=== PATIENT | female | born 1945 | race Caucasian/White ===

== ENCOUNTER 2016-11-11 10:37 | Inpatient (IN) ==
--- NOTE | 2016-11-11 11:10 | Emergency Department Note ---
Disposition Clinical Impression: Elevated troponin UTI (urinary tract infection) Qualifiers: Urinary tract infection type: site unspecified Hematuria presence: without hematuria Qualified Code(s): N39.0 - Urinary tract infection, site not specified Acute on chronic renal failure Qualifiers: Acute renal failure type: unspecified Chronic kidney disease stage: unspecified stage Qualified Code(s): N17.9 - Acute kidney failure, unspecified; N18.9 - Chronic kidney disease, unspecified Disposition: Admitted As Inpatient Condition: Fair Referrals: NONE,PCP [Primary Care Provider] - Forms: Work/School Release, ED Satisfaction Letter Time of Disposition: 13:34 Altered Mental Status HPI - General Chief Complaint: ED Altered Mental Status Stated Complaint: AMS, Missed dialysis, ELENI, Black stools Time Seen by Provider: 11/11/16 10:43 Source: EMS Limitations: altered mental status Nursing Notes Reviewed: Yes Vital Signs Reviewed: Yes - History of Present Illness HPI Narrative: 71 year old female with altered mental status presents via EMS. EMS states that she has missed her dialysis on Thursday and has been decompensating since then and is having incresed abdominal pain and states that there is pain with uriation. She is otherwise altered, can answer yes or no questions and it rolled to her right side. She is a poor historian and cannot offer any other information. She states her nephrolgoist is Dr. Loaiza and that she still does make urine. - Related Data Home Medications Medication Instructions Recorded Confirmed Gabapentin [Neurontin] 300 mg PO BID 11/17/14 11/11/16 Insulin ASPART [NovoLOG] 10 unit SQ TID MDD per sliding 11/17/14 11/11/16 scale Insulin DETEMIR [Levemir] 30 unit SQ BID 11/17/14 11/11/16 Loperamide HCl [Loperamide] 2 mg PO DAILY PRN 07/20/15 11/11/16 Ergocalciferol (VITAMIN D2) 50,000 unit PO MO 11/28/15 11/11/16 [Vitamin D2 (50,000 UNIT)] Paroxetine [Paxil] 20 mg PO DAILY 02/12/16 11/11/16 Clopidogrel [Plavix] 75 mg PO DAILY 04/03/16 11/11/16 Levothyroxine [Synthroid] 175 mcg PO 0630 04/03/16 11/11/16 Lisinopril [Zestril] 20 mg PO DAILY 04/03/16 11/11/16 HYDROcodone/Acet 7.5/325 mg [[place] 1 tab PO Q6H PRN 07/14/16 11/11/16 7.5-325 mg] Calcitriol [Rocaltrol] 0.25 mcg PO MOWEFR 11/11/16 11/11/16 Iron Polysaccharide Complex [Pro 180 mg PO DAILY 11/11/16 11/11/16 Fe] Allergies Allergy/AdvReac Type Severity Reaction Status Date / Time Wruvonu-Xmj-Lct Reductase Allergy See Verified 07/14/16 13:48 Inhibitor Comments [Statins] Sulfa (Sulfonamide Allergy swelling Verified 07/14/16 11:56 Antibiotics) Constitutional: Reports: weakness. Denies: fever, chills, weight change Eyes: Denies: eye pain, eye discharge, vision change ENT ED: Denies: ear pain, throat pain, dental pain, hearing loss, epistaxis, congestion, dysphagia Cardiovascular: Denies: chest pain, palpitations, dyspnea on exertion, edema, syncope Respiratory: Denies: cough, dyspnea, wheezes, hemoptysis, stridor Gastrointestinal: Denies: abdominal pain, vomiting, diarrhea, constipation, hematemesis, melena, hematochezia Genitourinary: Reports: dysuria. Denies: frequency, hematuria, discharge Musculoskeletal: Denies: back pain, neck pain, arthralgia, myalgia Integumentary: Denies: rash, abrasion, lesions Neurological: Denies: headache, weakness, numbness, paresthesias, confusion, abnormal gait, vertigo Psychiatric: Denies: anxiety, depression, suicidal thoughts, homicidal thoughts , auditory hallucinations, visual hallucinations Endocrine: Denies: fatigue Hematological/Lymphatic: Denies: easy bleeding, easy bruising Allergic/Immunologic: Denies: facial swelling, urticaria Past Medical History - Past Medical History Medical history: Reports: atrial fibrillation, CHF, COPD, diabetes, GERD, hyperlipidemia, hypertension, kidney stones, renal disease, thyroid disease, syncope Surgical history: Reports: appendectomy, carotid endarterectomy, cholecystectomy , hysterectomy, knee replacement, ALEC/BSO, other Psychiatric history: Reports: depression - Social History Smoking Status: Unknown if ever smoked Smokeless Tobacco Status: No Alcohol use: Reports: none Drug use: Reports: none Physical Exam foul/urine smell - General Limitations: altered mental status General appearance: alert - Head Head exam: atraumatic, normocephalic, normal inspection - Eye Eye exam: Present: normal appearance, PERRL, EOMI - Expanded Eye Exam Pupils: Left: reactive - ENT ENT exam: normal exam, normal oropharynx, mucous membranes moist - Expanded ENT Exam External ear exam: Present: normal external inspection Mouth exam: Present: normal external inspection Teeth exam: Present: normal inspection Throat exam: Present: normal inspection - Neck Neck exam: Present: normal inspection, full ROM, trachea midline - Chest Chest inspection: Present: normal inspection, symmetric chest wall rise - Respiratory Respiratory exam: Present: normal lung sounds bilaterally - Cardiovascular Cardiovascular exam: Present: regular rate, normal rhythm, normal heart sounds - Abdominal Exam Abdominal exam: Present: soft, tenderness, normal bowel sounds. Absent: Non- Tender, distention, guarding, rebound, rigidity, Hernadez's sign, Rovsing's sign, tenderness at McBurney's Point Abdominal tenderness: Present: diffuse, mild - Extremities Exam Extremities exam: Present: normal inspection, full ROM. Absent: tenderness, pedal edema - Expanded Upper Extremity Exam Shoulder exam: Present: normal inspection, full ROM Arm exam: Present: normal inspection, full ROM Elbow exam: Present: normal inspection, full ROM Forearm/Wrist exam: Present: normal inspection, full ROM Hand exam: Present: normal inspection, full ROM Vascular exam: Normal: capillary refill, radial pulse - Expanded Lower Extremity Exam Hip/Pelvis exam: Present: normal inspection, full ROM Upper leg exam: Present: normal inspection, full ROM Knee exam: Present: normal inspection, full ROM Lower leg exam: Present: normal inspection, full ROM Ankle exam: Present: normal inspection, full ROM Foot/toe exam: Present: normal inspection, full ROM Neurovascular/Tendon exam: Absent: motor deficit, sensory deficit, tendon deficit - Back Exam Back exam: Present: normal inspection, full ROM. Absent: tenderness - Neurological Exam Neurological exam: Present: alert - Expanded Neurological Exam Speech: Present: fluid speech Cranial nerves: EOM function (II, III, IV, ): Normal, facial palsy (VII): Normal, gag reflex (IX): Normal, tongue deviation (XII): Normal Motor strength - LUE: 4/5 Motor strength - RUE: 4/5 Motor strength - LLE: 4/5 Motor strength - RLE: 4/5 Coma Scale Eye Opening: Spontaneous Coma Scale Motor Response: Obeys Commands Coma Scale Verbal Response: Confused Coma Scale Total: 14 - Psychiatric Psychiatric exam: Present: normal affect, normal mood - Skin Skin exam: Present: warm, dry, intact, normal color Course Course Narrative: we will do altered mental status workup and likelyl admit to medicine, she will need dialysis. - Consultations Consultation #1: discussed case Dr. Oconnor and he has accepted saige ot his resident service. Lianetnet and family are agreeable with plan. Time: 12:55 Vital Signs Temperature 99 F 11/11/16 10:39 Pulse Rate 74 11/11/16 10:39 Respiratory Rate 20 11/11/16 10:39 Blood Pressure 108/51 11/11/16 10:39 O2 Sat by Pulse Oximetry 97 11/11/16 10:39 Temperature 99.6 F 11/11/16 13:27 Pulse Rate 81 11/11/16 13:27 Respiratory Rate 18 11/11/16 13:27 Blood Pressure 132/43 11/11/16 13:27 O2 Sat by Pulse Oximetry 99 11/11/16 13:27 Oxygen Delivery Oxygen Delivery Nasal Cannula Altered Mental Status - Medical Records Medical records reviewed: Yes I reviewed the patient's medical records. - Lab Data Lab results reviewed: Yes I reviewed the patient's lab results. Result diagrams: 11/11/16 11:04 11/11/16 11:00 Lab Results 11/11/16 11/11/16 11/11/16 Range/Units 11:00 11:00 11:00 WBC (4.3-11.1) K/mcL RBC (3.82-4.97) M/mcL Hgb (11.5-15.4) g/dL Hct (35.3-44.9) % MCV (83.0-100.0) fL MCH (28.0-33.3) pg MCHC (31.6-35.5) g/dL RDW (11.5-14.5) % Plt Count (140-400) K/mcL MPV (9.4-12.4) fL Seg Neutrophils % % Band Neutrophils % (0-4) % Lymphocytes % % Monocytes % % Basophils % % Neutrophils # (1.6-8.9) K/mcL Lymphocytes # (0.6-4.6) K/mcL Monocytes # (0.0-1.3) K/mcL Basophils # (0.0-0.2) K/mcL Platelet Estimate (Normal) PT 12.9 H (9.4-12.1) Seconds INR 1.2 APTT 30.8 (26.0-36.0) Seconds Sodium 140 (136-145) mEq/L Potassium 4.5 (3.5-4.5) mEq/L Chloride 111 H (98-109) mEq/L Carbon Dioxide 15 L (19-29) mEq/L BUN 100 H (7-20) mg/dL Creatinine 7.69 H (0.57-1.11) mg/dL Est GFR ( Amer) 6 L (> 60) Est GFR (Non-Af Amer) 5 L (> 60) BUN/Creatinine Ratio 13 (6-26) Glucose 92 (70-99) mg/dL Calculated Osmolality 321 H (280-300) Lactic Acid 0.8 (0.5-2.2) mmol/L Calcium 8.5 L (8.6-10.8) mg/dL Total Bilirubin 0.7 (0.2-1.2) mg/dL Direct Bilirubin 0.3 (0.0-0.5) mg/dL Indirect Bilirubin 0.4 (0.0-1.2) mg/dL AST 14 (5-34) Units/L ALT < 6 (0-55) Units/L Alkaline Phosphatase 84 (38-126) Units/L Ammonia (18-72) mcmol/L Troponin I (0-0.03) ng/mL Serum Total Protein 6.1 (6.0-8.3) g/dL Albumin 2.3 L (3.5-5.0) g/dL Globulin 3.8 H (2.4-3.5) g/dL Albumin/Globulin Ratio 0.6 L (1.1-2.2) Ur Specimen Adequacy Urine Color (Yellow) Urine Clarity (Clear) Urine pH (5.0-8.0) pH Units Ur Specific [place] (1.010-1.025) Urine Protein (Neg-Trace) mg/dL Urine Glucose (UA) (Normal) mg/dL Urine Ketones (Negative) mg/dL Urine Blood (Negative) Urine Nitrite (Negative) Urine Bilirubin (Negative) Urine Urobilinogen (Normal) mg/dL Ur Leukocyte Esterase (Negative) Ur Culture Indicated? (NO) Urine Opiates Screen (Wlikch=678) ng/mL Ur Barbiturates Screen (Tyjaqh=384) ng/mL Ur Phencyclidine Scrn (Cutoff=25) ng/mL Ur Amphetamines Screen (Qqwmkf=7665) ng/mL U Benzodiazepines Scrn (Vtbknu=333) ng/mL Urine Cocaine Screen (Cutoff= 300) ng/mL U Marijuana (THC) Screen (Cutoff = 50) ng/mL Ethyl Alcohol < 10 (0-10) mg/dL Blood Type Antibody Screen Crossmatch 11/11/16 11/11/16 11/11/16 Range/Units 11:00 11:00 11:00 WBC (4.3-11.1) K/mcL RBC (3.82-4.97) M/mcL Hgb (11.5-15.4) g/dL Hct (35.3-44.9) % MCV (83.0-100.0) fL MCH (28.0-33.3) pg MCHC (31.6-35.5) g/dL RDW (11.5-14.5) % Plt Count (140-400) K/mcL MPV (9.4-12.4) fL Seg Neutrophils % % Band Neutrophils % (0-4) % Lymphocytes % % Monocytes % % Basophils % % Neutrophils # (1.6-8.9) K/mcL Lymphocytes # (0.6-4.6) K/mcL Monocytes # (0.0-1.3) K/mcL Basophils # (0.0-0.2) K/mcL Platelet Estimate (Normal) PT (9.4-12.1) Seconds INR APTT (26.0-36.0) Seconds Sodium (136-145) mEq/L Potassium (3.5-4.5) mEq/L Chloride (98-109) mEq/L Carbon Dioxide (19-29) mEq/L BUN (7-20) mg/dL Creatinine (0.57-1.11) mg/dL Est GFR ( Amer) (> 60) Est GFR (Non-Af Amer) (> 60) BUN/Creatinine Ratio (6-26) Glucose (70-99) mg/dL Calculated Osmolality (280-300) Lactic Acid (0.5-2.2) mmol/L Calcium (8.6-10.8) mg/dL Total Bilirubin (0.2-1.2) mg/dL Direct Bilirubin (0.0-0.5) mg/dL Indirect Bilirubin (0.0-1.2) mg/dL AST (5-34) Units/L ALT (0-55) Units/L Alkaline Phosphatase (38-126) Units/L Ammonia 16 L (18-72) mcmol/L Troponin I 0.70 H* (0-0.03) ng/mL Serum Total Protein (6.0-8.3) g/dL Albumin (3.5-5.0) g/dL Globulin (2.4-3.5) g/dL Albumin/Globulin Ratio (1.1-2.2) Ur Specimen Adequacy Urine Color (Yellow) Urine Clarity (Clear) Urine pH (5.0-8.0) pH Units Ur Specific [place] (1.010-1.025) Urine Protein (Neg-Trace) mg/dL Urine Glucose (UA) (Normal) mg/dL Urine Ketones (Negative) mg/dL Urine Blood (Negative) Urine Nitrite (Negative) Urine Bilirubin (Negative) Urine Urobilinogen (Normal) mg/dL Ur Leukocyte Esterase (Negative) Ur Culture Indicated? (NO) Urine Opiates Screen (Luveyk=684) ng/mL Ur Barbiturates Screen (Dzrjtn=673) ng/mL Ur Phencyclidine Scrn (Cutoff=25) ng/mL Ur Amphetamines Screen (Blspbf=0608) ng/mL U Benzodiazepines Scrn (Xavlaw=583) ng/mL Urine Cocaine Screen (Cutoff= 300) ng/mL U Marijuana (THC) Screen (Cutoff = 50) ng/mL Ethyl Alcohol (0-10) mg/dL Blood Type A POSITIVE Antibody Screen NEGATIVE Crossmatch See Detail 11/11/16 11/11/16 11/11/16 Range/Units 11:04 11:31 11:31 WBC 9.7 (4.3-11.1) K/mcL RBC 2.25 L (3.82-4.97) M/mcL Hgb 7.1 L (11.5-15.4) g/dL Hct 22.3 L (35.3-44.9) % MCV 99.1 (83.0-100.0) fL MCH 31.6 (28.0-33.3) pg MCHC 31.8 (31.6-35.5) g/dL RDW 14.2 (11.5-14.5) % Plt Count 105 L (140-400) K/mcL MPV 11.0 (9.4-12.4) fL Seg Neutrophils % 84.0 % Band Neutrophils % 4.0 (0-4) % Lymphocytes % 4.0 % Monocytes % 6.0 % Basophils % 2.0 % Neutrophils # 8.5 (1.6-8.9) K/mcL Lymphocytes # 0.4 L (0.6-4.6) K/mcL Monocytes # 0.6 (0.0-1.3) K/mcL Basophils # 0.2 (0.0-0.2) K/mcL Platelet Estimate Slight Decrease L (Normal) PT (9.4-12.1) Seconds INR APTT (26.0-36.0) Seconds Sodium (136-145) mEq/L Potassium (3.5-4.5) mEq/L Chloride (98-109) mEq/L Carbon Dioxide (19-29) mEq/L BUN (7-20) mg/dL Creatinine (0.57-1.11) mg/dL Est GFR ( Amer) (> 60) Est GFR (Non-Af Amer) (> 60) BUN/Creatinine Ratio (6-26) Glucose (70-99) mg/dL Calculated Osmolality (280-300) Lactic Acid (0.5-2.2) mmol/L Calcium (8.6-10.8) mg/dL Total Bilirubin (0.2-1.2) mg/dL Direct Bilirubin (0.0-0.5) mg/dL Indirect Bilirubin (0.0-1.2) mg/dL AST (5-34) Units/L ALT (0-55) Units/L Alkaline Phosphatase (38-126) Units/L Ammonia (18-72) mcmol/L Troponin I (0-0.03) ng/mL Serum Total Protein (6.0-8.3) g/dL Albumin (3.5-5.0) g/dL Globulin (2.4-3.5) g/dL Albumin/Globulin Ratio (1.1-2.2) Ur Specimen Adequacy Urine Color Red A (Yellow) Urine Clarity Cloudy A (Clear) Urine pH 5.5 (5.0-8.0) pH Units Ur Specific [place] 1.019 (1.010-1.025) Urine Protein >=300 H (Neg-Trace) mg/dL Urine Glucose (UA) 250 H (Normal) mg/dL Urine Ketones Trace H (Negative) mg/dL Urine Blood Large H (Negative) Urine Nitrite Positive A (Negative) Urine Bilirubin Moderate H (Negative) Urine Urobilinogen Normal (Normal) mg/dL Ur Leukocyte Esterase Large H (Negative) Ur Culture Indicated? YES A (NO) Urine Opiates Screen Negative (Uewtge=840) ng/mL Ur Barbiturates Screen Negative (Fueahy=980) ng/mL Ur Phencyclidine Scrn Negative (Cutoff=25) ng/mL Ur Amphetamines Screen Negative (Sayuih=6204) ng/mL U Benzodiazepines Scrn Negative (Tbokcq=076) ng/mL Urine Cocaine Screen Negative (Cutoff= 300) ng/mL U Marijuana (THC) Screen Negative (Cutoff = 50) ng/mL Ethyl Alcohol (0-10) mg/dL Blood Type Antibody Screen Crossmatch - Radiology Data Radiology results reviewed: Yes I reviewed the patient's radiology results. - EKG Data EKG attestation: Yes I reviewed and interpreted this EKG. EKG results narrative: NSR with occassional PVCs with a rate of 76. NO STEMI. nonspecitive ST-T wav abonorliaties. no change from 09/16/16. 1057 TPA Checklist - LKW: 3-4.5 hrs Add. Warnings/Precautions Patient/family understanding: The patient/family members have been counseled and understood the risk, benefit , and alternatives of treatment. Critical Care Time Critical Care Time: Yes Total Critical Care Time: 32 Attestation: The high probability of a clinically significant, sudden or life threatening deterioration of the renal, cardiopulmonary system(s) required my full and direct attention, intervention and personal management. The aggregate critical care time was [32] minutes. This time is in addition to time spent performing reported procedures but includes the following: [x] Data Review and interpretation [x] Patient assessment and monitoring of vital signs [x] Documentation [x] Medication orders and management
[2016-11-11 11:15] LABS: Hematocrit 22.3 % (35.3-44.9); Mean Corpuscular HGB Conc 31.8 g/dL (31.6-35.5); Mean Corpuscular Hemoglobin 31.6 pg (28.0-33.3); Mean Corpuscular Volume 99.1 fL (83.0-100.0); Platelet Count 105 K/mcL (140-400); Red Blood Count 2.25 M/mcL (3.82-4.97); Red Cell Distribution Width 14.2 % (11.5-14.5)
[2016-11-11 11:18] LABS: Hemoglobin 7.1 g/dL (11.5-15.4)
[2016-11-11 11:20] LABS: INR 1.2; Prothrombin Time 12.9 Seconds (9.4-12.1)
[2016-11-11 11:22] LABS: Activated Partial Thrombo Time 30.8 Seconds (26.0-36.0)
[2016-11-11 11:32] LABS: Albumin 2.3 g/dL (3.5-5.0); Albumin/Globulin Ratio 0.6 (1.1-2.2); Alkaline Phosphatase 84 Units/L (38-126); Aspartate Amino Transferase 14 Units/L (5-34); BUN/Creatinine Ratio 13 (6-26); Bilirubin,Direct 0.3 mg/dL (0.0-0.5); Bilirubin,Indirect 0.4 mg/dL (0.0-1.2); Bilirubin,Total 0.7 mg/dL (0.2-1.2); Blood Urea Nitrogen 100 mg/dL (7-20); Calcium 8.5 mg/dL (8.6-10.8); Carbon Dioxide 15 mEq/L (19-29); Chloride 111 mEq/L (98-109); Globulin 3.8 g/dL (2.4-3.5); Glucose 92 mg/dL (70-99); Osmolality,Calculated 321 (280-300); Potassium 4.5 mEq/L (3.5-4.5); Sodium 140 mEq/L (136-145); Total Protein 6.1 g/dL (6.0-8.3); eGFR For African Americans 6 (> 60); eGFR For Non-African Americans 5 (> 60)
[2016-11-11 11:34] LABS: Alanine Aminotransferase < 6 Units/L (0-55); Ethanol < 10 mg/dL (0-10)
[2016-11-11 11:44] LABS: Basophils # 0.2 K/mcL (0.0-0.2); Lymphocytes # 0.4 K/mcL (0.6-4.6); Monocytes # 0.6 K/mcL (0.0-1.3); Neutrophils # 8.5 K/mcL (1.6-8.9); Platelet Estimate Slight Decrease (Normal)
[2016-11-11 11:59] LABS: Bilirubin,Urine Moderate (Negative); Blood,Urine Large (Negative); Clarity,Urine Cloudy (Clear); Color,Urine Red (Yellow); Glucose,Urine (UA) 250 mg/dL (Normal); Ketones,Urine Trace mg/dL (Negative); Leukocyte Esterase,Urine Large (Negative); Nitrite,Urine Positive (Negative); PH,Urine 5.5 pH Units (5.0-8.0); Protein,Urine >=300 mg/dL (Neg-Trace); Specific Gravity,Urine 1.019 (1.010-1.025); Urobilinogen,Urine Normal (Normal)
[2016-11-11] MEDS ORDERED: 0.9 % Sodium Chloride 250 ML ONE ×2 (12:34→17:13)
[2016-11-11 12:38] LABS: Amphetamine Screen,Urine Negative ng/mL (Cutoff=1000); Barbiturate Screen,Urine Negative ng/mL (Cutoff=200); Benzodiazepines Screen,Urine Negative ng/mL (Cutoff=200); Cannabinoid Screen,Urine Negative ng/mL (Cutoff = 50); Cocaine Screen,Urine Negative ng/mL (Cutoff= 300); Opiate Screen,Urine Negative ng/mL (Cutoff=300); Phencyclidine Screen,Urine Negative ng/mL (Cutoff=25)
--- NOTE | 2016-11-11 14:00 | Nephrology Consult Note ---
Date of Encounter: 11/11/16 Time of Encounter: 13:57 Assessment and Plan (1) ESRD on hemodialysis Current Visit: No Status: Acute Urgent dialysis today If unable to use access will need a temp line placed Plan for HD again tomorrow Renal diet Strict I/Os Avoid nephrotoxins if possible (2) Altered mental status Current Visit: Yes Status: Acute see above Hopefully mental state with improve with dialysis Qualifiers: Altered mental status type: somnolence Qualified Code(s): R40.0 - Somnolence (3) Diarrhea Current Visit: Yes Status: Acute per primary team Consider GI consult Qualifiers: Diarrhea type: unspecified type Qualified Code(s): R19.7 - Diarrhea, unspecified History of Present Illness - Reason for Consult Consult date: 11/11/16 - Chief Complaint AMS, ESRD on dialysis - History of Present Illness Dai Bernal is a 71 year old female well known to our practice with a PMH of depression, atrial fibrillation, CHF, COPD, diabetes, GERD, hyperlipidemia, hypertension, kidney stones, renal disease, thyroid disease, and syncope. Patient often misses dialysis treatments and her last HD tx was on 11/03/16. Patient will not answer questions or open her eyes. Family states she has had freq black watery diarrhea but does not believe she has seen a GI doctor for this. Also some question re: whether or not her access is working. Nephrology has been consulted to manage her HD. Past Med Surg Social Fam HX - Past Medical History Medical history: atrial fibrillation, CHF, COPD, diabetes, GERD, hyperlipidemia , hypertension, kidney stones, renal disease, thyroid disease, syncope Psychiatric history: depression - Past Surgical History Surgical History: appendectomy, carotid endarterectomy, cholecystectomy, hysterectomy, knee replacement, ALEC/BSO, other - Social History Smoking Status: Unknown if ever smoked Smokeless Tobacco Status: No Alcohol use: none Drug use: none - Family History Father Family Member Ethnicity: Non- Living Status: Hx Family Cardiac Disorders: Yes Hx Family Respiratory Disorders: No Hx Family Cancer: No Hx Family GI Disorders: No Hx Family Endocrine Disorder: No Hx Family Neuromuscular Disorders: No Hx Family Neurologic Disorders: No Hx Family HEENT Disorders: No Hx Family Autoimmune Disorders: No Medications and Allergies Gabapentin [Neurontin] 300 mg PO BID 11/17/14 [History] Insulin ASPART [NovoLOG] 10 unit SQ TID MDD per sliding scale 11/17/14 [History] Insulin DETEMIR [Levemir] 30 unit SQ BID 11/17/14 [History] Loperamide HCl [Loperamide] 2 mg PO DAILY PRN 07/20/15 [History] Ergocalciferol (VITAMIN D2) [Vitamin D2 (50,000 UNIT)] 50,000 unit PO MO [History] Paroxetine [Paxil] 20 mg PO DAILY 02/12/16 [History] Clopidogrel [Plavix] 75 mg PO DAILY 04/03/16 [History] Levothyroxine [Synthroid] 175 mcg PO 0630 04/03/16 [History] Lisinopril [Zestril] 20 mg PO DAILY 04/03/16 [History] HYDROcodone/Acet 7.5/325 mg [[place] 7.5-325 mg] 1 tab PO Q6H PRN 07/14/16 [ History] Calcitriol [Rocaltrol] 0.25 mcg PO MOWEFR 11/11/16 [History] Iron Polysaccharide Complex [Pro Fe] 180 mg PO DAILY 11/11/16 [History] 3 Allergy/AdvReac Type Severity Reaction Status Date / Time Myzentp-Vtn-Jci Reductase Allergy See Verified 07/14/16 13:48 Inhibitor Comments [Statins] Sulfa (Sulfonamide Allergy swelling Verified 07/14/16 11:56 Antibiotics) Review of Systems All Systems: reviewed and no additional remarkable complaints except as stated Constitutional: lethargy, malaise, no fever(s) Cardiovascular: leg edema, no chest pain Gastrointestinal: change in bowel habits, change in stool character, diarrhea Neurological: behavioral changes, confusion Exam - Vital Signs Vital signs: Initial Vital Signs Temp Pulse Resp BP Pulse Ox 99 F 74 20 108/51 97 11/11/16 10:39 11/11/16 10:39 11/11/16 10:39 11/11/16 10:39 11/11/16 10:39 Vital Signs - Last 8 Hours Temp Pulse Resp BP Pulse Ox 11/11/16 13:27 99.6 F 81 18 132/43 99 11/11/16 13:12 97.7 F 77 16 155/55 99 11/11/16 12:09 83 16 151/60 99 11/11/16 10:39 99 F 74 20 108/51 97 Intake and Output 11/10/16 11/11/16 11/11/16 23:59 07:59 15:59 Intake Total 350 / 350 Balance 350 / 350 Intake: Blood Product 350 / 350 Rbcs Leuko Poor As-1 350 / 350 Unit [id number] Other: Weight 79.379 kg Blood Glucose* 100 Patient Weight 11/11/16 23:59 Weight 79.379 kg - General Appearance General appearance: obese, chronically ill EENT: ATNC Neck: supple Respiratory: clear (decreased throughout) Cardiology: edema, normal S1, normal S2 - Dialysis Access Dialysis Vascular Access: Arteriovenous Fistula Gastrointestinal: no tenderness, no guarding Integumentary: warm and dry Neurologic: obtunded Results - Lab Results 11/11/16 11:04 11/11/16 11:00 Most recent lab results Calcium 8.5 mg/dL (8.6-10.8) L 11/11/16 11:00 Consult Discharge Plan - Plan Referrals: NONE,PCP [Primary Care Provider] -
[2016-11-11] MEDS ORDERED: Naloxone 0.4 MG/ML INJ IVP PRN (14:08)
--- NOTE | 2016-11-11 14:08 | Internal Med History&Physical ---
Date of Encounter: 11/11/16 Time of Encounter: 14:07 Assessment and Plan (1) Altered mental status Current visit: Yes Status: Acute Altered mental status: Patient had altered mental status likely secondary to metabolic encephalopathy. Metabolic encephalopathy is likely secondary to noncompliance with the hemodialysis/possible GI bleed/infective etiology cannot be ruled out. Plan: -Admitted as an inpatient: Metabolic encephalopathy/GI bleed/ -Spoke to nephrology: Possible hemodialysis today/tomorrow. - Nephrology input appreciated. -As per nephrology, there is a possibility of a infective component along with the metabolic and neuropathy. -Patient has a fistula on the right arm. -IV fluids/dialysis management as per nephrology. -She will be going for a fistulogram tomorrow as scheduled. -Gastroenterology contacted. -Patient has a stool occult blood positive. -We will start IV PPI drip continuous, 8 mg per hour. -Nothing by mouth from now and patient will go for EGD tomorrow morning. -The reason for nothing by mouth is altered mental status and prevent aspiration. -Neurology was contacted. -Case discussed at length and related to concerns of nephrology in terms of infective component for altered mental status. -Neurology recommended MRI brain/EEG. -Neurology will review case tomorrow. Qualifiers: Altered mental status type: somnolence Qualified Code(s): R40.0 - Somnolence (2) Hypertension Current visit: No Status: Chronic Patient's blood pressure is within acceptable range and we will continue to monitor very closely. Qualifiers: Hypertension type: essential hypertension Qualified Code(s): I10 - Essential (primary) hypertension (3) Hypothyroidism Current visit: No Status: Chronic On replacement medication. Qualifiers: Hypothyroidism type: unspecified Qualified Code(s): E03.9 - Hypothyroidism , unspecified (4) Diarrhea Current visit: Yes Status: Acute Stool occult blood positive please see above Qualifiers: Diarrhea type: unspecified type Qualified Code(s): R19.7 - Diarrhea, unspecified (5) Insulin dependent diabetes mellitus Current visit: No Status: Chronic In view of altered mental status, we will hold insulin, we will check CBG every 6 hours. In this case hypoglycemia is a concern and permissive hyperglycemia is accepted. We will hold insulin at this point (6) DVT prophylaxis Current visit: No Status: Acute In view of GI bleed there will not be any pharmacological DVT prophylaxis. SCD provided. Medical decision making: Patient has moderate to severe risk of worsening in spite of being treated with appropriate medication due to the severe underlying noncompliance with the dialysis. Internal Medicine - H&P: HPI Chief complaint: Altered mental status Admitted From: Emergency Dept Plans for Post Hospital Care: Home History of present illness: PCP: Juany Nephrology: Dr. Metzger Brief past medical history:atrial fibrillation, CHF, COPD, diabetes, GERD, hyperlipidemia, hypertension, kidney stones, renal disease, thyroid disease, syncope in the past, End-stage renal disease on her dialysis via fistula in the right arm. History of present illness: Patient is known to have a end-stage renal disease and she is on her dialysis on a Thursday. Patient did not go for dialysis for past 2 weeks. Patient was progressively lethargic and was disoriented for last 4-5 days. In last 48 hours patient was gradually worsening in terms of her mentation. And last well hours patient had a profuse diarrhea and change in her mental status. Patient was brought to the emergency department by patient's sister. Patient is alert and oriented 2 and is not a good historian. The history was gathered from the patient's sister who was at bedside. Workup in the emergency room: Patient was evaluated in the emergency room. CT scan of the head was done which was negative for any acute intracranial event. CT scan of the abdomen was done which was suggestive of emphysematous cystitis. Hospitalist was called for possible inpatient admission. Noted that patient has a drop in the hemoglobin. She was getting blood transfusion in the emergency room. Reason for hospitalization: Altered mental status likely secondary to noncompliance with the hemodialysis, metabolic enthesopathy, possible GI bleed. Family history: Noncontributory Past Med Surg Social Fam HX - Past Medical History Medical history: atrial fibrillation, CHF, COPD, diabetes, GERD, hyperlipidemia , hypertension, kidney stones, renal disease, thyroid disease, syncope Psychiatric history: depression - Past Surgical History Surgical History: appendectomy, carotid endarterectomy, cholecystectomy, hysterectomy, knee replacement, ALEC/BSO, other - Social History Smoking Status: Unknown if ever smoked Smokeless Tobacco Status: No Alcohol use: none Drug use: none - Family History Father Family Member Ethnicity: Non- Living Status: Hx Family Cardiac Disorders: Yes Hx Family Respiratory Disorders: No Hx Family Cancer: No Hx Family GI Disorders: No Hx Family Endocrine Disorder: No Hx Family Neuromuscular Disorders: No Hx Family Neurologic Disorders: No Hx Family HEENT Disorders: No Hx Family Autoimmune Disorders: No Internal Medicine - H&P: Meds Gabapentin [Neurontin] 300 mg PO BID 11/17/14 [History] Insulin ASPART [NovoLOG] 10 unit SQ TID MDD per sliding scale 11/17/14 [History] Insulin DETEMIR [Levemir] 30 unit SQ BID 11/17/14 [History] Loperamide HCl [Loperamide] 2 mg PO DAILY PRN 07/20/15 [History] Ergocalciferol (VITAMIN D2) [Vitamin D2 (50,000 UNIT)] 50,000 unit PO MO [History] Paroxetine [Paxil] 20 mg PO DAILY 02/12/16 [History] Clopidogrel [Plavix] 75 mg PO DAILY 04/03/16 [History] Levothyroxine [Synthroid] 175 mcg PO 0630 04/03/16 [History] Lisinopril [Zestril] 20 mg PO DAILY 04/03/16 [History] HYDROcodone/Acet 7.5/325 mg [[place] 7.5-325 mg] 1 tab PO Q6H PRN 07/14/16 [ History] Calcitriol [Rocaltrol] 0.25 mcg PO MOWEFR 11/11/16 [History] Iron Polysaccharide Complex [Pro Fe] 180 mg PO DAILY 11/11/16 [History] 3 Allergy/AdvReac Type Severity Reaction Status Date / Time Acekjfv-Isv-Hdh Reductase Allergy See Verified 07/14/16 13:48 Inhibitor Comments [Statins] Sulfa (Sulfonamide Allergy swelling Verified 07/14/16 11:56 Antibiotics) ROS unobtainable: due to mental status All Systems PM: A 10-system review of systems was performed and is negative for pertinent findings except as documented above in the HPI. - Constitutional Vitals: Temp Pulse Resp BP Pulse Ox 99.6 F 81 18 132/43 99 11/11/16 13:27 11/11/16 13:27 11/11/16 13:27 11/11/16 13:27 11/11/16 13:27 General appearance: Present: A&O X 1, A&O X 2 - Head Head exam: Present: atraumatic, normocephalic - Eye Eye exam: Present: PERRL, conjuntiva pink, sclera anicteric Pupils: Present: PERRL - Neck Neck exam general surgery: Present: supple, trachea midline. Absent: lymphadenopathy - Respiratory Respiratory exam: Present: CTAB. Absent: accessory muscle use, rales, rhonchi, wheezes - Cardiovascular Cardiovascular exam: Present: RRR, +S1, +S2. Absent: diastolic murmur, gallop, rubs, systolic murmur - GI/Abdominal GI/Abdominal exam: Present: normal bowel sounds, soft, no peritoneal signs. Absent: distended, tenderness - Extremities Exam Extremities exam: Present: warm, radial pulses palpable and symmetrical. Absent : calf tenderness, cyanotic, pedal edema - Neurological Exam Neurological exam: Present: CN II-XII intact, oriented X3, no focal deficits. Absent: pronater drift, facial droop, speech deficit - Skin Skin exam: Present: dry, intact Internal Med - H&P Results - Labs CBC & Chem 7: 11/11/16 11:04 11/11/16 11:00 Labs: Short CBC 11/11/16 Range/Units 11:04 WBC 9.7 (4.3-11.1) K/mcL Hgb 7.1 L (11.5-15.4) g/dL Hct 22.3 L (35.3-44.9) % Plt Count 105 L (140-400) K/mcL Neutrophils # 8.5 (1.6-8.9) K/mcL BMP 11/11/16 11:00 Sodium 140 Potassium 4.5 Chloride 111 H Carbon Dioxide 15 L BUN 100 H Creatinine 7.69 H Glucose 92 Calcium 8.5 L Cardiac Enzymes 11/11/16 Range/Units 11:00 Troponin I 0.70 H* (0-0.03) ng/mL Liver Function 11/11/16 Range/Units 11:00 Total Bilirubin 0.7 (0.2-1.2) mg/dL Direct Bilirubin 0.3 (0.0-0.5) mg/dL AST 14 (5-34) Units/L ALT < 6 (0-55) Units/L Alkaline Phosphatase 84 (38-126) Units/L Albumin 2.3 L (3.5-5.0) g/dL Urine 11/11/16 Range/Units 11:31 Urine Color Red A (Yellow) Urine Clarity Cloudy A (Clear) Urine pH 5.5 (5.0-8.0) pH Units Ur Specific [place] 1.019 (1.010-1.025) Urine Protein >=300 H (Neg-Trace) mg/dL Urine Glucose (UA) 250 H (Normal) mg/dL - Impressions ITS Impressions Chest X-Ray 11/11/16 10:43 IMPRESSION: Mild cardiomegaly without failure. No acute cardiopulmonary abnormality. D/ / Vivek Schaffer MD / Vivek Schaffer MD Interpreting Provider: Vivek Schaffer MD Head CT 11/11/16 10:44 IMPRESSION: No acute intracranial abnormality. Diffuse atrophic changes with findings suggesting chronic microvascular ischemia D/ / Abbe Carnes MD / Abbe Carnes MD Interpreting Provider: Abbe Carnes MD Abdomen/Pelvis CT 11/11/16 11:24 IMPRESSION: 1. 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 Large amount of gas within the bladder lumen. Resultant bilateral hydronephrosis. 2. Nonobstructive bilateral nephrolithiasis. 3. Small quantity of perihepatic ascites. Small pericardial effusion. Small partially loculated right pleural effusion. 4. Moderate aortoiliac plaque disease without aneurysm. D/ / 11/11/2016 13:25:49 Antelmo Garner MD / tl Interpreting Provider: Antelmo Garner MD
[2016-11-11] MEDS ORDERED: Insulin LISPRO 300 UNITS/3 ML VIAL SQ SCH (16:30)
[2016-11-11] MEDS ORDERED: 0.9 % Sodium Chloride 1,000 ML PRIME SCH (17:30)
[2016-11-11] MEDS ORDERED: 0.9 % Sodium Chloride 250 ML IVC PRN (17:30)
[2016-11-11 18:55] LABS: Hepatitis B Surface Antigen Nonreactive (Nonreactive)
[2016-11-11] MEDS ORDERED: *HR* Dextrose 50 % in Water (Syg) 50 ML SYRINGE IVP PRN (19:24)
[2016-11-11] MEDS ORDERED: D5% in Water 1,000 ML IVC PRN (19:24)
[2016-11-11] MEDS ORDERED: Dextrose Gel 15 GM PO PRN ×2 (19:24)
[2016-11-11] MEDS ORDERED: Levofloxacin 500 MG/100 ML 500 MG/100 ML BAG IVPB SCH (20:00)
[2016-11-11] MEDS ORDERED: Vancomycin 1,250 MG in D5% in Water 250 ML IVPB SCH (20:00)
[2016-11-11] MEDS ORDERED: Vancomycin 1,250 MG in D5% in Water 250 ML IVPB ONE (21:00)
[2016-11-11] MEDS ORDERED: Insulin DETEMIR 100 UNIT/ML X5UNITS SQ SCH (21:00)
[2016-11-12] MEDS ORDERED: Piperacillin/Tazobactam 3.375 GM in D5% in Water (Mini-Bag+) 100 ML IVPB SCH
[2016-11-12] MEDS: MetroNIDAZOLE 500 MG/100 ML 500 MG/100 ML BAG IVPB SCH ×3 (00:02→15:19)
[2016-11-12] MEDS ORDERED: *HR* Morphine 2 MG/ML SYRINGE IVP ONE ×2 (00:35→20:31)
[2016-11-12 01:40] LABS: Albumin/Globulin Ratio 0.6 (1.1-2.2); Bilirubin,Total 0.9 mg/dL (0.2-1.2); Calcium 8.3 mg/dL (8.6-10.8); Chol/HDL Ratio 5.2 (0-4.9); Globulin 3.5 g/dL (2.4-3.5); Magnesium 1.7 mg/dL (1.6-2.6); Phosphorous 5.3 mg/dL (2.3-4.7); Potassium 4.9 mEq/L (3.5-4.5); Total Protein 5.5 g/dL (6.0-8.3)
[2016-11-12] MEDS: Pantoprazole 40 MG in 0.9 % Sodium Chloride Mini Bag 100 ML IVC SCH ×3 (02:53→15:33)
[2016-11-12 04:03] LABS: Basophils % 0.4 %; Eosinophils % 0.2 %; Hematocrit 28.8 % (35.3-44.9); Hemoglobin 9.5 g/dL (11.5-15.4); Immature Granulocytes % 0.3 % (0-4); Immature Platelets 2.7 % (1.1-6.1); Lymphocytes # 0.6 K/mcL (0.6-4.6); Lymphocytes % 5.2 %; Mean Corpuscular Hemoglobin 31.1 pg (28.0-33.3); Mean Corpuscular Volume 94.4 fL (83.0-100.0); Monocytes # 0.5 K/mcL (0.0-1.3); Neutrophils # 10.2 K/mcL (1.6-8.9); Platelet Count 103 K/mcL (140-400); Red Blood Count 3.05 M/mcL (3.82-4.97); Red Cell Distribution Width 15.7 % (11.5-14.5); Segmented Neutrophils % 89.9 %
[2016-11-12] MEDS: Insulin LISPRO 300 UNITS/3 ML VIAL SQ SCH ×4 (05:58→18:08)
[2016-11-12] MEDS ORDERED: 0.9 % Sodium Chloride 250 ML IVC PRN (08:04)
[2016-11-12] MEDS ORDERED: 0.9 % Sodium Chloride 1,000 ML PRIME SCH (08:15)
[2016-11-12] MEDS ORDERED: 0.9 % Sodium Chloride 2,000 ML ONE (08:54)
--- NOTE | 2016-11-12 10:07 | Neurology - Consult Note ---
Date of Encounter: 11/12/16 Time of Encounter: 08:05 Assessment and Plan (1) Encephalopathy due to metabolic factor or toxin Current Visit: Yes Status: Acute This patient's symptoms seems to be related to metabolic toxic encephalopathy she did have chronic renal failure is not able to get dialysis for a few days and at the same time she also has profuse diarrhea and not able to eat or drink much. At the moment she seems to be oriented and following commands but other times she was noted to be having fluctuating mental status which is likely related to hypoperfusion. No focal deficit noted on neurological examination to be suggestive of acute stroke she already had a CT scan of the head that was reported as negative. At the same time no evidence of any VISITOR SERVICES ASSISTANT infection on her current neurological examination or the labs. EEG has been ordered to rule out any interictal abnormalities particularly about his fluctuating confusion which I suspect again is likely related to her overall metabolic condition. She is scheduled for dialysis today as she was not able to do it last night due to low blood pressure which is again main contributing factor to her mental status changes. At this time I would suggest that we should treat the underlying causes of her mental status that will improve her mentation as it seems to be a precipitating factor (2) End stage chronic kidney disease Current Visit: No Status: Acute (3) Renal failure treated with peritoneal dialysis Current Visit: No Status: Acute (4) Diarrhea Current Visit: Yes Status: Acute Qualifiers: Diarrhea type: unspecified type Qualified Code(s): R19.7 - Diarrhea, unspecified History of Present Illness HPI: Ms. Bernal is a 71 year old female with end-stage renal disease and she is on her dialysis on a Thursday. Patient did not go for dialysis for past 2 weeks. Patient was progressively lethargic and was disoriented for last 4-5 days. In last 48 hours patient was gradually worsening in terms of her mentation. And last well hours patient had a profuse diarrhea and not able to eat or drink much, Patient was brought to the emergency department by patient's sister. The history was obtained from her daughter, who is at bedside. Past Med Surg Social Fam HX - Past Medical History Medical history: atrial fibrillation, CHF, COPD, diabetes, GERD, hyperlipidemia , hypertension, kidney stones, renal disease, thyroid disease, syncope Psychiatric history: depression - Past Surgical History Surgical History: appendectomy, carotid endarterectomy, cholecystectomy, hysterectomy, knee replacement, ALEC/BSO, other - Social History Smoking Status: Unknown if ever smoked Smokeless Tobacco Status: No Alcohol use: none Drug use: none - Family History Father History Unknown: Yes Family Member Ethnicity: Non- Living Status: Hx Family Cardiac Disorders: Yes Hx Family Respiratory Disorders: No Hx Family Cancer: No Hx Family GI Disorders: No Hx Family Endocrine Disorder: No Hx Family Neuromuscular Disorders: No Hx Family Neurologic Disorders: No Hx Family HEENT Disorders: No Hx Family Autoimmune Disorders: No Medications and Allergies Gabapentin [Neurontin] 300 mg PO BID 11/17/14 [History] Insulin ASPART [NovoLOG] 10 unit SQ TID MDD per sliding scale 11/17/14 [History] Insulin DETEMIR [Levemir] 30 unit SQ BID 11/17/14 [History] Loperamide HCl [Loperamide] 2 mg PO DAILY PRN 07/20/15 [History] Ergocalciferol (VITAMIN D2) [Vitamin D2 (50,000 UNIT)] 50,000 unit PO MO [History] Paroxetine [Paxil] 20 mg PO DAILY 02/12/16 [History] Clopidogrel [Plavix] 75 mg PO DAILY 04/03/16 [History] Levothyroxine [Synthroid] 175 mcg PO 0630 04/03/16 [History] Lisinopril [Zestril] 20 mg PO DAILY 04/03/16 [History] HYDROcodone/Acet 7.5/325 mg [[place] 7.5-325 mg] 1 tab PO Q6H PRN 07/14/16 [ History] Calcitriol [Rocaltrol] 0.25 mcg PO MOWEFR 11/11/16 [History] Iron Polysaccharide Complex [Pro Fe] 180 mg PO DAILY 11/11/16 [History] 3 Allergy/AdvReac Type Severity Reaction Status Date / Time Ygqchgy-[id number]-Vtt Reductase Allergy See Verified 07/14/16 13:48 Inhibitor Comments [Statins] Sulfa (Sulfonamide Allergy swelling Verified 07/14/16 11:56 Antibiotics) All Systems: A 10-system review of systems was performed and is negative for pertinent findings except as documented above in the HPI. 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 flexors, tibialis Anterior, quadriceps, toe extension (EHL), plantarflexion Motor examination - left side: 3: deltoids, biceps, triceps, wrist flexion, wrist extension, 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 flexors, 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, quadriceps, tibialis Anterior, toe extension (EHL), plantarflexion Detailed sensory examination: intact Reflexes: Biceps: 1+, Triceps: 1+, Brachioradialis: 1+, Patella: 1+, Achilles: 1 + Mental Status Examination: awake, oriented to person, answers questions appropriately, follows simple commands, localizes noxious stimulation Cranial nerve examination: PERRL, EOMI, visual orellana intact, sensory to face intact, no facial asymmetry is present, no dysarthria ([pt is very weak all over though no focal motor weakness noted, she has generalised weakness) Results - Laboratory Findings CBC and BMP: 11/12/16 02:08 11/12/16 01:13 Abnormal lab findings: Abnormal lab results WBC 11.4 K/mcL (4.3-11.1) H 11/12/16 02:08 RBC 3.05 M/mcL (3.82-4.97) L 11/12/16 02:08 Hgb 9.5 g/dL (11.5-15.4) L D 11/12/16 02:08 Hct 28.8 % (35.3-44.9) L 11/12/16 02:08 RDW 15.7 % (11.5-14.5) H 11/12/16 02:08 Plt Count 103 K/mcL (140-400) L 11/12/16 02:08 Neutrophils # 10.2 K/mcL (1.6-8.9) H 11/12/16 02:08 Platelet Estimate Slight Decrease (Normal) L 11/11/16 11:04 PT 12.9 Seconds (9.4-12.1) H 11/11/16 11:00 Potassium 4.9 mEq/L (3.5-4.5) H 11/12/16 01:13 Carbon Dioxide 15 mEq/L (19-29) L 11/12/16 01:13 BUN 74 mg/dL (7-20) H D 11/12/16 01:13 Creatinine 5.82 mg/dL (0.57-1.11) H 11/12/16 01:13 Est GFR ( Amer) 9 (> 60) L 11/12/16 01:13 Est GFR (Non-Af Amer) 7 (> 60) L 11/12/16 01:13 Glucose 188 mg/dL (70-99) H 11/12/16 01:13 POC Glucose 120 (58-89) H 11/11/16 16:15 Calculated Osmolality 309 (280-300) H 11/12/16 01:13 Calcium 8.3 mg/dL (8.6-10.8) L 11/12/16 01:13 Phosphorus 5.3 mg/dL (2.3-4.7) H 11/12/16 01:13 Ammonia 16 mcmol/L (18-72) L 11/11/16 11:00 Troponin I 0.51 ng/mL (0-0.03) H* 11/12/16 01:13 Serum Total Protein 5.5 g/dL (6.0-8.3) L 11/12/16 01:13 Albumin 2.0 g/dL (3.5-5.0) L 11/12/16 01:13 Albumin/Globulin Ratio 0.6 (1.1-2.2) L 11/12/16 01:13 HDL Cholesterol 19 mg/dL (40-59) L 11/12/16 01:13 Cholesterol/HDL Ratio 5.2 (0-4.9) H 11/12/16 01:13 Urine Color Red (Yellow) A 11/11/16 11:31 Urine Clarity Cloudy (Clear) A 11/11/16 11:31 Urine Protein >=300 mg/dL (Neg-Trace) H 11/11/16 11:31 Urine Glucose (UA) 250 mg/dL (Normal) H 11/11/16 11:31 Urine Ketones Trace mg/dL (Negative) H 11/11/16 11:31 Urine Blood Large (Negative) H 11/11/16 11:31 Urine Nitrite Positive (Negative) A 11/11/16 11:31 Urine Bilirubin Moderate (Negative) H 11/11/16 11:31 Ur Leukocyte Esterase Large (Negative) H 11/11/16 11:31 Ur Culture Indicated? YES (NO) A 11/11/16 11:31 Stool Occult Blood Positive (Negative) A 11/11/16 16:24 - Diagnostic Findings Additional findings: CT head is negative Consult Discharge Plan - Plan Referrals: Moncho Arambula [Other] (This is his new location in with [facility] across from [facility] [place]
--- NOTE | 2016-11-12 10:37 | Internal Med Progress Note ---
Date of Encounter: 11/12/16 Time of Encounter: 10:34 - Assessment and plan (1) Metabolic encephalopathy Current Visit: Yes Status: Acute Assessment and plan: Likely secondary to infection in combination of uremia. We will continue broad-spectrum IV antibiotics. Check stool GI panel. Follow- up with nephrology regarding hemodialysis today. (2) DM2 (diabetes mellitus, type 2) Current Visit: No Status: Acute Assessment and plan: Insulin sliding scale and blood glucose fingerstick every 6 hours. Qualifiers: Diabetes mellitus complication status: without complication Diabetes mellitus skilled nursing insulin use: with skilled nursing use Qualified Code(s): E11.9 - Type 2 diabetes mellitus without complications; Z79.4 - jail (current) use of insulin (3) ESRD on hemodialysis Current Visit: No Status: Acute Assessment and plan: Hemodialysis scheduled for today through a right upper extremity AV fistula. Appreciate nephrology recommendations. (4) UTI (urinary tract infection) Current Visit: Yes Status: Acute Assessment and plan: Continue with broad-spectrum IV antibiotics. Follow-up urine culture and sensitivity. Qualifiers: Urinary tract infection type: acute cystitis Hematuria presence: with hematuria Qualified Code(s): N30.01 - Acute cystitis with hematuria (5) Diarrhea Current Visit: Yes Status: Acute Assessment and plan: I am concerned of infectious diarrhea. We will obtain a stool GI infection panel. Qualifiers: Diarrhea type: unspecified type Qualified Code(s): R19.7 - Diarrhea, unspecified (6) Anemia in chronic renal disease Current Visit: Yes Status: Acute Assessment and plan: Status post transfusion with appropriate response. Continue to monitor. Follow -up with GI. Qualifiers: Chronic kidney disease stage: on chronic dialysis Qualified Code(s): N18.6 - End stage renal disease; D63.1 - Anemia in chronic kidney disease; Z99.2 - Dependence on renal dialysis (7) Elevated troponin Current Visit: Yes Status: Acute Assessment and plan: Flat and adynamic profile, likely related to end-stage renal disease. - Subjective Interval history: Patient cannot provide history due to altered mental status. History is obtained from the patient's daughter at the bedside. The patient has been more confused, generally weak and has had large amounts and multiple episodes of diarrhea over the last 1 week to 10 days which is described as liquid, dark, foul-smelling. - Constitutional Vitals: Temp Pulse Resp BP Pulse Ox 100.6 F H 79 18 131/54 95 11/12/16 07:12 11/12/16 07:12 11/12/16 07:12 11/12/16 07:12 11/12/16 07:12 General appearance: Present: A&O X 1 (Obtunded) - Eye Eye exam: Present: PERRL, conjuntiva pink, sclera anicteric Pupils: Present: PERRL - Respiratory Respiratory exam: Present: decreased breath sounds. Absent: accessory muscle use, rales, rhonchi, wheezes - Cardiovascular Cardiovascular exam: Present: RRR, +S1, +S2. Absent: diastolic murmur, gallop, rubs, systolic murmur - GI/Abdominal GI/Abdominal exam: Present: normal bowel sounds, soft, tenderness (Distended and tender to palpation), no peritoneal signs. Absent: distended - Extremities Exam Extremities exam: Present: pedal edema, warm, radial pulses palpable and symmetrical. Absent: calf tenderness, cyanotic - Skin Skin exam: Present: dry, intact Internal Medicine: Result - Labs CBC & Chem 7: 11/12/16 02:08 11/12/16 01:13 Labs: Short CBC 11/12/16 Range/Units 02:08 WBC 11.4 H (4.3-11.1) K/mcL Hgb 9.5 L D (11.5-15.4) g/dL Hct 28.8 L (35.3-44.9) % Plt Count 103 L (140-400) K/mcL Neutrophils # 10.2 H (1.6-8.9) K/mcL BMP 11/12/16 01:13 Sodium 136 Potassium 4.9 H Chloride 106 Carbon Dioxide 15 L BUN 74 H D Creatinine 5.82 H Glucose 188 H Calcium 8.3 L Cardiac Enzymes 11/12/16 Range/Units 01:13 Troponin I 0.51 H* (0-0.03) ng/mL Liver Function 11/12/16 Range/Units 01:13 Total Bilirubin 0.9 (0.2-1.2) mg/dL AST 34 (5-34) Units/L ALT 9 (0-55) Units/L Alkaline Phosphatase 98 (38-126) Units/L Albumin 2.0 L (3.5-5.0) g/dL - ABG Interpretation ABG results: PT/INR, D-dimer PT 12.9 Seconds (9.4-12.1) H 11/11/16 11:00 Consult Discharge Plan - Plan Referrals: Moncho Arambula [Other] (This is his new location in with [facility] across from [facility].)
--- NOTE | 2016-11-12 11:46 | Gastroenterology Consult Note ---
<Abbe Woodard - Last Filed: 11/12/16 11:43> Date of Encounter: 11/12/16 Time of Encounter: 10:35 - Assessment and plan (1) Anemia Current Visit: No Status: Acute Assessment and plan: On admission Hgb 7.1, and she has received 2 units PRBC. This morning Hgb 9.5. Continue to monitor CBC and transfuse PRBC as needed. Plan for EGD today to r/o esophagitis, gastritis, duodenitis, PUD, MW tear, or AVM. Can have clear liquid diet until lunch and then NPO until EGD this afternoon/evening. Qualifiers: Anemia type: unspecified type Qualified Code(s): D64.9 - Anemia, unspecified (2) Fecal occult blood test positive Current Visit: Yes Status: Acute Assessment and plan: Plan for EGD today. (3) Diarrhea Current Visit: Yes Status: Acute Assessment and plan: GI panel ordered. Recommend daily fiber supplement. Qualifiers: Diarrhea type: unspecified type Qualified Code(s): R19.7 - Diarrhea, unspecified (4) End stage chronic kidney disease Current Visit: No Status: Acute (5) Altered mental status Current Visit: Yes Status: Acute Qualifiers: Altered mental status type: somnolence Qualified Code(s): R40.0 - Somnolence - Time Spent With Patient Total time spent is greater than 50% in coordination of care (as documented) at patient's floor/unit and/or counseling patient: GI History of Present Illness - Data of Consult Patient: known to practice within the last 3 years Consult date: 11/12/16 Requesting Physician: Juventino Wallis MD - Consult Narrative Reason for consult: GI bleed History of present illness: Ms. Bernal is a 71 year old female with PMHx of A. fib, CHF, COPD, diabetes, GERD, hyperlipidemia, HTN, end-stage renal disease on dialysis who presented to the hospital with altered mental status. She is on a Thursday schedule for dialysis but has not completed dialysis for the past 2 weeks. She has been progressively lethargic and disoriented for the past 4-5 days in the last 48 hours her mental status has been worsening. Family states she has had frequent black watery diarrhea. Daughter at bedside states black stools occurring for the past "few months". CT scan of the abdomen was done which was suggestive of emphysematous cystitis. On admission Hgb 7.1, and she has received 2 units PRBC. This morning Hgb 9.5. Procedures: EGD 07/14/2016 Dr. Chun: Nonbleeding gastric ulcers, multiple nonbleeding duodenal ulcers. NSAIDs: None Anticoagulation: Plavix Past Med Surg Social Fam HX - Past Medical History Medical history: atrial fibrillation, CHF, COPD, diabetes, GERD, hyperlipidemia , hypertension, kidney stones, renal disease, thyroid disease, syncope Psychiatric history: depression - Past Surgical History Surgical History: appendectomy, carotid endarterectomy, cholecystectomy, hysterectomy, knee replacement, ALEC/BSO, other - Social History Smoking Status: Unknown if ever smoked Smokeless Tobacco Status: No Alcohol use: none Drug use: none - Family History Father History Unknown: Yes Family Member Ethnicity: Non- Living Status: Hx Family Cardiac Disorders: Yes Hx Family Respiratory Disorders: No Hx Family Cancer: No Hx Family GI Disorders: No Hx Family Endocrine Disorder: No Hx Family Neuromuscular Disorders: No Hx Family Neurologic Disorders: No Hx Family HEENT Disorders: No Hx Family Autoimmune Disorders: No - Gastrointestinal Gastrointestinal: Present: as per HPI - Constitutional Constitutional: as per HPI - EENT Eyes: as per HPI Ears: Present: as per HPI Nose, mouth and throat: Present: as per HPI - Cardiovascular Cardiovascular ROS: Present: as per HPI - Respiratory Respiratory IM: Present: as per HPI - Genitourinary Genitourinary: Absent: change in color, Urinary frequency - Neurological ROS Neurological GI: Present: as per HPI - Hematologic/Lymphatic Hematologic/Lymphatic pediatric: Present: as per HPI - Musculoskeletal Musculoskeletal ROS GI: Present: as per HPI - Integumentary Integumentary GI: Present: as per HPI - Psychiatric ROS Psychiatric GI: Present: as per HPI - Endocrine Endocrine IM: Present: as per HPI - Constitutional Vitals: Temp Pulse Resp BP Pulse Ox 100.6 F H 79 18 131/54 95 11/12/16 07:12 11/12/16 07:12 11/12/16 07:12 11/12/16 07:12 11/12/16 07:12 General appearance: Present: cooperative, A&O X 1 (person), no acute distress. Absent: answers questions appropriately - Head Head exam: Present: atraumatic, normocephalic - Eye Eye exam: Present: normal appearance, sclera anicteric - ENT ENT exam: Present: mucous membranes dry - Neck Neck exam general surgery: Present: normal inspection, trachea midline - Respiratory Respiratory exam: Present: decreased breath sounds, CTAB - Cardiovascular Cardiovascular exam: Present: RRR, +S1, +S2 - GI/Abdominal GI/Abdominal exam: Present: soft, tenderness (generalized), no peritoneal signs. Absent: distended, firm, guarding - Rectal Rectal exam: Present: deferred - Extremities Exam Extremities exam: Present: warm - Neurological Exam Neurological exam: Present: altered. Absent: no focal deficits - Psychiatric Psychiatric exam: Present: normal affect, normal mood - Skin Skin exam: Present: dry, intact, normal color, warm Results - Labs CBC & Chem 7: 11/12/16 02:08 11/12/16 01:13 Labs: Last Result Calcium 8.3 mg/dL (8.6-10.8) L 11/12/16 01:13 Troponin I 0.51 ng/mL (0-0.03) H* 11/12/16 01:13 Triglycerides 139 mg/dL (< 150) 11/12/16 01:13 Stool Occult Blood Positive (Negative) A 11/11/16 16:24 Urine Opiates Screen Negative ng/mL (Cevlml=575) 11/11/16 11:31 Entire Visit Hgb 9.5 g/dL (11.5-15.4) L D 11/12/16 02:08 Hct 28.8 % (35.3-44.9) L 11/12/16 02:08 PT 12.9 Seconds (9.4-12.1) H 11/11/16 11:00 Total Bilirubin 0.9 mg/dL (0.2-1.2) 11/12/16 01:13 AST 34 Units/L (5-34) 11/12/16 01:13 ALT 9 Units/L (0-55) 11/12/16 01:13 Ammonia 16 mcmol/L (18-72) L 11/11/16 11:00 - ABG ABG results: PT/INR, D-dimer PT 12.9 Seconds (9.4-12.1) H 11/11/16 11:00 Consult Discharge Plan - Plan Referrals: Moncho Arambula [Other] (This is his new location in with [facility] across from [facility] Abbe Woodard, WARP HAND [Advanced Practice Nurse] - (SENT WEB REQUEST ON 11-12-16 @ [phone]) <Vinicio Seymour - Last Filed: 11/12/16 19:17> Date of Encounter: 11/12/16 Time of Encounter: 18:00 - Time Spent With Patient Total time spent is greater than 50% in coordination of care (as documented) at patient's floor/unit and/or counseling patient: GI History of Present Illness - Data of Consult Requesting Physician: Juventino Wallis MD - Consult Narrative History of present illness: Ms. Bernal is a 71 year old female - Constitutional Vitals: Temp Pulse Resp BP Pulse Ox 99.5 F 75 17 94/34 98 11/12/16 15:45 11/12/16 18:50 11/12/16 18:50 11/12/16 18:50 11/12/16 18:50 Results - Labs CBC & Chem 7: 11/12/16 02:08 11/12/16 01:13 Labs: Last Result Calcium 8.3 mg/dL (8.6-10.8) L 11/12/16 01:13 Troponin I 0.51 ng/mL (0-0.03) H* 11/12/16 01:13 Triglycerides 139 mg/dL (< 150) 11/12/16 01:13 Stool Occult Blood Positive (Negative) A 11/11/16 16:24 Urine Opiates Screen Negative ng/mL (Jypcun=239) 11/11/16 11:31 Entire Visit Hgb 9.5 g/dL (11.5-15.4) L D 11/12/16 02:08 Hct 28.8 % (35.3-44.9) L 11/12/16 02:08 PT 12.9 Seconds (9.4-12.1) H 11/11/16 11:00 Total Bilirubin 0.9 mg/dL (0.2-1.2) 11/12/16 01:13 AST 34 Units/L (5-34) 11/12/16 01:13 ALT 9 Units/L (0-55) 11/12/16 01:13 Ammonia 16 mcmol/L (18-72) L 11/11/16 11:00 - ABG ABG results: PT/INR, D-dimer PT 12.9 Seconds (9.4-12.1) H 11/11/16 11:00 - Impressions Impressions Brain MRI 11/12/16 19:00 IMPRESSION: Motion degraded study. No acute intracranial abnormality, within the limitations of motion degradation. D/ / 11/12/2016 17:00:54 Cortney Blair MD / Elaine Joyce Interpreting Provider: Cortney Blair MD - Attending Attestation I examined this patient and my medical decision-making was reviewed with the Resident Physician. I agree with the documented findings, disposition and treatment plan as described except to the extent set forth below. Patient with the anemia. Does has UTI with the gram-negative marissa on culture and has pinkish color to her urine. Rectal examination is negative for melena or blood. Recommendation: EGD today. No acute indication for colonoscopy
--- NOTE | 2016-11-12 14:37 | Electrocardiograph Report ---
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
[2016-11-12] MEDS ORDERED: Vancomycin 500 MG in D5% in Water (Mini-Bag+) 100 ML IVPB ONE (18:00)
--- NOTE | 2016-11-12 18:29 | Anesthesia Evaluation PreOp ---
Date of Encounter: 11/12/16 Time of Encounter: 18:27 - Past History Planned Operation: EGD Cardiac History: CHF, HTN, Arrhythmia (AFib) Pulmonary History: Smoker, COPD ANIMAL CARE ASSISTANT History: Other (Altered mental status re: metabolic encephalopathy) Other Medical History: Hepatic, Renal (ESRD with hemodialysis earlier today), Diabetes Type II (IDDM maintained on Levemir, Novolog), Thyroid (Hypothyroidism maintained on Syntrhoid), GERD, Other (Peripheral Neuropathy maintained on Gabapentin. Anxiety/Depression maintained on Paxil) Anesthesia History: No Prior Anesthetic Complications, Past Anesthesia (Appy, CEAm Leilani, Hyster, TKR, ALEC/BSO) Alcohol Use: none Drug use: none Medications and Allergies Gabapentin [Neurontin] 300 mg PO BID 11/17/14 [History] Insulin ASPART [NovoLOG] 10 unit SQ TID MDD per sliding scale 11/17/14 [History] Insulin DETEMIR [Levemir] 30 unit SQ BID 11/17/14 [History] Loperamide HCl [Loperamide] 2 mg PO DAILY PRN 07/20/15 [History] Ergocalciferol (VITAMIN D2) [Vitamin D2 (50,000 UNIT)] 50,000 unit PO MO [History] Paroxetine [Paxil] 20 mg PO DAILY 02/12/16 [History] Clopidogrel [Plavix] 75 mg PO DAILY 04/03/16 [History] Levothyroxine [Synthroid] 175 mcg PO 0630 04/03/16 [History] Lisinopril [Zestril] 20 mg PO DAILY 04/03/16 [History] HYDROcodone/Acet 7.5/325 mg [[place] 7.5-325 mg] 1 tab PO Q6H PRN 07/14/16 [ History] Calcitriol [Rocaltrol] 0.25 mcg PO MOWEFR 11/11/16 [History] Iron Polysaccharide Complex [Pro Fe] 180 mg PO DAILY 11/11/16 [History] 3 Allergy/AdvReac Type Severity Reaction Status Date / Time Vgcwxks-[id number]-Hqm Reductase Allergy See Verified 07/14/16 13:48 Inhibitor Comments [Statins] Sulfa (Sulfonamide Allergy swelling Verified 07/14/16 11:56 Antibiotics) - Meds/Allergy Pre-op Review Medications Reviewed: Yes Allergies Reviewed: Yes Beta Blockers on Current Med List: No Anesthesia Results - Labs 11/12/16 02:08 11/12/16 01:13 Laboratory Results Impressions Chest X-Ray 11/11/16 10:43 IMPRESSION: Mild cardiomegaly without failure. No acute cardiopulmonary abnormality. D/ / Vivek Schaffer MD / Vivek Schaffer MD Interpreting Provider: Vivek Schaffer MD Head CT 11/11/16 10:44 IMPRESSION: No acute intracranial abnormality. Diffuse atrophic changes with findings suggesting chronic microvascular ischemia D/ / Abbe Carnes MD / Abbe Carnes MD Interpreting Provider: Abbe Carnes MD Abdomen/Pelvis CT 11/11/16 11:24 IMPRESSION: 1. 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 Large amount of gas within the bladder lumen. Resultant bilateral hydronephrosis. 2. Nonobstructive bilateral nephrolithiasis. 3. Small quantity of perihepatic ascites. Small pericardial effusion. Small partially loculated right pleural effusion. 4. Moderate aortoiliac plaque disease without aneurysm. D/ / 11/11/2016 13:25:49 Antelmo Garner MD / tl Interpreting Provider: Antelmo Garner MD Brain MRI 11/12/16 19:00 IMPRESSION: Motion degraded study. No acute intracranial abnormality, within the limitations of motion degradation. D/ / 11/12/2016 17:00:54 Cortney Blair MD / Elaine Joyce Interpreting Provider: Cortney Blair MD Anesthesia Exam Vital Signs Temp Pulse Resp BP Pulse Ox 11/12/16 15:45 99.5 F 77 17 128/59 11/12/16 15:00 98.6 F 18 102/48 11/12/16 14:15 106/50 11/12/16 14:00 101/49 11/12/16 13:45 102/45 11/12/16 13:30 99/31 11/12/16 13:15 110/39 11/12/16 13:00 101/51 11/12/16 12:45 112/48 11/12/16 12:30 106/57 11/12/16 12:15 110/49 11/12/16 12:00 116/47 11/12/16 11:45 98.9 F 18 126/56 11/12/16 07:12 100.6 F H 79 18 131/54 95 11/12/16 00:26 98.2 F 71 19 124/55 96 11/11/16 20:53 100.4 F H 73 19 137/67 99 11/11/16 20:11 99.1 F 20 131/49 11/11/16 20:00 134/53 11/11/16 19:45 123/49 11/11/16 19:38 99 F 75 20 123/49 11/11/16 19:30 139/58 11/11/16 19:15 136/61 11/11/16 19:00 101/53 11/11/16 18:45 91/44 Intake and Output 11/12/16 11/12/16 11/12/16 07:59 15:59 23:59 Intake Total 200 / 200 723 / 723 Output Total 1349 / 1349 Balance 200 / 200 -626 / -626 Intake: IV Fluids 200 / 200 123 / 123 Protonix 40 MG In 0.9 % Sodium 100 / 100 100 / 100 Chloride (Mini-Bag +) 100 ML @ 20 mls/hr IVC .Q5H DEMAR Rx#: [id number] Flagyl Premix 500 MG/100 ML 500 0 / 0 23 / 23 mg In 100 ml @ 100 mls/hr IVPB Q8HR DEMAR Rx#:[id number] Zosyn 3.375 GM In Dextrose 5% ( 100 / 100 Minibag+) 100 ML 100 ML @ 25 mls/hr IVPB Q8H DEMAR Rx#: [id number] Oral 0 / 0 Intake, Rinseback and Flushes 600 / 600 Output: Urine 0 / 0 Total Dialysis (HD) Output 1349 / 1349 Other: Weight 73.7 kg Blood Glucose* 199 193 Hemodialysis Net Fluid Removed 749 (mL) Patient Weight 11/12/16 23:59 Weight 73.7 kg Height: 5'4" Weight: 162# BMI = 28 NPO (# of Hours): MNOc - HEENT Pupil (Motor): Pupils equal, EOMI Mallampati: III Teeth: Edentulous Oral Opening: Greater than 3 - ANIMAL CARE ASSISTANT LOC: Oriented (oriented to being at [facility] and that Linda is current president. Thinks the current month is December. Does not know what year it is.), Confused (consent via NOK/daughter 'Lobo Hernandez') ANIMAL CARE ASSISTANT Motor: Normal RUE, Normal LUE, Normal RLE, Normal LLE, Normal Face ANIMAL CARE ASSISTANT Sensory: Normal: RUE, LUE, RLE, LLE, Face - Cardiac Rhythm: Regular Murmur: None - Pulmonary Breath Sounds: bilateral Clear Anesthesia Assess/Plan ASA Score: 4 (ESRD, AFib, HTN, COPD, Smoker,) Anesthetic Plan: General Monitoring Plan: Standard Monitors Recovery Plan: PACU Anes Supervising Prov Stmt: Pt seen/evaluated, R&B Discussed, questions answered and consent obtained from NOK daughter "Brianna Hernandez"
[2016-11-12] MEDS ORDERED: *HR* Propofol 200 MG/20 ML VIAL IVP ONE (18:42)
[2016-11-12] MEDS: Piperacillin/Tazobactam 3.375 GM in D5% in Water (Mini-Bag+) 100 ML IVPB SCH (19:53)
--- NOTE | 2016-11-12 22:01 | Nephrology Progress Note ---
Date of Encounter: 11/12/16 Time of Encounter: 21:58 - Assessment and Plan (1) Altered mental status Current Visit: Yes Status: Acute Etiology not completely clear, but is better today. Unlikely to be uremia, but could be metabolic, drug related or infectious. Will defer to primary team. HD to rule out uremia. Qualifiers: Altered mental status type: somnolence Qualified Code(s): R40.0 - Somnolence (2) Anemia in chronic renal disease Current Visit: Yes Status: Acute Monitor hemoglobin. GI following. Transfuse as needed. Qualifiers: Chronic kidney disease stage: on chronic dialysis Qualified Code(s): N18.6 - End stage renal disease; D63.1 - Anemia in chronic kidney disease; Z99.2 - Dependence on renal dialysis (3) DM2 (diabetes mellitus, type 2) Current Visit: No Status: Acute Per primary team. Qualifiers: Diabetes mellitus complication status: without complication Diabetes mellitus superintendent marine oil terminal insulin use: with alf use Qualified Code(s): E11.9 - Type 2 diabetes mellitus without complications; Z79.4 - director long term care (current) use of insulin (4) ESRD on hemodialysis Current Visit: No Status: Acute HD MWF and as needed. Follow labs. Renal dose medications. Renal diet. Subjective Principal diagnosis: ESRD Interval history: Patient seen while on dialysis. She is more alert when compared to yesterday. She has no new complaint. Objective - Vital Signs Vital signs: Vital Signs Temp Pulse Resp BP Pulse Ox 11/12/16 20:07 98.3 F 72 16 134/66 99 11/12/16 19:30 70 16 125/52 97 11/12/16 18:50 75 17 94/34 98 11/12/16 15:45 99.5 F 77 17 128/59 11/12/16 15:00 98.6 F 18 102/48 11/12/16 14:15 106/50 11/12/16 14:00 101/49 11/12/16 13:45 102/45 11/12/16 13:30 99/31 11/12/16 13:15 110/39 11/12/16 13:00 101/51 11/12/16 12:45 112/48 11/12/16 12:30 106/57 11/12/16 12:15 110/49 11/12/16 12:00 116/47 11/12/16 11:45 98.9 F 18 126/56 11/12/16 07:12 100.6 F H 79 18 131/54 95 11/12/16 00:26 98.2 F 71 19 124/55 96 Intake and Output 11/12/16 11/12/16 11/12/16 07:59 15:59 23:59 Intake Total 200 / 200 723 / 723 Output Total 1349 / 1349 Balance 200 / 200 -626 / -626 Intake: IV Fluids 200 / 200 123 / 123 Protonix 40 MG In 0.9 % Sodium 100 / 100 100 / 100 Chloride (Mini-Bag +) 100 ML @ 20 mls/hr IVC .Q5H DEMAR Rx#: [id number] Flagyl Premix 500 MG/100 ML 500 0 / 0 23 / 23 mg In 100 ml @ 100 mls/hr IVPB Q8HR DEMAR Rx#:[id number] Zosyn 3.375 GM In Dextrose 5% ( 100 / 100 Minibag+) 100 ML 100 ML @ 25 mls/hr IVPB Q8H DEMAR Rx#: [id number] Oral 0 / 0 Intake, Rinseback and Flushes 600 / 600 Output: Urine 0 / 0 Total Dialysis (HD) Output 1349 / 1349 Other: Weight 73.7 kg Blood Glucose* 199 193 231 Hemodialysis Net Fluid Removed 749 (mL) Patient Weight 11/12/16 23:59 Weight 73.7 kg - General Appearance General appearance: Present: well-developed, well-nourished EENT: Present: ATNC Neck: Present: supple Additional Comments: Respirations are unlabored. Cardiology: Present: edema, regular rate Musculoskeletal: Present: no cyanosis - Lab 11/12/16 02:08 11/12/16 01:13 Most recent lab results Calcium 8.3 mg/dL (8.6-10.8) L 11/12/16 01:13 Phosphorus 5.3 mg/dL (2.3-4.7) H 11/12/16 01:13 Magnesium 1.7 mg/dL (1.6-2.6) 11/12/16 01:13 - VTE Documentation of Mechanical Device: Graduated compression elastic hosiery Consult Discharge Plan - Plan Referrals: Moncho Arambula [Other] (This is his new location in with [facility] across from [facility].) Abbe Woodard, IT INSTRUCTOR [Advanced Practice Nurse] - (SENT WEB REQUEST ON 11-12-16 @ 0354)
[2016-11-13] MEDS: Pantoprazole 40 MG in 0.9 % Sodium Chloride Mini Bag 100 ML IVC SCH ×8 (01:11→22:58)
[2016-11-13] MEDS: Insulin LISPRO 300 UNITS/3 ML VIAL SQ SCH ×5 (01:11→23:53)
[2016-11-13] MEDS: MetroNIDAZOLE 500 MG/100 ML 500 MG/100 ML BAG IVPB SCH ×4 (01:13→23:53)
[2016-11-13 05:01] LABS: Basophils % 0.3 %; Eosinophils # 0.1 K/mcL (0.0-0.6); Eosinophils % 0.8 %; Hematocrit 25.7 % (35.3-44.9); Hemoglobin 8.4 g/dL (11.5-15.4); Immature Granulocytes % 4.2 % (0-4); Lymphocytes # 0.7 K/mcL (0.6-4.6); Lymphocytes % 7.8 %; Mean Corpuscular HGB Conc 32.7 g/dL (31.6-35.5); Mean Corpuscular Hemoglobin 30.5 pg (28.0-33.3); Mean Corpuscular Volume 93.5 fL (83.0-100.0); Mean Platelet Volume 11.1 fL (9.4-12.4); Monocytes # 0.5 K/mcL (0.0-1.3); Monocytes % 5.6 %; Neutrophils # 7.2 K/mcL (1.6-8.9); Platelet Count 104 K/mcL (140-400); Red Blood Count 2.75 M/mcL (3.82-4.97); Red Cell Distribution Width 15.8 % (11.5-14.5); Segmented Neutrophils % 81.3 %
[2016-11-13 05:15] LABS: Albumin/Globulin Ratio 0.5 (1.1-2.2); Bilirubin,Total 0.8 mg/dL (0.2-1.2); Calcium 8.4 mg/dL (8.6-10.8); Globulin 3.4 g/dL (2.4-3.5); Potassium 4.5 mEq/L (3.5-4.5); Total Protein 5.1 g/dL (6.0-8.3)
[2016-11-13 05:27] LABS: Albumin 1.7 g/dL (3.5-5.0)
[2016-11-13 05:29] LABS: Anisocytosis 1+ (Not Present); Microcytosis Present (Not Present); Platelet Estimate Decreased (Normal)
--- NOTE | 2016-11-13 08:09 | Electrocardiograph Report ---
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
--- NOTE | 2016-11-13 08:09 | Electrocardiograph Report ---
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
--- NOTE | 2016-11-13 08:21 | Internal Med Progress Note ---
<Ivan Castorena - Last Filed: 11/13/16 16:50> Date of Encounter: 11/13/16 Time of Encounter: 08:21 - Time Spent With Patient Metabolic encephalopathy: - Patient has been seen by neurology and in conjunction with laboratory results and missed dialysis is likely secondary to uremia and infection. Plan to continue with broad-spectrum antibiotics, stool GI panel. Type 2 diabetes: - Glucose was the low 100s, well controlled on current coverage. - Continue before meals and at bedtime glucose checks - Continue low-dose sliding scale regimen. - Diabetic diet Hypothyroidism: - Stable, continue levothyroxine 175 MCG. End-stage renal disease on hemodialysis: - Continue hemodialysis with temporary dialysis port in right groin. - 80 fistula is not usable and will need new AV fistula in left upper extremity. Urine tract infection: -Escherichia coli sensitive to ceftriaxone Anemia of chronic disease secondary to end-stage renal disease: - Stable. - Subjective Interval history: Ms. Bernal 71-year-old female's been seen at patient bedside after dialysis. She is alert awake interactive and with family at bedside. She denies any discomfort but said that dialysis was tolerable. After further discussion she does wish to go forth with dialysis in the future and is open to having a surgery for fistula repair/translocated to her opposite arm. She has any discomfort or problems at this time. - Constitutional Vitals: Temp Pulse Resp BP Pulse Ox 97.9 F 62 16 139/60 92 11/13/16 03:18 11/13/16 07:00 11/13/16 07:00 11/13/16 07:00 11/13/16 07:00 General appearance: Present: A&O X 1 (Obtunded) Exam: General: Patient alert, awake, oriented 3, interactive, in no acute distress HEENT: Normocephalic, atraumatic, pupils equal reactive to light, nasal cavity patent and open septum median position, oral mucosa moist, uvula midline, neck supple trachea midline no palpable lymphadenopathy, no thyromegaly. Chest: Symmetric bilateral correlating with respiratory effort, effort nonlabored. Cardiac: Regular rate and rhythm, grade 2/6 systolic ejection murmur no bruits appreciated bilateral carotids, Radial pulses 2+ bilateral, posterior tibial and dorsal pedal pulses 2+ bilateral. Respiratory: Clear to auscultation all lung orellana Abdomen: Soft, nontender, positive bowel sounds, no palpable masses appreciated on examination Extremities: Symmetric bilateral, temporary dialysis port in right femoral region, soft no signs of concerning ecchymosis, erythema or edema. Neurologic: No focal deficits appreciated on examination. Face symmetric, muscle strength symmetric bilateral upper and lower extremities. Internal Medicine: Result - Labs CBC & Chem 7: 11/13/16 04:52 11/13/16 04:52 Labs: Short CBC 11/13/16 Range/Units 04:52 WBC 8.9 (4.3-11.1) K/mcL Hgb 8.4 L (11.5-15.4) g/dL Hct 25.7 L (35.3-44.9) % Plt Count 104 L (140-400) K/mcL Neutrophils # 7.2 (1.6-8.9) K/mcL BMP 11/13/16 04:52 Sodium 138 Potassium 4.5 Chloride 106 Carbon Dioxide 19 BUN 79 H Creatinine 5.89 H Glucose 134 H Calcium 8.4 L Liver Function 11/13/16 Range/Units 04:52 Total Bilirubin 0.8 (0.2-1.2) mg/dL AST 18 (5-34) Units/L ALT 6 (0-55) Units/L Alkaline Phosphatase 95 (38-126) Units/L Albumin 1.7 L (3.5-5.0) g/dL - ABG Interpretation ABG results: PT/INR, D-dimer PT 12.9 Seconds (9.4-12.1) H 11/11/16 11:00 - Impressions Impressions Brain MRI 11/12/16 19:00 IMPRESSION: Motion degraded study. No acute intracranial abnormality, within the limitations of motion degradation. D/ / 11/12/2016 17:00:54 Cortney Blair MD / Elaine Joyce Interpreting Provider: Cortney Blair MD - VTE Documentation of Mechanical Device: Graduated compression elastic hosiery Consult Discharge Plan - Plan Referrals: Moncho Arambula [Other] - 11/20/16 3:00 pm (This is his new location in with [facility] across from [facility].) Abbe Woodard, STORE SALES LEADER [Advanced Practice Nurse] - (SENT WEB REQUEST ON 11-12-16 @ 1292) <Juventino Wallis - Last Filed: 11/13/16 17:43> Date of Encounter: 11/13/16 - Assessment and plan (1) Metabolic encephalopathy Current Visit: Yes Status: Acute (2) DM2 (diabetes mellitus, type 2) Current Visit: No Status: Acute Qualifiers: Diabetes mellitus complication status: without complication Diabetes mellitus mcfp insulin use: with mcfp use Qualified Code(s): E11.9 - Type 2 diabetes mellitus without complications; Z79.4 - snf (current) use of insulin (3) ESRD on hemodialysis Current Visit: No Status: Acute (4) UTI (urinary tract infection) Current Visit: Yes Status: Acute Qualifiers: Urinary tract infection type: acute cystitis Hematuria presence: with hematuria Qualified Code(s): N30.01 - Acute cystitis with hematuria (5) Diarrhea Current Visit: Yes Status: Acute Qualifiers: Diarrhea type: unspecified type Qualified Code(s): R19.7 - Diarrhea, unspecified (6) Anemia in chronic renal disease Current Visit: Yes Status: Acute Qualifiers: Chronic kidney disease stage: on chronic dialysis Qualified Code(s): N18.6 - End stage renal disease; D63.1 - Anemia in chronic kidney disease; Z99.2 - Dependence on renal dialysis (7) Elevated troponin Current Visit: Yes Status: Acute - Constitutional Vitals: Temp Pulse Resp BP Pulse Ox 98.3 F 68 16 139/60 93 11/13/16 17:16 11/13/16 17:16 11/13/16 17:16 11/13/16 17:16 11/13/16 17:16 Internal Medicine: Result - Labs CBC & Chem 7: 11/13/16 04:52 11/13/16 04:52 Labs: Short CBC 11/13/16 Range/Units 04:52 WBC 8.9 (4.3-11.1) K/mcL Hgb 8.4 L (11.5-15.4) g/dL Hct 25.7 L (35.3-44.9) % Plt Count 104 L (140-400) K/mcL Neutrophils # 7.2 (1.6-8.9) K/mcL BMP 11/13/16 04:52 Sodium 138 Potassium 4.5 Chloride 106 Carbon Dioxide 19 BUN 79 H Creatinine 5.89 H Glucose 134 H Calcium 8.4 L Liver Function 09/21/17 Range/Units 04:52 Total Bilirubin 0.8 (0.2-1.2) mg/dL AST 18 (5-34) Units/L ALT 6 (0-55) Units/L Alkaline Phosphatase 95 (38-126) Units/L Albumin 1.7 L (3.5-5.0) g/dL - ABG Interpretation ABG results: PT/INR, D-dimer PT 12.9 Seconds (9.4-12.1) H 11/11/16 11:00 - Impressions Impressions AV Shunt Angiogram 11/13/16 00:00 IMPRESSION: Thrombosed right upper arm fistula. 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 Venous anastomotic tight stenosis. Successful angioplasty is 7 mm with good angiographic result D/ / Adair Staples MD / Adair Staples MD Interpreting Provider: Adair Staples MD Guidance Needle Placement Ultrasound 11/13/16 00:00 IMPRESSION: Successful ultrasound and fluoroscopy guided non-tunneled hemodialysis catheter placement. D/ / Adair Staples MD / Adair Staples MD Interpreting Provider: Adair Staples MD Guidance Needle Placement Ultrasound 11/13/16 00:00 IMPRESSION: Thrombosed right upper arm fistula. 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 Venous anastomotic tight stenosis. Successful angioplasty is 7 mm with good angiographic result D/ / Adair Staples MD / Adair Staples MD Interpreting Provider: Adair Staples MD Insertion Non-Tunneled Catheter 11/13/16 00:00 IMPRESSION: Successful ultrasound and fluoroscopy guided non-tunneled hemodialysis catheter placement. D/ / Adair Staples MD / Adair Staples MD Interpreting Provider: Adair Staples MD OL BUSINESS ADMINISTRATOR, Venous 11/13/16 00:00 IMPRESSION: Thrombosed right upper arm fistula. 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 Venous anastomotic tight stenosis. Successful angioplasty is 7 mm with good angiographic result D/ / Adair Staples MD / Adair Staples MD Interpreting Provider: Adair Staples MD - Attending Attestation I examined this patient and my medical decision-making was reviewed with the Resident Physician. I agree with the documented findings, disposition and treatment plan as described except to the extent set forth below. Patient's mental status has improved. She is being evaluated after she has had hemodialysis. She is distress. Heart regular with normal S1 and S2. Lungs are clear. Abdomen is obese, soft, nontender.
[2016-11-13] MEDS: Piperacillin/Tazobactam 3.375 GM in D5% in Water (Mini-Bag+) 100 ML IVPB SCH (08:22)
[2016-11-13] MEDS ORDERED: 0.9 % Sodium Chloride 250 ML IVC PRN (08:52)
[2016-11-13] MEDS ORDERED: Heparin 1,000 UNITS/500 mL NS 500 ML ONE (09:19)
[2016-11-13] MEDS ORDERED: *HR* Alteplase (Cathflo) 2 MG VIAL IVP ONE (09:55)
[2016-11-13] MEDS ORDERED: *HR* Heparin 5,000 UNIT/ML VIAL ONE (09:56)
[2016-11-13] MEDS ORDERED: *HR* Midazolam HCl 2 MG/2 ML VIAL ONE (10:19)
[2016-11-13] MEDS ORDERED: *HR* Midazolam HCl 2 MG/2 ML VIAL IVP PRN (10:19)
[2016-11-13] MEDS ORDERED: *HR* FentaNYL (PF) 100 MCG/2 ML VIAL IVP PRN (10:19)
[2016-11-13] MEDS ORDERED: *HR* FentaNYL (PF) 100 MCG/2 ML VIAL ONE (10:20)
[2016-11-13] MEDS ORDERED: 0.9 % Sodium Chloride 500 ML ONE (10:20)
[2016-11-13] MEDS ORDERED: *HR* HYDROmorphone (PF) 1 MG/ML SYRINGE IVP ONE (12:07)
--- NOTE | 2016-11-13 12:16 | Nephrology Progress Note ---
Date of Encounter: 11/13/16 Time of Encounter: 12:14 - Assessment and Plan (1) ESRD on hemodialysis Current Visit: No Status: Acute HD today Plan for HD tomorrow Went for fistulogram-unable to repair; waiting on report Temp right femoral line in place Renal diet Avoid nephrotoxins (2) Altered mental status Current Visit: Yes Status: Acute Improving per primary team Qualifiers: Altered mental status type: somnolence Qualified Code(s): R40.0 - Somnolence (3) Diarrhea Current Visit: Yes Status: Acute per GI team Qualifiers: Diarrhea type: unspecified type Qualified Code(s): R19.7 - Diarrhea, unspecified Subjective Principal diagnosis: ESRD Interval history: Patient seen and examined in dialysis. Objective - Vital Signs Vital signs: Vital Signs Temp Pulse Resp BP Pulse Ox 11/13/16 10:13 64 16 138/80 95 11/13/16 10:01 64 16 142/71 96 11/13/16 09:47 70 16 141/65 94 11/13/16 09:40 71 16 132/58 95 11/13/16 09:37 84 16 134/57 94 11/13/16 08:47 66 16 11/13/16 07:17 66 16 94 11/13/16 07:00 62 16 139/60 92 11/13/16 03:18 97.9 F 62 16 121/66 97 11/13/16 00:20 98.1 F 65 16 142/66 98 11/12/16 20:07 98.3 F 72 16 134/66 99 11/12/16 19:30 70 16 125/52 97 11/12/16 18:50 75 17 94/34 98 11/12/16 15:45 99.5 F 77 17 128/59 11/12/16 15:00 98.6 F 18 102/48 11/12/16 14:15 106/50 11/12/16 14:00 101/49 11/12/16 13:45 102/45 11/12/16 13:30 99/31 11/12/16 13:15 110/39 11/12/16 13:00 101/51 11/12/16 12:45 112/48 11/12/16 12:30 106/57 11/12/16 12:15 110/49 Intake and Output 11/12/16 11/13/16 11/13/16 23:59 07:59 15:59 Intake Total 200 / 200 300 / 300 200 / 200 Output Total 50 / 50 0 / 0 Balance 200 / 200 250 / 250 200 / 200 Intake: IV Fluids 200 / 200 300 / 300 200 / 200 Protonix 40 MG In 0.9 % Sodium 100 / 100 100 / 100 100 / 100 Chloride (Mini-Bag +) 100 ML @ 20 mls/hr IVC .Q5H DEMAR Rx#: [id number] Flagyl Premix 500 MG/100 ML 500 100 / 100 100 / 100 100 / 100 mg In 100 ml @ 100 mls/hr IVPB Q8HR DEMAR Rx#:[id number] Zosyn 3.375 GM In Dextrose 5% ( 100 / 100 Minibag+) 100 ML 100 ML @ 25 mls/hr IVPB Q12H DEMAR Rx#: [id number] Oral 0 / 0 Output: Urine 50 / 50 0 / 0 Other: Meal Breakfast Percent of Meal Consumed 0% Weight 75.6 kg Blood Glucose* 231 116 Patient Weight 11/13/16 23:59 Weight 75.6 kg - General Appearance General appearance: Present: obese, chronically ill EENT: Present: ATNC, mucous membranes moist, hearing intact, vision intact Neck: Present: supple Respiratory: Present: clear Cardiology: Present: edema, normal S1, normal S2 Dialysis Vascular Access: Venous Catheter Gastrointestinal: Present: no tenderness, no guarding Integumentary: Present: warm and dry Neurologic: Present: alert and oriented x3 Psychiatric: Present: cooperative - Lab 11/13/16 04:52 11/13/16 04:52 Most recent lab results Calcium 8.4 mg/dL (8.6-10.8) L 11/13/16 04:52 Phosphorus 5.3 mg/dL (2.3-4.7) H 11/12/16 01:13 Magnesium 1.7 mg/dL (1.6-2.6) 11/12/16 01:13 - VTE Documentation of Mechanical Device: Graduated compression elastic hosiery Consult Discharge Plan - Plan Referrals: Moncho Arambula [Other] (This is his new location in with [facility] across from [facility].) Abbe Woodard, WEB CONSULTANT [Advanced Practice Nurse] - (SENT WEB REQUEST ON 11-12-16 @ [id number])
--- NOTE | 2016-11-13 12:41 | Neurology Progress Note ---
Date of Encounter: 11/13/16 Time of Encounter: 07:15 Assessment and Plan (1) Encephalopathy due to metabolic factor or toxin Current Visit: Yes Status: Acute No evidence of any stroke on examination at the same time no evidence of any CUSTOMS AND IMMIGRATION OFFICER infection she seems to be gradually coming back to baseline. I suspect it was likely related to severe and hypovolemia and chronic renal failure playing a role in it. She seemed to be doing better at this time I would not recommend any further imaging studies can check for other metabolic abnormalities that may be contributing to her symptoms particularly vitamin B12 folate and TSH as these abnormalities can affect mental status (2) End stage chronic kidney disease Current Visit: No Status: Acute (3) Renal failure treated with peritoneal dialysis Current Visit: No Status: Acute (4) Diarrhea Current Visit: Yes Status: Acute Qualifiers: Diarrhea type: unspecified type Qualified Code(s): R19.7 - Diarrhea, unspecified Subjective Principal diagnosis: ESRD Interval history: pt is stable improving per daughter she is comimg back to her self, no new weakness Objective - Constitutional Vitals: Temp Pulse Resp BP Pulse Ox 97.9 F 64 16 138/80 95 11/13/16 03:18 11/13/16 10:13 11/13/16 10:13 11/13/16 10:13 11/13/16 10:13 General appearance: Present: cooperative, A&O X 1 (person), no acute distress. Absent: answers questions appropriately - Neurological Exam Sensorimotor examination: Present: intact Motor Examination: Present: grossly full strength in all extremities Motor examination - left side: 3/5: deltoids, biceps, triceps, wrist flexion, wrist extension, hip flexors, gas appliance installer, quadriceps, tibialis Anterior, toe extension (EHL), plantarflexion Sensation intact: Present: intact Mental Status Examination: Present: awake, oriented to person, answers questions appropriately, follows simple commands, localizes noxious stimulation Cranial nerve examination: Present: PERRL, EOMI, visual orellana intact, sensory to face intact, no facial asymmetry is present, no dysarthria ([pt is very weak all over though no focal motor weakness noted, she has generalised weakness) - VTE Documentation of Mechanical Device: Graduated compression elastic hosiery Results - Laboratory Findings CBC and BMP: 11/13/16 04:52 11/13/16 04:52 Abnormal lab findings: Abnormal lab results RBC 2.75 M/mcL (3.82-4.97) L 11/13/16 04:52 Hgb 8.4 g/dL (11.5-15.4) L 11/13/16 04:52 Hct 25.7 % (35.3-44.9) L 11/13/16 04:52 RDW 15.8 % (11.5-14.5) H 11/13/16 04:52 Plt Count 104 K/mcL (140-400) L 11/13/16 04:52 Immature Gran % 4.2 % (0-4) H 11/13/16 04:52 Platelet Estimate Decreased (Normal) L 11/13/16 04:52 Anisocytosis 1+ (Not Present) A 11/13/16 04:52 Microcytosis Present (Not Present) A 11/13/16 04:52 PT 12.9 Seconds (9.4-12.1) H 11/11/16 11:00 BUN 79 mg/dL (7-20) H 11/13/16 04:52 Creatinine 5.89 mg/dL (0.57-1.11) H 11/13/16 04:52 Est GFR ( Amer) 9 (> 60) L 11/13/16 04:52 Est GFR (Non-Af Amer) 7 (> 60) L 11/13/16 04:52 Glucose 134 mg/dL (70-99) H 11/13/16 04:52 POC Glucose 116 (58-89) H 11/13/16 05:21 Calculated Osmolality 312 (280-300) H 11/13/16 04:52 Calcium 8.4 mg/dL (8.6-10.8) L 11/13/16 04:52 Phosphorus 5.3 mg/dL (2.3-4.7) H 11/12/16 01:13 Ammonia 16 mcmol/L (18-72) L 11/11/16 11:00 Troponin I 0.51 ng/mL (0-0.03) H* 11/12/16 01:13 Serum Total Protein 5.1 g/dL (6.0-8.3) L 11/13/16 04:52 Albumin 1.7 g/dL (3.5-5.0) L 11/13/16 04:52 Albumin/Globulin Ratio 0.5 (1.1-2.2) L 11/13/16 04:52 HDL Cholesterol 19 mg/dL (40-59) L 11/12/16 01:13 Cholesterol/HDL Ratio 5.2 (0-4.9) H 11/12/16 01:13 Urine Color Red (Yellow) A 11/11/16 11:31 Urine Clarity Cloudy (Clear) A 11/11/16 11:31 Urine Protein >=300 mg/dL (Neg-Trace) H 11/11/16 11:31 Urine Glucose (UA) 250 mg/dL (Normal) H 11/11/16 11:31 Urine Ketones Trace mg/dL (Negative) H 11/11/16 11:31 Urine Blood Large (Negative) H 11/11/16 11:31 Urine Nitrite Positive (Negative) A 11/11/16 11:31 Urine Bilirubin Moderate (Negative) H 11/11/16 11:31 Ur Leukocyte Esterase Large (Negative) H 11/11/16 11:31 Ur Culture Indicated? YES (NO) A 11/11/16 11:31 Stool Occult Blood Positive (Negative) A 11/11/16 16:24 Consult Discharge Plan - Plan Referrals: Moncho Arambula [Other] - 11/20/16 3:00 pm (This is his new location in with [facility] across from [facility].) Abbe Woodard, DIAMOND DIE POLISHER [Advanced Practice Nurse] - (SENT WEB REQUEST ON 11-12-16 @ 0142)
[2016-11-13] MEDS ORDERED: Aminoglycoside Consult 1 EACH MC ONE (12:59)
[2016-11-13] MEDS ORDERED: *HR* Heparin 10,000 UNIT/10 ML VIAL IV PRN (14:45)
[2016-11-13] MEDS: *HR* HYDROmorphone (PF) 1 MG/ML SYRINGE IVP PRN ×2 (15:36→21:39)
[2016-11-13 16:10] LABS: Folate 7.7 ng/mL (7.0-31.4)
[2016-11-13] MEDS ORDERED: 0.9 % Sodium Chloride 2,000 ML ONE (16:34)
--- NOTE | 2016-11-13 16:49 | Palliative - Consult Note ---
Date of Encounter: 11/13/16 Time of Encounter: 16:00 - Assessment and Plan (1) ESRD on hemodialysis Current Visit: No Status: Acute (2) Counseling regarding advanced care planning and goals of care Current Visit: Yes Status: Acute Assessment and plan: Long discussion with pt and daughter re: goals of care. Patient has made comments regarding not wanting to continue dialysis. Daughter at bedside agrees taht she will support pt whatever she decides, but strongly enforced to pt that if she wants to continue dialysis, she cannot refuse to go r/t how she feels or diarrhea. Patient stated that she "doesn't know" what she wants at this time, but has other family members coming in this evening and desires to discuss. They are aware that access was unable to be used, and has temporary line in groin. Also, discussed code status and she again wants to discuss with family. Discussed that if she declines further dialysis, I would recommend transitioning to hospice at home for support and symptom management. I did ensure pt/daughter knew that withdrawing dialysis would mean that pt would most likely not live long, possibly only a few weeks. They both verbalized understanding. I will follow up in am, once pt/daughter has time to d/w other family member. (3) Generalized pain Current Visit: Yes Status: Acute Assessment and plan: She had Hydromorphone recently ordered by hospitalist. Has received x1. Monitor Palliative-CN HPI - Data of Consult Consult date: 11/13/16 Requesting Physician: Juventino Wallis MD Primary Care Provider: Moncho Arambula MD - Consult Narrative History of present illness: Ms. Bernal is a 71 year old female with end stage renal disease who transitioned from peritoneal dialysis to hemodialysis about a yr ago. She presented with altered mental status, which has now improved since admission. Neuro consult was obtained initially. She has multiple medical comorbid conditions with afib, CHF, CPD, CM, CERD, HTN in addition to renal disease. Upon my arrival, she is just returning from dialysis. Daughter is at bedside, and expressed that she is frustrated with her mother's quality of life. States that her mother does not want to go to dialysis if she doesn't feel well, or if she is having diarrhea. She is very emotional with conversation stating her mother refuses to get out of bed or do anything for herself. States she has went downhill over the last 3 years after the loss of a son, has been treated extensively for depression, but has "just lost desire to live". Upon my visit, pt returning from dialysis. She is yelling out for daughter. She is alert and oriented and can answer most questions appropriately. C/o pain bilateral legs and in her stomach. Describes as "sharp", but cannot provide other information r/t pain. C/o diarrhea as well, and currently being cleaned up by nursing staff. CC: Juventino Wallis MD Past Med Surg Social Fam HX - Past Medical History Medical history: atrial fibrillation, CHF, COPD, diabetes, GERD, hyperlipidemia , hypertension, kidney stones, renal disease, thyroid disease, syncope Psychiatric history: depression - Past Surgical History Surgical History: appendectomy, carotid endarterectomy, cholecystectomy, hysterectomy, knee replacement, ALEC/BSO, other - Social History Smoking Status: Unknown if ever smoked Smokeless Tobacco Status: No Alcohol use: none Drug use: none - Family History Father History Unknown: Yes Family Member Ethnicity: Non- Living Status: Hx Family Cardiac Disorders: Yes Hx Family Respiratory Disorders: No Hx Family Cancer: No Hx Family GI Disorders: No Hx Family Endocrine Disorder: No Hx Family Neuromuscular Disorders: No Hx Family Neurologic Disorders: No Hx Family HEENT Disorders: No Hx Family Autoimmune Disorders: No Medications and Allergies Gabapentin [Neurontin] 300 mg PO BID 11/17/14 [History] Insulin ASPART [NovoLOG] 10 unit SQ TID MDD per sliding scale 11/17/14 [History] Insulin DETEMIR [Levemir] 30 unit SQ BID 11/17/14 [History] Loperamide HCl [Loperamide] 2 mg PO DAILY PRN 07/20/15 [History] Ergocalciferol (VITAMIN D2) [Vitamin D2 (50,000 UNIT)] 50,000 unit PO MO [History] Paroxetine [Paxil] 20 mg PO DAILY 02/12/16 [History] Clopidogrel [Plavix] 75 mg PO DAILY 04/03/16 [History] Levothyroxine [Synthroid] 175 mcg PO 0630 04/03/16 [History] Lisinopril [Zestril] 20 mg PO DAILY 04/03/16 [History] HYDROcodone/Acet 7.5/325 mg [Crescent 7.5-325 mg] 1 tab PO Q6H PRN 07/14/16 [ History] Calcitriol [Rocaltrol] 0.25 mcg PO MOWEFR 11/11/16 [History] Iron Polysaccharide Complex [Pro Fe] 180 mg PO DAILY 11/11/16 [History] 3 Allergy/AdvReac Type Severity Reaction Status Date / Time Amphlnq-Iib-Lke Reductase Allergy See Verified 07/14/16 13:48 Inhibitor Comments [Statins] Sulfa (Sulfonamide Allergy swelling Verified 07/14/16 11:56 Antibiotics) All systems: reviewed and no additional remarkable complaints except as stated ( Bilateral leg pain, weakness, diarrhea,) Palliative Care-Exam - Constitutional Vitals: Temp Pulse Resp BP Pulse Ox 97.6 F 79 17 104/53 95 11/13/16 14:40 11/13/16 12:27 11/13/16 14:40 11/13/16 14:40 11/13/16 10:13 General appearance: Present: no acute distress - Head Head Exam: Present: normal inspection, normocephalic - Eye Eye exam: Present: normal appearance, PERRL - ENT ENT exam: Present: mucous membranes dry - Respiratory Respiratory exam: Present: decreased breath sounds, CTAB - Cardiovascular Cardiovascular exam: Present: +S1, +S2 - GI/Abdominal Exam GI/Abdominal exam: Present: normal bowel sounds, soft - Additional comments: Inc small amount foul smelling urine - Extremities Exam Additional comments: Dressing to nonfunctioning graft . Dressing to rt femoral dialysis line - Neurological Exam Neurological exam: Present: alert, oriented X3, strengths equal and symetr throughout - Psychiatric Psychiatric exam: Present: flat affect - Skin Skin exam: Present: dry, pallor, warm Internal Medicine - CN: Reslt - Labs CBC & Chem 7: 11/13/16 04:52 11/13/16 04:52 Labs: Short CBC 11/13/16 Range/Units 04:52 WBC 8.9 (4.3-11.1) K/mcL Hgb 8.4 L (11.5-15.4) g/dL Hct 25.7 L (35.3-44.9) % Plt Count 104 L (140-400) K/mcL Neutrophils # 7.2 (1.6-8.9) K/mcL BMP 11/13/16 04:52 Sodium 138 Potassium 4.5 Chloride 106 Carbon Dioxide 19 BUN 79 H Creatinine 5.89 H Glucose 134 H Calcium 8.4 L Liver Function 11/13/16 Range/Units 04:52 Total Bilirubin 0.8 (0.2-1.2) mg/dL AST 18 (5-34) Units/L ALT 6 (0-55) Units/L Alkaline Phosphatase 95 (38-126) Units/L Albumin 1.7 L (3.5-5.0) g/dL - ABG Interpretation ABG results: PT/INR, D-dimer PT 12.9 Seconds (9.4-12.1) H 11/11/16 11:00 - Impressions Impressions Brain MRI 11/12/16 19:00 IMPRESSION: Motion degraded study. No acute intracranial abnormality, within the limitations of motion degradation. D/ / 11/12/2016 17:00:54 Cortney Blair MD / Elaine Joyce Interpreting Provider: Cortney Blair MD AV Shunt Angiogram 11/13/16 00:00 IMPRESSION: Thrombosed right upper arm fistula. 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 Venous anastomotic tight stenosis. Successful angioplasty is 7 mm with good angiographic result D/ / Adair Staples MD / Adair Staples MD Interpreting Provider: Adair Staples MD Guidance Needle Placement Ultrasound 11/13/16 00:00 IMPRESSION: Successful ultrasound and fluoroscopy guided non-tunneled hemodialysis catheter placement. D/ / Adair Staples MD / Adair Staples MD Interpreting Provider: Adair Staples MD Guidance Needle Placement Ultrasound 11/13/16 00:00 IMPRESSION: Thrombosed right upper arm fistula. 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 Venous anastomotic tight stenosis. Successful angioplasty is 7 mm with good angiographic result D/ / Adair Staples MD / Adair Staples MD Interpreting Provider: Adair Staples MD Insertion Non-Tunneled Catheter 11/13/16 00:00 IMPRESSION: Successful ultrasound and fluoroscopy guided non-tunneled hemodialysis catheter placement. D/ / Adair Staples MD / Adair Staples MD Interpreting Provider: Adair Staples MD BLE OPERATOR, Venous 11/13/16 00:00 IMPRESSION: Thrombosed right upper arm fistula. 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 Venous anastomotic tight stenosis. Successful angioplasty is 7 mm with good angiographic result D/ / Adair Staples MD / Adair Staples MD Interpreting Provider: Adair Staples MD Consult Discharge Plan - Plan Referrals: Moncho Arambula [Other] - 11/20/16 3:00 pm (This is his new location in with [facility] across from [facility] Abbe Woodard, AIRLINE STEWARDESS [Advanced Practice Nurse] - (SENT WEB REQUEST ON 11-12-16 @ 1144) Palliative Quality Palliative Quality: Screen for Code Status: Yes, Screen for Goals of Care: Yes, Screen for Pain: Yes, If Pain Regimen Started, Initiate Bowel Regimen: NA, Screen for Nausea/Vomitting: Yes
[2016-11-14] MEDS: Pantoprazole 40 MG in 0.9 % Sodium Chloride Mini Bag 100 ML IVC SCH ×3 (03:04→14:18)
[2016-11-14 04:56] LABS: Basophils % 0.4 %; Eosinophils # 0.1 K/mcL (0.0-0.6); Eosinophils % 1.5 %; Hematocrit 25.1 % (35.3-44.9); Immature Granulocytes % 0.9 % (0-4); Lymphocytes # 0.8 K/mcL (0.6-4.6); Lymphocytes % 10.4 %; Mean Corpuscular HGB Conc 31.9 g/dL (31.6-35.5); Mean Corpuscular Hemoglobin 29.7 pg (28.0-33.3); Mean Corpuscular Volume 93.3 fL (83.0-100.0); Mean Platelet Volume 10.9 fL (9.4-12.4); Monocytes # 0.5 K/mcL (0.0-1.3); Monocytes % 6.1 %; Neutrophils # 6.5 K/mcL (1.6-8.9); Platelet Count 113 K/mcL (140-400); Red Blood Count 2.69 M/mcL (3.82-4.97); Red Cell Distribution Width 15.6 % (11.5-14.5); Segmented Neutrophils % 80.7 %
[2016-11-14 05:25] LABS: Albumin/Globulin Ratio 0.5 (1.1-2.2); Alkaline Phosphatase 106 Units/L (38-126); Aspartate Amino Transferase 10 Units/L (5-34); BUN/Creatinine Ratio 12 (6-26); Bilirubin,Total 0.6 mg/dL (0.2-1.2); Calcium 7.9 mg/dL (8.6-10.8); Carbon Dioxide 23 mEq/L (19-29); Chloride 105 mEq/L (98-109); Globulin 3.2 g/dL (2.4-3.5); Glucose 144 mg/dL (70-99); Osmolality,Calculated 305 (280-300); Potassium 4.2 mEq/L (3.5-4.5); Sodium 139 mEq/L (136-145); Total Protein 4.9 g/dL (6.0-8.3); eGFR For African Americans 12 (> 60); eGFR For Non-African Americans 10 (> 60)
[2016-11-14] MEDS: Insulin LISPRO 300 UNITS/3 ML VIAL SQ SCH ×3 (05:45→18:06)
[2016-11-14 06:00] LABS: Platelet Estimate Decreased (Normal)
[2016-11-14 06:03] LABS: Alanine Aminotransferase < 6 Units/L (0-55); Albumin 1.7 g/dL (3.5-5.0); Blood Urea Nitrogen 54 mg/dL (7-20)
[2016-11-14] MEDS ORDERED: 0.9 % Sodium Chloride 250 ML IVC PRN (06:53)
[2016-11-14] MEDS ORDERED: 0.9 % Sodium Chloride 1,000 ML PRIME SCH (07:00)
[2016-11-14] MEDS: MetroNIDAZOLE 500 MG/100 ML 500 MG/100 ML BAG IVPB SCH ×2 (08:58→17:26)
--- NOTE | 2016-11-14 09:23 | Neurology Progress Note ---
Date of Encounter: 11/14/16 Time of Encounter: 08:15 Assessment and Plan (1) Encephalopathy due to metabolic factor or toxin Current Visit: Yes Status: Acute Patient encephalopathy seems to be improving no evidence of any stroke or any LABORATORY TESTER meningitis She did have him elevated TSH perhaps may need to be treated , will defer the rx to the primary care team, From neurology standpoint patient is a stable suggest to continue to treat the underlying etiologies please call if needed, will sign off, thank you. (2) End stage chronic kidney disease Current Visit: No Status: Acute (3) Renal failure treated with peritoneal dialysis Current Visit: No Status: Acute (4) Diarrhea Current Visit: Yes Status: Acute Qualifiers: Diarrhea type: unspecified type Qualified Code(s): R19.7 - Diarrhea, unspecified Subjective Principal diagnosis: ESRD Interval history: pt is stable improving per daughter she is comimg back to her self, no new weakness, B12 foalte is normal TSH is elevated, thinking to stop dialysis , palliative on board Objective - Constitutional Vitals: Temp Pulse Resp BP Pulse Ox 98.7 F 63 18 136/57 97 11/14/16 06:43 11/14/16 06:43 11/14/16 06:43 11/14/16 06:43 11/14/16 06:43 General appearance: Present: cooperative, A&O X 1 (person), no acute distress. Absent: answers questions appropriately - Neurological Exam Sensorimotor examination: Present: intact Motor Examination: Present: grossly full strength in all extremities Motor examination - left side: 3/5: deltoids, biceps, triceps, wrist flexion, wrist extension, hip flexors, job service consultant, quadriceps, tibialis Anterior, toe extension (EHL), plantarflexion Sensation intact: Present: intact Mental Status Examination: Present: awake, oriented to person, answers questions appropriately, follows simple commands, localizes noxious stimulation Cranial nerve examination: Present: PERRL, EOMI, visual orellana intact, sensory to face intact, no facial asymmetry is present, no dysarthria ([pt is very weak all over though no focal motor weakness noted, she has generalised weakness) - VTE Documentation of Mechanical Device: Graduated compression elastic hosiery Results - Laboratory Findings CBC and BMP: 11/14/16 04:46 11/14/16 04:46 Abnormal lab findings: Abnormal lab results RBC 2.69 M/mcL (3.82-4.97) L 11/14/16 04:46 Hgb 8.0 g/dL (11.5-15.4) L 11/14/16 04:46 Hct 25.1 % (35.3-44.9) L 11/14/16 04:46 RDW 15.6 % (11.5-14.5) H 11/14/16 04:46 Plt Count 113 K/mcL (140-400) L 11/14/16 04:46 Platelet Estimate Decreased (Normal) L 11/14/16 04:46 Anisocytosis 1+ (Not Present) A 11/13/16 04:52 Microcytosis Present (Not Present) A 11/13/16 04:52 PT 12.9 Seconds (9.4-12.1) H 11/11/16 11:00 BUN 54 mg/dL (7-20) H D 11/14/16 04:46 Creatinine 4.48 mg/dL (0.57-1.11) H 11/14/16 04:46 Est GFR ( Amer) 12 (> 60) L 11/14/16 04:46 Est GFR (Non-Af Amer) 10 (> 60) L 11/14/16 04:46 Glucose 144 mg/dL (70-99) H 11/14/16 04:46 POC Glucose 135 (58-89) H 11/14/16 05:45 Calculated Osmolality 305 (280-300) H 11/14/16 04:46 Calcium 7.9 mg/dL (8.6-10.8) L 11/14/16 04:46 Phosphorus 5.3 mg/dL (2.3-4.7) H 11/12/16 01:13 Ammonia 16 mcmol/L (18-72) L 11/11/16 11:00 Troponin I 0.51 ng/mL (0-0.03) H* 11/12/16 01:13 Serum Total Protein 4.9 g/dL (6.0-8.3) L 11/14/16 04:46 Albumin 1.7 g/dL (3.5-5.0) L 11/14/16 04:46 Albumin/Globulin Ratio 0.5 (1.1-2.2) L 11/14/16 04:46 HDL Cholesterol 19 mg/dL (40-59) L 11/12/16 01:13 Cholesterol/HDL Ratio 5.2 (0-4.9) H 11/12/16 01:13 TSH 10.746 mcIU/mL (0.350-4.840) H 11/13/16 13:05 Urine Color Red (Yellow) A 11/11/16 11:31 Urine Clarity Cloudy (Clear) A 11/11/16 11:31 Urine Protein >=300 mg/dL (Neg-Trace) H 11/11/16 11:31 Urine Glucose (UA) 250 mg/dL (Normal) H 11/11/16 11:31 Urine Ketones Trace mg/dL (Negative) H 11/11/16 11:31 Urine Blood Large (Negative) H 11/11/16 11:31 Urine Nitrite Positive (Negative) A 11/11/16 11:31 Urine Bilirubin Moderate (Negative) H 11/11/16 11:31 Ur Leukocyte Esterase Large (Negative) H 11/11/16 11:31 Ur Culture Indicated? YES (NO) A 11/11/16 11:31 Stool Occult Blood Positive (Negative) A 11/11/16 16:24 Consult Discharge Plan - Plan Referrals: Moncho Arambula [Other] - 11/20/16 3:00 pm (This is his new location in with [facility] across from [facility].) Abbe Woodard, ROLLWAY WORKER [Advanced Practice Nurse] - (SENT WEB REQUEST ON 11-12-16 @ [phone])
--- NOTE | 2016-11-14 11:50 | EEG/EMG/Oth Biometrics Report ---
EEG Procedure Report Date of procedure: 11/12/16 EEG Procedure: Routine EEG Procedure Note: This is a 21 channel digital EEG performed utilizing 10/20 electrode placement system the patient was been having intermittent confusion. Patient has a predominant waking background frequency at this poorly organized, low voltage delta activity in the anterior regions. No esyns-yyl-beux discharges or any lateralizing abnormalities are seen. Almost constant EMG artifacts and tremor artifacts are noted making the study suboptimal. Photic stimulation did not produce any abnormalities. Stage II sleep was not observed. IMPRESSION: Suboptimal study, no clear paroxysmal activities or epileptiform discharges were seen. Intermittent slowing noted which is due to generalized cerebral dysfunction commonly seen in patients with metabolic toxic encephalopathy. Clinical correlation is suggested .
--- NOTE | 2016-11-14 13:25 | Palliative Progress Note ---
Date of Encounter: 11/14/16 Time of Encounter: 11:00 - Assessment and plan (1) ESRD on hemodialysis Current Visit: No Status: Acute (2) Counseling regarding advanced care planning and goals of care Current Visit: Yes Status: Acute Assessment and plan: Attempted goals of care discussion with patient. Daughter at bedside and states , "mom can't decide if she wants to continue dialysis". Attempted to discuss with patient, but she seems to have difficulty understanding, and gets agitated and angry when I repeat information. She either refuses or cannot recall information when I ask her to repeat. Becomes angry with further questioning, and demanding to go home today. Daughter at bedside states, that patient constantly changes her mind regarding care. She refused dialysis today, after she told daughter that she wanted to continue it. Daughter, Brianna, upset and tearful stating that she cannot care for patient any longer at home. She is crying stating that her dad will not understand and will blame her. Brianna states that patient "gave up 3 years ago" when her son passed. States she was treated for depression, but medications did not seem helpful. Brianna states patient can be verbally abusive at home, and she "cannot take caring for her anymore". S/W [place] Dsouza present as well. Provided emotional support. There is no power of insurance attorney in place. D/W Dr. Wallis, patient may lack capacity to make medical decisions for herself. (3) Generalized pain Current Visit: Yes Status: Acute Assessment and plan: Hydromorphone has been utilized x2 last 24 hours for pain. Since mental status improved and ok with nephrology, would recommend restarting back on home dose of Gabapentin and [place] and D/C IV Hydromorphone - Time Spent With Patient Total time spent is greater than 50% in coordination of care (as documented) at patient's floor/unit and/or counseling patient: 25 - 35 minutes - Subjective Interval history: Patient awake and alert. Angry and desiring therapy there to get her in chair. Daughter Brianna and son at bedside. Patient refused dialysis this am. When asked why stated "don't know". Daughter is distraught that pt has been demanding to go home, and states she is unable to take care of her. Patient refusing to answer some questions and asking me to leave her alone. States "I'm tired of people lecturing me." Incontinent in bed, and originally refused to be changed, however, did let us change bed. Incontinent of blood tinged urine. - Constitutional Vitals: Abnormal lab results RBC 2.69 M/mcL (3.82-4.97) L 11/14/16 04:46 Hgb 8.0 g/dL (11.5-15.4) L 11/14/16 04:46 Hct 25.1 % (35.3-44.9) L 11/14/16 04:46 RDW 15.6 % (11.5-14.5) H 11/14/16 04:46 Plt Count 113 K/mcL (140-400) L 11/14/16 04:46 Platelet Estimate Decreased (Normal) L 11/14/16 04:46 Anisocytosis 1+ (Not Present) A 11/13/16 04:52 Microcytosis Present (Not Present) A 11/13/16 04:52 PT 12.9 Seconds (9.4-12.1) H 11/11/16 11:00 BUN 54 mg/dL (7-20) H D 11/14/16 04:46 Creatinine 4.48 mg/dL (0.57-1.11) H 11/14/16 04:46 Est GFR ( Amer) 12 (> 60) L 11/14/16 04:46 Est GFR (Non-Af Amer) 10 (> 60) L 11/14/16 04:46 Glucose 144 mg/dL (70-99) H 11/14/16 04:46 POC Glucose 135 (58-89) H 11/14/16 05:45 Calculated Osmolality 305 (280-300) H 11/14/16 04:46 Calcium 7.9 mg/dL (8.6-10.8) L 11/14/16 04:46 Phosphorus 5.3 mg/dL (2.3-4.7) H 11/12/16 01:13 Ammonia 16 mcmol/L (18-72) L 11/11/16 11:00 Troponin I 0.51 ng/mL (0-0.03) H* 11/12/16 01:13 Serum Total Protein 4.9 g/dL (6.0-8.3) L 11/14/16 04:46 Albumin 1.7 g/dL (3.5-5.0) L 11/14/16 04:46 Albumin/Globulin Ratio 0.5 (1.1-2.2) L 11/14/16 04:46 HDL Cholesterol 19 mg/dL (40-59) L 11/12/16 01:13 Cholesterol/HDL Ratio 5.2 (0-4.9) H 11/12/16 01:13 TSH 10.746 mcIU/mL (0.350-4.840) H 11/13/16 13:05 Urine Color Red (Yellow) A 11/11/16 11:31 Urine Clarity Cloudy (Clear) A 11/11/16 11:31 Urine Protein >=300 mg/dL (Neg-Trace) H 11/11/16 11:31 Urine Glucose (UA) 250 mg/dL (Normal) H 11/11/16 11:31 Urine Ketones Trace mg/dL (Negative) H 11/11/16 11:31 Urine Blood Large (Negative) H 11/11/16 11:31 Urine Nitrite Positive (Negative) A 11/11/16 11:31 Urine Bilirubin Moderate (Negative) H 11/11/16 11:31 Ur Leukocyte Esterase Large (Negative) H 11/11/16 11:31 Ur Culture Indicated? YES (NO) A 11/11/16 11:31 Stool Occult Blood Positive (Negative) A 11/11/16 16:24 General appearance: Present: no acute distress - Respiratory Respiratory exam: Present: decreased breath sounds, CTAB - Cardiovascular Cardiovascular exam: Present: +S1, +S2 - GI/Abdominal GI/Abdominal exam: Present: distended, soft - Additional comments: Incontinent of blood tinged urine - Extremities Exam Additional comments: Temp dialysis line to right groin - Neurological Exam Neurological exam: Present: alert Additional comments: Oriented to name and place. Reoriented to time and situation. - Skin Skin exam: Present: dry, pallor, warm Palliative Quality Palliative Quality: Screen for Code Status: Yes, Screen for Goals of Care: Yes, Screen for Pain: Yes, If Pain Regimen Started, Initiate Bowel Regimen: NA, Screen for Nausea/Vomitting: Yes - Labs CBC & Chem 7: 11/14/16 04:46 11/14/16 04:46 Labs: Laboratory Results - last 24 hr 11/13/16 11/13/16 11/13/16 13:05 13:05 15:24 WBC RBC Hgb Hct MCV MCH MCHC RDW Plt Count MPV Immature Gran % Seg Neutrophils % Lymphocytes % Monocytes % Eosinophils % Basophils % Neutrophils # Lymphocytes # Monocytes # Eosinophils # Basophils # Platelet Estimate Sodium Potassium Chloride Carbon Dioxide BUN Creatinine Est GFR ( Amer) Est GFR (Non-Af Amer) BUN/Creatinine Ratio Glucose POC Glucose 146 H Calculated Osmolality Calcium Total Bilirubin AST ALT Alkaline Phosphatase Serum Total Protein Albumin Globulin Albumin/Globulin Ratio Vitamin B12 734 Folate 7.7 TSH 10.746 H 11/13/16 11/14/16 11/14/16 23:52 04:46 04:46 WBC 8.1 RBC 2.69 L Hgb 8.0 L Hct 25.1 L MCV 93.3 MCH 29.7 MCHC 31.9 RDW 15.6 H Plt Count 113 L MPV 10.9 Immature Gran % 0.9 Seg Neutrophils % 80.7 Lymphocytes % 10.4 Monocytes % 6.1 Eosinophils % 1.5 Basophils % 0.4 Neutrophils # 6.5 Lymphocytes # 0.8 Monocytes # 0.5 Eosinophils # 0.1 Basophils # 0.0 Platelet Estimate Decreased L Sodium 139 Potassium 4.2 Chloride 105 Carbon Dioxide 23 BUN 54 H D Creatinine 4.48 H Est GFR ( Amer) 12 L Est GFR (Non-Af Amer) 10 L BUN/Creatinine Ratio 12 Glucose 144 H POC Glucose 231 H Calculated Osmolality 305 H Calcium 7.9 L Total Bilirubin 0.6 AST 10 ALT < 6 Alkaline Phosphatase 106 Serum Total Protein 4.9 L Albumin 1.7 L Globulin 3.2 Albumin/Globulin Ratio 0.5 L Vitamin B12 Folate [facility] 11/14/16 05:45 WBC RBC Hgb Hct MCV MCH MCHC RDW Plt Count MPV Immature Gran % Seg Neutrophils % Lymphocytes % Monocytes % Eosinophils % Basophils % Neutrophils # Lymphocytes # Monocytes # Eosinophils # Basophils # Platelet Estimate Sodium Potassium Chloride Carbon Dioxide BUN Creatinine Est GFR ( Amer) Est GFR (Non-Af Amer) BUN/Creatinine Ratio Glucose POC Glucose 135 H Calculated Osmolality Calcium Total Bilirubin AST ALT Alkaline Phosphatase Serum Total Protein Albumin Globulin Albumin/Globulin Ratio Vitamin B12 Folate TSH - Impressions Impressions Guidance Needle Placement Ultrasound 11/13/16 00:00 IMPRESSION: Successful ultrasound and fluoroscopy guided non-tunneled hemodialysis catheter placement. D/ / Adair Staples MD / Adair Staples MD Interpreting Provider: Adair Staples MD Insertion Non-Tunneled Catheter 11/13/16 00:00 IMPRESSION: Successful ultrasound and fluoroscopy guided non-tunneled hemodialysis catheter placement. D/ / Adair Staples MD / Adair Staples MD Interpreting Provider: Adair Staples MD - ABG Interpretation ABG results: PT/INR, D-dimer PT 12.9 Seconds (9.4-12.1) H 11/11/16 11:00 Consult Discharge Plan - Plan Referrals: Moncho Arambula [Other] - 11/20/16 3:00 pm (This is his new location in with [facility] across from [facility].) Abbe Woodard, COILER [Advanced Practice Nurse] - (SENT WEB REQUEST ON 11-12-16 @ [phone])
--- NOTE | 2016-11-14 13:58 | Nephrology Progress Note ---
Date of Encounter: 11/14/16 Time of Encounter: 11:10 - Assessment and Plan (1) End stage chronic kidney disease Current Visit: No Status: Acute Continue HD with UF as planned today since pt agreeable Lytes stable and WNL (2) Anemia in chronic renal disease Current Visit: Yes Status: Acute Hgb low but fairly stable around 8 Will dose with aranesp today Qualifiers: Chronic kidney disease stage: on chronic dialysis Qualified Code(s): N18.6 - End stage renal disease; D63.1 - Anemia in chronic kidney disease; Z99.2 - Dependence on renal dialysis (3) Encephalopathy due to metabolic factor or toxin Current Visit: Yes Status: Acute Appreciate neurology's input Pt not uremic at present (4) UTI (urinary tract infection) Current Visit: Yes Status: Acute Continue abx per primary team, currently on ceftraixone for Ecoli Qualifiers: Urinary tract infection type: acute cystitis Hematuria presence: with hematuria Qualified Code(s): N30.01 - Acute cystitis with hematuria Subjective Principal diagnosis: ESRD Interval history: Interim reviwed and noted. Pt seen and examined apparently irate and refusing HD this am. Family present at bedside. Pt now agreeable for HD today after several minutes of discussions but wants to go home today. Objective - Vital Signs Vital signs: Vital Signs Temp Pulse Resp BP Pulse Ox 11/14/16 11:00 72 16 96 11/14/16 08:00 68 16 11/14/16 07:00 70 16 96 11/14/16 06:43 98.7 F 63 18 136/57 97 11/14/16 03:15 99.6 F 62 18 115/46 95 11/14/16 00:13 98.3 F 63 16 128/60 96 11/13/16 21:19 68 11/13/16 19:00 99.1 F 72 16 114/45 94 11/13/16 17:16 98.3 F 68 16 139/60 93 11/13/16 16:58 98.4 F 128 18 89/58 92 11/13/16 14:40 97.6 F 17 104/53 11/13/16 14:30 95/38 11/13/16 14:15 109/42 11/13/16 14:00 99/41 Intake and Output 11/13/16 11/14/16 11/14/16 23:59 07:59 15:59 Intake Total 400 / 400 300 / 300 0 / 0 Balance 400 / 400 300 / 300 0 / 0 Intake: IV Fluids 400 / 400 300 / 300 Protonix 40 MG In 0.9 % Sodium 200 / 200 200 / 200 Chloride (Mini-Bag +) 100 ML @ 20 mls/hr IVC .Q5H [facility] Rx#: [id number] Flagyl Premix 500 MG/100 ML 500 100 / 100 100 / 100 mg In 100 ml @ 100 mls/hr IVPB Q8HR [facility] Rx#:[id number] Rocephin 1,000 MG In Dextrose 5 100 / 100 % (Minibag+) 100 ML 100 ML @ 200 mls/hr IVPB Q24H [facility] Rx#: [id number] Oral 0 / 0 Other: Meal Dinner Breakfast Percent of Meal Consumed 10% 25% # Voids 1 Weight 73.3 kg Blood Glucose* 65 151 Patient Weight 11/14/16 23:59 Weight 73.3 kg - General Appearance General appearance: Present: chronically ill (NAD) EENT: Present: ATNC, mucous membranes moist Neck: Present: no JVD, supple Respiratory: Present: clear (ant bilat) Cardiology: Present: no edema, normal S1, normal S2 Dialysis Vascular Access: Venous Catheter Gastrointestinal: Present: no tenderness, no guarding Integumentary: Present: warm and dry Neurologic: Present: no focal deficit Musculoskeletal: Present: no deformities Psychiatric: Present: mood/affect appropriate, cooperative - Lab 11/14/16 04:46 11/14/16 04:46 Most recent lab results Calcium 7.9 mg/dL (8.6-10.8) L 11/14/16 04:46 Phosphorus 5.3 mg/dL (2.3-4.7) H 11/12/16 01:13 Magnesium 1.7 mg/dL (1.6-2.6) 11/12/16 01:13 - VTE Documentation of Mechanical Device: Graduated compression elastic hosiery Consult Discharge Plan - Plan Referrals: Moncho Arambula [Other] - 11/20/16 3:00 pm (This is his new location in with [facility] across from [facility].) Abbe Woodard, TURNING SANDER TENDER [Advanced Practice Nurse] - (SENT WEB REQUEST ON 11-12-16 @ [phone])
--- NOTE | 2016-11-14 14:09 | Consult Note ---
Date of Encounter: 11/14/16 Time of Encounter: 13:55 History of Present Illness Requesting Physician: Juventino Wallis MD Reason for consult: depression , self destructive behaviour,decision making capacity. History of present illness: Ms. Bernal is a 71 year old female admitted with altered Mental Status presented via EMS. she had missed her dialysis and decompensated. when i went see the patient she was not in room and was gone for dialysis. Her daughter Brianna was in room and gave me collateral states my mother has been going down since my brothers 3 yrs aago , she was then given Paxil and is still on it, she has kind of given up . 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 at present unable to get info from patient , will follow up CC: Juventino Wallis MD Past Med Surg Social Fam HX - Past Medical History Medical history: atrial fibrillation, CHF, COPD, diabetes, GERD, hyperlipidemia , hypertension, kidney stones, renal disease, thyroid disease, syncope - Past Psychiatric History Psychiatric history: Reports: depression Family psychiatric history: Unknown Family History of Suicide: Unknown - Past Surgical History Surgical History: appendectomy, carotid endarterectomy, cholecystectomy, hysterectomy, knee replacement, ALEC/BSO, other - Social History Smoking Status: Unknown if ever smoked Smokeless Tobacco Status: No Alcohol use: none Drug use: none - Family History Father History Unknown: Yes Family Member Ethnicity: Non- Living Status: Hx Family Cardiac Disorders: Yes Hx Family Respiratory Disorders: No Hx Family Cancer: No Hx Family GI Disorders: No Hx Family Endocrine Disorder: No Hx Family Neuromuscular Disorders: No Hx Family Neurologic Disorders: No Hx Family HEENT Disorders: No Hx Family Autoimmune Disorders: No Medications & Allergies Gabapentin [Neurontin] 300 mg PO BID 11/17/14 [History] Insulin ASPART [NovoLOG] 10 unit SQ TID MDD per sliding scale 11/17/14 [History] Insulin DETEMIR [Levemir] 30 unit SQ BID 11/17/14 [History] Loperamide HCl [Loperamide] 2 mg PO DAILY PRN 07/20/15 [History] Ergocalciferol (VITAMIN D2) [Vitamin D2 (50,000 UNIT)] 50,000 unit PO MO [History] Paroxetine [Paxil] 20 mg PO DAILY 02/12/16 [History] Clopidogrel [Plavix] 75 mg PO DAILY 04/03/16 [History] Levothyroxine [Synthroid] 175 mcg PO 0630 04/03/16 [History] Lisinopril [Zestril] 20 mg PO DAILY 04/03/16 [History] HYDROcodone/Acet 7.5/325 mg [Warren 7.5-325 mg] 1 tab PO Q6H PRN 07/14/16 [ History] Calcitriol [Rocaltrol] 0.25 mcg PO MOWEFR 11/11/16 [History] Iron Polysaccharide Complex [Pro Fe] 180 mg PO DAILY 11/11/16 [History] 3 Allergy/AdvReac Type Severity Reaction Status Date / Time Appdsji-Qgq-Cwv Reductase Allergy See Verified 07/14/16 13:48 Inhibitor Comments [Statins] Sulfa (Sulfonamide Allergy swelling Verified 07/14/16 11:56 Antibiotics) Results - Vital Signs Vital signs: Temp Pulse Resp BP Pulse Ox 98.7 F 72 16 136/57 96 11/14/16 06:43 11/14/16 11:00 11/14/16 11:00 11/14/16 06:43 11/14/16 11:00 - Labs Labs: Laboratory Last Values WBC 8.1 K/mcL (4.3-11.1) 11/14/16 04:46 RBC 2.69 M/mcL (3.82-4.97) L 11/14/16 04:46 Hgb 8.0 g/dL (11.5-15.4) L 11/14/16 04:46 Hct 25.1 % (35.3-44.9) L 11/14/16 04:46 MCV 93.3 fL (83.0-100.0) 11/14/16 04:46 MCH 29.7 pg (28.0-33.3) 11/14/16 04:46 MCHC 31.9 g/dL (31.6-35.5) 11/14/16 04:46 RDW 15.6 % (11.5-14.5) H 11/14/16 04:46 Plt Count 113 K/mcL (140-400) L 11/14/16 04:46 MPV 10.9 fL (9.4-12.4) 11/14/16 04:46 Immature Gran % 0.9 % (0-4) 11/14/16 04:46 Seg Neutrophils % 80.7 % 11/14/16 04:46 Band Neutrophils % 4.0 % (0-4) 11/11/16 11:04 Lymphocytes % 10.4 % 11/14/16 04:46 Monocytes % 6.1 % 11/14/16 04:46 Eosinophils % 1.5 % 11/14/16 04:46 Basophils % 0.4 % 11/14/16 04:46 Neutrophils # 6.5 K/mcL (1.6-8.9) 11/14/16 04:46 Lymphocytes # 0.8 K/mcL (0.6-4.6) 11/14/16 04:46 Monocytes # 0.5 K/mcL (0.0-1.3) 11/14/16 04:46 Eosinophils # 0.1 K/mcL (0.0-0.6) 11/14/16 04:46 Basophils # 0.0 K/mcL (0.0-0.2) 11/14/16 04:46 Platelet Estimate Decreased (Normal) L 11/14/16 04:46 Immature Plt Fraction 2.7 % (1.1-6.1) 11/12/16 02:08 Anisocytosis 1+ (Not Present) A 11/13/16 04:52 Microcytosis Present (Not Present) A 11/13/16 04:52 PT 12.9 Seconds (9.4-12.1) H 11/11/16 11:00 INR 1.2 11/11/16 11:00 APTT 30.8 Seconds (26.0-36.0) 11/11/16 11:00 Sodium 139 mEq/L (136-145) 11/14/16 04:46 Potassium 4.2 mEq/L (3.5-4.5) 11/14/16 04:46 Chloride 105 mEq/L (98-109) 11/14/16 04:46 Carbon Dioxide 23 mEq/L (19-29) 11/14/16 04:46 BUN 54 mg/dL (7-20) H D 11/14/16 04:46 Creatinine 4.48 mg/dL (0.57-1.11) H 11/14/16 04:46 Est GFR ( Amer) 12 (> 60) L 11/14/16 04:46 Est GFR (Non-Af Amer) 10 (> 60) L 11/14/16 04:46 BUN/Creatinine Ratio 12 (6-26) 11/14/16 04:46 Glucose 144 mg/dL (70-99) H 11/14/16 04:46 POC Glucose 135 (58-89) H 11/14/16 05:45 Calculated Osmolality 305 (280-300) H 11/14/16 04:46 Lactic Acid 0.8 mmol/L (0.5-2.2) 11/11/16 11:00 Calcium 7.9 mg/dL (8.6-10.8) L 11/14/16 04:46 Phosphorus 5.3 mg/dL (2.3-4.7) H 11/12/16 01:13 Magnesium 1.7 mg/dL (1.6-2.6) 11/12/16 01:13 Total Bilirubin 0.6 mg/dL (0.2-1.2) 11/14/16 04:46 Direct Bilirubin 0.3 mg/dL (0.0-0.5) 11/11/16 11:00 Indirect Bilirubin 0.4 mg/dL (0.0-1.2) 11/11/16 11:00 AST 10 Units/L (5-34) 11/14/16 04:46 ALT < 6 Units/L (0-55) 11/14/16 04:46 Alkaline Phosphatase 106 Units/L (38-126) 11/14/16 04:46 Ammonia 16 mcmol/L (18-72) L 11/11/16 11:00 Troponin I 0.51 ng/mL (0-0.03) H* 11/12/16 01:13 Serum Total Protein 4.9 g/dL (6.0-8.3) L 11/14/16 04:46 Albumin 1.7 g/dL (3.5-5.0) L 11/14/16 04:46 Globulin 3.2 g/dL (2.4-3.5) 11/14/16 04:46 Albumin/Globulin Ratio 0.5 (1.1-2.2) L 11/14/16 04:46 Triglycerides 139 mg/dL (< 150) 11/12/16 01:13 Cholesterol 98 mg/dL (< 200) 11/12/16 01:13 LDL Cholesterol, Calc 51 mg/dL (0-99) 11/12/16 01:13 VLDL Cholesterol, Calc 28 mg/dL (< 31) 11/12/16 01:13 HDL Cholesterol 19 mg/dL (40-59) L 11/12/16 01:13 Cholesterol/HDL Ratio 5.2 (0-4.9) H 11/12/16 01:13 Vitamin B12 734 pg/mL (213-816) 11/13/16 13:05 Folate 7.7 ng/mL (7.0-31.4) 11/13/16 13:05 TSH 10.746 mcIU/mL (0.350-4.840) H 11/13/16 13:05 Ur Specimen Adequacy 11/11/16 11:31 Urine Color Red (Yellow) A 11/11/16 11:31 Urine Clarity Cloudy (Clear) A 11/11/16 11:31 Urine pH 5.5 pH Units (5.0-8.0) 11/11/16 11:31 Ur Specific [place] 1.019 (1.010-1.025) 11/11/16 11:31 Urine Protein >=300 mg/dL (Neg-Trace) H 11/11/16 11:31 Urine Glucose (UA) 250 mg/dL (Normal) H 11/11/16 11:31 Urine Ketones Trace mg/dL (Negative) H 11/11/16 11:31 Urine Blood Large (Negative) H 11/11/16 11:31 Urine Nitrite Positive (Negative) A 11/11/16 11:31 Urine Bilirubin Moderate (Negative) H 11/11/16 11:31 Urine Urobilinogen Normal mg/dL (Normal) 11/11/16 11:31 Ur Leukocyte Esterase Large (Negative) H 11/11/16 11:31 Ur Culture Indicated? YES (NO) A 11/11/16 11:31 Stool Occult Blood Positive (Negative) A 11/11/16 16:24 Urine Opiates Screen Negative ng/mL (Ctdfow=716) 11/11/16 11:31 Ur Barbiturates Screen Negative ng/mL (Fgvpqz=414) 11/11/16 11:31 Ur Phencyclidine Scrn Negative ng/mL (Cutoff=25) 11/11/16 11:31 Ur Amphetamines Screen Negative ng/mL (Kleesy=5268) 11/11/16 11:31 U Benzodiazepines Scrn Negative ng/mL (Efukvn=774) 11/11/16 11:31 Urine Cocaine Screen Negative ng/mL (Cutoff= 300) 11/11/16 11:31 U Marijuana (THC) Screen Negative ng/mL (Cutoff = 50) 11/11/16 11:31 Ethyl Alcohol < 10 mg/dL (0-10) 11/11/16 11:00 Hep Bs Antigen Nonreactive (Nonreactive) 11/11/16 11:00 Hep Bs Antibody 0.00 mIU/mL 11/11/16 11:00 Specimen Rejected Clotted 11/12/16 01:39 Blood Type A POSITIVE 11/11/16 11:00 Antibody Screen NEGATIVE 11/11/16 11:00 Crossmatch See Detail 11/11/16 11:00 Consult Discharge Plan - Plan Referrals: Moncho Arambula [Other] - 11/20/16 3:00 pm (This is his new location in with [facility] across from [facility].) Abbe Woodard, COFFEE SUPERVISOR [Advanced Practice Nurse] - (SENT WEB REQUEST ON 11-12-16 @ [phone])
[2016-11-14] MEDS: *HR* HYDROmorphone (PF) 1 MG/ML SYRINGE IVP PRN ×2 (14:17→21:13)
[2016-11-14] MEDS: Acetaminophen 325 MG TABLET PO PRN (18:40)
--- NOTE | 2016-11-14 18:51 | Internal Med Progress Note ---
Date of Encounter: 11/14/16 Time of Encounter: 16:00 - Assessment and plan (1) Metabolic encephalopathy Current Visit: Yes Status: Acute Assessment and plan: Continue with hemodialysis. Continue treating infection. Mental status improving. Avoid sedatives. (2) DM2 (diabetes mellitus, type 2) Current Visit: No Status: Acute Assessment and plan: Insulin sliding scale and blood glucose fingerstick every 6 hours. Qualifiers: Diabetes mellitus complication status: without complication Diabetes mellitus fpc insulin use: with bed bug exterminator use Qualified Code(s): E11.9 - Type 2 diabetes mellitus without complications; Z79.4 - [facility] (current) use of insulin (3) ESRD on hemodialysis Current Visit: No Status: Acute Assessment and plan: Hemodialysis scheduled for today through a right upper extremity AV fistula. Appreciate nephrology recommendations. (4) UTI (urinary tract infection) Current Visit: Yes Status: Acute Assessment and plan: Urine culture grew Escherichia coli. Continue with ceftriaxone. Qualifiers: Urinary tract infection type: acute cystitis Hematuria presence: with hematuria Qualified Code(s): N30.01 - Acute cystitis with hematuria (5) Diarrhea Current Visit: Yes Status: Acute Assessment and plan: I am concerned of infectious diarrhea. We will obtain a stool GI infection panel. Qualifiers: Diarrhea type: unspecified type Qualified Code(s): R19.7 - Diarrhea, unspecified (6) Anemia in chronic renal disease Current Visit: Yes Status: Acute Assessment and plan: Status post transfusion with appropriate response. Continue to monitor. Follow -up with GI. Qualifiers: Chronic kidney disease stage: on chronic dialysis Qualified Code(s): N18.6 - End stage renal disease; D63.1 - Anemia in chronic kidney disease; Z99.2 - Dependence on renal dialysis (7) Elevated troponin Current Visit: Yes Status: Acute Assessment and plan: Flat and adynamic profile, likely related to end-stage renal disease. - Subjective Interval history: Patient's mental status has improved over the last 2 days with resuming hemodialysis. She denies headache, chest pain, cough and shortness of breath. - Constitutional Vitals: Temp Pulse Resp BP Pulse Ox 98.5 F 72 14 140/70 96 11/14/16 17:02 11/14/16 17:02 11/14/16 17:02 11/14/16 17:24 11/14/16 17:02 General appearance: Present: A&O X 1 (Obtunded) - Respiratory Respiratory exam: Present: CTAB. Absent: accessory muscle use, rales, rhonchi, wheezes - Cardiovascular Cardiovascular exam: Present: RRR, +S1, +S2. Absent: diastolic murmur, gallop, rubs, systolic murmur - Extremities Exam Extremities exam: Present: warm, radial pulses palpable and symmetrical. Absent : calf tenderness, cyanotic, pedal edema - Neurological Exam Neurological exam: Present: CN II-XII intact, oriented X3, no focal deficits. Absent: pronater drift, facial droop, speech deficit Internal Medicine: Result - Labs CBC & Chem 7: 11/14/16 04:46 11/14/16 04:46 Labs: Short CBC 11/14/16 Range/Units 04:46 WBC 8.1 (4.3-11.1) K/mcL Hgb 8.0 L (11.5-15.4) g/dL Hct 25.1 L (35.3-44.9) % Plt Count 113 L (140-400) K/mcL Neutrophils # 6.5 (1.6-8.9) K/mcL BMP 11/14/16 04:46 Sodium 139 Potassium 4.2 Chloride 105 Carbon Dioxide 23 BUN 54 H D Creatinine 4.48 H Glucose 144 H Calcium 7.9 L Liver Function 11/14/16 Range/Units 04:46 Total Bilirubin 0.6 (0.2-1.2) mg/dL AST 10 (5-34) Units/L ALT < 6 (0-55) Units/L Alkaline Phosphatase 106 (38-126) Units/L Albumin 1.7 L (3.5-5.0) g/dL - ABG Interpretation ABG results: PT/INR, D-dimer PT 12.9 Seconds (9.4-12.1) H 11/11/16 11:00 - VTE Documentation of Mechanical Device: Intermittent pneumatic compression device Consult Discharge Plan - Plan Referrals: Moncho Arambula [Other] - 11/20/16 3:00 pm (This is his new location in with [facility] across from [facility].) Abbe Woodard, ELECTRICAL TEST ENGINEER [Advanced Practice Nurse] - (SENT WEB REQUEST ON 11-12-16 @ [phone])
[2016-11-15] MEDS: MetroNIDAZOLE 500 MG/100 ML 500 MG/100 ML BAG IVPB SCH ×3 (02:35→15:44)
[2016-11-15] MEDS: *HR* HYDROmorphone (PF) 1 MG/ML SYRINGE IVP PRN ×3 (04:30→22:28)
[2016-11-15] MEDS: Insulin LISPRO 300 UNITS/3 ML VIAL SQ SCH ×4 (04:37→16:46)
[2016-11-15 07:40] LABS: Hematocrit 25.5 % (35.3-44.9); Hemoglobin 8.1 g/dL (11.5-15.4); Mean Corpuscular HGB Conc 31.8 g/dL (31.6-35.5); Mean Corpuscular Hemoglobin 29.7 pg (28.0-33.3); Mean Corpuscular Volume 93.4 fL (83.0-100.0); Mean Platelet Volume 10.9 fL (9.4-12.4); Platelet Count 119 K/mcL (140-400); Red Blood Count 2.73 M/mcL (3.82-4.97); Red Cell Distribution Width 15.6 % (11.5-14.5)
[2016-11-15 08:08] LABS: Eosinophils # 0.3 K/mcL (0.0-0.6); Lymphocytes # 0.9 K/mcL (0.6-4.6); Monocytes # 0.1 K/mcL (0.0-1.3); Neutrophils # 9.7 K/mcL (1.6-8.9); Toxic Granulation Present (Not Present)
[2016-11-15 08:09] LABS: Platelet Estimate Normal (Normal)
[2016-11-15] MEDS: *HR* OxyCODONE/APAP 5/325 TABLET PO PRN (12:18)
--- NOTE | 2016-11-15 13:58 | Nephrology Progress Note ---
Date of Encounter: 11/15/16 Time of Encounter: 12:45 - Assessment and Plan (1) End stage chronic kidney disease Current Visit: No Status: Acute s/p HD yesterday, next planned for thursday if still hospitalized Last lytes stable and WNL. no new labs today (2) Anemia in chronic renal disease Current Visit: Yes Status: Acute Hgb low but fairly stable around 8.1 as of yesterday, will monitor s/p aranesp yesterday Qualifiers: Chronic kidney disease stage: on chronic dialysis Qualified Code(s): N18.6 - End stage renal disease; D63.1 - Anemia in chronic kidney disease; Z99.2 - Dependence on renal dialysis (3) Encephalopathy due to metabolic factor or toxin Current Visit: Yes Status: Acute Appreciate neurology's input Pt not uremic at present (4) UTI (urinary tract infection) Current Visit: Yes Status: Acute Continue abx per primary team, currently on ceftraixone for Ecoli Qualifiers: Urinary tract infection type: acute cystitis Hematuria presence: with hematuria Qualified Code(s): N30.01 - Acute cystitis with hematuria Subjective Principal diagnosis: ESRD Interval history: Pt seen and examined. Does not feel good today. s/p successful HD yesterday with no issues Objective - Vital Signs Vital signs: Vital Signs Temp Pulse Resp BP Pulse Ox 11/15/16 11:46 68 11/15/16 11:27 98.8 F 68 16 155/56 95 11/15/16 08:17 63 11/15/16 07:32 98.5 F 67 14 154/73 96 11/15/16 03:52 98.9 F 73 18 167/61 98 11/14/16 23:30 76 11/14/16 23:16 98.4 F 68 18 121/47 97 11/14/16 20:00 69 11/14/16 19:50 99.3 F 70 16 156/76 96 11/14/16 17:24 140/70 11/14/16 17:02 98.5 F 72 14 141/72 96 11/14/16 16:10 97.6 F 18 132/51 11/14/16 15:55 128/47 11/14/16 15:40 129/56 11/14/16 15:32 80 11/14/16 15:25 113/57 11/14/16 15:10 128/53 11/14/16 14:55 123/53 11/14/16 14:40 119/46 11/14/16 14:25 112/43 11/14/16 14:10 121/55 Intake and Output 11/14/16 11/15/16 11/15/16 23:59 07:59 15:59 Intake Total 320 / 320 100 / 100 580 / 580 Output Total 600 / 600 50 / 50 Balance -280 / -280 50 / 50 580 / 580 Intake: IV Fluids 200 / 200 100 / 100 100 / 100 Flagyl Premix 500 MG/100 ML 500 100 / 100 100 / 100 100 / 100 mg In 100 ml @ 100 mls/hr IVPB Q8HR [facility] Rx#:[id number] Rocephin 1,000 MG In Dextrose 5 100 / 100 % (Minibag+) 100 ML 100 ML @ 200 mls/hr IVPB Q24H [facility] Rx#: [id number] Oral 120 / 120 480 / 480 Output: Urine 0 / 0 50 / 50 Total Dialysis (HD) Output 600 / 600 Other: Meal Dinner Lunch Percent of Meal Consumed 100% 10% Stool Size Small Stool Consistency liquid Stool Color Brown # Voids 1 Blood Glucose* 157 136 223 Hemodialysis Net Fluid Removed 0 (mL) - General Appearance General appearance: Present: chronically ill (NAD) EENT: Present: ATNC, mucous membranes moist Neck: Present: no JVD, supple Respiratory: Present: clear (ant bilat) Cardiology: Present: no edema, normal S1, normal S2 Dialysis Vascular Access: Venous Catheter Gastrointestinal: Present: no tenderness, no guarding Integumentary: Present: warm and dry Neurologic: Present: no focal deficit Musculoskeletal: Present: no deformities Psychiatric: Present: mood/affect appropriate - Lab 11/16/16 07:08 11/14/16 04:46 Most recent lab results Calcium 7.9 mg/dL (8.6-10.8) L 11/14/16 04:46 Phosphorus 5.3 mg/dL (2.3-4.7) H 11/12/16 01:13 Magnesium 1.7 mg/dL (1.6-2.6) 11/12/16 01:13 - VTE Documentation of Mechanical Device: Graduated compression elastic hosiery Consult Discharge Plan - Plan Referrals: Moncho Arambula [Other] - 09/28/17 3:00 pm (This is his new location in with [facility] across from [facility].) Abbe Woodard, HAIR DRESSER [Advanced Practice Nurse] - (SENT WEB REQUEST ON 11-12-16 @ [phone])
--- NOTE | 2016-11-15 15:35 | Internal Med Progress Note ---
Date of Encounter: 11/15/16 Time of Encounter: 10:33 - Assessment and plan (1) Metabolic encephalopathy Current Visit: Yes Status: Acute Assessment and plan: Continue with hemodialysis. Continue treating infection. Mental status improving. Avoid sedatives. (2) DM2 (diabetes mellitus, type 2) Current Visit: No Status: Acute Assessment and plan: Insulin sliding scale and blood glucose fingerstick every 6 hours. Qualifiers: Diabetes mellitus complication status: without complication Diabetes mellitus snf insulin use: with terminal block assembler use Qualified Code(s): E11.9 - Type 2 diabetes mellitus without complications; Z79.4 - [facility] (current) use of insulin (3) ESRD on hemodialysis Current Visit: No Status: Acute Assessment and plan: Continue with hemodialysis Thursday. Her right upper extremity AV fistula has failed and is no longer usable for hemodialysis. She has a temporary right femoral dialysis catheter. She will need a tunneled catheter placement on Thursday prior to discharge. Appreciate nephrology recommendations. (4) UTI (urinary tract infection) Current Visit: Yes Status: Acute Assessment and plan: Urine culture grew Escherichia coli. Continue with ceftriaxone. Qualifiers: Urinary tract infection type: acute cystitis Hematuria presence: with hematuria Qualified Code(s): N30.01 - Acute cystitis with hematuria (5) Diarrhea Current Visit: Yes Status: Acute Assessment and plan: I am concerned of infectious diarrhea. We will obtain a stool GI infection panel. Qualifiers: Diarrhea type: unspecified type Qualified Code(s): R19.7 - Diarrhea, unspecified (6) Anemia in chronic renal disease Current Visit: Yes Status: Acute Assessment and plan: Status post transfusion with appropriate response. Continue to monitor. Follow -up with GI. Qualifiers: Chronic kidney disease stage: on chronic dialysis Qualified Code(s): N18.6 - End stage renal disease; D63.1 - Anemia in chronic kidney disease; Z99.2 - Dependence on renal dialysis (7) Elevated troponin Current Visit: Yes Status: Acute Assessment and plan: Flat and adynamic profile, likely related to end-stage renal disease. (8) Altered mental status Current Visit: Yes Status: Acute Qualifiers: Altered mental status type: somnolence Qualified Code(s): R40.0 - Somnolence (9) Counseling regarding advanced care planning and goals of care Current Visit: Yes Status: Acute Assessment and plan: Appreciate palliative care recommendations. We will continue to have family meetings and discussions regarding goals of care. There appears to be some caregiver fatigue and some disagreement between family members. Due to poor baseline mental status psychiatry was consulted to assess for decision-making capacity. - Subjective Interval history: Patient's mental status has improved over the last 3 days with resuming hemodialysis. She reports moderate right upper quadrant abdominal pain which today is worse than yesterday, now associated with nausea, no vomiting, no diarrhea. Pain improves with oral pain medication. - Constitutional Vitals: Temp Pulse Resp BP Pulse Ox 98.8 F 68 16 155/56 95 11/15/16 11:27 11/15/16 11:46 11/15/16 11:27 11/15/16 11:27 11/15/16 11:27 General appearance: Present: A&O X 1 (Obtunded) - Respiratory Respiratory exam: Present: CTAB. Absent: accessory muscle use, rales, rhonchi, wheezes - Cardiovascular Cardiovascular exam: Present: RRR, +S1, +S2. Absent: diastolic murmur, gallop, rubs, systolic murmur - GI/Abdominal GI/Abdominal exam: Present: normal bowel sounds, soft, no peritoneal signs. Absent: distended, tenderness - Extremities Exam Extremities exam: Present: warm, radial pulses palpable and symmetrical. Absent : calf tenderness, cyanotic, pedal edema - Skin Skin exam: Present: dry, intact Internal Medicine: Result - Labs CBC & Chem 7: 11/15/16 07:02 11/14/16 04:46 Labs: Short CBC 11/15/16 Range/Units 07:02 WBC 11.0 (4.3-11.1) K/mcL Hgb 8.1 L (11.5-15.4) g/dL Hct 25.5 L (35.3-44.9) % Plt Count 119 L (140-400) K/mcL Neutrophils # 9.7 H (1.6-8.9) K/mcL - ABG Interpretation ABG results: PT/INR, D-dimer PT 12.9 Seconds (9.4-12.1) H 11/11/16 11:00 - VTE Documentation of Mechanical Device: Graduated compression elastic hosiery Consult Discharge Plan - Plan Referrals: Moncho Arambula [Other] - 11/20/16 3:00 pm (This is his new location in with [facility] across from [facility].) Abbe Woodard, STREET ENGINEER [Advanced Practice Nurse] - (SENT WEB REQUEST ON 11-12-16 @ [phone])
--- NOTE | 2016-11-15 15:44 | Consult Note ---
Date of Encounter: 11/15/16 Time of Encounter: 12:30 Assessment & Recommendation (1) Depressive disorder, not elsewhere classified Current visit: Yes Status: Chronic Assessment & Recommendation: decrease and dc paxil and taper up lexapro History of Present Illness Requesting Physician: Juventino Wallis MD Reason for consult: decision making capacity , depression , self destructive behaviour. History of present illness: Ms. Bernal is a 71 year old female consulted fro depression , decision making capacity and self destructive behaviour. Patient was seen today , she was in bed , pleasant , cooperative and able to provide the history. As per her she stated she has not been able to walk and has not in couple of months secondary to her neuropathic pain , states she has been depressed and lack of motivation , increase tiredness and denies any suicidal thoughts or any self harm, states would never do that. 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 she states she does not do this to or hurt herself , she does it because of too much pain , she has been depressed since she lost her 40 yr old son to cancer. ptient states i am tired and sleepy all day , not that i do not want to be up but i cannot . A/P depressive disorder Nos plan patient was alert , oriented, no confusion noted , able to give history and is able to make decision regarding her health. needs some family counselling. she is on paxil , which is not benefitting her and may be cause besides her medical illness of tiredness and fatigue. rec to decrease Paxil and slowly taper up lexapro from 5 mg for 5 days then 10 mg and paxil from 20 mg to 10 mg for 5 days then dc thank you for consult. CC: Juventino Wallis MD Past Med Surg Social Fam HX - Past Medical History Medical history: atrial fibrillation, CHF, COPD, diabetes, GERD, hyperlipidemia , hypertension, kidney stones, renal disease, thyroid disease, syncope - Past Psychiatric History Psychiatric history: Reports: depression - Past Surgical History Surgical History: appendectomy, carotid endarterectomy, cholecystectomy, hysterectomy, knee replacement, ALEC/BSO, other - Social History Smoking Status: Unknown if ever smoked Smokeless Tobacco Status: No Alcohol use: none Drug use: none - Family History Father History Unknown: Yes Family Member Ethnicity: Non- Living Status: Hx Family Cardiac Disorders: Yes Hx Family Respiratory Disorders: No Hx Family Cancer: No Hx Family GI Disorders: No Hx Family Endocrine Disorder: No Hx Family Neuromuscular Disorders: No Hx Family Neurologic Disorders: No Hx Family HEENT Disorders: No Hx Family Autoimmune Disorders: No Medications & Allergies Gabapentin [Neurontin] 300 mg PO BID 11/17/14 [History] Insulin ASPART [NovoLOG] 10 unit SQ TID MDD per sliding scale 11/17/14 [History] Insulin DETEMIR [Levemir] 30 unit SQ BID 11/17/14 [History] Loperamide HCl [Loperamide] 2 mg PO DAILY PRN 07/20/15 [History] Ergocalciferol (VITAMIN D2) [Vitamin D2 (50,000 UNIT)] 50,000 unit PO MO [History] Paroxetine [Paxil] 20 mg PO DAILY 02/12/16 [History] Clopidogrel [Plavix] 75 mg PO DAILY 04/03/16 [History] Levothyroxine [Synthroid] 175 mcg PO 0630 04/03/16 [History] Lisinopril [Zestril] 20 mg PO DAILY 04/03/16 [History] HYDROcodone/Acet 7.5/325 mg [[place] 7.5-325 mg] 1 tab PO Q6H PRN 07/14/16 [ History] Calcitriol [Rocaltrol] 0.25 mcg PO MOWEFR 11/11/16 [History] Iron Polysaccharide Complex [Pro Fe] 180 mg PO DAILY 11/11/16 [History] 3 Allergy/AdvReac Type Severity Reaction Status Date / Time Reurqts-Hgk-Jmg Reductase Allergy See Verified 07/14/16 13:48 Inhibitor Comments [Statins] Sulfa (Sulfonamide Allergy swelling Verified 07/14/16 11:56 Antibiotics) Review of Systems Psychiatric: Reports: depression Mental Status Exam Patient orientation: Yes Person, Yes Time, Yes Place Level of alertness: Alert Patient appearance: Appropriate Behavior: cooperative Psychomotor activity: Slowed Eye contact: Maintains Eye Contact Mood description: Depressed Affect description: congruent with mood Speech pattern: Coherent Speech volume: Normal Thought process: Intact Thought content: Yes Intact Attention span: Capable of Sustained Attention Patient reliability: Reliable Historian Intelligence estimate: Average Judgment: Fair Insight: Full Results - Vital Signs Vital signs: Temp Pulse Resp BP Pulse Ox 98.8 F 68 16 155/56 95 11/15/16 11:27 11/15/16 11:46 11/15/16 11:27 11/15/16 11:27 11/15/16 11:27 - Labs Labs: Laboratory Last Values WBC 11.0 K/mcL (4.3-11.1) 11/15/16 07:02 RBC 2.73 M/mcL (3.82-4.97) L 11/15/16 07:02 Hgb 8.1 g/dL (11.5-15.4) L 11/15/16 07:02 Hct 25.5 % (35.3-44.9) L 11/15/16 07:02 MCV 93.4 fL (83.0-100.0) 11/15/16 07:02 MCH 29.7 pg (28.0-33.3) 11/15/16 07:02 MCHC 31.8 g/dL (31.6-35.5) 11/15/16 07:02 RDW 15.6 % (11.5-14.5) H 11/15/16 07:02 Plt Count 119 K/mcL (140-400) L 11/15/16 07:02 MPV 10.9 fL (9.4-12.4) 11/15/16 07:02 Immature Gran % 0.9 % (0-4) 11/14/16 04:46 Seg Neutrophils % 85.0 % 11/15/16 07:02 Band Neutrophils % 3.0 % (0-4) 11/15/16 07:02 Lymphocytes % 8.0 % 11/15/16 07:02 Monocytes % 1.0 % 11/15/16 07:02 Eosinophils % 3.0 % 11/15/16 07:02 Basophils % 0.4 % 11/14/16 04:46 Neutrophils # 9.7 K/mcL (1.6-8.9) H 11/15/16 07:02 Lymphocytes # 0.9 K/mcL (0.6-4.6) 11/15/16 07:02 Monocytes # 0.1 K/mcL (0.0-1.3) 11/15/16 07:02 Eosinophils # 0.3 K/mcL (0.0-0.6) 11/15/16 07:02 Basophils # 0.0 K/mcL (0.0-0.2) 11/14/16 04:46 Toxic Granulation Present (Not Present) A 11/15/16 07:02 Platelet Estimate Normal (Normal) 11/15/16 07:02 Immature Plt Fraction 2.7 % (1.1-6.1) 11/12/16 02:08 Anisocytosis 1+ (Not Present) A 11/13/16 04:52 Microcytosis Present (Not Present) A 11/13/16 04:52 PT 12.9 Seconds (9.4-12.1) H 11/11/16 11:00 INR 1.2 11/11/16 11:00 APTT 30.8 Seconds (26.0-36.0) 11/11/16 11:00 Sodium 139 mEq/L (136-145) 11/14/16 04:46 Potassium 4.2 mEq/L (3.5-4.5) 11/14/16 04:46 Chloride 105 mEq/L (98-109) 11/14/16 04:46 Carbon Dioxide 23 mEq/L (19-29) 11/14/16 04:46 BUN 54 mg/dL (7-20) H D 11/14/16 04:46 Creatinine 4.48 mg/dL (0.57-1.11) H 11/14/16 04:46 Est GFR ( Amer) 12 (> 60) L 11/14/16 04:46 Est GFR (Non-Af Amer) 10 (> 60) L 11/14/16 04:46 BUN/Creatinine Ratio 12 (6-26) 11/14/16 04:46 Glucose 144 mg/dL (70-99) H 11/14/16 04:46 POC Glucose 240 (58-89) H 11/15/16 03:58 Calculated Osmolality 305 (280-300) H 11/14/16 04:46 Lactic Acid 0.8 mmol/L (0.5-2.2) 11/11/16 11:00 Calcium 7.9 mg/dL (8.6-10.8) L 11/14/16 04:46 Phosphorus 5.3 mg/dL (2.3-4.7) H 11/12/16 01:13 Magnesium 1.7 mg/dL (1.6-2.6) 11/12/16 01:13 Total Bilirubin 0.6 mg/dL (0.2-1.2) 11/14/16 04:46 Direct Bilirubin 0.3 mg/dL (0.0-0.5) 11/11/16 11:00 Indirect Bilirubin 0.4 mg/dL (0.0-1.2) 11/11/16 11:00 AST 10 Units/L (5-34) 11/14/16 04:46 ALT < 6 Units/L (0-55) 11/14/16 04:46 Alkaline Phosphatase 106 Units/L (38-126) 11/14/16 04:46 Ammonia 16 mcmol/L (18-72) L 11/11/16 11:00 Troponin I 0.51 ng/mL (0-0.03) H* 11/12/16 01:13 Serum Total Protein 4.9 g/dL (6.0-8.3) L 11/14/16 04:46 Albumin 1.7 g/dL (3.5-5.0) L 11/14/16 04:46 Globulin 3.2 g/dL (2.4-3.5) 11/14/16 04:46 Albumin/Globulin Ratio 0.5 (1.1-2.2) L 11/14/16 04:46 Triglycerides 139 mg/dL (< 150) 11/12/16 01:13 Cholesterol 98 mg/dL (< 200) 11/12/16 01:13 LDL Cholesterol, Calc 51 mg/dL (0-99) 11/12/16 01:13 VLDL Cholesterol, Calc 28 mg/dL (< 31) 11/12/16 01:13 HDL Cholesterol 19 mg/dL (40-59) L 11/12/16 01:13 Cholesterol/HDL Ratio 5.2 (0-4.9) H 11/12/16 01:13 Vitamin B12 734 pg/mL (213-816) 11/13/16 13:05 Folate 7.7 ng/mL (7.0-31.4) 11/13/16 13:05 TSH 10.746 mcIU/mL (0.350-4.840) H 11/13/16 13:05 Ur Specimen Adequacy 11/11/16 11:31 Urine Color Red (Yellow) A 11/11/16 11:31 Urine Clarity Cloudy (Clear) A 11/11/16 11:31 Urine pH 5.5 pH Units (5.0-8.0) 11/11/16 11:31 Ur Specific [place] 1.019 (1.010-1.025) 11/11/16 11:31 Urine Protein >=300 mg/dL (Neg-Trace) H 11/11/16 11:31 Urine Glucose (UA) 250 mg/dL (Normal) H 11/11/16 11:31 Urine Ketones Trace mg/dL (Negative) H 11/11/16 11:31 Urine Blood Large (Negative) H 11/11/16 11:31 Urine Nitrite Positive (Negative) A 11/11/16 11:31 Urine Bilirubin Moderate (Negative) H 11/11/16 11:31 Urine Urobilinogen Normal mg/dL (Normal) 11/11/16 11:31 Ur Leukocyte Esterase Large (Negative) H 11/11/16 11:31 Ur Culture Indicated? YES (NO) A 11/11/16 11:31 Stool Occult Blood Positive (Negative) A 11/11/16 16:24 Urine Opiates Screen Negative ng/mL (Cbzgir=985) 11/11/16 11:31 Ur Barbiturates Screen Negative ng/mL (Onmdkx=979) 11/11/16 11:31 Ur Phencyclidine Scrn Negative ng/mL (Cutoff=25) 11/11/16 11:31 Ur Amphetamines Screen Negative ng/mL (Hegris=4027) 11/11/16 11:31 U Benzodiazepines Scrn Negative ng/mL (Ybliwv=348) 11/11/16 11:31 Urine Cocaine Screen Negative ng/mL (Cutoff= 300) 11/11/16 11:31 U Marijuana (THC) Screen Negative ng/mL (Cutoff = 50) 11/11/16 11:31 Ethyl Alcohol < 10 mg/dL (0-10) 11/11/16 11:00 Hep Bs Antigen Nonreactive (Nonreactive) 11/11/16 11:00 Hep Bs Antibody 0.00 mIU/mL 11/11/16 11:00 Specimen Rejected Clotted 11/12/16 01:39 Blood Type A POSITIVE 11/11/16 11:00 Antibody Screen NEGATIVE 11/11/16 11:00 Crossmatch See Detail 11/11/16 11:00 Consult Discharge Plan - Plan Referrals: Moncho Arambula [Other] - 11/20/16 3:00 pm (This is his new location in with [facility] across from [facility].) Abbe Woodard, SUPPORT SERVICE TECH [Advanced Practice Nurse] - (SENT WEB REQUEST ON 11-12-16 @ 2005)
[2016-11-16] MEDS: Insulin LISPRO 300 UNITS/3 ML VIAL SQ SCH ×5 (00:08→21:52)
[2016-11-16] MEDS: MetroNIDAZOLE 500 MG/100 ML 500 MG/100 ML BAG IVPB SCH ×4 (00:09→23:09)
[2016-11-16 07:44] LABS: Basophils % 0.3 %; Eosinophils # 0.2 K/mcL (0.0-0.6); Eosinophils % 1.3 %; Hematocrit 27.5 % (35.3-44.9); Hemoglobin 8.6 g/dL (11.5-15.4); Immature Granulocytes % 1.4 % (0-4); Lymphocytes # 1.5 K/mcL (0.6-4.6); Lymphocytes % 12.9 %; Mean Corpuscular HGB Conc 31.3 g/dL (31.6-35.5); Mean Corpuscular Hemoglobin 29.8 pg (28.0-33.3); Mean Corpuscular Volume 95.2 fL (83.0-100.0); Mean Platelet Volume 10.9 fL (9.4-12.4); Monocytes # 0.6 K/mcL (0.0-1.3); Neutrophils # 9.2 K/mcL (1.6-8.9); Platelet Count 127 K/mcL (140-400); Red Blood Count 2.89 M/mcL (3.82-4.97); Red Cell Distribution Width 15.5 % (11.5-14.5); Segmented Neutrophils % 79.1 %
[2016-11-16] MEDS: *HR* OxyCODONE/APAP 5/325 TABLET PO PRN ×2 (10:06→21:52)
--- NOTE | 2016-11-16 12:51 | Nephrology Progress Note ---
Date of Encounter: 11/16/16 Time of Encounter: 12:55 - Assessment and Plan (1) End stage chronic kidney disease Current Visit: No Status: Acute s/p HD thursday, next planned for thursday if still hospitalized. Pt aware of the plan Last lytes stable and WNL. no new labs today (2) Anemia in chronic renal disease Current Visit: Yes Status: Acute Hgb low but improving at 8.6, will monitor s/p aranesp on thursday Qualifiers: Chronic kidney disease stage: on chronic dialysis Qualified Code(s): N18.6 - End stage renal disease; D63.1 - Anemia in chronic kidney disease; Z99.2 - Dependence on renal dialysis (3) Encephalopathy due to metabolic factor or toxin Current Visit: Yes Status: Acute Appreciate neurology's input Pt not uremic at present (4) UTI (urinary tract infection) Current Visit: Yes Status: Acute Continue abx per primary team, currently on ceftraixone for Ecoli Qualifiers: Urinary tract infection type: acute cystitis Hematuria presence: with hematuria Qualified Code(s): N30.01 - Acute cystitis with hematuria Subjective Principal diagnosis: ESRD Interval history: Pt seen and examined. Interim noted Objective - Vital Signs Vital signs: Vital Signs Temp Pulse Resp BP Pulse Ox 11/16/16 11:57 63 11/16/16 11:32 98.3 F 63 16 127/60 94 11/16/16 07:45 98.3 F 67 16 148/57 96 11/16/16 03:48 63 11/16/16 03:24 97.6 F 68 16 115/46 96 11/16/16 00:01 97.8 F 68 16 132/47 96 11/15/16 23:45 70 11/15/16 21:16 98.2 F 70 16 147/60 94 11/15/16 19:49 70 11/15/16 16:15 97.1 F L 66 16 141/69 97 11/15/16 15:36 66 Intake and Output 11/15/16 11/16/16 11/16/16 23:59 07:59 15:59 Intake Total 315 / 315 100 / 100 340 / 340 Balance 315 / 315 100 / 100 340 / 340 Intake: IV Fluids 195 / 195 100 / 100 100 / 100 Flagyl Premix 500 MG/100 ML 500 95 / 95 100 / 100 100 / 100 mg In 100 ml @ 100 mls/hr IVPB Q8HR DEMAR Rx#:[id number] Rocephin 1,000 MG In Dextrose 5 100 / 100 % (Minibag+) 100 ML 100 ML @ 200 mls/hr IVPB Q24H DEMAR Rx#: [id number] Oral 120 / 120 240 / 240 Other: Meal Dinner Breakfast Percent of Meal Consumed 15% 100% # Voids 1 1 Weight 76.3 kg Blood Glucose* 225 202 284 Patient Weight 11/16/16 23:59 Weight 76.3 kg - Lab 11/16/16 07:08 11/14/16 04:46 Most recent lab results Calcium 7.9 mg/dL (8.6-10.8) L 11/14/16 04:46 Phosphorus 5.3 mg/dL (2.3-4.7) H 11/12/16 01:13 Magnesium 1.7 mg/dL (1.6-2.6) 11/12/16 01:13 - VTE Documentation of Mechanical Device: Graduated compression elastic hosiery Consult Discharge Plan - Plan Referrals: Moncho Arambula [Other] - 11/20/16 3:00 pm (This is his new location in with [facility] across from [facility].) Abbe Woodard, MANAGER HEAVY DUTY [Advanced Practice Nurse] - (SENT WEB REQUEST ON 11-12-16 @ 6056)
--- NOTE | 2016-11-16 13:43 | Consult Note ---
Date of Encounter: 11/16/16 Time of Encounter: 11:15 Assessment & Recommendation (1) Depressive disorder, not elsewhere classified Current visit: Yes Status: Chronic History of Present Illness Requesting Physician: Juventino Wallis MD Reason for consult: follow up History of present illness: Ms. Bernal is a 71 year old female seen today , sleeping , as per nurse is compliant and just got medicine. recommendation same change paxil to lexapro with slow taper down. thank you for consult, will sign off. CC: Juventino Wallis MD Past Med Surg Social Fam HX - Past Medical History Medical history: atrial fibrillation, CHF, COPD, diabetes, GERD, hyperlipidemia , hypertension, kidney stones, renal disease, thyroid disease, syncope - Past Surgical History Surgical History: appendectomy, carotid endarterectomy, cholecystectomy, hysterectomy, knee replacement, ALEC/BSO, other - Social History Smoking Status: Unknown if ever smoked Smokeless Tobacco Status: No Alcohol use: none Drug use: none - Family History Father History Unknown: Yes Family Member Ethnicity: Non- Living Status: Hx Family Cardiac Disorders: Yes Hx Family Respiratory Disorders: No Hx Family Cancer: No Hx Family GI Disorders: No Hx Family Endocrine Disorder: No Hx Family Neuromuscular Disorders: No Hx Family Neurologic Disorders: No Hx Family HEENT Disorders: No Hx Family Autoimmune Disorders: No Medications & Allergies Gabapentin [Neurontin] 300 mg PO BID 11/17/14 [History] Insulin ASPART [NovoLOG] 10 unit SQ TID MDD per sliding scale 11/17/14 [History] Insulin DETEMIR [Levemir] 30 unit SQ BID 11/17/14 [History] Loperamide HCl [Loperamide] 2 mg PO DAILY PRN 07/20/15 [History] Ergocalciferol (VITAMIN D2) [Vitamin D2 (50,000 UNIT)] 50,000 unit PO MO [History] Paroxetine [Paxil] 20 mg PO DAILY 02/12/16 [History] Clopidogrel [Plavix] 75 mg PO DAILY 04/03/16 [History] Levothyroxine [Synthroid] 175 mcg PO 0630 04/03/16 [History] Lisinopril [Zestril] 20 mg PO DAILY 04/03/16 [History] HYDROcodone/Acet 7.5/325 mg [He[place] 7.5-325 mg] 1 tab PO Q6H PRN 05/22/17 [ History] Calcitriol [Rocaltrol] 0.25 mcg PO MOWEFR 11/11/16 [History] Iron Polysaccharide Complex [Pro Fe] 180 mg PO DAILY 11/11/16 [History] 3 Allergy/AdvReac Type Severity Reaction Status Date / Time Druzhra-Ajd-Qvo Reductase Allergy See Verified 07/14/16 13:48 Inhibitor Comments [Statins] Sulfa (Sulfonamide Allergy swelling Verified 07/14/16 11:56 Antibiotics) Review of Systems Psychiatric: Reports: depression Mental Status Exam Patient orientation: Yes Person, Yes Time Level of alertness: Sedated Patient appearance: Appropriate Behavior: cooperative Results - Vital Signs Vital signs: Temp Pulse Resp BP Pulse Ox 98.3 F 63 16 127/60 94 11/16/16 11:32 11/16/16 11:57 11/16/16 11:32 11/16/16 11:32 11/16/16 11:32 - Labs Labs: Laboratory Last Values WBC 11.6 K/mcL (4.3-11.1) H 11/16/16 07:08 RBC 2.89 M/mcL (3.82-4.97) L 11/16/16 07:08 Hgb 8.6 g/dL (11.5-15.4) L 11/16/16 07:08 Hct 27.5 % (35.3-44.9) L 11/16/16 07:08 MCV 95.2 fL (83.0-100.0) 11/16/16 07:08 MCH 29.8 pg (28.0-33.3) 11/16/16 07:08 MCHC 31.3 g/dL (31.6-35.5) L 11/16/16 07:08 RDW 15.5 % (11.5-14.5) H 11/16/16 07:08 Plt Count 127 K/mcL (140-400) L 11/16/16 07:08 MPV 10.9 fL (9.4-12.4) 11/16/16 07:08 Immature Gran % 1.4 % (0-4) 11/16/16 07:08 Seg Neutrophils % 79.1 % 11/16/16 07:08 Band Neutrophils % 3.0 % (0-4) 11/15/16 07:02 Lymphocytes % 12.9 % 11/16/16 07:08 Monocytes % 5.0 % 11/16/16 07:08 Eosinophils % 1.3 % 11/16/16 07:08 Basophils % 0.3 % 11/16/16 07:08 Neutrophils # 9.2 K/mcL (1.6-8.9) H 11/16/16 07:08 Lymphocytes # 1.5 K/mcL (0.6-4.6) 11/16/16 07:08 Monocytes # 0.6 K/mcL (0.0-1.3) 11/16/16 07:08 Eosinophils # 0.2 K/mcL (0.0-0.6) 11/16/16 07:08 Basophils # 0.0 K/mcL (0.0-0.2) 11/16/16 07:08 Toxic Granulation Present (Not Present) A 11/15/16 07:02 Platelet Estimate Normal (Normal) 11/15/16 07:02 Immature Plt Fraction 2.7 % (1.1-6.1) 11/12/16 02:08 Anisocytosis 1+ (Not Present) A 11/13/16 04:52 Microcytosis Present (Not Present) A 11/13/16 04:52 PT 12.9 Seconds (9.4-12.1) H 11/11/16 11:00 INR 1.2 11/11/16 11:00 APTT 30.8 Seconds (26.0-36.0) 11/11/16 11:00 Sodium 139 mEq/L (136-145) 11/14/16 04:46 Potassium 4.2 mEq/L (3.5-4.5) 11/14/16 04:46 Chloride 105 mEq/L (98-109) 11/14/16 04:46 Carbon Dioxide 23 mEq/L (19-29) 11/14/16 04:46 BUN 54 mg/dL (7-20) H D 11/14/16 04:46 Creatinine 4.48 mg/dL (0.57-1.11) H 11/14/16 04:46 Est GFR ( Amer) 12 (> 60) L 11/14/16 04:46 Est GFR (Non-Af Amer) 10 (> 60) L 11/14/16 04:46 BUN/Creatinine Ratio 12 (6-26) 11/14/16 04:46 Glucose 144 mg/dL (70-99) H 11/14/16 04:46 POC Glucose 225 (58-89) H 11/15/16 16:21 Calculated Osmolality 305 (280-300) H 11/14/16 04:46 Lactic Acid 0.8 mmol/L (0.5-2.2) 11/11/16 11:00 Calcium 7.9 mg/dL (8.6-10.8) L 11/14/16 04:46 Phosphorus 5.3 mg/dL (2.3-4.7) H 11/12/16 01:13 Magnesium 1.7 mg/dL (1.6-2.6) 11/12/16 01:13 Total Bilirubin 0.6 mg/dL (0.2-1.2) 11/14/16 04:46 Direct Bilirubin 0.3 mg/dL (0.0-0.5) 11/11/16 11:00 Indirect Bilirubin 0.4 mg/dL (0.0-1.2) 11/11/16 11:00 AST 10 Units/L (5-34) 11/14/16 04:46 ALT < 6 Units/L (0-55) 11/14/16 04:46 Alkaline Phosphatase 106 Units/L (38-126) 11/14/16 04:46 Ammonia 16 mcmol/L (18-72) L 11/11/16 11:00 Troponin I 0.51 ng/mL (0-0.03) H* 11/12/16 01:13 Serum Total Protein 4.9 g/dL (6.0-8.3) L 11/14/16 04:46 Albumin 1.7 g/dL (3.5-5.0) L 11/14/16 04:46 Globulin 3.2 g/dL (2.4-3.5) 11/14/16 04:46 Albumin/Globulin Ratio 0.5 (1.1-2.2) L 11/14/16 04:46 Triglycerides 139 mg/dL (< 150) 11/12/16 01:13 Cholesterol 98 mg/dL (< 200) 11/12/16 01:13 LDL Cholesterol, Calc 51 mg/dL (0-99) 11/12/16 01:13 VLDL Cholesterol, Calc 28 mg/dL (< 31) 11/12/16 01:13 HDL Cholesterol 19 mg/dL (40-59) L 11/12/16 01:13 Cholesterol/HDL Ratio 5.2 (0-4.9) H 11/12/16 01:13 Vitamin B12 734 pg/mL (213-816) 11/13/16 13:05 Folate 7.7 ng/mL (7.0-31.4) 11/13/16 13:05 TSH 10.746 mcIU/mL (0.350-4.840) H 11/13/16 13:05 Ur Specimen Adequacy 11/11/16 11:31 Urine Color Red (Yellow) A 11/11/16 11:31 Urine Clarity Cloudy (Clear) A 11/11/16 11:31 Urine pH 5.5 pH Units (5.0-8.0) 11/11/16 11:31 Ur Specific [place] 1.019 (1.010-1.025) 11/11/16 11:31 Urine Protein >=300 mg/dL (Neg-Trace) H 11/11/16 11:31 Urine Glucose (UA) 250 mg/dL (Normal) H 11/11/16 11:31 Urine Ketones Trace mg/dL (Negative) H 11/11/16 11:31 Urine Blood Large (Negative) H 11/11/16 11:31 Urine Nitrite Positive (Negative) A 11/11/16 11:31 Urine Bilirubin Moderate (Negative) H 11/11/16 11:31 Urine Urobilinogen Normal mg/dL (Normal) 11/11/16 11:31 Ur Leukocyte Esterase Large (Negative) H 11/11/16 11:31 Ur Culture Indicated? YES (NO) A 11/11/16 11:31 Stool Occult Blood Positive (Negative) A 11/11/16 16:24 Urine Opiates Screen Negative ng/mL (Qxnwsa=312) 11/11/16 11:31 Ur Barbiturates Screen Negative ng/mL (Kshidy=943) 11/11/16 11:31 Ur Phencyclidine Scrn Negative ng/mL (Cutoff=25) 11/11/16 11:31 Ur Amphetamines Screen Negative ng/mL (Qmobwx=5372) 11/11/16 11:31 U Benzodiazepines Scrn Negative ng/mL (Xkqbnv=589) 11/11/16 11:31 Urine Cocaine Screen Negative ng/mL (Cutoff= 300) 11/11/16 11:31 U Marijuana (THC) Screen Negative ng/mL (Cutoff = 50) 11/11/16 11:31 Ethyl Alcohol < 10 mg/dL (0-10) 11/11/16 11:00 Hep Bs Antigen Nonreactive (Nonreactive) 11/11/16 11:00 Hep Bs Antibody 0.00 mIU/mL 11/11/16 11:00 Specimen Rejected Clotted 11/12/16 01:39 Blood Type A POSITIVE 11/11/16 11:00 Antibody Screen NEGATIVE 11/11/16 11:00 Crossmatch See Detail 11/11/16 11:00 - Impressions Impressions Brain MRI 11/12/16 19:00 IMPRESSION: Motion degraded study. No acute intracranial abnormality, within the limitations of motion degradation. D/ / 11/12/2016 17:00:54 Cortney Blair MD / Elaine Joyce Interpreting Provider: Cortney Blair MD Consult Discharge Plan - Plan Referrals: Moncho Arambula [Other] - 11/20/16 3:00 pm (This is his new location in with [facility] across from [facility].) Abbe Woodard, EMERGENCY VETERINARY TECHNICIAN [Advanced Practice Nurse] - (SENT WEB REQUEST ON 11-12-16 @ 4500)
[2016-11-16] MEDS ORDERED: Sennosides/Docusate Sodium TABLET PO SCH (15:30)
--- NOTE | 2016-11-16 15:36 | Internal Med Progress Note ---
Date of Encounter: 11/16/16 Time of Encounter: 13:00 - Assessment and plan (1) Metabolic encephalopathy Current Visit: Yes Status: Acute Assessment and plan: Continue with hemodialysis. Continue treating infection. Mental status improving. Avoid sedatives. (2) DM2 (diabetes mellitus, type 2) Current Visit: No Status: Acute Assessment and plan: Insulin sliding scale and blood glucose fingerstick every 6 hours. Qualifiers: Diabetes mellitus complication status: without complication Diabetes mellitus jail insulin use: with terminal carman use Qualified Code(s): E11.9 - Type 2 diabetes mellitus without complications; Z79.4 - prison (current) use of insulin (3) ESRD on hemodialysis Current Visit: No Status: Acute Assessment and plan: Continue with hemodialysis Thursday. Her right upper extremity AV fistula has failed and is no longer usable for hemodialysis. She has a temporary right femoral dialysis catheter. She will need a tunneled catheter placement on Thursday prior to discharge. Appreciate nephrology recommendations. (4) UTI (urinary tract infection) Current Visit: Yes Status: Acute Assessment and plan: Urine culture grew Escherichia coli. Continue with ceftriaxone. 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 If abdominal pain persists with antibiotic treatment will recheck a CT abdomen and pelvis tomorrow. Check bladder residuals. She may benefit from having a Bennett catheter. Qualifiers: Urinary tract infection type: acute cystitis Hematuria presence: with hematuria Qualified Code(s): N30.01 - Acute cystitis with hematuria (5) Diarrhea Current Visit: Yes Status: Acute Assessment and plan: Diarrhea has resolved since admission. No stool testing provided. We will monitor clinically. Qualifiers: Diarrhea type: unspecified type Qualified Code(s): R19.7 - Diarrhea, unspecified (6) Anemia in chronic renal disease Current Visit: Yes Status: Acute Assessment and plan: Status post transfusion with appropriate response. Continue to monitor. Follow -up with GI. Qualifiers: Chronic kidney disease stage: on chronic dialysis Qualified Code(s): N18.6 - End stage renal disease; D63.1 - Anemia in chronic kidney disease; Z99.2 - Dependence on renal dialysis (7) Elevated troponin Current Visit: Yes Status: Acute Assessment and plan: Flat and adynamic profile, likely related to end-stage renal disease. (8) Altered mental status Current Visit: Yes Status: Acute Qualifiers: Altered mental status type: somnolence Qualified Code(s): R40.0 - Somnolence (9) Counseling regarding advanced care planning and goals of care Current Visit: Yes Status: Acute Assessment and plan: Appreciate palliative care recommendations. We will continue to have family meetings and discussions regarding goals of care. I appreciate psychiatry recommendations. The patient clearly has mental capacity for decision making. She wishes to be full code. (10) Depressive disorder, not elsewhere classified Current Visit: Yes Status: Chronic Assessment and plan: I appreciate psychiatry recommendations. We will taper off Paxil and start Lexapro. - Subjective Interval history: Patient's mental status after resuming hemodialysis, continues to be appropriate today. She reports moderate right upper quadrant abdominal pain, mild or absent at rest, worse with movement, denies nausea, no vomiting, no diarrhea. She has had a bowel movement yesterday. Denies constipation. - Constitutional Vitals: Temp Pulse Resp BP Pulse Ox 98.3 F 63 16 127/60 94 11/16/16 11:32 11/16/16 11:57 11/16/16 11:32 11/16/16 11:32 11/16/16 11:32 General appearance: Present: A&O X 1 (Obtunded) - Respiratory Respiratory exam: Present: CTAB. Absent: accessory muscle use, rales, rhonchi, wheezes - Cardiovascular Cardiovascular exam: Present: RRR, +S1, +S2. Absent: diastolic murmur, gallop, rubs, systolic murmur - GI/Abdominal GI/Abdominal exam: Present: normal bowel sounds, soft, no peritoneal signs. Absent: distended, tenderness - Extremities Exam Extremities exam: Present: warm, radial pulses palpable and symmetrical. Absent : calf tenderness, cyanotic, pedal edema - Skin Skin exam: Present: dry, intact Internal Medicine: Result - Labs CBC & Chem 7: 11/16/16 07:08 11/14/16 04:46 Labs: Short CBC 11/16/16 Range/Units 07:08 WBC 11.6 H (4.3-11.1) K/mcL Hgb 8.6 L (11.5-15.4) g/dL Hct 27.5 L (35.3-44.9) % Plt Count 127 L (140-400) K/mcL Neutrophils # 9.2 H (1.6-8.9) K/mcL - ABG Interpretation ABG results: PT/INR, D-dimer PT 12.9 Seconds (9.4-12.1) H 11/11/16 11:00 - Impressions Impressions Brain MRI 11/12/16 19:00 IMPRESSION: Motion degraded study. No acute intracranial abnormality, within the limitations of motion degradation. D/ / 11/12/2016 17:00:54 Cortney Blair MD / Elaine Joyce Interpreting Provider: Cortney Blair MD - VTE Documentation of Mechanical Device: Graduated compression elastic hosiery Consult Discharge Plan - Plan Referrals: Moncho Arambula [Other] - 11/20/16 3:00 pm (This is his new location in with [facility] across from [facility].) Abbe Woodard, SIZE WORKER [Advanced Practice Nurse] - (SENT WEB REQUEST ON 11-12-16 @ [phone])
[2016-11-16] MEDS: *HR* HYDROmorphone (PF) 1 MG/ML SYRINGE IVP PRN (23:09)
[2016-11-17 04:09] LABS: Basophils # 0.1 K/mcL (0.0-0.2); Basophils % 0.4 %; Eosinophils # 0.2 K/mcL (0.0-0.6); Eosinophils % 1.6 %; Hematocrit 25.6 % (35.3-44.9); Immature Granulocytes % 1.9 % (0-4); Lymphocytes # 2.3 K/mcL (0.6-4.6); Lymphocytes % 18.2 %; Mean Corpuscular HGB Conc 31.3 g/dL (31.6-35.5); Mean Corpuscular Hemoglobin 29.9 pg (28.0-33.3); Mean Corpuscular Volume 95.5 fL (83.0-100.0); Monocytes % 5.2 %; Platelet Count 131 K/mcL (140-400); Red Blood Count 2.68 M/mcL (3.82-4.97); Red Cell Distribution Width 15.4 % (11.5-14.5); Segmented Neutrophils % 72.7 %
[2016-11-17 04:12] LABS: Monocytes # 0.6 K/mcL (0.0-1.3)
[2016-11-17 04:19] LABS: Potassium 3.9 mEq/L (3.5-4.5)
[2016-11-17] MEDS: *HR* HYDROmorphone (PF) 1 MG/ML SYRINGE IVP PRN (04:30)
[2016-11-17 04:44] LABS: Hypochromasia Present (Not Present); Platelet Estimate Slight Decrease (Normal); Reactive Lymphocytes Present (Not Present)
[2016-11-17] MEDS: Insulin LISPRO 300 UNITS/3 ML VIAL SQ SCH ×4 (08:46→20:47)
[2016-11-17] MEDS ORDERED: *HR* Heparin 10,000 UNIT/10 ML VIAL IV PRN (08:47)
[2016-11-17] MEDS ORDERED: 0.9 % Sodium Chloride 250 ML IVC PRN (08:47)
[2016-11-17] MEDS: MetroNIDAZOLE 500 MG/100 ML 500 MG/100 ML BAG IVPB SCH ×2 (08:49→15:54)
[2016-11-17] MEDS: *HR* OxyCODONE/APAP 5/325 TABLET PO PRN ×3 (08:57→22:52)
--- NOTE | 2016-11-17 12:06 | Event Note ---
Date of Encounter: 11/17/16 Time of Encounter: 12:00 Weekend event reviewed and psych recommendations appreciated. D/W Dr. Ryder. Patient continues to desire dialysis. Antidepressant medication has been changed by psychiatry, hopefully this will improve her mood and emotional state. Will remain here at present for dialysis access. Palliative will sign off. Please call if needed.
--- NOTE | 2016-11-17 12:50 | Nephrology Progress Note ---
Date of Encounter: 11/17/16 Time of Encounter: 10:45 - Assessment and Plan (1) End stage chronic kidney disease Current Visit: No Status: Acute s/p HD thursday, next planned for thursday if still hospitalized. Pt aware of the plan Last lytes stable and WNL. no new labs today (2) Anemia in chronic renal disease Current Visit: Yes Status: Acute Hgb low but improving at 8.6, will monitor s/p aranesp on thursday Qualifiers: Chronic kidney disease stage: on chronic dialysis Qualified Code(s): N18.6 - End stage renal disease; D63.1 - Anemia in chronic kidney disease; Z99.2 - Dependence on renal dialysis (3) Encephalopathy due to metabolic factor or toxin Current Visit: Yes Status: Acute Appreciate neurology's input Pt not uremic at present (4) UTI (urinary tract infection) Current Visit: Yes Status: Acute Continue abx per primary team, currently on ceftraixone for Ecoli Qualifiers: Urinary tract infection type: acute cystitis Hematuria presence: with hematuria Qualified Code(s): N30.01 - Acute cystitis with hematuria Subjective Principal diagnosis: ESRD Interval history: Pt seen and examined. Interim noted Objective - Vital Signs Vital signs: Vital Signs Temp Pulse Resp BP Pulse Ox 11/17/16 12:02 98.0 F 62 16 116/56 96 11/17/16 11:56 63 11/17/16 09:45 138/62 11/17/16 09:30 97.6 F 15 128/71 11/17/16 09:00 66 11/17/16 07:38 99.0 F 64 14 162/72 96 11/17/16 03:42 98.4 F 63 16 165/75 97 11/16/16 20:17 98.2 F 66 16 123/66 97 11/16/16 16:12 98.5 F 65 16 135/79 97 11/16/16 15:55 70 Intake and Output 11/16/16 11/17/16 11/17/16 23:59 07:59 15:59 Intake Total 260 / 260 300 / 300 700 / 700 Output Total 0 / 0 Balance 260 / 260 300 / 300 700 / 700 Intake: IV Fluids 200 / 200 100 / 100 100 / 100 Flagyl Premix 500 MG/100 ML 500 100 / 100 100 / 100 100 / 100 mg In 100 ml @ 100 mls/hr IVPB Q8HR DEMAR Rx#:[id number] Rocephin 1,000 MG In Dextrose 5 100 / 100 % (Minibag+) 100 ML 100 ML @ 200 mls/hr IVPB Q24H DEMAR Rx#: [id number] Oral 60 / 60 200 / 200 0 / 0 Intake, Rinseback and Flushes 600 / 600 Output: Urine 0 / 0 Other: Meal Breakfast Percent of Meal Consumed 5% # Voids 0 # Bowel Movements 0 Weight 77.8 kg Blood Glucose* 209 230 208 Hemodialysis Net Fluid Removed 221 (mL) Patient Weight 11/17/16 23:59 Weight 77.8 kg - Lab 11/17/16 03:30 11/17/16 03:30 Most recent lab results Calcium 8.0 mg/dL (8.6-10.8) L 11/17/16 03:30 Phosphorus 5.3 mg/dL (2.3-4.7) H 11/12/16 01:13 Magnesium 1.7 mg/dL (1.6-2.6) 11/12/16 01:13 - VTE Documentation of Mechanical Device: Graduated compression elastic hosiery Consult Discharge Plan - Plan Referrals: Moncho Arambula [Other] - 11/20/16 3:00 pm (This is his new location in with [facility] across from [facility].) Abbe Woodard, MEDICAL OBSERVER [Advanced Practice Nurse] - (SENT WEB REQUEST ON 11-12-16 @ [phone])
--- NOTE | 2016-11-17 13:38 | Internal Med Progress Note ---
<Cecelia Brunson - Last Filed: 11/17/16 15:14> Date of Encounter: 11/17/16 Time of Encounter: 08:30 - Assessment and plan (1) UTI (urinary tract infection) Current Visit: Yes Status: Acute Assessment and plan: Urine culture grew Escherichia coli. Continue with ceftriaxone. CT repeated this AM. 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 Possible abscess forming on bladder. Bladder distended. Consulted urology. Spoke with Dr. Herron who recommended catheterization and to hold plavix for possible IR procedure. We discontinued plavix and ordered a george catheter. We will follow their recommendations. As patient is hemodynamically stable, we will see how she does with catheter, if this helps with the resolution of urinary infection. Qualifiers: Urinary tract infection type: acute cystitis Hematuria presence: with hematuria Qualified Code(s): N30.01 - Acute cystitis with hematuria (2) Metabolic encephalopathy Current Visit: Yes Status: Acute Assessment and plan: Continue with hemodialysis. Continue treating infection. Mental status improving. Avoid sedatives. (3) ESRD on hemodialysis Current Visit: No Status: Acute Assessment and plan: Patients RUE AV fistula has failed and no longer viable. Patient had a temporary right femoral dialysis catheter which was not working this morning when patient went for dialysis. An IJ dialysis catheter was placed today for temporary access for dialysis today. We will follow nephrology recommendations including placement of a tunneled catheter prior to discharge. Spoke with nephrology who has recommended discontinuation of plavix as patient needs this prior to getting permanent access for dialysis. They are pushing for angioplasty of patient's RUE AV fistula. If not, they recommend for IR to place a permanent tunnelled catheter prior to dischage. We will hold plavix until patient receives permanent access for dialysis. (4) DM2 (diabetes mellitus, type 2) Current Visit: No Status: Acute Assessment and plan: Insulin sliding scale and blood glucose fingerstick every 6 hours. Qualifiers: Diabetes mellitus complication status: without complication Diabetes mellitus usp insulin use: with termite control technician use Qualified Code(s): E11.9 - Type 2 diabetes mellitus without complications; Z79.4 - retirement (current) use of insulin (5) Diarrhea Current Visit: Yes Status: Acute Assessment and plan: Diarrhea has resolved since admission. No stool testing provided. We will monitor clinically. Qualifiers: Diarrhea type: unspecified type Qualified Code(s): R19.7 - Diarrhea, unspecified (6) Anemia in chronic renal disease Current Visit: Yes Status: Acute Assessment and plan: Status post transfusion with appropriate response. Continue to monitor. Follow -up with GI. Qualifiers: Chronic kidney disease stage: on chronic dialysis Qualified Code(s): N18.6 - End stage renal disease; D63.1 - Anemia in chronic kidney disease; Z99.2 - Dependence on renal dialysis (7) Elevated troponin Current Visit: Yes Status: Acute Assessment and plan: Flat and adynamic profile, likely related to end-stage renal disease. (8) Altered mental status Current Visit: Yes Status: Acute Assessment and plan: Patience initial AMS likely secondary to metabolic encephalopathy and urinary tract infection. Patient is now alert, although she is distressed secondary to urinary retention and emphysematous cystitis. Qualifiers: Altered mental status type: somnolence Qualified Code(s): R40.0 - Somnolence (9) Counseling regarding advanced care planning and goals of care Current Visit: Yes Status: Acute Assessment and plan: Appreciate palliative care recommendations. We will continue to have family meetings and discussions regarding goals of care. I appreciate psychiatry recommendations. The patient clearly has mental capacity for decision making. She wishes to be full code. (10) Depressive disorder, not elsewhere classified Current Visit: Yes Status: Chronic Assessment and plan: Patient is currently being titrated off of paxil. She received her first dose of Lexapro this AM. We will continue to monitor for side effects and therapeutic benefit. - Subjective Interval history: Patient is resting in significant abdominal pain. She states she feels like she has to void badly. Per nurse, she is taking her pain medication, and last dose was at 430am. She denies any nausea, vomitting, diarrhea, constipation, chest pain or shortness of air. - Constitutional Vitals: Temp Pulse Resp BP Pulse Ox 98.0 F 62 16 116/56 96 11/17/16 12:11/17/16 12:02 11/17/16 12:02 11/17/16 12:11/17/16 12:02 General appearance: Present: cooperative, mild distress, answers questions appropriately - Head Head exam: Present: atraumatic, normal inspection, normocephalic - Respiratory Respiratory exam: Present: CTAB. Absent: rales, rhonchi, wheezes - Cardiovascular Cardiovascular exam: Present: RRR. Absent: diastolic murmur, systolic murmur Additional comments: No pedal edema or calf tenderness. - GI/Abdominal GI/Abdominal exam: Present: firm (epigastric and suprapubic regions.), guarding , tenderness (epigastric and suprapubic region). Absent: pulsatile mass, rebound, rigid - Neurological Exam Neurological exam: Present: alert Internal Medicine: Result - Labs CBC & Chem 7: 11/17/16 03:30 11/17/16 03:30 Labs: Short CBC 11/17/16 Range/Units 03:30 WBC 12.4 H (4.3-11.1) K/mcL Hgb 8.0 L (11.5-15.4) g/dL Hct 25.6 L (35.3-44.9) % Plt Count 131 L (140-400) K/mcL Neutrophils # 9.0 H (1.6-8.9) K/mcL BMP 11/17/16 03:30 Sodium 137 Potassium 3.9 Chloride 103 Carbon Dioxide 21 BUN 50 H Creatinine 5.30 H Glucose 182 H Calcium 8.0 L - ABG Interpretation ABG results: PT/INR, D-dimer PT 12.9 Seconds (9.4-12.1) H 11/11/16 11:00 - Impressions Impressions Abdomen/Pelvis CT 11/17/16 08:45 IMPRESSION: 1. Emphysematous cystitis once again identified with a large amount of air within bladder mucosa and in the bladder lumen. 2. Dissection of air from bladder mucosa into the left pelvic sidewall and into the left retroperitoneum along the psoas muscle. No full thickness bladder perforation. 3. Focal fluid collection above the dome of the bladder separate from the lumen, increased in size and likely a developing abscess. 4. Resolution of hydronephrosis. No air observed within the collecting systems bilaterally. 5. Bilateral nonobstructing nephrolithiasis. There also multiple cysts that have been characterized by a prior contrast exam. 6. Improved aeration in the visualized lung bases. Resolution of ascites. D/ / Kehinde Ragland MD / Kehinde Ragland MD Interpreting Provider: Kehinde Ragland MD Chest X-Ray 11/11/16 10:43 IMPRESSION: Mild cardiomegaly without failure. No acute cardiopulmonary abnormality. D/ / Vivek Schaffer MD / Vivek Schaffer MD Interpreting Provider: Vivek Schaffer MD Head CT 11/11/16 10:44 IMPRESSION: No acute intracranial abnormality. Diffuse atrophic changes with findings suggesting chronic microvascular ischemia D/ / Abbe Carnes MD / Abbe Carnes MD Interpreting Provider: Abbe Carnes MD Brain MRI 11/12/16 19:00 IMPRESSION: Motion degraded study. No acute intracranial abnormality, within the limitations of motion degradation. D/ / 11/12/2016 17:00:54 Cortney Blair MD / Elaine Joyce Interpreting Provider: Cortney Blair MD Shunt Angiogram 11/13/16 00:00 IMPRESSION: Thrombosed right upper arm fistula. 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 Venous anastomotic tight stenosis. Successful angioplasty is 7 mm with good angiographic result D/ / Adair Staples MD / Adair Staples MD Interpreting Provider: Adair Staples MD Guidance Needle Placement Ultrasound 11/13/16 00:00 IMPRESSION: Successful ultrasound and fluoroscopy guided non-tunneled hemodialysis catheter placement. D/ / Adair Staples MD / Adair Staples MD Interpreting Provider: Adair Staples MD Insertion Non-Tunneled Catheter 11/13/16 00:00 IMPRESSION: Successful ultrasound and fluoroscopy guided non-tunneled hemodialysis catheter placement. D/ / Adair Staples MD / Adair Staples MD Interpreting Provider: Adair Staples MD T FINISHER, Venous 11/13/16 00:00 IMPRESSION: Thrombosed right upper arm fistula. 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 Venous anastomotic tight stenosis. Successful angioplasty is 7 mm with good angiographic result D/ / Adair Staples MD / Adair Staples MD Interpreting Provider: Adair Staples MD Abdomen/Pelvis CT 11/17/16 08:45 IMPRESSION: 1. Emphysematous cystitis once again identified with a large amount of air within bladder mucosa and in the bladder lumen. 2. Dissection of air from bladder mucosa into the left pelvic sidewall and into the left retroperitoneum along the psoas muscle. No full thickness bladder perforation. 3. Focal fluid collection above the dome of the bladder separate from the lumen, increased in size and likely a developing abscess. 4. Resolution of hydronephrosis. No air observed within the collecting systems bilaterally. 5. Bilateral nonobstructing nephrolithiasis. There also multiple cysts that have been characterized by a prior contrast exam. 6. Improved aeration in the visualized lung bases. Resolution of ascites. D/ / Kehinde Ragland MD / Kehinde Ragland MD Interpreting Provider: Kehinde Ragland MD - VTE Documentation of Mechanical Device: Graduated compression elastic hosiery Consult Discharge Plan - Plan Referrals: Mnocho Arambula [Other] - 11/20/16 3:00 pm (This is his new location in with [facility] across from [facility].) Abbe Woodard, MUTUEL MACHINE OPERATOR [Advanced Practice Nurse] - (SENT WEB REQUEST ON 11-12-16 @ [phone]) <Juventino Wallis - Last Filed: 11/17/16 19:26> Date of Encounter: 11/17/16 - Assessment and plan (1) Metabolic encephalopathy Current Visit: Yes Status: Acute (2) DM2 (diabetes mellitus, type 2) Current Visit: No Status: Acute Qualifiers: Diabetes mellitus complication status: without complication Diabetes mellitus termite control technician insulin use: with termite control technician use Qualified Code(s): E11.9 - Type 2 diabetes mellitus without complications; Z79.4 - retirement (current) use of insulin (3) ESRD on hemodialysis Current Visit: No Status: Acute (4) UTI (urinary tract infection) Current Visit: Yes Status: Acute Qualifiers: Urinary tract infection type: acute cystitis Hematuria presence: with hematuria Qualified Code(s): N30.01 - Acute cystitis with hematuria (5) Diarrhea Current Visit: Yes Status: Acute Qualifiers: Diarrhea type: unspecified type Qualified Code(s): R19.7 - Diarrhea, unspecified (6) Anemia in chronic renal disease Current Visit: Yes Status: Acute Qualifiers: Chronic kidney disease stage: on chronic dialysis Qualified Code(s): N18.6 - End stage renal disease; D63.1 - Anemia in chronic kidney disease; Z99.2 - Dependence on renal dialysis (7) Elevated troponin Current Visit: Yes Status: Acute (8) Altered mental status Current Visit: Yes Status: Acute Qualifiers: Altered mental status type: somnolence Qualified Code(s): R40.0 - Somnolence (9) Counseling regarding advanced care planning and goals of care Current Visit: Yes Status: Acute (10) Depressive disorder, not elsewhere classified Current Visit: Yes Status: Chronic - Constitutional Vitals: Temp Pulse Resp BP Pulse Ox 98.3 F 65 16 144/67 96 11/17/16 15:51 11/17/16 16:10 11/17/16 15:51 11/17/16 15:51 11/17/16 15:51 Internal Medicine: Result - Labs CBC & Chem 7: 11/17/16 03:30 11/17/16 03:30 Labs: Short CBC 11/17/16 Range/Units 03:30 WBC 12.4 H (4.3-11.1) K/mcL Hgb 8.0 L (11.5-15.4) g/dL Hct 25.6 L (35.3-44.9) % Plt Count 131 L (140-400) K/mcL Neutrophils # 9.0 H (1.6-8.9) K/mcL BMP 11/17/16 03:30 Sodium 137 Potassium 3.9 Chloride 103 Carbon Dioxide 21 BUN 50 H Creatinine 5.30 H Glucose 182 H Calcium 8.0 L - ABG Interpretation ABG results: PT/INR, D-dimer PT 12.9 Seconds (9.4-12.1) H 11/11/16 11:00 - Impressions Impressions Guidance Needle Placement Ultrasound 11/17/16 00:00 IMPRESSION: Successful ultrasound and fluoroscopy guided non-tunneled temporary dialysis dual-lumen catheter placement. This may be used immediately. D/ / Antelmo Bekcford MD / Antelmo Beckford MD Interpreting Provider: Antelmo Beckford MD Insertion Non-Tunneled Catheter 11/17/16 00:00 IMPRESSION: Successful ultrasound and fluoroscopy guided non-tunneled temporary dialysis dual-lumen catheter placement. This may be used immediately. D/ / Antelmo Beckford MD / Antelmo Beckford MD Interpreting Provider: Antelmo Beckford MD Abdomen/Pelvis CT 11/17/16 08:45 IMPRESSION: 1. Emphysematous cystitis once again identified with a large amount of air within bladder mucosa and in the bladder lumen. 2. Dissection of air from bladder mucosa into the left pelvic sidewall and into the left retroperitoneum along the psoas muscle. No full thickness bladder perforation. 3. Focal fluid collection above the dome of the bladder separate from the lumen, increased in size and likely a developing abscess. 4. Resolution of hydronephrosis. No air observed within the collecting systems bilaterally. 5. Bilateral nonobstructing nephrolithiasis. There also multiple cysts that have been characterized by a prior contrast exam. 6. Improved aeration in the visualized lung bases. Resolution of ascites. D/ / Kehinde Ragland MD / Kehinde Ragland MD Interpreting Provider: Kehinde Ragland MD Chest X-Ray 11/17/16 15:03 IMPRESSION: Right IJ central venous catheter terminates in the SVC. No pneumothorax. D/ / Wei Reece / Wei Reece Interpreting Provider: Wei Reece - Attending Attestation I examined this patient and my medical decision-making was reviewed with the Resident Physician, Dr. Brunson. I agree with the documented findings, disposition and treatment plan as described except to the extent set forth below. My findings are summarized below: Patient reports abdominal pain. She has tenderness to palpation. She is more awake today compared to yesterday. CT of the abdomen and pelvis revealed distended urinary bladder. We placed a George catheter and had more 600 mL return. We will continue with IV ceftriaxone. Continue hemodialysis. Continue with George catheter due to urinary retention.
[2016-11-17] MEDS ORDERED: *HR* Heparin 5,000 UNIT/ML VIAL ONE (14:30)
--- NOTE | 2016-11-17 15:06 | IR Procedure Note ---
Date of procedure: 11/17/16 Consent Obtained: Written consent Timeout: Correct patient and procedure verified, Correct site verified, Time out performed, Skin prep completed Local anesthetic: Lidocaine 1% Indications: Renal insufficiency Procedure Performed: Temp HD catheter placement, removal. D/w Dr. Vivas with Nephrology Site/Technique: RIJV temp placement, removal of right fem vein access Results/Findings: Temp HD placement, 20cm cath used, triple lumen Estimated blood loss (cc): 2 Complications: None; Tolerated procedure well Post Procedure Treatment Plan: Monitoring in room. Fistula/possible tunneled once Plavix off long enough.
--- NOTE | 2016-11-17 17:32 | Urology - Consult Note ---
Date of Encounter: 11/17/16 Time of Encounter: 17:29 - Assessment and Plan (1) Emphysematous cystitis Current Visit: Yes Status: Acute Assessment and plan: I personally reviewed the CT scan. I agree the patient has severe emphysematous cystitis. possible early abscess at the dome but not large. It would be difficult to percutaneously drain. The bladder was quite full and I requested a catheter placement which the 2N nurses report returned a large volume of abnormal dark urine. Hopefully the catheter drainage and ABX alone will resolve the issue. Rocephin should be appropriate ABX but consider adding renal dose of Zosyn. I recommend repeat CT scan in 48 hours to evaluate if the potential abscess has enlarged and requires intervention. I will complete consult note and exam tomorrow when patient is available. With other comorbidities and the severity of her emphysematous cystitis, this patient may have a poor prognosis. I see palliative care is involved. Urology CN:HPI Consult date: 11/17/16 History of present illness: pt was in HD and not available for for exam and history at time of this note. Pt with multiple medical issues - ESRD, altered mental status. CT scan with severe emphysematous cystitis with possible abscess at dome. Past Med Surg Social Fam HX - Past Medical History Medical history: atrial fibrillation, CHF, COPD, diabetes, GERD, hyperlipidemia , hypertension, kidney stones, renal disease, thyroid disease, syncope Psychiatric history: depression - Past Surgical History Surgical History: appendectomy, carotid endarterectomy, cholecystectomy, hysterectomy, knee replacement, ALEC/BSO, other - Social History Smoking Status: Unknown if ever smoked Smokeless Tobacco Status: No Alcohol use: none Drug use: none - Family History Father History Unknown: Yes Family Member Ethnicity: Non- Living Status: Hx Family Cardiac Disorders: Yes Hx Family Respiratory Disorders: No Hx Family Cancer: No Hx Family GI Disorders: No Hx Family Endocrine Disorder: No Hx Family Neuromuscular Disorders: No Hx Family Neurologic Disorders: No Hx Family HEENT Disorders: No Hx Family Autoimmune Disorders: No Medications and Allergies Gabapentin [Neurontin] 300 mg PO BID 11/17/14 [History] Insulin ASPART [NovoLOG] 10 unit SQ TID MDD per sliding scale 11/17/14 [History] Insulin DETEMIR [Levemir] 30 unit SQ BID 11/17/14 [History] Loperamide HCl [Loperamide] 2 mg PO DAILY PRN 07/20/15 [History] Ergocalciferol (VITAMIN D2) [Vitamin D2 (50,000 UNIT)] 50,000 unit PO MO [History] Paroxetine [Paxil] 20 mg PO DAILY 02/12/16 [History] Clopidogrel [Plavix] 75 mg PO DAILY 04/03/16 [History] Levothyroxine [Synthroid] 175 mcg PO 0630 04/03/16 [History] Lisinopril [Zestril] 20 mg PO DAILY 04/03/16 [History] HYDROcodone/Acet 7.5/325 mg [Cavalier 7.5-325 mg] 1 tab PO Q6H PRN 07/14/16 [ History] Calcitriol [Rocaltrol] 0.25 mcg PO MOWEFR 11/11/16 [History] Iron Polysaccharide Complex [Pro Fe] 180 mg PO DAILY 11/11/16 [History] 3 Allergy/AdvReac Type Severity Reaction Status Date / Time Hamgmyt-Lve-Mmd Reductase Allergy See Verified 07/14/16 13:48 Inhibitor Comments [Statins] Sulfa (Sulfonamide Allergy swelling Verified 07/14/16 11:56 Antibiotics) Review of Systems ROS unobtainable: other Exam Initial Vital Signs Temp Pulse Resp BP Pulse Ox 99 F 74 20 108/51 97 11/11/16 10:39 11/11/16 10:39 11/11/16 10:39 11/11/16 10:39 11/11/16 10:39 - Additional Findings pt not seen bc at HD Urology Results - Labs 11/17/16 03:30 11/17/16 03:30 Abnormal lab results WBC 12.4 K/mcL (4.3-11.1) H 11/17/16 03:30 RBC 2.68 M/mcL (3.82-4.97) L 11/17/16 03:30 Hgb 8.0 g/dL (11.5-15.4) L 11/17/16 03:30 Hct 25.6 % (35.3-44.9) L 11/17/16 03:30 MCHC 31.3 g/dL (31.6-35.5) L 11/17/16 03:30 RDW 15.4 % (11.5-14.5) H 11/17/16 03:30 Plt Count 131 K/mcL (140-400) L 11/17/16 03:30 Neutrophils # 9.0 K/mcL (1.6-8.9) H 11/17/16 03:30 Reactive Lymphocytes Present (Not Present) A 11/17/16 03:30 Toxic Granulation Present (Not Present) A 11/15/16 07:02 Platelet Estimate Slight Decrease (Normal) L 11/17/16 03:30 Hypochromasia Present (Not Present) A 11/17/16 03:30 Anisocytosis 1+ (Not Present) A 11/13/16 04:52 Microcytosis Present (Not Present) A 11/13/16 04:52 PT 12.9 Seconds (9.4-12.1) H 11/11/16 11:00 BUN 50 mg/dL (7-20) H 11/17/16 03:30 Creatinine 5.30 mg/dL (0.57-1.11) H 11/17/16 03:30 Est GFR ( Amer) 10 (> 60) L 11/17/16 03:30 Est GFR (Non-Af Amer) 8 (> 60) L 11/17/16 03:30 Glucose 182 mg/dL (70-99) H 11/17/16 03:30 POC Glucose 209 (58-89) H 11/16/16 20:17 Calculated Osmolality 302 (280-300) H 11/17/16 03:30 Calcium 8.0 mg/dL (8.6-10.8) L 11/17/16 03:30 Phosphorus 5.3 mg/dL (2.3-4.7) H 11/12/16 01:13 Ammonia 16 mcmol/L (18-72) L 11/11/16 11:00 Troponin I 0.51 ng/mL (0-0.03) H* 11/12/16 01:13 Serum Total Protein 4.9 g/dL (6.0-8.3) L 11/14/16 04:46 Albumin 1.7 g/dL (3.5-5.0) L 11/14/16 04:46 Albumin/Globulin Ratio 0.5 (1.1-2.2) L 11/14/16 04:46 HDL Cholesterol 19 mg/dL (40-59) L 11/12/16 01:13 Cholesterol/HDL Ratio 5.2 (0-4.9) H 11/12/16 01:13 TSH 10.746 mcIU/mL (0.350-4.840) H 11/13/16 13:05 Urine Color Red (Yellow) A 11/11/16 11:31 Urine Clarity Cloudy (Clear) A 11/11/16 11:31 Urine Protein >=300 mg/dL (Neg-Trace) H 11/11/16 11:31 Urine Glucose (UA) 250 mg/dL (Normal) H 11/11/16 11:31 Urine Ketones Trace mg/dL (Negative) H 11/11/16 11:31 Urine Blood Large (Negative) H 11/11/16 11:31 Urine Nitrite Positive (Negative) A 11/11/16 11:31 Urine Bilirubin Moderate (Negative) H 11/11/16 11:31 Ur Leukocyte Esterase Large (Negative) H 11/11/16 11:31 Ur Culture Indicated? YES (NO) A 11/11/16 11:31 Stool Occult Blood Positive (Negative) A 11/11/16 16:24 Diabetes panel 11/17/16 Range/Units 03:30 Sodium 137 (136-145) mEq/L Potassium 3.9 (3.5-4.5) mEq/L Chloride 103 (98-109) mEq/L Carbon Dioxide 21 (19-29) mEq/L BUN 50 H (7-20) mg/dL Creatinine 5.30 H (0.57-1.11) mg/dL Glucose 182 H (70-99) mg/dL Calcium 8.0 L (8.6-10.8) mg/dL Calcium panel 11/17/16 Range/Units 03:30 Calcium 8.0 L (8.6-10.8) mg/dL Pituitary panel 11/17/16 Range/Units 03:30 Sodium 137 (136-145) mEq/L Potassium 3.9 (3.5-4.5) mEq/L Chloride 103 (98-109) mEq/L Carbon Dioxide 21 (19-29) mEq/L BUN 50 H (7-20) mg/dL Creatinine 5.30 H (0.57-1.11) mg/dL Glucose 182 H (70-99) mg/dL Calcium 8.0 L (8.6-10.8) mg/dL Adrenal panel 11/17/16 Range/Units 03:30 Sodium 137 (136-145) mEq/L Potassium 3.9 (3.5-4.5) mEq/L Chloride 103 (98-109) mEq/L Carbon Dioxide 21 (19-29) mEq/L BUN 50 H (7-20) mg/dL Creatinine 5.30 H (0.57-1.11) mg/dL Glucose 182 H (70-99) mg/dL Calcium 8.0 L (8.6-10.8) mg/dL All other labs normal. Consult Discharge Plan - Plan Referrals: Moncho Arambula [Other] - 11/20/16 3:00 pm (This is his new location in with [facility] across from [facility].) Abbe Woodard, SUPERINTENDENT TRANSPORTATION [Advanced Practice Nurse] - (SENT WEB REQUEST ON 11-12-16 @ [phone])
[2016-11-18] MEDS: MetroNIDAZOLE 500 MG/100 ML 500 MG/100 ML BAG IVPB SCH ×2 (00:24→08:31)
[2016-11-18] MEDS: *HR* OxyCODONE/APAP 5/325 TABLET PO PRN ×3 (04:54→21:57)
--- NOTE | 2016-11-18 07:29 | Urology Progress Note ---
Date of Encounter: 11/18/16 Time of Encounter: 07:26 - Assessment and Plan (1) Emphysematous cystitis Current Visit: Yes Status: Acute Assessment and plan: nurses report decreased pain med requirements in last 12 hours since cath placed. vitals stable. hematuria present but no clots. labs pending this AM. hopefully WBC has decreased. plan on repeat CT scan tomorrow to evalate if abscess progression. see consult note for full details. Progress Note Subjective: still having pain (pt reports pain decreased since cath placed. ) Objective Initial Vital Signs Temp Pulse Resp BP Pulse Ox 99 F 74 20 108/51 97 11/11/16 10:39 11/11/16 10:39 11/11/16 10:39 11/11/16 10:39 11/11/16 10:39 - General physical appearance Present: no pain, chronically ill - Respiratory Present: normal respiratory effort - Abdomen Present: soft, tender (suprapubic. no crepitus) - Genitourinary Urine Appearance: Present: Hematuria - Integumentary Present: no rash - Psychiatric Present: speech is normal - Labs 11/17/16 03:30 11/17/16 03:30 - VTE Documentation of Mechanical Device: Graduated compression elastic hosiery Consult Discharge Plan - Plan Referrals: Moncho Arambula [Other] - 11/20/16 3:00 pm (This is his new location in with [facility] across from [facility].) Abbe Woodard, CUSTOMER SERVICE REPRESENTATIVE TELLER [Advanced Practice Nurse] - (SENT WEB REQUEST ON 11-12-16 @ [phone])
[2016-11-18 08:25] LABS: Hematocrit 25.4 % (35.3-44.9); Hemoglobin 8.1 g/dL (11.5-15.4); Mean Corpuscular HGB Conc 31.9 g/dL (31.6-35.5); Mean Corpuscular Volume 97.3 fL (83.0-100.0); Mean Platelet Volume 10.6 fL (9.4-12.4); Platelet Count 143 K/mcL (140-400); Red Blood Count 2.61 M/mcL (3.82-4.97); Red Cell Distribution Width 15.2 % (11.5-14.5)
[2016-11-18] MEDS: Insulin LISPRO 300 UNITS/3 ML VIAL SQ SCH ×4 (08:30→21:57)
[2016-11-18 08:43] LABS: Albumin/Globulin Ratio 0.5 (1.1-2.2); Alkaline Phosphatase 91 Units/L (38-126); Aspartate Amino Transferase 6 Units/L (5-34); BUN/Creatinine Ratio 9 (6-26); Bilirubin,Total 0.3 mg/dL (0.2-1.2); Calcium 7.8 mg/dL (8.6-10.8); Carbon Dioxide 22 mEq/L (19-29); Chloride 99 mEq/L (98-109); Globulin 3.4 g/dL (2.4-3.5); Glucose 232 mg/dL (70-99); Osmolality,Calculated 297 (280-300); Potassium 3.9 mEq/L (3.5-4.5); Sodium 135 mEq/L (136-145); Total Protein 5.2 g/dL (6.0-8.3); eGFR For African Americans 12 (> 60); eGFR For Non-African Americans 10 (> 60)
[2016-11-18 08:44] LABS: Alanine Aminotransferase < 6 Units/L (0-55); Albumin 1.8 g/dL (3.5-5.0); Blood Urea Nitrogen 39 mg/dL (7-20)
--- NOTE | 2016-11-18 08:45 | Internal Med Progress Note ---
<Cecelia Brunson - Last Filed: 11/18/16 10:39> Date of Encounter: 11/18/16 Time of Encounter: 08:44 - Assessment and plan (1) UTI (urinary tract infection) Current Visit: Yes Status: Acute Assessment and plan: Urine culture grew Escherichia coli. CT yesterday showed progression of emphysematous cystitis with air dissection into retroperitoneum. Possible abscess forming on bladder. Urology saw the patient this morning and has recommended repeat imaging and possible addition of Zosyn if patients WBC trended up overnight. Patient's WBC has trended up, so we will order CT scan of bladder for tomorrow AM with addition of Zosyn of today. We DC'd ceftriaxone. Patient's george catheter producing darkly reddened urine. Patient is hemodynamically stable. We are holding plavix for possible IR draining of potentially developing abscess on dome of bladder. Qualifiers: Urinary tract infection type: acute cystitis Hematuria presence: with hematuria Qualified Code(s): N30.01 - Acute cystitis with hematuria (2) Metabolic encephalopathy Current Visit: Yes Status: Acute Assessment and plan: Continue with hemodialysis. Continue treating infection. Mental status improving. Avoid sedatives. (3) ESRD on hemodialysis Current Visit: No Status: Acute Assessment and plan: Patient had a temporary access IJ catheter placed yesterday by IR. Per nephrology, patient needs permanent access before discharge. They are recommending angioplasty of patients right sided fistula over perm cath cannulation. Plavix is held for decision. Patient receiving hemodialysis and being followed by nephrology. (4) DM2 (diabetes mellitus, type 2) Current Visit: No Status: Acute Assessment and plan: Insulin sliding scale and blood glucose fingerstick every 6 hours. Qualifiers: Diabetes mellitus complication status: without complication Diabetes mellitus fpc insulin use: with ferry terminal supervisor use Qualified Code(s): E11.9 - Type 2 diabetes mellitus without complications; Z79.4 - truck terminal manager (current) use of insulin (5) Diarrhea Current Visit: Yes Status: Acute Assessment and plan: Patient with diarrhea this morning. She states this has been present prior to admission. She is being treated with metronidazole to cover for infectious diarrhea. We will order a GI stool panel to further evaluate. A GI panel was ordered several days ago which due to lack of sample. We will re-order. Qualifiers: Diarrhea type: unspecified type Qualified Code(s): R19.7 - Diarrhea, unspecified (6) Anemia in chronic renal disease Current Visit: Yes Status: Acute Assessment and plan: Status post transfusion with appropriate response. Hemoglobin stable around 8. Will monitor closely. Qualifiers: Chronic kidney disease stage: on chronic dialysis Qualified Code(s): N18.6 - End stage renal disease; D63.1 - Anemia in chronic kidney disease; Z99.2 - Dependence on renal dialysis (7) Elevated troponin Current Visit: Yes Status: Acute Assessment and plan: Flat and adynamic profile, likely related to end-stage renal disease. (8) Altered mental status Current Visit: Yes Status: Acute Assessment and plan: Patience initial AMS likely secondary to metabolic encephalopathy and urinary tract infection. Patient is now alert, although she is distressed secondary to abdominal pain and emphysematous cystitis. Qualifiers: Altered mental status type: somnolence Qualified Code(s): R40.0 - Somnolence (9) Counseling regarding advanced care planning and goals of care Current Visit: Yes Status: Acute Assessment and plan: Appreciate palliative care recommendations. We will continue to have family meetings and discussions regarding goals of care. I appreciate psychiatry recommendations. The patient clearly has mental capacity for decision making. She wishes to be full code. (10) Depressive disorder, not elsewhere classified Current Visit: Yes Status: Chronic Assessment and plan: Patient is currently being titrated off of paxil. She received her first dose of Lexapro this AM. We will continue to monitor for side effects and therapeutic benefit. - Subjective Interval history: Patient is resting in significant abdominal pain. She feels about the same as yesterday which is poorly. She complains of diffuse abdominal pain. There is a george catheter in place which reveals darkly reddened colored urine. She denies any nausea, vomitting, constipation, chest pain or shortness of air. She did have diarrhea this morning which she has been having since admission. - Constitutional Vitals: Temp Pulse Resp BP Pulse Ox 97.3 F L 68 18 159/67 99 11/18/16 07:40 11/18/16 07:40 11/18/16 07:40 11/18/16 07:40 11/18/16 07:40 General appearance: Present: cooperative, mild distress, A&O X 3, answers questions appropriately - Head Head exam: Present: atraumatic, normal inspection, normocephalic - Respiratory Respiratory exam: Present: CTAB. Absent: rales, rhonchi, wheezes - Cardiovascular Cardiovascular exam: Present: RRR. Absent: diastolic murmur, systolic murmur - GI/Abdominal GI/Abdominal exam: Present: firm, guarding (LLQ), hyperactive bowel sounds, tenderness (Moderate to severe in epigastric and LLQ regions). Absent: pulsatile mass, rebound, rigid - Extremities Exam Extremities exam: Present: normal capillary refill, warm, radial pulses palpable and symmetrical. 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 - Skin Skin exam: Present: dry, intact, warm Internal Medicine: Result - Labs CBC & Chem 7: 11/18/16 08:13 11/18/16 08:13 Labs: Short CBC 11/18/16 Range/Units 08:13 WBC 13.3 H (4.3-11.1) K/mcL Hgb 8.1 L (11.5-15.4) g/dL Hct 25.4 L (35.3-44.9) % Plt Count 143 (140-400) K/mcL - ABG Interpretation ABG results: PT/INR, D-dimer PT 12.9 Seconds (9.4-12.1) H 11/11/16 11:00 - Impressions Impressions Guidance Needle Placement Ultrasound 11/17/16 00:00 IMPRESSION: Successful ultrasound and fluoroscopy guided non-tunneled temporary dialysis dual-lumen catheter placement. This may be used immediately. D/ / Antelmo Beckford MD / Antelmo Beckford MD Interpreting Provider: Antelmo Beckford MD Insertion Non-Tunneled Catheter 11/17/16 00:00 IMPRESSION: Successful ultrasound and fluoroscopy guided non-tunneled temporary dialysis dual-lumen catheter placement. This may be used immediately. D/ / Antelmo Beckford MD / Antelmo Beckford MD Interpreting Provider: Antelmo Beckford MD Abdomen/Pelvis CT 11/17/16 08:45 IMPRESSION: 1. Emphysematous cystitis once again identified with a large amount of air within bladder mucosa and in the bladder lumen. 2. Dissection of air from bladder mucosa into the left pelvic sidewall and into the left retroperitoneum along the psoas muscle. No full thickness bladder perforation. 3. Focal fluid collection above the dome of the bladder separate from the lumen, increased in size and likely a developing abscess. 4. Resolution of hydronephrosis. No air observed within the collecting systems bilaterally. 5. Bilateral nonobstructing nephrolithiasis. There also multiple cysts that have been characterized by a prior contrast exam. 6. Improved aeration in the visualized lung bases. Resolution of ascites. D/ / Kehinde Ragland MD / Kehinde Ragland MD Interpreting Provider: Kehinde Ragland MD Chest X-Ray 11/17/16 15:03 IMPRESSION: Right IJ central venous catheter terminates in the SVC. No pneumothorax. D/ / Wei Reece / Wei Reece Interpreting Provider: Wei Reece - VTE Documentation of Mechanical Device: Graduated compression elastic hosiery Consult Discharge Plan - Plan Referrals: Moncho Arambula [Other] - 11/24/16 10:30 am (This is his new location in with [facility] across from [facility].) Abbe Woodard, PIPELINE EXECUTIVE [Advanced Practice Nurse] - 12/09/16 4:05 pm () <Juventino Wallis - Last Filed: 11/19/16 07:32> Date of Encounter: 11/18/16 - Assessment and plan (1) Metabolic encephalopathy Current Visit: Yes Status: Acute (2) DM2 (diabetes mellitus, type 2) Current Visit: No Status: Acute Qualifiers: Diabetes mellitus complication status: without complication Diabetes mellitus ferry terminal supervisor insulin use: with ferry terminal supervisor use Qualified Code(s): E11.9 - Type 2 diabetes mellitus without complications; Z79.4 - truck terminal manager (current) use of insulin (3) ESRD on hemodialysis Current Visit: No Status: Acute (4) UTI (urinary tract infection) Current Visit: Yes Status: Acute Qualifiers: Urinary tract infection type: acute cystitis Hematuria presence: with hematuria Qualified Code(s): N30.01 - Acute cystitis with hematuria (5) Diarrhea Current Visit: Yes Status: Acute Qualifiers: Diarrhea type: unspecified type Qualified Code(s): R19.7 - Diarrhea, unspecified (6) Anemia in chronic renal disease Current Visit: Yes Status: Acute Qualifiers: Chronic kidney disease stage: on chronic dialysis Qualified Code(s): N18.6 - End stage renal disease; D63.1 - Anemia in chronic kidney disease; Z99.2 - Dependence on renal dialysis (7) Elevated troponin Current Visit: Yes Status: Acute (8) Altered mental status Current Visit: Yes Status: Acute Qualifiers: Altered mental status type: somnolence Qualified Code(s): R40.0 - Somnolence (9) Counseling regarding advanced care planning and goals of care Current Visit: Yes Status: Acute (10) Depressive disorder, not elsewhere classified Current Visit: Yes Status: Chronic - Constitutional Vitals: Temp Pulse Resp BP Pulse Ox 98.9 F 56 14 150/66 94 11/19/16 07:09 11/19/16 07:09 11/19/16 07:09 11/19/16 07:09 11/19/16 07:09 Internal Medicine: Result - Labs CBC & Chem 7: 11/19/16 04:00 11/19/16 04:00 Labs: Short CBC 11/18/16 11/19/16 Range/Units 08:13 04:00 WBC 13.3 H 10.2 (4.3-11.1) K/mcL Hgb 8.1 L 7.0 L (11.5-15.4) g/dL Hct 25.4 L 22.7 L (35.3-44.9) % Plt Count 143 127 L (140-400) K/mcL Neutrophils # 10.9 H 6.9 (1.6-8.9) K/mcL BMP 11/18/16 11/19/16 08:13 04:00 Sodium 135 L 138 Potassium 3.9 3.5 Chloride 99 102 Carbon Dioxide 22 25 BUN 39 H D 43 H Creatinine 4.42 H 4.99 H Glucose 232 H 163 H Calcium 7.8 L 7.5 L Liver Function 11/18/16 11/19/16 Range/Units 08:13 04:00 Total Bilirubin 0.3 0.3 (0.2-1.2) mg/dL AST 6 7 (5-34) Units/L ALT < 6 < 6 (0-55) Units/L Alkaline Phosphatase 91 82 (38-126) Units/L Albumin 1.8 L 1.7 L (3.5-5.0) g/dL - ABG Interpretation ABG results: PT/INR, D-dimer PT 12.9 Seconds (9.4-12.1) H 11/11/16 11:00 - Attending Attestation I examined this patient and my medical decision-making was reviewed with the Resident Physician, Dr. Brunson. I agree with the documented findings, disposition and treatment plan as described except to the extent set forth below. I have independently obtained history and examined the patient and my findings are summarized below: Patient reports slight improvement in her abdominal pain. Heart exam reveals regular S1-S2. Abdomen is soft, nontender, nondistended. Plan: I discussed the plan with the head batcher. She will need tunneled dialysis catheter placement. Plavix was stopped yesterday. Per IR she will need 5 days off the Plavix prior to placement of her hemodialysis catheter.
--- NOTE | 2016-11-18 11:20 | Nephrology Progress Note ---
Date of Encounter: 11/18/16 Time of Encounter: 11:10 - Assessment and Plan (1) ESRD on hemodialysis Current Visit: No Status: Acute Plan for HD tomorrow Temp line in place Plavix being held x 5 days for permacath placement Awaiting repeat fistulagram to see if access can be salvaged Renal diet Avoid nephrotoxins (2) Anemia in chronic renal disease Current Visit: Yes Status: Acute Hgb 8.1 Goal 10-11 Transfuse per parameters per primary team Qualifiers: Chronic kidney disease stage: on chronic dialysis Qualified Code(s): N18.6 - End stage renal disease; D63.1 - Anemia in chronic kidney disease; Z99.2 - Dependence on renal dialysis (3) UTI (urinary tract infection) Current Visit: Yes Status: Acute Continue antibiotics per primary team Qualifiers: Urinary tract infection type: acute cystitis Hematuria presence: with hematuria Qualified Code(s): N30.01 - Acute cystitis with hematuria Subjective Principal diagnosis: ESRD Interval history: Patient seen and examined. States she doesn't feel well. Objective - Vital Signs Vital signs: Vital Signs Temp Pulse Resp BP Pulse Ox 11/18/16 08:43 66 11/18/16 07:40 97.3 F L 68 18 159/67 99 11/18/16 04:25 98.4 F 66 18 160/68 99 11/17/16 23:04 97.4 F L 67 18 150/64 99 11/17/16 19:49 97.3 F L 65 18 150/70 98 11/17/16 19:30 97.9 F 18 119/71 11/17/16 19:15 112/64 11/17/16 19:00 110/53 11/17/16 18:45 110/58 11/17/16 18:30 112/63 11/17/16 18:15 113/60 11/17/16 18:00 114/61 11/17/16 17:45 103/57 11/17/16 17:30 105/57 11/17/16 17:15 94/52 11/17/16 17:00 95/53 11/17/16 16:45 119/59 11/17/16 16:30 97.6 F 18 149/59 11/17/16 16:10 65 11/17/16 15:51 98.3 F 66 16 144/67 96 11/17/16 12:02 98.0 F 62 16 116/56 96 11/17/16 11:56 63 Intake and Output 11/17/16 11/18/16 11/18/16 23:59 07:59 15:59 Intake Total 700 / 700 100 / 100 200 / 200 Output Total 2175 / 2175 50 / 50 Balance -1475 / -1475 50 / 50 200 / 200 Intake: IV Fluids 100 / 100 100 / 100 200 / 200 Flagyl Premix 500 MG/100 ML 500 100 / 100 100 / 100 100 / 100 mg In 100 ml @ 100 mls/hr IVPB Q8HR [facility] Rx#:[id number] Rocephin 1,000 MG In Dextrose 5 100 / 100 % (Minibag+) 100 ML 100 ML @ 200 mls/hr IVPB Q24H [facility] Rx#: [id number] Oral 0 / 0 Intake, Rinseback and Flushes 600 / 600 Output: Urine 950 / 950 Urethral (Bennett) 850 / 850 Total Dialysis (HD) Output 1100 / 1100 Catheter 125 / 125 50 / 50 Other: Stool Size Moderate Stool Consistency liquid soft Stool Characteristics Binger Stool Color [place] Weight 75.7 kg Blood Glucose* 147 237 Hemodialysis Net Fluid Removed 500 (mL) Patient Weight 11/18/16 23:59 Weight 75.7 kg - General Appearance General appearance: Present: obese, chronically ill, frail EENT: Present: ATNC, mucous membranes moist, hearing intact, vision intact Neck: Present: supple Respiratory: Present: clear Cardiology: Present: edema, normal S1, normal S2 Gastrointestinal: Present: no tenderness, no guarding, obese Integumentary: Present: warm and dry Neurologic: Present: alert and oriented x3 Psychiatric: Present: mood/affect appropriate, cooperative - Lab 11/18/16 08:13 11/18/16 08:13 Most recent lab results Calcium 7.8 mg/dL (8.6-10.8) L 11/18/16 08:13 Phosphorus 5.3 mg/dL (2.3-4.7) H 11/12/16 01:13 Magnesium 1.7 mg/dL (1.6-2.6) 11/12/16 01:13 - VTE Documentation of Mechanical Device: Graduated compression elastic hosiery Consult Discharge Plan - Plan Referrals: Moncho Arambula [Other] - 10/02/17 10:30 am (This is his new location in with [facility] across from [facility].) Abbe Woodard, BRUSH HOLDER ASSEMBLER [Advanced Practice Nurse] - 12/09/16 4:05 pm ()
[2016-11-18 12:10] LABS: Basophils # 0.3 K/mcL (0.0-0.2); Lymphocytes # 1.9 K/mcL (0.6-4.6); Monocytes # 0.3 K/mcL (0.0-1.3); Neutrophils # 10.9 K/mcL (1.6-8.9)
[2016-11-18 12:11] LABS: Platelet Estimate Normal (Normal); Toxic Granulation Present (Not Present)
[2016-11-18] MEDS: Piperacillin/Tazobactam 3.375 GM in D5% in Water (Mini-Bag+) 100 ML IVPB SCH ×2 (12:28→23:55)
[2016-11-18 13:46] LABS: Adenovirus F 40/41 PCR Not detected (Not detect); Astrovirus PCR Not detected (Not detect); C.difficile Toxin A/B by PCR Not detected (Not detect); Campylobacter by PCR Not detected (Not detect); Cryptosporidium by PCR Not detected (Not detect); Cyclospora cayetanensis PCR Not detected (Not detect); E. coli O157 by PCR Not detected (Not detect); Entamoeba histolytica PCR Not detected (Not detect); Enteroaggregative E.coli(EAEC) Not detected (Not detect); Enteropathogenic E.coli(EPEC) Not detected (Not detect); Enterotoxigenic E.coli (ETEC) Not detected (Not detect); Giardia lamblia PCR Not detected (Not detect); Norovirus GI/GII PCR Not detected (Not detect); Plesiomonas shigelloides PCR Not detected (Not detect); Rotavirus A PCR Not detected (Not detect); Salmonella PCR Not detected (Not detect); Sapovirus PCR Not detected (Not detect); Shig/EnteroinvasiveE coli EIEC Not detected (Not detect); Shigalike tox-prod E coli STEC Not detected (Not detect); Vibrio PCR Not detected (Not detect); Vibrio cholerae PCR Not detected (Not detect); Yersinia enterocolitica PCR Not detected (Not detect)
[2016-11-18] MEDS: Insulin DETEMIR 100 UNIT/ML X5UNITS SQ SCH (21:57)
[2016-11-19 05:04] LABS: Basophils % 0.3 %; Eosinophils # 0.3 K/mcL (0.0-0.6); Eosinophils % 2.6 %; Hematocrit 22.7 % (35.3-44.9); Immature Granulocytes % 2.8 % (0-4); Lymphocytes # 2.1 K/mcL (0.6-4.6); Lymphocytes % 20.1 %; Mean Corpuscular HGB Conc 30.8 g/dL (31.6-35.5); Mean Corpuscular Hemoglobin 29.5 pg (28.0-33.3); Mean Corpuscular Volume 95.8 fL (83.0-100.0); Mean Platelet Volume 10.7 fL (9.4-12.4); Monocytes # 0.7 K/mcL (0.0-1.3); Monocytes % 6.5 %; Neutrophils # 6.9 K/mcL (1.6-8.9); Platelet Count 127 K/mcL (140-400); Red Blood Count 2.37 M/mcL (3.82-4.97); Segmented Neutrophils % 67.7 %
[2016-11-19 05:21] LABS: Albumin/Globulin Ratio 0.5 (1.1-2.2); Alkaline Phosphatase 82 Units/L (38-126); Aspartate Amino Transferase 7 Units/L (5-34); BUN/Creatinine Ratio 9 (6-26); Bilirubin,Total 0.3 mg/dL (0.2-1.2); Blood Urea Nitrogen 43 mg/dL (7-20); Calcium 7.5 mg/dL (8.6-10.8); Carbon Dioxide 25 mEq/L (19-29); Chloride 102 mEq/L (98-109); Globulin 3.1 g/dL (2.4-3.5); Glucose 163 mg/dL (70-99); Osmolality,Calculated 300 (280-300); Potassium 3.5 mEq/L (3.5-4.5); Sodium 138 mEq/L (136-145); Total Protein 4.8 g/dL (6.0-8.3); eGFR For African Americans 10 (> 60); eGFR For Non-African Americans 9 (> 60)
[2016-11-19 05:25] LABS: Alanine Aminotransferase < 6 Units/L (0-55); Albumin 1.7 g/dL (3.5-5.0)
[2016-11-19 05:31] LABS: Platelet Estimate Normal (Normal); Reactive Lymphocytes Present (Not Present); Toxic Granulation Present (Not Present)
[2016-11-19] MEDS ORDERED: *HR* Heparin 10,000 UNIT/10 ML VIAL IV PRN (08:07)
[2016-11-19] MEDS ORDERED: 0.9 % Sodium Chloride 250 ML IVC PRN (08:07)
[2016-11-19] MEDS ORDERED: 0.9 % Sodium Chloride 1,000 ML PRIME SCH (08:15)
[2016-11-19] MEDS ORDERED: 0.9 % Sodium Chloride 1,000 ML ONE (08:30)
[2016-11-19] MEDS: Insulin LISPRO 300 UNITS/3 ML VIAL SQ SCH ×4 (08:39→21:09)
[2016-11-19] MEDS: Insulin DETEMIR 100 UNIT/ML X5UNITS SQ SCH ×2 (08:39→21:09)
[2016-11-19] MEDS: *HR* OxyCODONE/APAP 5/325 TABLET PO PRN ×3 (08:40→23:53)
[2016-11-19] MEDS ORDERED: Ondansetron 4 MG/2 ML VIAL IVP PRN (08:49)
--- NOTE | 2016-11-19 10:57 | Internal Med Progress Note ---
<Cecelia Brunson - Last Filed: 11/19/16 17:05> Date of Encounter: 11/19/16 Time of Encounter: 08:00 - Assessment and plan (1) UTI (urinary tract infection) Current Visit: Yes Status: Acute Assessment and plan: Urine culture grew Escherichia coli. CT of pelvis this morning shows persistent air in lumen of bladder.however, the CT scan does show a decreased volume of the abscess found on the dome of the bladder. They suspect that the abscess involves the bladder mucosa rather than being separate from the bladder. There is decreased free air in the left pelvis and retroperitoneum. Patient's white blood cell count trending down to 10.2. Patient appears to be responding well to Zosyn antibiotic. -Per urology, no intervention at this time. They recommend levaquin for 30 days if ok with urology. Also, continuation of george catheter. Qualifiers: Urinary tract infection type: acute cystitis Hematuria presence: with hematuria Qualified Code(s): N30.01 - Acute cystitis with hematuria (2) Metabolic encephalopathy Current Visit: Yes Status: Acute Assessment and plan: Continue with hemodialysis. Continue treating infection. Mental status improving. Avoid sedatives. (3) ESRD on hemodialysis Current Visit: No Status: Acute Assessment and plan: Patient had a temporary access IJ catheter placed 2 days ago by IR. Per nephrology, patient needs permanent access before discharge. They are recommending angioplasty of patients right sided fistula over perm cath cannulation. Plavix is held for decision. Patient receiving hemodialysis and being followed by nephrology. (4) DM2 (diabetes mellitus, type 2) Current Visit: No Status: Acute Assessment and plan: Insulin sliding scale and blood glucose fingerstick every 6 hours. Qualifiers: Diabetes mellitus complication status: without complication Diabetes mellitus adjunct faculty for medical terminology insulin use: with adjunct faculty for medical terminology use Qualified Code(s): E11.9 - Type 2 diabetes mellitus without complications; Z79.4 - buttermilk 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 insulin (5) Diarrhea Current Visit: Yes Status: Acute Assessment and plan: Patient with diarrhea this morning. She states this has been present prior to admission. She is being treated with metronidazole to cover for infectious diarrhea. GI stool panel is negative. We will continue coverage with metronidazole. Qualifiers: Diarrhea type: unspecified type Qualified Code(s): R19.7 - Diarrhea, unspecified (6) Anemia in chronic renal disease Current Visit: Yes Status: Acute Assessment and plan: Patient's hemoglobin dropped to 7 overnight. Patient was transfused with a unit of red blood cells. This was her second transfusion during this hospital course. We will continue to monitor her hemoglobin closely. Qualifiers: Chronic kidney disease stage: on chronic dialysis Qualified Code(s): N18.6 - End stage renal disease; D63.1 - Anemia in chronic kidney disease; Z99.2 - Dependence on renal dialysis (7) Elevated troponin Current Visit: Yes Status: Acute Assessment and plan: Flat and adynamic profile, likely related to end-stage renal disease. (8) Altered mental status Current Visit: Yes Status: Acute Assessment and plan: Patience initial AMS likely secondary to metabolic encephalopathy and urinary tract infection. Patient is now alert, although she is distressed secondary to abdominal pain and emphysematous cystitis. Qualifiers: Altered mental status type: somnolence Qualified Code(s): R40.0 - Somnolence (9) Counseling regarding advanced care planning and goals of care Current Visit: Yes Status: Acute Assessment and plan: Appreciate palliative care recommendations. We will continue to have family meetings and discussions regarding goals of care. I appreciate psychiatry recommendations. The patient clearly has mental capacity for decision making. She wishes to be full code. (10) Depressive disorder, not elsewhere classified Current Visit: Yes Status: Chronic Assessment and plan: Patient is currently being titrated off of paxil. She was started on lexapro 2 days ago. We will continue to monitor for side effects and therapeutic benefit. - Subjective Interval history: Patient is a 71 yo female with PMHx of atrial fibrillation, congestive heart failure, COPD, diabetes, GERD, hyperlipidemia, hypertension, renal disease, direct disease, and end-stage renal disease on hemodialysis. She presented to the hospital with altered mental status after not receiving dialysis for 2 weeks. 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 Today, patient seems much more alert than yesterday. However, she says she does not feel better. She still complains of abdominal pain and nausea. She is still having episodes of diarrhea. She has a George catheter in place which is revealing dark and red urine. Per patient, she is not going to go to dialysis today as she wants to go home and see her . We explained that she has a unit of blood actively being transfused, and that it would not be in her best interest as she still has no permanent access for dialysis. She expressed understanding and stated she wanted to leave the hospital anyways. - Constitutional Vitals: Temp Pulse Resp BP Pulse Ox 98.9 F 56 14 150/66 94 11/19/16 07:09 11/19/16 07:09 11/19/16 07:09 11/19/16 07:09 11/19/16 07:09 General appearance: Present: cooperative, mild distress, A&O X 3, answers questions appropriately - Head Head exam: Present: atraumatic, normal inspection, normocephalic - Neck Additional comments: Patient with right sided IJ hemodialysis catheter in place. - Respiratory Respiratory exam: Present: CTAB. Absent: rales, respiratory distress, rhonchi, stridor, wheezes - Cardiovascular Cardiovascular exam: Absent: diastolic murmur, gallop, RRR, rubs, systolic murmur - GI/Abdominal GI/Abdominal exam: Present: rebound, soft, tenderness. Absent: distended, firm , guarding - Extremities Exam Extremities exam: Present: pedal edema (1+), radial pulses palpable and symmetrical. Absent: calf tenderness Internal Medicine: Result - Labs CBC & Chem 7: 11/19/16 04:00 11/19/16 04:00 Labs: Short CBC 11/18/16 11/19/16 Range/Units 08:13 04:00 WBC 10.2 (4.3-11.1) K/mcL Hgb 7.0 L (11.5-15.4) g/dL Hct 22.7 L (35.3-44.9) % Plt Count 127 L (140-400) K/mcL Neutrophils # 10.9 H 6.9 (1.6-8.9) K/mcL BMP 11/19/16 04:00 Sodium 138 Potassium 3.5 Chloride 102 Carbon Dioxide 25 BUN 43 H Creatinine 4.99 H Glucose 163 H Calcium 7.5 L Liver Function 11/19/16 Range/Units 04:00 Total Bilirubin 0.3 (0.2-1.2) mg/dL AST 7 (5-34) Units/L ALT < 6 (0-55) Units/L Alkaline Phosphatase 82 (38-126) Units/L Albumin 1.7 L (3.5-5.0) g/dL - ABG Interpretation ABG results: PT/INR, D-dimer PT 12.9 Seconds (9.4-12.1) H 11/11/16 11:00 - Impressions Impressions Pelvis CT 11/19/16 09:00 IMPRESSION: 1. Emphysematous cystitis status post George catheter placement. The bladder is decompressed with persistent air which is suspected to be mixed within the lumen and bladder mucosa. 2. Decreased volume of abscess, now suspected to involve bladder mucosa rather than be separate from the bladder itself. 3. Decreased free air in the left pelvis and retroperitoneum. D/ / Kehinde Ragland MD / Kehinde Ragland MD Interpreting Provider: Kehinde Ragland MD - VTE Documentation of Mechanical Device: Venous foot pump, device Consult Discharge Plan - Plan Referrals: Moncho Arambula [Other] - 11/24/16 10:30 am (This is his new location in with [facility] across from [facility] Abbe Woodard EMPLOYMENT OFFICER [Advanced Practice Nurse] - 12/09/16 4:05 pm () <Juventino Wallis - Last Filed: 11/19/16 18:17> Date of Encounter: 11/19/16 - Assessment and plan (1) Metabolic encephalopathy Current Visit: Yes Status: Acute (2) DM2 (diabetes mellitus, type 2) Current Visit: No Status: Acute Qualifiers: Diabetes mellitus complication status: without complication Diabetes mellitus senior living insulin use: with adjunct faculty for medical terminology use Qualified Code(s): E11.9 - Type 2 diabetes mellitus without complications; Z79.4 - 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 insulin (3) ESRD on hemodialysis Current Visit: No Status: Acute (4) UTI (urinary tract infection) Current Visit: Yes Status: Acute Qualifiers: Urinary tract infection type: acute cystitis Hematuria presence: with hematuria Qualified Code(s): N30.01 - Acute cystitis with hematuria (5) Diarrhea Current Visit: Yes Status: Acute Qualifiers: Diarrhea type: unspecified type Qualified Code(s): R19.7 - Diarrhea, unspecified (6) Anemia in chronic renal disease Current Visit: Yes Status: Acute Qualifiers: Chronic kidney disease stage: on chronic dialysis Qualified Code(s): N18.6 - End stage renal disease; D63.1 - Anemia in chronic kidney disease; Z99.2 - Dependence on renal dialysis (7) Elevated troponin Current Visit: Yes Status: Acute (8) Altered mental status Current Visit: Yes Status: Acute Qualifiers: Altered mental status type: somnolence Qualified Code(s): R40.0 - Somnolence (9) Counseling regarding advanced care planning and goals of care Current Visit: Yes Status: Acute (10) Depressive disorder, not elsewhere classified Current Visit: Yes Status: Chronic - Constitutional Vitals: Temp Pulse Resp BP Pulse Ox 98 F 61 18 147/52 99 11/19/16 18:05 11/19/16 11:20 11/19/16 18:05 11/19/16 18:05 11/19/16 11:20 Internal Medicine: Result - Labs CBC & Chem 7: 11/19/16 04:00 11/19/16 04:00 Labs: Short CBC 11/19/16 Range/Units 04:00 WBC 10.2 (4.3-11.1) K/mcL Hgb 7.0 L (11.5-15.4) g/dL Hct 22.7 L (35.3-44.9) % Plt Count 127 L (140-400) K/mcL Neutrophils # 6.9 (1.6-8.9) K/mcL BMP 11/19/16 04:00 Sodium 138 Potassium 3.5 Chloride 102 Carbon Dioxide 25 BUN 43 H Creatinine 4.99 H Glucose 163 H Calcium 7.5 L Liver Function 11/19/16 Range/Units 04:00 Total Bilirubin 0.3 (0.2-1.2) mg/dL AST 7 (5-34) Units/L ALT < 6 (0-55) Units/L Alkaline Phosphatase 82 (38-126) Units/L Albumin 1.7 L (3.5-5.0) g/dL - ABG Interpretation ABG results: PT/INR, D-dimer PT 12.9 Seconds (9.4-12.1) H 11/11/16 11:00 - Impressions Impressions Pelvis CT 11/19/16 09:00 IMPRESSION: 1. Emphysematous cystitis status post George catheter placement. The bladder is decompressed with persistent air which is suspected to be mixed within the lumen and bladder mucosa. 2. Decreased volume of abscess, now suspected to involve bladder mucosa rather than be separate from the bladder itself. 3. Decreased free air in the left pelvis and retroperitoneum. D/ / Kehinde Ragland MD / Kehinde Ragland MD Interpreting Provider: Kehinde Ragland MD - Attending Attestation I examined this patient and my medical decision-making was reviewed with the Resident Physician, Dr. Brunson. I agree with the documented findings, disposition and treatment plan as described except to the extent set forth below. I have independently obtained history and examined the patient and my findings are summarized below: Patient reports that her abdominal pain has improved over the last 24 hours. On exam she is in no acute distress abdomen is soft, nontender nondistended. Plan: Continue with hemodialysis. Hold Plavix. We will discuss permanent hemodialysis access with nephrology. Continue physical therapy. Social work for placement. We had a family meeting today whereby the patient agreed to go to to rehabilitation when she is medically stable for discharge.
[2016-11-19] MEDS: Piperacillin/Tazobactam 3.375 GM in D5% in Water (Mini-Bag+) 100 ML IVPB SCH ×2 (11:41→23:52)
--- NOTE | 2016-11-19 12:49 | Urology Progress Note ---
Date of Encounter: 11/19/16 Time of Encounter: 12:45 - Assessment and Plan (1) Emphysematous cystitis Current Visit: Yes Status: Acute Assessment and plan: I reviewed the most recent CT scan. I agree there is still a fluid collection in the bladder wall but overall cystitis and possible abscess has potentially improved. Her vitals are stable and she doesnt appear septic. OK with management without surgery or drainage. I recommend continuing cath drainage at ID. it will be removed as outpt in urology office if she improves. She needs at least 30 days of culture specific ABX. normally bactrim would be good choice but she is allergic to sulfa. If Ok with nephrology I recommend Levaquin 250 mg po daily for 30 days. followup with urology 3-4 weeks. Progress Note Subjective: feels better, still having pain, pain is less Narrative: pt reports less bladder pressure. Objective Initial Vital Signs Temp Pulse Resp BP Pulse Ox 99 F 74 20 108/51 97 11/11/16 10:39 11/11/16 10:39 11/11/16 10:39 11/11/16 10:39 11/11/16 10:39 - Additional Exam urine is now transparent hematuria. no clots. - Labs 11/19/16 04:00 11/19/16 04:00 Diabetes panel 11/19/16 Range/Units 04:00 Sodium 138 (136-145) mEq/L Potassium 3.5 (3.5-4.5) mEq/L Chloride 102 (98-109) mEq/L Carbon Dioxide 25 (19-29) mEq/L BUN 43 H (7-20) mg/dL Creatinine 4.99 H (0.57-1.11) mg/dL Glucose 163 H (70-99) mg/dL Calcium 7.5 L (8.6-10.8) mg/dL AST 7 (5-34) Units/L ALT < 6 (0-55) Units/L Alkaline Phosphatase 82 (38-126) Units/L Albumin 1.7 L (3.5-5.0) g/dL Calcium panel 11/19/16 Range/Units 04:00 Calcium 7.5 L (8.6-10.8) mg/dL Albumin 1.7 L (3.5-5.0) g/dL Pituitary panel 11/19/16 Range/Units 04:00 Sodium 138 (136-145) mEq/L Potassium 3.5 (3.5-4.5) mEq/L Chloride 102 (98-109) mEq/L Carbon Dioxide 25 (19-29) mEq/L BUN 43 H (7-20) mg/dL Creatinine 4.99 H (0.57-1.11) mg/dL Glucose 163 H (70-99) mg/dL Calcium 7.5 L (8.6-10.8) mg/dL Adrenal panel 11/19/16 Range/Units 04:00 Sodium 138 (136-145) mEq/L Potassium 3.5 (3.5-4.5) mEq/L Chloride 102 (98-109) mEq/L Carbon Dioxide 25 (19-29) mEq/L BUN 43 H (7-20) mg/dL Creatinine 4.99 H (0.57-1.11) mg/dL Glucose 163 H (70-99) mg/dL Calcium 7.5 L (8.6-10.8) mg/dL Total Bilirubin 0.3 (0.2-1.2) mg/dL AST 7 (5-34) Units/L ALT < 6 (0-55) Units/L Alkaline Phosphatase 82 (38-126) Units/L Albumin 1.7 L (3.5-5.0) g/dL - VTE Documentation of Mechanical Device: Venous foot pump, device Consult Discharge Plan - Plan Referrals: Moncho Arambula [Other] - 11/24/16 10:30 am (This is his new location in with [facility] across from [facility].) Abbe Woodard, SAFETY NET MAKER [Advanced Practice Nurse] - 12/09/16 4:05 pm ()
--- NOTE | 2016-11-19 17:52 | Nephrology Progress Note ---
Date of Encounter: 11/19/16 Time of Encounter: 12:15 - Assessment and Plan (1) End stage chronic kidney disease Current Visit: No Status: Acute Pt now agreeable for HD today after lenghty discussion with her. will dialyze via temp CLAUDY villasenor today Family meeting planned today Still hoping for a more permanent solution for her access issue during this hopsital stay (2) Anemia in chronic renal disease Current Visit: Yes Status: Acute Hgb low at 7.1 likely due to hematuria the last few days, urology following Will continue aranesp for now transfusion parameters per primary team Qualifiers: Chronic kidney disease stage: on chronic dialysis Qualified Code(s): N18.6 - End stage renal disease; D63.1 - Anemia in chronic kidney disease; Z99.2 - Dependence on renal dialysis (3) Encephalopathy due to metabolic factor or toxin Current Visit: Yes Status: Acute Appreciate neurology's input Pt not uremic at present (4) UTI (urinary tract infection) Current Visit: Yes Status: Acute Continue abx per primary team, currently on ceftraixone for Ecoli. urology following Qualifiers: Urinary tract infection type: acute cystitis Hematuria presence: with hematuria Qualified Code(s): N30.01 - Acute cystitis with hematuria Subjective Principal diagnosis: ESRD Interval history: Interim noted. Pt seen and examined initially refusing to go for HD again and demanding to go home to her . Family meeting planned today Objective - Vital Signs Vital signs: Vital Signs Temp Pulse Resp BP Pulse Ox 11/19/16 17:25 141/64 11/19/16 17:10 111/52 11/19/16 16:55 96/52 11/19/16 16:40 108/48 11/19/16 16:25 101/48 11/19/16 16:10 121/60 11/19/16 15:55 98.1 F 18 156/71 11/19/16 11:20 98.4 F 61 16 126/52 99 11/19/16 07:09 98.9 F 56 14 150/66 94 11/19/16 03:17 98.5 F 60 18 158/63 95 11/18/16 22:57 98.5 F 63 18 160/66 100 11/18/16 18:56 98.0 F 61 18 127/94 99 Intake and Output 09/11/19/16 11/19/16 07:59 15:59 23:59 Intake Total 100 / 100 960 / 960 Output Total 125 / 125 Balance -25 / -25 960 / 960 Intake: IV Fluids 100 / 100 Zosyn 3.375 GM In Dextrose 5% ( 100 / 100 Minibag+) 100 ML 100 ML @ 25 mls/hr IVPB Q12H [facility] Rx#: [id number] Oral 360 / 360 Intake, Rinseback and Flushes 600 / 600 Output: Urine 125 / 125 Urethral (Bennett) 125 / 125 Other: Meal Lunch Percent of Meal Consumed 15% Stool Size Large Stool Consistency loose Stool Color Brown # Bowel Movements 1 Blood Glucose* 153 123 Hemodialysis Net Fluid Removed 0 796 (mL) - Lab 11/19/16 04:00 11/19/16 04:00 Most recent lab results Calcium 7.5 mg/dL (8.6-10.8) L 11/19/16 04:00 Phosphorus 5.3 mg/dL (2.3-4.7) H 11/12/16 01:13 Magnesium 1.7 mg/dL (1.6-2.6) 11/12/16 01:13 - VTE Documentation of Mechanical Device: Venous foot pump, device Consult Discharge Plan - Plan Referrals: Moncho Arambula [Other] - 11/24/16 10:30 am (This is his new location in with [facility] across from [facility].) Abbe Woodard, NURSE EXAMINER [Advanced Practice Nurse] - 12/09/16 4:05 pm ()
[2016-11-19 21:25] LABS: Basophils # 0.1 K/mcL (0.0-0.2); Basophils % 0.4 %; Eosinophils # 0.3 K/mcL (0.0-0.6); Eosinophils % 2.1 %; Hematocrit 23.8 % (35.3-44.9); Hemoglobin 7.4 g/dL (11.5-15.4); Immature Granulocytes % 3.5 % (0-4); Mean Corpuscular HGB Conc 31.1 g/dL (31.6-35.5); Mean Corpuscular Volume 96.4 fL (83.0-100.0); Mean Platelet Volume 10.8 fL (9.4-12.4); Monocytes # 0.7 K/mcL (0.0-1.3); Monocytes % 5.5 %; Neutrophils # 8.9 K/mcL (1.6-8.9); Platelet Count 129 K/mcL (140-400); Red Blood Count 2.47 M/mcL (3.82-4.97); Red Cell Distribution Width 15.2 % (11.5-14.5); Segmented Neutrophils % 72.5 %
[2016-11-20 05:17] LABS: Basophils # 0.1 K/mcL (0.0-0.2); Basophils % 0.6 %; Eosinophils # 0.3 K/mcL (0.0-0.6); Eosinophils % 2.7 %; Hematocrit 23.3 % (35.3-44.9); Hemoglobin 7.5 g/dL (11.5-15.4); Immature Granulocytes % 3.2 % (0-4); Lymphocytes # 1.9 K/mcL (0.6-4.6); Lymphocytes % 16.1 %; Mean Corpuscular HGB Conc 32.2 g/dL (31.6-35.5); Mean Corpuscular Hemoglobin 31.1 pg (28.0-33.3); Mean Corpuscular Volume 96.7 fL (83.0-100.0); Mean Platelet Volume 10.7 fL (9.4-12.4); Monocytes # 0.7 K/mcL (0.0-1.3); Monocytes % 6.2 %; Neutrophils # 8.6 K/mcL (1.6-8.9); Platelet Count 134 K/mcL (140-400); Red Blood Count 2.41 M/mcL (3.82-4.97); Red Cell Distribution Width 15.1 % (11.5-14.5); Segmented Neutrophils % 71.2 %
[2016-11-20 05:32] LABS: Calcium 7.6 mg/dL (8.6-10.8); Potassium 3.4 mEq/L (3.5-4.5)
[2016-11-20] MEDS: Insulin LISPRO 300 UNITS/3 ML VIAL SQ SCH ×4 (08:26→21:28)
[2016-11-20] MEDS: Insulin DETEMIR 100 UNIT/ML X5UNITS SQ SCH ×2 (08:46→23:51)
[2016-11-20] MEDS: *HR* OxyCODONE/APAP 5/325 TABLET PO PRN ×2 (08:57→21:23)
--- NOTE | 2016-11-20 09:34 | Internal Med Progress Note ---
<Cecelia Brunson - Last Filed: 11/20/16 14:42> Date of Encounter: 11/20/16 Time of Encounter: 09:00 - Assessment and plan (1) UTI (urinary tract infection) Current Visit: Yes Status: Acute Assessment and plan: Urine culture grew Escherichia coli. CT of pelvis yesterday shows persistent air in lumen of bladder.however, the CT scan does show a decreased volume of the abscess found on the dome of the bladder. They suspect that the abscess involves the bladder mucosa rather than being separate from the bladder. There is decreased free air in the left pelvis and retroperitoneum. -Patient's white blood cell count trending down to 10.2. Patient appears to be responding well to Zosyn antibiotic. -Per urology, no intervention at this time. They recommend levaquin for 30 days if ok with urology. Also, continuation of george catheter. -Patient ready for discharge to transitional care. -Patient's Creatine Clearance is 16.99 so her renally dosed recommendation for Levquin is 250mg q48 hours. Nephrology agrees that levaquin is non-toxic to the kidneys. This will be her recommended discharge dosage. -Patient needs 3 more days of IV Zosyn after discharge to correction tomorrow if permanent access is established per IR. We will get a power wand line in place so this is possible from correction. After completion of IV zosyn, patient is find to transition to 30 days of above recommended dose of levaquin. Qualifiers: Urinary tract infection type: acute cystitis Hematuria presence: with hematuria Qualified Code(s): N30.01 - Acute cystitis with hematuria (2) ESRD on hemodialysis Current Visit: No Status: Acute Assessment and plan: Patient had a temporary access IJ catheter placed 4 days ago by IR. Per nephrology, patient needs permanent access before discharge. Patient can't go to correction with temporary access due to infection risk. -Will speak with IR in the morning to see if patient is sufficiently anti- coagulated on Plavix for perm cath placement. -If IR gets permanent access, we will discharge to correction. -social work is coordinating correction. (3) DM2 (diabetes mellitus, type 2) Current Visit: No Status: Acute Assessment and plan: Insulin sliding scale and blood glucose fingerstick every 6 hours. Qualifiers: Diabetes mellitus complication status: without complication Diabetes mellitus termite control representative insulin use: with termite control representative use Qualified Code(s): E11.9 - Type 2 diabetes mellitus without complications; Z79.4 - MCFP (current) use of insulin (4) Metabolic encephalopathy Current Visit: Yes Status: Acute Assessment and plan: Continue with hemodialysis. Continue treating infection. Mental status improved. Avoid sedatives. (5) Diarrhea Current Visit: Yes Status: Acute Assessment and plan: Patient with diarrhea. She states this has been present prior to admission. She is being treated with metronidazole to cover for infectious diarrhea. -GI stool panel is negative. -No clincial indications for further treatment with antibiotic. Qualifiers: Diarrhea type: unspecified type Qualified Code(s): R19.7 - Diarrhea, unspecified (6) Anemia in chronic renal disease Current Visit: Yes Status: Acute Assessment and plan: Patient's hemoglobin still at 7.5 -will transfuse RBC today. -continue to monitor hemoglobin closely. Qualifiers: Chronic kidney disease stage: on chronic dialysis Qualified Code(s): N18.6 - End stage renal disease; D63.1 - Anemia in chronic kidney disease; Z99.2 - Dependence on renal dialysis (7) Elevated troponin Current Visit: Yes Status: Acute Assessment and plan: Flat and adynamic profile, likely related to end-stage renal disease. (8) Altered mental status Current Visit: Yes Status: Acute Assessment and plan: Patience initial AMS likely secondary to metabolic encephalopathy and urinary tract infection. Patient is now alert and resting comfortably. Qualifiers: Altered mental status type: somnolence Qualified Code(s): R40.0 - Somnolence (9) Counseling regarding advanced care planning and goals of care Current Visit: Yes Status: Acute Assessment and plan: Appreciate palliative care recommendations. We will continue to have family meetings and discussions regarding goals of care. I appreciate psychiatry recommendations. The patient clearly has mental capacity for decision making. She wishes to be full code. (10) Depressive disorder, not elsewhere classified Current Visit: Yes Status: Chronic Assessment and plan: Patient is currently being titrated off of paxil. She was started on lexapro 3 days ago. We will continue to monitor for side effects and therapeutic benefit. -Patient's last dose of paxil is tomorrow. If discharged, she is ready for her lexapro to be increased from 5mg to 10mg, and discontinuation of paxil. - Subjective Interval history: Patient is a 71 yo female with PMHx of atrial fibrillation, congestive heart failure, COPD, diabetes, GERD, hyperlipidemia, hypertension, renal disease, direct disease, and end-stage renal disease on hemodialysis. She presented to the hospital with altered mental status after not receiving dialysis for 2 weeks. 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 This morning patient feels much better than yesterday. She is cooperative and amenable to being in the hospital. She says her abdominal pain has improved and her nausea is gone. She is still having diarrhea, but nothing worsening. She expressed understanding that she would be discharged once permanenent access was gained, and that she would be going to a transitional care environment. - Constitutional Vitals: Temp Pulse Resp BP Pulse Ox 99 F 60 16 153/57 100 11/20/16 07:57 11/20/16 07:57 11/20/16 07:57 11/20/16 07:57 11/20/16 07:57 General appearance: Present: cooperative, A&O X 3, answers questions appropriately - Respiratory Respiratory exam: Present: CTAB. Absent: respiratory distress, rhonchi, stridor , wheezes - Cardiovascular Cardiovascular exam: Present: RRR. Absent: diastolic murmur, gallop, rubs - GI/Abdominal GI/Abdominal exam: Present: soft, tenderness (mild LLQ tenderness). 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 Absent: pedal edema, tenderness - Psychiatric Psychiatric exam: Present: normal affect, normal mood Internal Medicine: Result - Labs CBC & Chem 7: 11/20/16 04:35 11/20/16 04:35 Labs: Short CBC 11/19/16 11/20/16 Range/Units 21:00 04:35 WBC 12.2 H 12.0 H (4.3-11.1) K/mcL Hgb 7.4 L 7.5 L (11.5-15.4) g/dL Hct 23.8 L 23.3 L (35.3-44.9) % Plt Count 129 L 134 L (140-400) K/mcL Neutrophils # 8.9 8.6 (1.6-8.9) K/mcL BMP 11/20/16 04:35 Sodium 138 Potassium 3.4 L Chloride 104 Carbon Dioxide 24 BUN 27 H D Creatinine 3.83 H Glucose 132 H Calcium 7.6 L - ABG Interpretation ABG results: PT/INR, D-dimer PT 12.9 Seconds (9.4-12.1) H 11/11/16 11:00 - VTE Documentation of Mechanical Device: Graduated compression elastic hosiery Consult Discharge Plan - Plan Referrals: Moncho Arambula [Other] - 11/24/16 10:30 am (This is his new location in with [facility] across from [facility].) Abbe Woodard CNP [Advanced Practice Nurse] - 12/09/16 4:05 pm () <Juventino Wallis - Last Filed: 11/20/16 14:57> Date of Encounter: 11/20/16 - Assessment and plan (1) Metabolic encephalopathy Current Visit: Yes Status: Acute (2) DM2 (diabetes mellitus, type 2) Current Visit: No Status: Acute Qualifiers: Diabetes mellitus complication status: without complication Diabetes mellitus prison insulin use: with termite control representative use Qualified Code(s): E11.9 - Type 2 diabetes mellitus without complications; Z79.4 - MCFP (current) use of insulin (3) ESRD on hemodialysis Current Visit: No Status: Acute (4) UTI (urinary tract infection) Current Visit: Yes Status: Acute Qualifiers: Urinary tract infection type: acute cystitis Hematuria presence: with hematuria Qualified Code(s): N30.01 - Acute cystitis with hematuria (5) Diarrhea Current Visit: Yes Status: Acute Qualifiers: Diarrhea type: unspecified type Qualified Code(s): R19.7 - Diarrhea, unspecified (6) Anemia in chronic renal disease Current Visit: Yes Status: Acute Qualifiers: Chronic kidney disease stage: on chronic dialysis Qualified Code(s): N18.6 - End stage renal disease; D63.1 - Anemia in chronic kidney disease; Z99.2 - Dependence on renal dialysis (7) Elevated troponin Current Visit: Yes Status: Acute (8) Altered mental status Current Visit: Yes Status: Acute Qualifiers: Altered mental status type: somnolence Qualified Code(s): R40.0 - Somnolence (9) Counseling regarding advanced care planning and goals of care Current Visit: Yes Status: Acute (10) Depressive disorder, not elsewhere classified Current Visit: Yes Status: Chronic - Constitutional Vitals: Temp Pulse Resp BP Pulse Ox 97.9 F 60 16 171/72 96 11/20/16 13:25 11/20/16 13:39 11/20/16 13:25 11/20/16 13:25 11/20/16 13:25 Internal Medicine: Result - Labs CBC & Chem 7: 11/20/16 04:35 11/20/16 04:35 Labs: Short CBC 11/19/16 11/20/16 Range/Units 21:00 04:35 WBC 12.2 H 12.0 H (4.3-11.1) K/mcL Hgb 7.4 L 7.5 L (11.5-15.4) g/dL Hct 23.8 L 23.3 L (35.3-44.9) % Plt Count 129 L 134 L (140-400) K/mcL Neutrophils # 8.9 8.6 (1.6-8.9) K/mcL BMP 11/20/16 04:35 Sodium 138 Potassium 3.4 L Chloride 104 Carbon Dioxide 24 BUN 27 H D Creatinine 3.83 H Glucose 132 H Calcium 7.6 L - ABG Interpretation ABG results: PT/INR, D-dimer PT 12.9 Seconds (9.4-12.1) H 11/11/16 11:00 - Attending Attestation I examined this patient and my medical decision-making was reviewed with the Resident Physician, Dr. John. I agree with the documented findings, disposition and treatment plan as described except to the extent set forth below. I have independently obtained history and examined the patient and my findings are summarized below: Patient reports improvement in abdominal pain today. Heart exam reveals regular S1-S2 no murmurs. Abdomen is soft nontender nondistended with normoactive bowel sounds. exam: Moderate suprapubic tenderness. A George catheter is present draining pink-colored urine Plan: Continue with Zosyn for a total of 7 days for complicated UTI and insulin as cystitis then transition to oral Levaquin. Plan for tunneled dialysis catheter placement tomorrow by IREthel
--- NOTE | 2016-11-20 09:49 | Nephrology Progress Note ---
Date of Encounter: 11/20/16 Time of Encounter: 09:47 - Assessment and Plan (1) ESRD on hemodialysis Current Visit: No Status: Acute Plan for HD tomorrow Temp line in place Plavix being held x 5 days for permacath placement Awaiting repeat fistulagram to see if access can be salvaged Renal diet Avoid nephrotoxins (2) Anemia in chronic renal disease Current Visit: Yes Status: Acute Hgb 7.5 Goal 10-11 Continue Aranesp Transfuse per parameters per primary team Qualifiers: Chronic kidney disease stage: on chronic dialysis Qualified Code(s): N18.6 - End stage renal disease; D63.1 - Anemia in chronic kidney disease; Z99.2 - Dependence on renal dialysis (3) UTI (urinary tract infection) Current Visit: Yes Status: Acute Continue antibiotics per primary team/urology team Qualifiers: Urinary tract infection type: acute cystitis Hematuria presence: with hematuria Qualified Code(s): N30.01 - Acute cystitis with hematuria Subjective Principal diagnosis: ESRD Interval history: Patient seen and examined. States she is feeling ok today Objective - Vital Signs Vital signs: Vital Signs Temp Pulse Resp BP Pulse Ox 11/20/16 07:57 99 F 60 16 153/57 100 11/20/16 04:24 98.2 F 65 16 149/68 100 11/19/16 23:53 98.2 F 67 18 169/61 97 11/19/16 20:04 99.1 F 67 16 117/65 99 11/19/16 18:05 98 F 18 147/52 11/19/16 17:50 142/59 11/19/16 17:40 130/70 11/19/16 17:25 141/64 11/19/16 17:10 111/52 11/19/16 16:55 96/52 11/19/16 16:40 108/48 11/19/16 16:25 101/48 11/19/16 16:10 121/60 11/19/16 15:55 98.1 F 18 156/71 11/19/16 11:20 98.4 F 61 16 126/52 99 Intake and Output 11/19/16 11/20/16 11/20/16 23:59 07:59 15:59 Intake Total 0 / 0 360 / 360 Output Total 1490 / 1490 200 / 200 Balance -1490 / -1490 -200 / -200 360 / 360 Intake: Oral 0 / 0 360 / 360 Output: Urine 125 / 125 200 / 200 Urethral (Bennett) 125 / 125 200 / 200 Total Dialysis (HD) Output 1065 / 1065 Catheter 300 / 300 Other: Meal Dinner Breakfast Percent of Meal Consumed 50% 75% Stool Size Moderate Copious Stool Consistency loose loose Stool Color Brown Brown # Bowel Movements 1 1 Weight 77.9 kg Blood Glucose* 160 103 Hemodialysis Net Fluid Removed 465 (mL) Patient Weight 11/20/16 23:59 Weight 77.9 kg - General Appearance General appearance: Present: obese, chronically ill, frail EENT: Present: ATNC, mucous membranes moist, hearing intact, vision intact Neck: Present: supple Respiratory: Present: rhonchi (occasional) Cardiology: Present: edema, normal S2 Gastrointestinal: Present: no tenderness, no guarding Integumentary: Present: warm and dry Neurologic: Present: alert and oriented x3 Psychiatric: Present: mood/affect appropriate, cooperative - Lab 11/20/16 04:35 11/20/16 04:35 Most recent lab results Calcium 7.6 mg/dL (8.6-10.8) L 11/20/16 04:35 Phosphorus 5.3 mg/dL (2.3-4.7) H 11/12/16 01:13 Magnesium 1.7 mg/dL (1.6-2.6) 11/12/16 01:13 - VTE Documentation of Mechanical Device: Graduated compression elastic hosiery Consult Discharge Plan - Plan Referrals: Moncho Arambula [Other] - 11/24/16 10:30 am (This is his new location in with [facility] across from [facility].) Abbe Woodard, DIRECTOR OF OPERATIONS [Advanced Practice Nurse] - 12/09/16 4:05 pm ()
[2016-11-20] MEDS ORDERED: 0.9 % Sodium Chloride 250 ML ONE (09:57)
[2016-11-20] MEDS: Lisinopril 20 MG TABLET PO SCH (11:23)
[2016-11-20] MEDS: Piperacillin/Tazobactam 3.375 GM in D5% in Water (Mini-Bag+) 100 ML IVPB SCH ×2 (11:23→23:50)
[2016-11-20 16:01] LABS: Hemoglobin 9.2 g/dL (11.5-15.4)
[2016-11-21 04:58] LABS: Basophils # 0.1 K/mcL (0.0-0.2); Basophils % 0.5 %; Eosinophils # 0.3 K/mcL (0.0-0.6); Eosinophils % 2.6 %; Hematocrit 27.9 % (35.3-44.9); Hemoglobin 8.9 g/dL (11.5-15.4); Immature Granulocytes % 3.5 % (0-4); Lymphocytes # 1.7 K/mcL (0.6-4.6); Lymphocytes % 15.1 %; Mean Corpuscular HGB Conc 31.9 g/dL (31.6-35.5); Mean Corpuscular Hemoglobin 29.8 pg (28.0-33.3); Mean Corpuscular Volume 93.3 fL (83.0-100.0); Mean Platelet Volume 10.1 fL (9.4-12.4); Monocytes # 0.7 K/mcL (0.0-1.3); Monocytes % 6.1 %; Neutrophils # 7.9 K/mcL (1.6-8.9); Platelet Count 132 K/mcL (140-400); Red Blood Count 2.99 M/mcL (3.82-4.97); Segmented Neutrophils % 72.2 %
[2016-11-21 05:12] LABS: Calcium 7.6 mg/dL (8.6-10.8); Potassium 3.6 mEq/L (3.5-4.5)
[2016-11-21] MEDS ORDERED: 0.9 % Sodium Chloride 250 ML IVC PRN (07:24)
[2016-11-21] MEDS ORDERED: *HR* Heparin 10,000 UNIT/10 ML VIAL IV PRN (07:24)
[2016-11-21] MEDS ORDERED: 0.9 % Sodium Chloride 1,000 ML PRIME SCH (07:30)
[2016-11-21] MEDS: Insulin LISPRO 300 UNITS/3 ML VIAL SQ SCH ×4 (07:40→21:56)
[2016-11-21] MEDS: Lisinopril 20 MG TABLET PO SCH (07:41)
[2016-11-21] MEDS: *HR* OxyCODONE/APAP 5/325 TABLET PO PRN ×2 (07:47→20:11)
[2016-11-21] MEDS ORDERED: 0.9 % Sodium Chloride 2,000 ML ONE (08:32)
[2016-11-21] MEDS: Acetaminophen 325 MG TABLET PO PRN (10:33)
--- NOTE | 2016-11-21 10:49 | Nephrology Progress Note ---
Date of Encounter: 11/21/16 Time of Encounter: 10:30 - Assessment and Plan (1) ESRD on hemodialysis Current Visit: No Status: Chronic Cont HD every M/W/F but she continues to demonstrate noncompliance and often demanding to stop HD early. I worked to help encourage her to continue HD for at least 2 hours. (2) Anemia in chronic renal disease Current Visit: Yes Status: Chronic Monitor for goal Hgb 10-11. Qualifiers: Chronic kidney disease stage: on chronic dialysis Qualified Code(s): N18.6 - End stage renal disease; D63.1 - Anemia in chronic kidney disease; Z99.2 - Dependence on renal dialysis (3) Emphysematous cystitis Current Visit: Yes Status: Acute As per primary and Urology. She still has a george catheter in place. (4) Hypertension Current Visit: No Status: Chronic Adequate today. Will monitor. Qualifiers: Hypertension type: essential hypertension Qualified Code(s): I10 - Essential (primary) hypertension Subjective Principal diagnosis: ESRD Interval history: Pt was s/e while on HD. She reported feeling tired and requested to come off HD early. She did not affirm CP, N/V but does have chronic back pain. She has a temporary HD catheter in the RIJ and pending placement of a TDC. Objective - Vital Signs Vital signs: Vital Signs Temp Pulse Resp BP Pulse Ox 11/21/16 07:52 62 11/21/16 07:05 98.0 F 66 18 175/89 100 11/21/16 03:10 97.9 F 69 17 100 11/20/16 23:23 98.4 F 65 16 155/63 100 11/20/16 19:22 98.1 F 60 17 154/65 100 11/20/16 16:11 98.1 F 59 16 158/70 100 11/20/16 13:39 60 11/20/16 13:25 97.9 F 63 16 171/72 96 11/20/16 11:09 98.2 F 67 16 167/60 96 Intake and Output 11/20/16 11/21/16 11/21/16 23:59 07:59 15:59 Intake Total 100 / 100 100 / 100 0 / 0 Output Total 750 / 750 260 / 260 Balance -650 / -650 -160 / -160 0 / 0 Intake: IV Fluids 100 / 100 100 / 100 Zosyn 3.375 GM In Dextrose 5% ( 100 / 100 100 / 100 Minibag+) 100 ML 100 ML @ 25 mls/hr IVPB Q12H [facility] Rx#: [id number] Oral 0 / 0 Output: Urine 100 / 100 60 / 60 Urethral (George) 100 / 100 60 / 60 Catheter 650 / 650 200 / 200 Other: Meal Breakfast Percent of Meal Consumed 0% Weight 79.4 kg Blood Glucose* 108 123 Patient Weight 11/21/16 23:59 Weight 79.4 kg - General Appearance General appearance: Present: appears started age, cachectic, chronically ill, fatigue, frail EENT: Present: ATNC, PERRL, mucous membranes moist Neck: Present: supple Respiratory: Present: wheezing, course breath sounds Cardiology: Present: edema (trace ankle edema b/l), regular rate, regular rhythm , normal S1, normal S2 Dialysis Vascular Access: Venous Catheter (RIJ) Gastrointestinal: Present: normoactive bowel sounds, no tenderness Integumentary: Present: warm and dry Neurologic: Present: no focal deficit, no asterixis, alert and oriented x3 Musculoskeletal: Present: no cyanosis, no clubbing (left toes prior amputation) - Lab 11/21/16 04:30 11/21/16 04:30 Most recent lab results Calcium 7.6 mg/dL (8.6-10.8) L 11/21/16 04:30 Phosphorus 5.3 mg/dL (2.3-4.7) H 11/12/16 01:13 Magnesium 1.7 mg/dL (1.6-2.6) 11/12/16 01:13 - VTE Documentation of Mechanical Device: Intermittent pneumatic compression device Consult Discharge Plan - Plan Referrals: Moncho Arambula [Other] - 11/24/16 10:30 am (This is his new location in with [facility] across from [facility].) Abbe Woodard, SPRINKLER FITTER HELPER [Advanced Practice Nurse] - 12/09/16 4:05 pm ()
[2016-11-21] MEDS: Piperacillin/Tazobactam 3.375 GM in D5% in Water (Mini-Bag+) 100 ML IVPB SCH ×2 (12:00→23:39)
[2016-11-21] MEDS: Insulin DETEMIR 100 UNIT/ML X5UNITS SQ SCH ×2 (12:00→21:55)
--- NOTE | 2016-11-21 13:52 | Internal Med Progress Note ---
Date of Encounter: 11/21/16 Time of Encounter: 11:00 - Assessment and plan (1) Metabolic encephalopathy Current Visit: Yes Status: Resolved Assessment and plan: With treatment of infection as well as dialysis (2) End stage chronic kidney disease Current Visit: No Status: Acute Assessment and plan: Patient have permacath placed. Currently has a temporary line in place. She does dialysis Thursday (3) DM2 (diabetes mellitus, type 2) Current Visit: No Status: Acute Assessment and plan: Continue insulin sliding scale Qualifiers: Diabetes mellitus complication status: without complication Diabetes mellitus terminal press operator insulin use: with shelter use Qualified Code(s): E11.9 - Type 2 diabetes mellitus without complications; Z79.4 - longterm (current) use of insulin (4) UTI (urinary tract infection) Current Visit: Yes Status: Acute Qualifiers: Urinary tract infection type: acute cystitis Hematuria presence: with hematuria Qualified Code(s): N30.01 - Acute cystitis with hematuria (5) Anemia in chronic renal disease Current Visit: Yes Status: Chronic Assessment and plan: Continue current management, need CBC for today. Qualifiers: Chronic kidney disease stage: on chronic dialysis Qualified Code(s): N18.6 - End stage renal disease; D63.1 - Anemia in chronic kidney disease; Z99.2 - Dependence on renal dialysis - Subjective Interval history: No acute events, no complaints - Constitutional Vitals: Temp Pulse Resp BP Pulse Ox 98.1 F 66 18 137/67 100 11/21/16 11:40 11/21/16 12:06 11/21/16 11:40 11/21/16 11:40 11/21/16 11:37 Exam: General appearance: Present: cooperative, A&O X 3, answers questions appropriately - Respiratory Present: CTAB. Absent: respiratory distress, rhonchi, stridor, wheezes - Cardiovascular Present: RRR. Absent: diastolic murmur, gallop, rubs - GI/Abdominal Present: soft, tenderness (mild LLQ tenderness). 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 Absent: pedal edema , tenderness Internal Medicine: Result - Labs CBC & Chem 7: 11/21/16 04:30 11/22/16 04:20 Labs: Short CBC 11/20/16 11/21/16 Range/Units 15:30 04:30 WBC 11.0 (4.3-11.1) K/mcL Hgb 9.2 L D 8.9 L (11.5-15.4) g/dL Hct 28.0 L 27.9 L (35.3-44.9) % Plt Count 132 L (140-400) K/mcL Neutrophils # 7.9 (1.6-8.9) K/mcL BMP 11/21/16 04:30 Sodium 137 Potassium 3.6 Chloride 103 Carbon Dioxide 24 BUN 30 H Creatinine 4.54 H Glucose 130 H Calcium 7.6 L - ABG Interpretation ABG results: PT/INR, D-dimer PT 12.9 Seconds (9.4-12.1) H 11/11/16 11:00 - VTE Documentation of Mechanical Device: Intermittent pneumatic compression device Consult Discharge Plan - Plan Additional Instructions: Upon discharge patient will need 3 days of Zosyn and also need Levaquin for 30 days and 30 days of culture specific antibiotics. Urology instructions to continue the catheter drainage at discharge and will be kept in until her urology follow-up appointment. Per nephrology, patient needs permanent access before discharge. And so she needs a permacath placed then. Also note, her last dose of Plavix was on 11/17 at 8 AM. Because of this, patient needs to stay until Thursday, 10/25 Referrals: Moncho Arambula [Other] - 11/24/16 10:30 am (This is his new location in with [facility] across from [facility].) Abbe Woodard, BEER RUNNER [Advanced Practice Nurse] - 12/09/16 4:05 pm ()
[2016-11-21] MEDS ORDERED: *HR* HYDROmorphone (PF) 1 MG/ML SYRINGE IVP PRN (15:32)
[2016-11-22] MEDS: *HR* OxyCODONE/APAP 5/325 TABLET PO PRN ×2 (04:32→21:00)
[2016-11-22 04:49] LABS: Calcium 7.8 mg/dL (8.6-10.8); Potassium 3.8 mEq/L (3.5-4.5)
[2016-11-22] MEDS: Insulin LISPRO 300 UNITS/3 ML VIAL SQ SCH ×4 (08:43→21:01)
[2016-11-22] MEDS: Lisinopril 20 MG TABLET PO SCH (08:49)
--- NOTE | 2016-11-22 10:03 | Event Note ---
Date of Encounter: 11/22/16 Time of Encounter: 10:03 Nephrology Chart Review Will be available this weekend. Her next HD is tentatively planned for Thursday. Please feel free to call me as I'll be available this weekend. Thank you
[2016-11-22] MEDS: Insulin DETEMIR 100 UNIT/ML X5UNITS SQ SCH ×2 (11:11→21:00)
[2016-11-22] MEDS: Piperacillin/Tazobactam 3.375 GM in D5% in Water (Mini-Bag+) 100 ML IVPB SCH ×2 (11:12→23:12)
[2016-11-22] MEDS ORDERED: Lisinopril 20 MG TABLET PO ONE (14:15)
[2016-11-23] MEDS: Insulin LISPRO 300 UNITS/3 ML VIAL SQ SCH ×4 (07:29→20:27)
[2016-11-23] MEDS: Lisinopril 20 MG TABLET PO SCH (07:33)
[2016-11-23] MEDS: Insulin DETEMIR 100 UNIT/ML X5UNITS SQ SCH ×2 (10:17→20:26)
[2016-11-23] MEDS: Piperacillin/Tazobactam 3.375 GM in D5% in Water (Mini-Bag+) 100 ML IVPB SCH ×2 (11:55→23:22)
--- NOTE | 2016-11-23 13:54 | Internal Med Progress Note ---
Date of Encounter: 11/23/16 Time of Encounter: 13:53 - Assessment and plan (1) Metabolic encephalopathy Current Visit: Yes Status: Resolved Assessment and plan: Secondary to infection as well as dialysis. Resolved with treating infection and dialysis. (2) End stage chronic kidney disease Current Visit: No Status: Acute Assessment and plan: Patient has permacath placed. Currently has a temporary line in place. She does dialysis Thursday (3) Hypertension Current Visit: No Status: Chronic Assessment and plan: Blood pressure has gradually increased and will increase lisinopril to 40 mg daily. Qualifiers: Hypertension type: essential hypertension Qualified Code(s): I10 - Essential (primary) hypertension (4) DM2 (diabetes mellitus, type 2) Current Visit: No Status: Acute Assessment and plan: Continue insulin sliding scale Qualifiers: Diabetes mellitus complication status: without complication Diabetes mellitus superintendent container terminal insulin use: with superintendent container terminal use Qualified Code(s): E11.9 - Type 2 diabetes mellitus without complications; Z79.4 - ferry terminal supervisor (current) use of insulin (5) UTI (urinary tract infection) Current Visit: Yes Status: Resolved Assessment and plan: Resolved Qualifiers: Urinary tract infection type: acute cystitis Hematuria presence: with hematuria Qualified Code(s): N30.01 - Acute cystitis with hematuria (6) Anemia in chronic renal disease Current Visit: Yes Status: Chronic Qualifiers: Chronic kidney disease stage: on chronic dialysis Qualified Code(s): N18.6 - End stage renal disease; D63.1 - Anemia in chronic kidney disease; Z99.2 - Dependence on renal dialysis - Subjective Interval history: No acute events, no complaints - Constitutional Vitals: Temp Pulse Resp BP Pulse Ox 97.9 F 72 16 161/62 100 11/23/16 12:06 11/23/16 12:06 11/23/16 12:06 11/23/16 12:06 11/23/16 12:06 General appearance: Present: cooperative, A&O X 3, answers questions appropriately Exam: General appearance: Present: cooperative, A&O X 3, answers questions appropriately - Respiratory Present: CTAB. Absent: respiratory distress, rhonchi, stridor, wheezes - Cardiovascular Present: RRR. Absent: diastolic murmur, gallop, rubs - GI/Abdominal Present: soft, tenderness (mild LLQ tenderness). 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 Absent: pedal edema , tenderness Internal Medicine: Result - Labs CBC & Chem 7: 11/21/16 04:30 11/22/16 04:20 - ABG Interpretation ABG results: PT/INR, D-dimer PT 12.9 Seconds (9.4-12.1) H 11/11/16 11:00 - VTE Documentation of Mechanical Device: Intermittent pneumatic compression device Consult Discharge Plan - Plan Additional Instructions: Upon discharge patient will need 3 days of Zosyn and also need Levaquin for 30 days and 30 days of culture specific antibiotics. Urology instructions to continue the catheter drainage at discharge and will be kept in until her urology follow-up appointment. Per nephrology, patient needs permanent access before discharge. And so she needs a permacath placed then. Also note, her last dose of Plavix was on 11/17 at 8 AM. Because of this, patient needs to stay until Thursday, 10/25 Referrals: Moncho Arambula [Other] - 11/24/16 10:30 am (This is his new location in with [facility] across from [facility].) Abbe Woodard, TRIM ATTACHER [Advanced Practice Nurse] - 12/09/16 4:05 pm ()
[2016-11-23] MEDS ORDERED: Lisinopril 20 MG TABLET PO ONE (14:12)
[2016-11-23] MEDS: *HR* OxyCODONE/APAP 5/325 TABLET PO PRN ×2 (14:22→23:32)
[2016-11-24 05:08] LABS: Basophils # 0.1 K/mcL (0.0-0.2); Basophils % 0.6 %; Eosinophils # 0.2 K/mcL (0.0-0.6); Eosinophils % 1.9 %; Hemoglobin 7.9 g/dL (11.5-15.4); Immature Granulocytes % 1.7 % (0-4); Lymphocytes # 1.9 K/mcL (0.6-4.6); Mean Corpuscular HGB Conc 31.6 g/dL (31.6-35.5); Mean Corpuscular Hemoglobin 29.9 pg (28.0-33.3); Mean Corpuscular Volume 94.7 fL (83.0-100.0); Mean Platelet Volume 10.1 fL (9.4-12.4); Monocytes # 0.7 K/mcL (0.0-1.3); Monocytes % 5.4 %; Neutrophils # 9.5 K/mcL (1.6-8.9); Platelet Count 121 K/mcL (140-400); Red Blood Count 2.64 M/mcL (3.82-4.97); Red Cell Distribution Width 15.7 % (11.5-14.5); Segmented Neutrophils % 75.4 %
[2016-11-24] MEDS ORDERED: 0.9 % Sodium Chloride 250 ML IVC PRN (06:00)
[2016-11-24 06:13] LABS: Calcium 7.7 mg/dL (8.6-10.8); Potassium 4.1 mEq/L (3.5-4.5)
[2016-11-24] MEDS ORDERED: 0.9 % Sodium Chloride 2,000 ML ONE (07:17)
[2016-11-24] MEDS: Insulin LISPRO 300 UNITS/3 ML VIAL SQ SCH ×3 (08:13→16:19)
[2016-11-24] MEDS: *HR* OxyCODONE/APAP 5/325 TABLET PO PRN (08:23)
[2016-11-24] MEDS ORDERED: Lisinopril 20 MG TABLET PO SCH (09:00)
--- NOTE | 2016-11-24 09:22 | Nephrology Progress Note ---
Date of Encounter: 11/24/16 Time of Encounter: 08:55 - Assessment and Plan (1) ESRD on hemodialysis Current Visit: No Status: Chronic Cont HD every M// b She still has the temporary RIJ HD catheter in place (no Permacath yet). IR said that she's on schedule to have a Permacath placed today. After which, she' d be okay to d/c from a nephrology perspective (2) Anemia in chronic renal disease Current Visit: Yes Status: Chronic Monitor for goal Hgb 10-11. Hgb dropping, so will add Aranesp while hospitalized (and after discharge, she may will have EPO given with each dialysis that is administered by [facility]). Qualifiers: Chronic kidney disease stage: on chronic dialysis Qualified Code(s): N18.6 - End stage renal disease; D63.1 - Anemia in chronic kidney disease; Z99.2 - Dependence on renal dialysis (3) Emphysematous cystitis Current Visit: Yes Status: Acute As per primary and Urology. (4) Hypertension Current Visit: No Status: Chronic Adequate today. Will monitor. Qualifiers: Hypertension type: essential hypertension Qualified Code(s): I10 - Essential (primary) hypertension Subjective Principal diagnosis: ESRD Interval history: Pt was s/e in the HD unit. She did not affirm any cramping, N/V or chest pain. She still has the temporary RIJ HD catheter in place (no Permacath yet); I called IR and they said that she's on their schedule for about midday to receive the Permacath and have the temporary HD catheter removed. Objective - Vital Signs Vital signs: Vital Signs Temp Pulse Resp BP Pulse Ox 11/24/16 08:57 66 11/24/16 06:38 97.9 F 72 17 163/62 98 11/24/16 03:56 97.5 F L 64 16 144/64 99 11/24/16 01:09 98.2 F 64 16 144/63 98 11/23/16 22:24 98.9 F 69 19 132/61 100 11/23/16 18:54 98.2 F 69 20 132/54 98 11/23/16 16:04 98.2 F 68 16 136/65 100 11/23/16 15:31 66 11/23/16 12:06 97.9 F 72 16 161/62 100 11/23/16 11:00 64 11/23/16 10:18 149/66 Intake and Output 11/23/16 11/24/16 11/24/16 23:59 07:59 15:59 Intake Total 640 / 640 Output Total 200 / 200 0 / 0 Balance 440 / 440 0 / 0 Intake: IV Fluids 100 / 100 Zosyn 3.375 GM In Dextrose 5% ( 100 / 100 Minibag+) 100 ML 100 ML @ 25 mls/hr IVPB Q12H DEMAR Rx#: [id number] Oral 540 / 540 Output: Urine 0 / 0 Catheter 200 / 200 Other: Meal Dinner Percent of Meal Consumed 100% Stool Size Small Stool Consistency loose Stool Color Brown # Bowel Movements 1 Weight 74 kg Blood Glucose* 221 144 Patient Weight 11/24/16 23:59 Weight 74 kg - General Appearance General appearance: Present: well-developed, well-nourished, appears started age EENT: Present: ATNC, PERRL, mucous membranes moist Neck: Present: supple Respiratory: Present: clear Cardiology: Present: no edema, regular rate, regular rhythm, normal S1, normal S2 Dialysis Vascular Access: Venous Catheter (RIJ temporary HD catheter (triple lumen) with dressing C/D/I. Also the Rt forearm dressing overlying the prior AVG was C/D/I.) Gastrointestinal: Present: normoactive bowel sounds, no guarding, obese Integumentary: Present: warm and dry Neurologic: Present: no focal deficit, no asterixis, alert and oriented x3 Musculoskeletal: Present: no cyanosis, no clubbing Additional Comments: left toe amputations - Lab 11/24/16 04:50 11/24/16 04:50 Most recent lab results Calcium 7.7 mg/dL (8.6-10.8) L 11/24/16 04:50 Phosphorus 5.3 mg/dL (2.3-4.7) H 11/12/16 01:13 Magnesium 1.7 mg/dL (1.6-2.6) 11/12/16 01:13 - VTE Documentation of Mechanical Device: Intermittent pneumatic compression device Consult Discharge Plan - Plan Additional Instructions: Upon discharge patient will need 3 days of Zosyn and also need Levaquin for 30 days and 30 days of culture specific antibiotics. Urology instructions to continue the catheter drainage at discharge and will be kept in until her urology follow-up appointment. Per nephrology, patient needs permanent access before discharge. And so she needs a permacath placed then. Also note, her last dose of Plavix was on 11/17 at 8 AM. Because of this, patient needs to stay until Thursday, 10/25 Referrals: Moncho Arambula [Other] - 11/24/16 10:30 am (This is his new location in with [facility] across from [facility].) Abbe Woodard, JUNIOR QA ANALYST [Advanced Practice Nurse] - 12/09/16 4:05 pm ()
[2016-11-24] MEDS ORDERED: *HR* HYDROmorphone (PF) 1 MG/ML SYRINGE IVP PRN (10:19)
[2016-11-24] MEDS ORDERED: *HR* OxyCODONE/APAP 5/325 TABLET PO PRN (10:19)
[2016-11-24] MEDS: Insulin DETEMIR 100 UNIT/ML X5UNITS SQ SCH (10:29)
[2016-11-24] MEDS ORDERED: *HR* Heparin 10,000 UNIT/10 ML VIAL IV PRN (11:42)
[2016-11-24] MEDS ORDERED: Heparin 1,000 UNITS/500 mL NS 500 ML ONE (12:03)
[2016-11-24] MEDS ORDERED: *HR* FentaNYL (PF) 100 MCG/2 ML VIAL IVP PRN (12:17)
[2016-11-24] MEDS ORDERED: ceFAZolin 2,000 MG in D5% in Water (Mini-Bag+) 100 ML IVPB ONE (12:17)
[2016-11-24] MEDS ORDERED: *HR* Midazolam HCl 2 MG/2 ML VIAL IVP PRN (12:17)
--- NOTE | 2016-11-24 12:18 | Pre-Sedation Evaluation ---
Pre-sedation evaluation - Pre-sedation checklist Date of procedure: 11/17/16 Procedure: EGD Recent Vitals: Last Vital Signs Temp 97.7 F 11/24/16 12:00 Pulse 66 11/24/16 08:57 Resp 17 11/24/16 12:00 BP 118/57 11/24/16 12:00 Pulse Ox 98 11/24/16 06:38 H&P (including ROS) documented in medical record: Yes Previous reaction to sedatives/anesthetics: No Dietary Status: No solid food in preceding 4 hrs and no liquid in preceding 2 hrs Airway Assessment: Patient can open mouth completely, TMJ function normal, Micrognathia (under-bite, receding chin) absent, Neck with adequate range of motion Dentition: No loose teeth or bridges Possible difficult airway: No ASA Classification *see protocol: CLASS II-Mild systemic disease Plan of Care: Pt appropriate candidate for procedure/moderate/conscious sedation , Risks/benefits of procedure/sedation discussed w/ patient/family, If not NPO; Risk of intake outweiged by necessity to perform procedure
[2016-11-24] MEDS ORDERED: 0.9 % Sodium Chloride 500 ML ONE (12:30)
[2016-11-24] MEDS ORDERED: *HR* Heparin 5,000 UNIT/ML VIAL ONE (12:44)
[2016-11-24] MEDS: Piperacillin/Tazobactam 3.375 GM in D5% in Water (Mini-Bag+) 100 ML IVPB SCH (13:16)
[2016-11-24] MEDS ORDERED: Lisinopril 20 MG TABLET PO ONE (13:51)
--- NOTE | 2016-11-24 14:04 | IR Procedure Note ---
Date of procedure: 11/24/16 Consent Obtained: Written consent Timeout: Correct patient and procedure verified, Correct site verified, Time out performed, Skin prep completed Indications: renal failure Procedure Performed: permacath Site/Technique: rt IJ to RA Results/Findings: adequate placement Estimated blood loss (cc): 2 Complications: None; Tolerated procedure well Post Procedure Treatment Plan: OK to use
--- NOTE | 2016-11-24 15:04 | Physician Discharge Referral ---
ExtendedCare Referral Info Transfer To: [facility] Provider in Charge after Transfer: PCP Institutional Level of Care: Skilled - Diagnosis (1) Metabolic encephalopathy Status: Resolved (2) End stage chronic kidney disease Status: Acute (3) Hypertension Status: Chronic (4) DM2 (diabetes mellitus, type 2) Status: Acute (5) UTI (urinary tract infection) Status: Resolved (6) Anemia in chronic renal disease Status: Chronic - Transfer Medications Home Medications: Gabapentin [Neurontin] 300 mg PO BID 11/17/14 [History] Insulin ASPART [NovoLOG] 10 unit SQ TID MDD per sliding scale 11/17/14 [History] Insulin DETEMIR [Levemir] 30 unit SQ BID 11/17/14 [History] Loperamide HCl [Loperamide] 2 mg PO DAILY PRN 07/20/15 [History] Ergocalciferol (VITAMIN D2) [Vitamin D2 (50,000 UNIT)] 50,000 unit PO MO [History] Paroxetine [Paxil] 20 mg PO DAILY 02/12/16 [History] Clopidogrel [Plavix] 75 mg PO DAILY 04/03/16 [History] Levothyroxine [Synthroid] 175 mcg PO 0630 04/03/16 [History] HYDROcodone/Acet 7.5/325 mg [Odin 7.5-325 mg] 1 tab PO Q6H PRN 07/14/16 [ History] Calcitriol [Rocaltrol] 0.25 mcg PO MOWEFR 11/11/16 [History] Iron Polysaccharide Complex [Pro Fe] 180 mg PO DAILY 11/11/16 [History] Escitalopram [Lexapro] 5 mg PO DAILY tablet 11/24/16 [Rx] Lisinopril [Zestril] 40 mg PO DAILY tablet 11/24/16 [Rx] Allergies/Adverse Reactions: 3 Allergy/AdvReac Type Severity Reaction Status Date / Time Nypvaqf-Jtr-Ags Reductase Allergy See Verified 07/14/16 13:48 Inhibitor Comments [Statins] Sulfa (Sulfonamide Allergy swelling Verified 07/14/16 11:56 Antibiotics) - Respiratory Orders Smoking Cessation: Smoking cessation has been advised. For more information, call the [place] Tobacco Quit Line at 3-526-EEPS-NOW. CERTIFICATION: I certify that the transfer of the above named patient to an Extended Care Facility is necessary for the continuing treatment of the diagnosis listed. The above information is true and accurate reflection of patient's current condition. Confidential - Redisclosure prohibited without a patient's written consent.
--- NOTE | 2016-11-24 16:08 | Discharge Summary ---
Date of Encounter: 11/24/16 Time of Encounter: 16:05 - Discharge Diagnosis (1) Metabolic encephalopathy Priority: Primary Status: Resolved (2) End stage chronic kidney disease Priority: Secondary Status: Acute (3) Hypertension Priority: Secondary Status: Chronic Qualifiers: Hypertension type: essential hypertension Qualified Code(s): I10 - Essential (primary) hypertension (4) DM2 (diabetes mellitus, type 2) Priority: Secondary Status: Acute Qualifiers: Diabetes mellitus complication status: without complication Diabetes mellitus meterman insulin use: with meterman use Qualified Code(s): E11.9 - Type 2 diabetes mellitus without complications; Z79.4 - intermediate manager (current) use of insulin (5) UTI (urinary tract infection) Priority: Secondary Status: Resolved Qualifiers: Urinary tract infection type: acute cystitis Hematuria presence: with hematuria Qualified Code(s): N30.01 - Acute cystitis with hematuria (6) Anemia in chronic renal disease Priority: Secondary Status: Chronic Qualifiers: Chronic kidney disease stage: on chronic dialysis Qualified Code(s): N18.6 - End stage renal disease; D63.1 - Anemia in chronic kidney disease; Z99.2 - Dependence on renal dialysis - Discharge Medications Prescriptions: HYDROcodone/Acet 7.5/325 mg [[place] 7.5-325 mg] 1 tab PO Q6H PRN #30 tablet PRN Reason: Pain Home Medications: Gabapentin [Neurontin] 300 mg PO BID 11/17/14 [History] Insulin ASPART [NovoLOG] 10 unit SQ TID MDD per sliding scale 11/17/14 [History] Insulin DETEMIR [Levemir] 30 unit SQ BID 11/17/14 [History] Loperamide HCl [Loperamide] 2 mg PO DAILY PRN 07/20/15 [History] Ergocalciferol (VITAMIN D2) [Vitamin D2 (50,000 UNIT)] 50,000 unit PO MO [History] Paroxetine [Paxil] 20 mg PO DAILY 02/12/16 [History] Clopidogrel [Plavix] 75 mg PO DAILY 04/03/16 [History] Levothyroxine [Synthroid] 175 mcg PO 0630 04/03/16 [History] Calcitriol [Rocaltrol] 0.25 mcg PO MOWEFR 11/11/16 [History] Iron Polysaccharide Complex [Pro Fe] 180 mg PO DAILY 11/11/16 [History] Escitalopram [Lexapro] 5 mg PO DAILY tablet 11/24/16 [Rx] HYDROcodone/Acet 7.5/325 mg [[place] 7.5-325 mg] 1 tab PO Q6H PRN #30 tablet 11/24 [Rx] Levofloxacin [Levaquin] 250 mg PO DAILY #30 tablet 11/24/16 [Rx] Lisinopril [Zestril] 40 mg PO DAILY tablet 11/24/16 [Rx] Piperacillin/Tazobactam [Zosyn] 3.375 gm IVPB Q12HR 3 Days #20.25 vial 11/24/16 [Rx] Allergies/Adverse Reactions: 3 Allergy/AdvReac Type Severity Reaction Status Date / Time Wxdzfvc-Sxv-Mhr Reductase Allergy See Verified 07/14/16 13:48 Inhibitor Comments [Statins] Sulfa (Sulfonamide Allergy swelling Verified 07/14/16 11:56 Antibiotics) Procedures/tests Complete & Pending: Procedures Performed prior 72 hours Category Date Time Status IR cvc insrt tunnel wo prt/postal superintendent [IR] Routine IR 11/24/16 Draft IR us guide venous access [IR] Routine IR 11/24/16 Draft Date of admission: 11/11/16 15:02 Primary care physician: Moncho Arambula MD Consults: 11/11/16 16:38 Consult to Negative Turner Apprentice [CONS] Routine Reason for SW Consult: lives home alone, needs assistance 11/11/16 17:18 Consult to Interventional Radiology [CONS] Routine Consulting Provider: Radiology Interventional Cols Reason for Consult: permcath placement Call Completed: No 11/11/16 17:24 Consult to Nephrology [CONS] Routine Consulting Provider: Kidney Katerina/CLAUDIA/JAYSHREE/ALEX Reason for Consult: dialysis Call Completed: Yes 11/11/16 17:30 Consult to Dialysis [CONS] ONCE 11/11/16 19:02 Consult to Neurology [CONS] Routine Consulting Provider: Neurology [facility] Reason for Consult: Altered mental status ? secondary to herpes meningitis Call Completed: Yes 11/11/16 19:33 Consult to Gastroenterology [CONS] Routine Consulting Provider: Gastroenterology N[place]vo Reason for Consult: GI bleed Call Completed: Yes 11/12/16 08:15 Consult to Dialysis [CONS] ONCE 11/12/16 10:30 Consult to Interpret Exam [CONS] Routine Consulting Provider: Sanjeev Lynch I Consult to Interpret Exam: Interpret EEG 11/12/16 10:45 Consult to Occupational Therapy [CONS] Routine Comment: Evaluate, develop and implement POC Reason for Consult: discharge planning Consult to Physical Therapy [CONS] Routine Comment: Evaluate, develop and implement POC Reason for Consult: discharge planning 11/12/16 15:38 Consult to Palliative Care [CONS] Routine Comment: Consulting Provider: Palliative Care Katerina Reason for Consult: DISCUSSING OPTIONS FOR DISCONTINUING DIALYSIS Call Completed: Yes 11/12/16 17:30 Consult to Dialysis [CONS] ONCE 11/13/16 09:00 Consult to Dialysis [CONS] ONCE 11/13/16 15:59 Consult to Vascular Surgery [CONS] Routine Consulting Provider: Vascular Surgery Katerina Reason for Consult: Patient with non-functioning right arm fistula. PLease evaluate for surgical intervention Call Completed: No 11/14/16 07:00 Consult to Dialysis [CONS] ONCE 11/14/16 11:46 Consult to Psychiatry [CONS] Routine Consulting Provider: Psychiatry Katerina Reason for Consult: Decision making capacity. Depression. Self-destructive behavior. Call Completed: Yes 11/17/16 09:00 Consult to Dialysis [CONS] ONCE 11/17/16 12:11 Consult to Urology [CONS] Routine Consulting Provider: Urology Katerina Reason for Consult: Progression of emphysematous cystitis with possible abscess formation. Call Completed: Yes 11/19/16 08:15 Consult to Dialysis [CONS] ONCE 11/21/16 07:30 Consult to Dialysis [CONS] ONCE 11/24/16 06:00 Consult to Dialysis [CONS] ONCE Discharging clinician: Ange Mcconnell - Patient Status Disposition: Transfer SNF Condition: Fair Functional capacity at discharge: wheelchair bound Overall status at discharge: patient is progressing back to baseline - Discharge Instructions Instructions: Urinary Tract Infection in Women (DC) Follow Up With: Urology Katerina [Provider Group] ([facility] NEEDS TO SCHEDULE AN APPOINTMENT FOR 3-4 WEEKS OUT FOR URINARY RETENTION) Abbe Woodard, ELECTRIC REFRIGERATOR SERVICER [Advanced Practice Nurse] - 12/09/16 4:05 pm () Additional Instructions: Upon discharge patient will need 3 days of Zosyn and also need Levaquin for 30 days and 30 days of culture specific antibiotics. Urology instructions to continue the catheter drainage at discharge and will be kept in until her urology follow-up appointment. Per nephrology, patient needs permanent access before discharge. And so she needs a permacath placed then. Also note, her last dose of Plavix was on 11/17 at 8 AM. Because of this, patient needs to stay until Thursday, 11/24 - Diet and Activity Activity: as per physical therapy Diet: other (Renal) Interval History: Patient is known to have a end-stage renal disease and she is on her dialysis on a Thursday. Patient did not go for dialysis for past 2 weeks. Patient was progressively lethargic and was disoriented for last 4-5 days. In last 48 hours patient was gradually worsening in terms of her mentation. And last well hours patient had a profuse diarrhea and change in her mental status. Patient was brought to the emergency department by patient's sister. Patient is alert and oriented 2 and is not a good historian. The history was gathered from the patient's sister who was at bedside. Hospital course: She was admitted for metabolic encephalopathy secondary to UTI and missed dialysis. The patient underwent urgent dialysis. There is also suspicion that patient had a GI bleed as well. He has a fistula in her right arm, and thought that this site may be a source of infection I was consulted as patient had positive occult stool. CT of the head was negative for any H acute intracranial event. CT scan of the abdomen was done which showed emphysematous cystitis. She did require transfusion in the emergency room because her hemoglobin dropped. Neurologist consult to in regards of altered mental status as well. She was treated with broad-spectrum antibiotics she went in for a fistulogram and unfortunately was unable to be repaired. A temporary right femoral line was placed. Her mental status did gradually improve. Urine cultures grew Escherichia coli and she was continued on ceftriaxone. CT of the abdomen was repeated and also showed a possible abscess forming in the bladder, bladder was also distended. Urology was consulted, She was started on Zosyn in addition with current antibiotics.. her right femoral line eventually stopped working. She then had a temporary access IJ catheter placed by IR. She needed permanent access for dialysis prior to discharge. The patient had a right IJ permacath placed. [facility]. She was instructed to keep her Bennett until her follow-up urology visit, continue Zosyn for 3 additional days, and take Levaquin 250 mg daily for 30 days. - Time Spent with Patient Total time spent providing and/or coordinating discharge services: - Constitutional Vitals: Temp Pulse Resp BP Pulse Ox 97.7 F 74 18 165/70 97 11/24/16 15:51 11/24/16 15:51 11/24/16 15:51 11/24/16 15:51 11/24/16 15:51 General appearance: Present: cooperative, A&O X 3, answers questions appropriately Exam: General appearance: Present: cooperative, A&O X 3, answers questions appropriately Exam: General appearance: Present: cooperative, A&O X 3, answers questions appropriately - Respiratory Present: CTAB. Absent: respiratory distress, rhonchi, stridor, wheezes - Cardiovascular Present: RRR. Absent: diastolic murmur, gallop, rubs - GI/Abdominal Present: soft, tenderness (mild LLQ tenderness). 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 Absent: pedal edema , tenderness - VTE Documentation of Mechanical Device: Intermittent pneumatic compression device
[2016-11-24 17:25] VITALS: BP 166/67
== END 2016-11-24 17:49 | DRG 689 ==
LOC: 2NNU 10:37 → EMEROO 10:37 → SUATTDRO 15:02 → 2NNU 16:01 → 2ANU 11-24 00:47
PROVIDERS: ADMIT Internal Medicine; ATTEND Student in an Organized Health Care Education/Training Program
PROC: ENDOEBX (2016-11-12 15:30)
PROC: IRPERMA (2016-11-24 12:00)

== ENCOUNTER 2016-12-27 13:59 | Inpatient (IN) ==
--- NOTE | 2016-12-27 14:06 | Emergency Department Note ---
Disposition Clinical Impression: UTI (urinary tract infection) Qualifiers: Urinary tract infection type: acute cystitis Hematuria presence: without hematuria Qualified Code(s): N30.00 - Acute cystitis without hematuria Fever Qualifiers: Fever type: unspecified Qualified Code(s): R50.9 - Fever, unspecified Disposition: Admitted As Inpatient Condition: Serious Referrals: Moncho Arambula MD [Primary Care Provider] - Forms: ED Satisfaction Letter Time of Disposition: 16:28 Altered Mental Status HPI - General Chief Complaint: ED Altered Mental Status Stated Complaint: AMS/COLD ARM Time Seen by Provider: 12/27/16 14:01 Source: patient Mode of arrival: ambulatory Limitations: no limitations Nursing Notes Reviewed: Yes Vital Signs Reviewed: Yes - History of Present Illness HPI Narrative: 71-year-old female comes in group home as a history of dialysis with a temperature and altered mental status. Patient is a dialysis patient is also noted to have a cold right arm. complaint: altered mental status Onset (ago): Just MANAGER CASE MANAGEMENT Context: other (Renal failure dialysis patient) Associated symptoms: Reports: fever, chills, foul smelling urine - Related Data Home Medications Medication Instructions Recorded Confirmed Gabapentin [Neurontin] 300 mg PO BID 11/17/14 11/11/16 Insulin ASPART [NovoLOG] 10 unit SQ TID MDD per sliding 11/17/14 11/11/16 scale Insulin DETEMIR [Levemir] 30 unit SQ BID 11/17/14 11/11/16 Loperamide HCl [Loperamide] 2 mg PO DAILY PRN 07/20/15 11/11/16 Ergocalciferol (VITAMIN D2) 50,000 unit PO MO 11/28/15 11/11/16 [Vitamin D2 (50,000 UNIT)] Paroxetine [Paxil] 20 mg PO DAILY 02/12/16 11/11/16 Clopidogrel [Plavix] 75 mg PO DAILY 04/03/16 11/11/16 Levothyroxine [Synthroid] 175 mcg PO 0630 04/03/16 11/11/16 Calcitriol [Rocaltrol] 0.25 mcg PO MOWEFR 11/11/16 11/11/16 Iron Polysaccharide Complex [Pro 180 mg PO DAILY 11/11/16 11/11/16 Fe] Previous Rx's Medication Instructions Recorded Escitalopram [Lexapro] 5 mg PO DAILY tablet 11/24/16 HYDROcodone/Acet 7.5/325 mg [[place] 1 tab PO Q6H PRN #30 tablet 11/24/16 7.5-325 mg] Levofloxacin [Levaquin] 250 mg PO DAILY #30 tablet 11/24/16 Lisinopril [Zestril] 40 mg PO DAILY tablet 11/24/16 Piperacillin/Tazobactam [Zosyn] 3.375 gm IVPB Q12HR 3 Days #20.25 11/24/16 vial Allergies Allergy/AdvReac Type Severity Reaction Status Date / Time Xjuxvan-Obi-Gdz Reductase Allergy See Verified 07/14/16 13:48 Inhibitor Comments [Statins] Sulfa (Sulfonamide Allergy swelling Verified 07/14/16 11:56 Antibiotics) Constitutional: Reports: fever, chills. Denies: weakness, weight change Eyes: Denies: eye pain, eye discharge, vision change ENT ED: Denies: ear pain, throat pain, dental pain, hearing loss, epistaxis, congestion, dysphagia Cardiovascular: Denies: chest pain, palpitations, dyspnea on exertion, edema, syncope Respiratory: Denies: cough, dyspnea, wheezes, hemoptysis, stridor Gastrointestinal: Denies: abdominal pain, nausea, vomiting, diarrhea, constipation, hematemesis, melena, hematochezia Genitourinary: Denies: dysuria, frequency, hematuria, discharge Musculoskeletal: Denies: back pain, neck pain, arthralgia, myalgia Integumentary: Denies: rash, abrasion, lesions Neurological: Reports: confusion. Denies: headache, weakness, numbness, paresthesias, abnormal gait, vertigo Psychiatric: Denies: anxiety, depression, suicidal thoughts, homicidal thoughts , auditory hallucinations, visual hallucinations Endocrine: Denies: fatigue Hematological/Lymphatic: Denies: easy bleeding, easy bruising Allergic/Immunologic: Denies: facial swelling, urticaria Past Medical History - Past Medical History Medical history: Reports: atrial fibrillation, CHF, COPD, diabetes, GERD, hyperlipidemia, hypertension, kidney stones, renal disease, thyroid disease, syncope Surgical history: Reports: appendectomy, carotid endarterectomy, cholecystectomy , hysterectomy, knee replacement, ALEC/BSO, other Psychiatric history: Reports: depression - Social History Smoking Status: Unknown if ever smoked Smokeless Tobacco Status: No Alcohol use: Reports: none Drug use: Reports: none Physical Exam - General Limitations: no limitations General appearance: alert, in no apparent distress - Head Head exam: atraumatic, normocephalic, normal inspection - Eye Eye exam: Present: normal appearance, PERRL, EOMI - ENT ENT exam: normal exam, normal oropharynx, mucous membranes moist - Neck Neck exam: Present: normal inspection, full ROM, trachea midline - Chest Chest inspection: Present: normal inspection, symmetric chest wall rise - Respiratory Respiratory exam: Present: normal lung sounds bilaterally - Cardiovascular Cardiovascular exam: Present: regular rate, normal rhythm, normal heart sounds - Abdominal Exam Abdominal exam: Present: soft, Non-Tender. Absent: tenderness, distention, guarding, rebound, rigidity - Expanded Upper Extremity Exam Forearm/Wrist exam: Present: other (Old to touch) Hand exam: Present: other (Cold to touch) - Expanded Lower Extremity Exam Gait: not tested/not observed - Back Exam Back exam: Present: normal inspection - Neurological Exam Neurological exam: Present: other (Somnolent but arousable). Absent: motor sensory deficit - Psychiatric Psychiatric exam: Present: normal affect - Skin Skin exam: Present: warm, dry, intact, normal color Course - Reevaluation(s) Reevaluation #1: 71-year-old who comes in with altered mental status findings of UTI. Lactate is normal white count slightly elevated. Vital signs blood pressure and pulse are in the normal range. Patient will be admitted for IV antibiotics. Time: 16:26 - Consultations Consultation #1: Consult with Dr. Adan, discussed the Doppler findings in the right upper extremity of flow 990 at the anastomosis and there is color flow at the radial artery. Nothing further needs to be done at this time. Time: 15:47 Consultation #2: Discussed with Dr. Camacho, admit. Time: 16:26 Vital Signs Temperature 102.6 F H 12/27/16 14:00 Pulse Rate 81 12/27/16 14:00 Respiratory Rate 16 12/27/16 14:00 Blood Pressure 131/46 12/27/16 14:00 O2 Sat by Pulse Oximetry 100 12/27/16 14:00 Temperature 101.8 F H 12/27/16 16:18 Pulse Rate 77 12/27/16 16:18 Respiratory Rate 16 12/27/16 16:18 Blood Pressure 120/42 12/27/16 16:18 O2 Sat by Pulse Oximetry 100 12/27/16 16:18 Oxygen Delivery Oxygen Delivery Room Air Altered Mental Status - Lab Data Lab results reviewed: Yes I reviewed the patient's lab results. Result diagrams: 12/27/16 14:27 12/27/16 14:27 Lab Results 12/27/16 12/27/16 12/27/16 Range/Units 14:12 14:27 14:27 WBC 15.2 H D (4.3-11.1) K/mcL RBC 3.13 L (3.82-4.97) M/mcL Hgb 9.4 L (11.5-15.4) g/dL Hct 30.9 L (35.3-44.9) % MCV 98.7 (83.0-100.0) fL MCH 30.0 (28.0-33.3) pg MCHC 30.4 L (31.6-35.5) g/dL RDW 17.0 H (11.5-14.5) % Plt Count 133 L (140-400) K/mcL MPV 9.3 L (9.4-12.4) fL Immature Gran % 0.9 (0-4) % Seg Neutrophils % 83.7 % Lymphocytes % 11.4 % Monocytes % 3.7 % Eosinophils % 0.0 % Basophils % 0.3 % Neutrophils # 12.7 H (1.6-8.9) K/mcL Lymphocytes # 1.7 (0.6-4.6) K/mcL Monocytes # 0.6 (0.0-1.3) K/mcL Eosinophils # 0.0 (0.0-0.6) K/mcL Basophils # 0.1 (0.0-0.2) K/mcL PT 15.4 H (9.4-12.1) Seconds INR 1.4 APTT 24.4 L (26.0-36.0) Seconds Sodium (136-145) mEq/L Potassium (3.5-4.5) mEq/L Chloride (98-109) mEq/L Carbon Dioxide (19-29) mEq/L BUN (7-20) mg/dL Creatinine (0.57-1.11) mg/dL Est GFR ( Amer) (> 60) Est GFR (Non-Af Amer) (> 60) BUN/Creatinine Ratio (6-26) Glucose (70-99) mg/dL Calculated Osmolality (280-300) Lactic Acid (0.5-2.2) mmol/L Calcium (8.6-10.8) mg/dL Phosphorus (2.3-4.7) mg/dL Magnesium (1.6-2.6) mg/dL Total Bilirubin (0.2-1.2) mg/dL Direct Bilirubin (0.0-0.5) mg/dL Indirect Bilirubin (0.0-1.2) mg/dL AST (5-34) Units/L ALT (0-55) Units/L Alkaline Phosphatase (38-126) Units/L Troponin I (0-0.03) ng/mL Serum Total Protein (6.0-8.3) g/dL Albumin (3.5-5.0) g/dL Globulin (2.4-3.5) g/dL Albumin/Globulin Ratio (1.1-2.2) Ur Specimen Adequacy Mucoid Specimen A Urine Color Yellow (Yellow) Urine Clarity Turbid A (Clear) Urine pH 6.0 (5.0-8.0) pH Units Ur Specific [place] 1.014 (1.010-1.025) Urine Protein >=300 H (Neg-Trace) mg/dL Urine Glucose (UA) Normal (Normal) mg/dL Urine Ketones Negative (Negative) mg/dL Urine Blood Large H (Negative) Urine Nitrite Negative (Negative) Urine Bilirubin Negative (Negative) Urine Urobilinogen Normal (Normal) mg/dL Ur Leukocyte Esterase Large H (Negative) Urine Microscopic RBC 50-100 H (0-3) per hpf Urine Microscopic WBC TNTC H (0-3) per hpf Ur Squamous Epith Cells Few (None-Few) per lpf Urine Bacteria Many H (None-Few) per hpf Ur Culture Indicated? YES A (NO) 12/27/16 12/27/16 12/27/16 Range/Units 14:27 14:27 14:27 WBC (4.3-11.1) K/mcL RBC (3.82-4.97) M/mcL Hgb (11.5-15.4) g/dL Hct (35.3-44.9) % MCV (83.0-100.0) fL MCH (28.0-33.3) pg MCHC (31.6-35.5) g/dL RDW (11.5-14.5) % Plt Count (140-400) K/mcL MPV (9.4-12.4) fL Immature Gran % (0-4) % Seg Neutrophils % % Lymphocytes % % Monocytes % % Eosinophils % % Basophils % % Neutrophils # (1.6-8.9) K/mcL Lymphocytes # (0.6-4.6) K/mcL Monocytes # (0.0-1.3) K/mcL Eosinophils # (0.0-0.6) K/mcL Basophils # (0.0-0.2) K/mcL PT (9.4-12.1) Seconds INR APTT (26.0-36.0) Seconds Sodium 135 L (136-145) mEq/L Potassium 4.3 (3.5-4.5) mEq/L Chloride 101 (98-109) mEq/L Carbon Dioxide 20 (19-29) mEq/L BUN 50 H (7-20) mg/dL Creatinine 4.93 H (0.57-1.11) mg/dL Est GFR ( Amer) 11 L (> 60) Est GFR (Non-Af Amer) 9 L (> 60) BUN/Creatinine Ratio 10 (6-26) Glucose 98 (70-99) mg/dL Calculated Osmolality 293 (280-300) Lactic Acid 2.1 (0.5-2.2) mmol/L Calcium 8.9 (8.6-10.8) mg/dL Phosphorus 4.7 (2.3-4.7) mg/dL Magnesium 2.1 (1.6-2.6) mg/dL Total Bilirubin 0.3 (0.2-1.2) mg/dL Direct Bilirubin 0.2 (0.0-0.5) mg/dL Indirect Bilirubin 0.1 (0.0-1.2) mg/dL AST 35 H (5-34) Units/L ALT 9 (0-55) Units/L Alkaline Phosphatase 85 (38-126) Units/L Troponin I 0.09 H* (0-0.03) ng/mL Serum Total Protein 6.8 (6.0-8.3) g/dL Albumin 2.3 L (3.5-5.0) g/dL Globulin 4.5 H (2.4-3.5) g/dL Albumin/Globulin Ratio 0.5 L (1.1-2.2) Ur Specimen Adequacy Urine Color (Yellow) Urine Clarity (Clear) Urine pH (5.0-8.0) pH Units Ur Specific [place] (1.010-1.025) Urine Protein (Neg-Trace) mg/dL Urine Glucose (UA) (Normal) mg/dL Urine Ketones (Negative) mg/dL Urine Blood (Negative) Urine Nitrite (Negative) Urine Bilirubin (Negative) Urine Urobilinogen (Normal) mg/dL Ur Leukocyte Esterase (Negative) Urine Microscopic RBC (0-3) per hpf Urine Microscopic WBC (0-3) per hpf Ur Squamous Epith Cells (None-Few) per lpf Urine Bacteria (None-Few) per hpf Ur Culture Indicated? (NO) - Radiology Data Radiology results reviewed: Yes I reviewed the patient's radiology results. - EKG Data EKG attestation: Yes I reviewed and interpreted this EKG. Rate: normal Rhythm: A.Fib Interpretation: no acute changes, nonspecific ST-T wave changes TPA Checklist - LKW: 3-4.5 hrs Add. Warnings/Precautions Patient/family understanding: The patient/family members have been counseled and understood the risk, benefit , and alternatives of treatment.
[2016-12-27 14:26] LABS: Bilirubin,Urine Negative (Negative); Blood,Urine Large (Negative); Clarity,Urine Turbid (Clear); Color,Urine Yellow (Yellow); Glucose,Urine (UA) Normal (Normal); Ketones,Urine Negative (Negative); Leukocyte Esterase,Urine Large (Negative); Nitrite,Urine Negative (Negative); Protein,Urine >=300 mg/dL (Neg-Trace); Specific Gravity,Urine 1.014 (1.010-1.025); Urobilinogen,Urine Normal (Normal)
[2016-12-27 14:35] LABS: Basophils % 0.3 %; Hematocrit 30.9 % (35.3-44.9); Hemoglobin 9.4 g/dL (11.5-15.4); Immature Granulocytes % 0.9 % (0-4); Lymphocytes # 1.7 K/mcL (0.6-4.6); Lymphocytes % 11.4 %; Mean Corpuscular HGB Conc 30.4 g/dL (31.6-35.5); Mean Corpuscular Volume 98.7 fL (83.0-100.0); Mean Platelet Volume 9.3 fL (9.4-12.4); Monocytes # 0.6 K/mcL (0.0-1.3); Monocytes % 3.7 %; Neutrophils # 12.7 K/mcL (1.6-8.9); Platelet Count 133 K/mcL (140-400); Red Blood Count 3.13 M/mcL (3.82-4.97); Segmented Neutrophils % 83.7 %
[2016-12-27 14:35] LABS: RBC,Urine 50-100 per hpf (0-3); Squamous Epithelial Cell,Urine Few per lpf (None-Few); Urine Specimen Comments Mucoid Specimen; WBC,Urine TNTC per hpf (0-3)
[2016-12-27 14:36] LABS: Bacteria,Urine Many per hpf (None-Few)
[2016-12-27] MEDS ORDERED: Acetaminophen 650 MG RECTAL SUPP RC ONE (14:36)
[2016-12-27 14:38] LABS: Basophils # 0.1 K/mcL (0.0-0.2)
[2016-12-27] MEDS ORDERED: Piperacillin/Tazobactam 3.375 GM in D5% in Water (Mini-Bag+) 100 ML IVPB ONE (14:38)
[2016-12-27] MEDS ORDERED: Vancomycin 1,000 MG in D5% in Water 250 ML IVPB ONE (14:38)
[2016-12-27 14:49] LABS: INR 1.4; Prothrombin Time 15.4 Seconds (9.4-12.1)
[2016-12-27 14:50] LABS: Albumin 2.3 g/dL (3.5-5.0); Albumin/Globulin Ratio 0.5 (1.1-2.2); Bilirubin,Direct 0.2 mg/dL (0.0-0.5); Bilirubin,Indirect 0.1 mg/dL (0.0-1.2); Bilirubin,Total 0.3 mg/dL (0.2-1.2); Calcium 8.9 mg/dL (8.6-10.8); Globulin 4.5 g/dL (2.4-3.5); Magnesium 2.1 mg/dL (1.6-2.6); Phosphorous 4.7 mg/dL (2.3-4.7); Potassium 4.3 mEq/L (3.5-4.5); Total Protein 6.8 g/dL (6.0-8.3)
[2016-12-27 14:52] LABS: Activated Partial Thrombo Time 24.4 Seconds (26.0-36.0)
[2016-12-27] MEDS ORDERED: Piperacillin/Tazobactam 3.375 GM in D5% in Water 50 ML IVPB ONE (18:00)
[2016-12-27] MEDS ORDERED: Ipratropium/Albuterol Neb 3 ML IH PRN (20:36)
[2016-12-27] MEDS ORDERED: Naloxone 0.4 MG/ML INJ IVP PRN (20:37)
[2016-12-27] MEDS ORDERED: Ondansetron 4 MG/2 ML VIAL IVP PRN (20:37)
[2016-12-27] MEDS ORDERED: D5% in Water 1,000 ML IVC PRN (20:37)
[2016-12-27] MEDS ORDERED: Dextrose Gel 15 GM PO PRN ×2 (20:37)
[2016-12-27] MEDS ORDERED: *HR* Dextrose 50 % in Water (Syg) 50 ML SYRINGE IVP PRN (20:37)
[2016-12-27] MEDS ORDERED: Acetaminophen 325 MG TABLET PO PRN (20:37)
--- NOTE | 2016-12-27 20:43 | Internal Med History&Physical ---
Date of Encounter: 12/27/16 Time of Encounter: 20:40 Assessment and Plan (1) Severe sepsis Current visit: Yes Status: Acute Acute metabolic encephalopathy Severe sepsis secondary to UTI Continue vancomycin IV, start Merrem, May de-escalate antibiotic therapy once culture is available IV fluids Protonix for GI prophylaxis and subcutaneous heparin for DVT prophylaxis. The patient will be admitted as inpatient, expected to stay [place] midnights. Full code. Time spent on this admission 40 minutes. High risk due to sepsis (2) End stage chronic kidney disease Current visit: No Status: Acute (3) DM2 (diabetes mellitus, type 2) Current visit: No Status: Acute Hold home insulin Use sliding scale for now Qualifiers: Diabetes mellitus complication status: without complication Diabetes mellitus technician terminal and repeater insulin use: with technician terminal and repeater use Qualified Code(s): E11.9 - Type 2 diabetes mellitus without complications; Z79.4 - [facility] (current) use of insulin (4) Metabolic encephalopathy Current visit: No Status: Resolved (5) Anemia in chronic renal disease Current visit: No Status: Chronic Stable Qualifiers: Chronic kidney disease stage: on chronic dialysis Qualified Code(s): N18.6 - End stage renal disease; D63.1 - Anemia in chronic kidney disease; Z99.2 - Dependence on renal dialysis (6) UTI (urinary tract infection) Current visit: Yes Status: Acute Qualifiers: Urinary tract infection type: acute cystitis Hematuria presence: with hematuria Qualified Code(s): N30.01 - Acute cystitis with hematuria (7) Fever Current visit: Yes Status: Acute Qualifiers: Fever type: unspecified Qualified Code(s): R50.9 - Fever, unspecified Internal Medicine - H&P: HPI Chief complaint: Altered mental status Admitted From: Emergency Dept History of present illness: Ms. Bernal is a 71 year old female with a past medical history of end-stage renal disease on hemodialysis, diabetes type 2 insulin-dependent, neuropathy, A. fib not on anticoagulation, diastolic CHF, metabolic encephalopathy in the past. Was discharged from this hospital at the beginning of November where she was treated for metabolic encephalopathy. The patient has been apparently running fevers, today she had a fever of 102.6. Also according to the ER notes she was complaining of a cold right upper extremity, Doppler was performed and Dr. Adan was contacted and no further actions were recommended. The patient was found to have a UTI, her UA shows too numerous to count white blood cells, she has a Bennett catheter placed that is showing very cloudy urine. The patient is completely obtunded and not able to answer any questions, oriented only in person, troponin 0.09 but has been more elevated at 0.51 back in October, CT scan and chest x-rays do not show any abnormalities. She was treated also in October he is facility for toxic encephalopathy. Was started on Zosyn and vancomycin at the emergency room. White blood cell count is 15.2 platelets 133 creatinine 4.93 Past Med Surg Social Fam HX - Past Medical History Medical history: atrial fibrillation (Not on anticoagulation), CHF (Diastolic), COPD (Not oxygen dependent), diabetes (Insulin-dependent), GERD, hyperlipidemia , hypertension, kidney stones, renal disease (End-stage renal disease on hemodialysis), thyroid disease (Hypothyroidism), syncope, other (Syncope, anemia of chronic disease, neuropathy, GERD, Escherichia coli resistant to ampicillin and sulbactam in the past, depression) Psychiatric history: depression - Past Surgical History Surgical History: appendectomy, carotid endarterectomy, cholecystectomy, hysterectomy, knee replacement, ALEC/BSO, other (Left foot partial amputation, hysterectomy,) - Social History Smoking Status: Unknown if ever smoked Smokeless Tobacco Status: No Alcohol use: none Drug use: none - Family History Father Family Member Ethnicity: Non- Living Status: Hx Family Cardiac Disorders: Yes Hx Family Respiratory Disorders: No Hx Family Cancer: No Hx Family GI Disorders: No Hx Family Endocrine Disorder: No Hx Family Neuromuscular Disorders: No Hx Family Neurologic Disorders: No Hx Family HEENT Disorders: No Hx Family Autoimmune Disorders: No - Additional Family History Additional family history: Son with lung cancer according to prior records Internal Medicine - H&P: Meds Insulin DETEMIR [Levemir] 30 unit SQ QAM 11/17/14 [History] Loperamide HCl [Loperamide] 2 mg PO DAILY PRN 07/20/15 [History] Ergocalciferol (VITAMIN D2) [Vitamin D2 (50,000 UNIT)] 50,000 unit PO MO [History] Paroxetine [Paxil] 20 mg PO DAILY 02/12/16 [History] Clopidogrel [Plavix] 75 mg PO DAILY 04/03/16 [History] Levothyroxine [Synthroid] 175 mcg PO DAILY 04/03/16 [History] Calcitriol [Rocaltrol] 0.25 mcg PO MOWEFR 11/11/16 [History] Iron Polysaccharide Complex [Pro Fe] 180 mg PO DAILY 11/11/16 [History] HYDROcodone/Acet 7.5/325 mg [[place] 7.5-325 mg] 1 tab PO Q6H PRN #30 tablet 11/24 [Rx] Lisinopril [Zestril] 40 mg PO DAILY tablet 11/24/16 [Rx] B Complex W-C No.20/Folic Acid [Virt-Caps Softgel] 1 mg PO DAILY 12/27/16 [ History] Calcium Acetate [Phos-LO] 667 mg PO TIDWM 12/27/16 [History] Ergocalciferol (VITAMIN D2) [Vitamin D2] 2,000 unit PO TUTHSA 12/27/16 [History] Insulin DETEMIR [Levemir] 15 unit SQ HS 12/27/16 [History] Lactobacillus Acidophilus [Acidophilus] 2 cap PO BID 12/27/16 [History] Nystatin Cream [Mycostatin Cream] 1 appl TP BID 12/27/16 [History] OxyCODONE Immed Rel [Roxicodone 5 MG] 5 mg PO Q6HR PRN 12/27/16 [History] 3 Allergy/AdvReac Type Severity Reaction Status Date / Time Gilabfq-Nyw-Oxi Reductase Allergy See Verified 07/14/16 13:48 Inhibitor Comments [Statins] Sulfa (Sulfonamide Allergy swelling Verified 07/14/16 11:56 Antibiotics) All Systems PM: A 10-system review of systems was performed and is negative for pertinent findings except as documented above in the HPI. Review of systems: Unable to be completed due to patient's confusion - Constitutional Vitals: Temp Pulse Resp BP Pulse Ox 99.9 F H 73 17 118/64 98 12/27/16 19:14 12/27/16 19:14 12/27/16 19:14 12/27/16 19:14 12/27/16 19:14 General appearance: Present: A&O X 1 - Head Head exam: Present: atraumatic, normocephalic Additional comments: Lethargic - Eye Eye exam: Present: PERRL, conjuntiva pink, sclera anicteric Pupils: Present: PERRL - Neck Neck exam general surgery: Present: supple, trachea midline. Absent: lymphadenopathy - Respiratory Respiratory exam: Present: CTAB. Absent: accessory muscle use, rales, rhonchi, wheezes - Cardiovascular Cardiovascular exam: Present: RRR, +S1, +S2. Absent: diastolic murmur, gallop, rubs, systolic murmur - GI/Abdominal GI/Abdominal exam: Present: normal bowel sounds, soft, no peritoneal signs. Absent: distended, tenderness - Extremities Exam Extremities exam: Present: warm, radial pulses palpable and symmetrical. Absent : calf tenderness, cyanotic, pedal edema - Neurological Exam Neurological exam: Present: CN II-XII intact, no focal deficits. Absent: oriented X3, pronater drift, facial droop, speech deficit Additional comments: Bennett catheter in place with cloudy urine, right upper extremity AV fistula - Skin Skin exam: Present: dry, intact Internal Med - H&P Results - Labs CBC & Chem 7: 12/27/16 14:27 12/27/16 14:27
[2016-12-27] MEDS ORDERED: 0.9 % Sodium Chloride 1,000 ML IVC SCH (20:45)
[2016-12-27] MEDS: Insulin LISPRO 300 UNITS/3 ML VIAL SQ SCH (21:43)
[2016-12-27] MEDS: Pantoprazole 40 MG VIAL IVP SCH (21:44)
[2016-12-27] MEDS: *HR* Heparin 5,000 UNIT/ML VIAL SQ SCH (21:44)
[2016-12-27] MEDS: Meropenem 500 MG in Water for inj. (sterile) 10 ML IVP SCH (21:44)
[2016-12-28 05:12] LABS: Basophils % 0.3 %; Hematocrit 23.9 % (35.3-44.9); Lymphocytes # 2.3 K/mcL (0.6-4.6); Lymphocytes % 15.9 %; Mean Corpuscular Hemoglobin 30.3 pg (28.0-33.3); Mean Platelet Volume 9.9 fL (9.4-12.4); Monocytes # 0.7 K/mcL (0.0-1.3); Monocytes % 4.6 %; Neutrophils # 11.3 K/mcL (1.6-8.9); Platelet Count 117 K/mcL (140-400); Red Blood Count 2.44 M/mcL (3.82-4.97); Red Cell Distribution Width 16.9 % (11.5-14.5); Segmented Neutrophils % 78.2 %
[2016-12-28 05:22] LABS: Hemoglobin 7.4 g/dL (11.5-15.4)
[2016-12-28 05:27] LABS: Calcium 8.2 mg/dL (8.6-10.8)
[2016-12-28] MEDS: Meropenem 500 MG in Water for inj. (sterile) 10 ML IVP SCH (06:16)
[2016-12-28] MEDS: Pantoprazole 40 MG VIAL IVP SCH (06:16)
[2016-12-28] MEDS: *HR* Heparin 5,000 UNIT/ML VIAL SQ SCH ×2 (06:17→17:36)
[2016-12-28] MEDS: Insulin LISPRO 300 UNITS/3 ML VIAL SQ SCH ×4 (08:42→23:21)
[2016-12-28] MEDS ORDERED: Vancomycin (wt based) 1,000 MG VIAL IVPB SCH (09:00)
[2016-12-28] MEDS: Calcium Acetate 667 MG CAPSULE PO SCH ×3 (09:12→15:57)
[2016-12-28 09:13] LABS: Hematocrit 23.9 % (35.3-44.9); Hemoglobin 7.5 g/dL (11.5-15.4)
--- NOTE | 2016-12-28 09:56 | Nephrology Consult Note ---
Date of Encounter: 12/28/16 Time of Encounter: 09:47 Assessment and Plan (1) Anemia Current Visit: No Status: Acute Patient with anemia and no identifiable source of bleeding. She had an acute drop in her hemoglobin overnight that may be secondary to dilution. Monitor for bleeding, transfuse as needed. Previous folate was on the lower limit of normal. We will repeat folate. We will start supplemental folic acid. Qualifiers: Anemia type: unspecified type Qualified Code(s): D64.9 - Anemia, unspecified (2) Encephalopathy due to metabolic factor or toxin Current Visit: No Status: Acute Seems to be secondary to sepsis. This seems to be improving. She seems appropriate this morning. (3) ESRD on hemodialysis Current Visit: No Status: Chronic HD MWF. Renal vitamins. Renal dose medications. Renal diet. Additional dialysis and ultrafiltration as needed. (4) Severe sepsis Current Visit: Yes Status: Acute Per primary team. Sourcing to be urinary tract. Continue antibiotics. Await culture data. (5) UTI (urinary tract infection) Current Visit: Yes Status: Acute Continue antibiotics. Await culture data. Qualifiers: Urinary tract infection type: acute cystitis Hematuria presence: with hematuria Qualified Code(s): N30.01 - Acute cystitis with hematuria (6) Hypertension Current Visit: No Status: Chronic Patient typically on antihypertensive medications. Antihypertensive meds are being held secondary to low blood pressure. Can resume once her blood pressure recovers. Qualifiers: Hypertension type: essential hypertension Qualified Code(s): I10 - Essential (primary) hypertension History of Present Illness - Reason for Consult Consult date: 12/28/16 end stage renal disease - Chief Complaint ESRD, Sepsis - History of Present Illness Ms. Bernal is a 71 yo woman with a history of ESRD who presents with altered mental status and was found to have sepsis secondary to a UTI. She receives HD on a MWF schedule via a right upper arm fistula. At the time my evaluation the patient's states that she still feels "bad". She denies chest pain or shortness of breath. She has decreased appetite, but no nausea or vomiting. Past Med Surg Social Fam HX - Past Medical History Medical history: atrial fibrillation (Not on anticoagulation), CHF (Diastolic), COPD (Not oxygen dependent), diabetes (Insulin-dependent), GERD, hyperlipidemia , hypertension, kidney stones, renal disease (End-stage renal disease on hemodialysis), thyroid disease (Hypothyroidism), syncope, other (Syncope, anemia of chronic disease, neuropathy, GERD, Escherichia coli resistant to ampicillin and sulbactam in the past, depression) Psychiatric history: depression - Past Surgical History Surgical History: appendectomy, carotid endarterectomy, cholecystectomy, hysterectomy, knee replacement, ALEC/BSO, other (Left foot partial amputation, hysterectomy,) - Social History Smoking Status: Unknown if ever smoked Smokeless Tobacco Status: No Alcohol use: none Drug use: none - Family History Father Family Member Ethnicity: Non- Living Status: Hx Family Cardiac Disorders: Yes Hx Family Respiratory Disorders: No Hx Family Cancer: No Hx Family GI Disorders: No Hx Family Endocrine Disorder: No Hx Family Neuromuscular Disorders: No Hx Family Neurologic Disorders: No Hx Family HEENT Disorders: No Hx Family Autoimmune Disorders: No Medications and Allergies Insulin DETEMIR [Levemir] 30 unit SQ QAM 11/17/14 [History] Loperamide HCl [Loperamide] 2 mg PO DAILY PRN 07/20/15 [History] Ergocalciferol (VITAMIN D2) [Vitamin D2 (50,000 UNIT)] 50,000 unit PO MO [History] Paroxetine [Paxil] 20 mg PO DAILY 02/12/16 [History] Clopidogrel [Plavix] 75 mg PO DAILY 04/03/16 [History] Levothyroxine [Synthroid] 175 mcg PO DAILY 04/03/16 [History] Calcitriol [Rocaltrol] 0.25 mcg PO MOWEFR 11/11/16 [History] Iron Polysaccharide Complex [Pro Fe] 180 mg PO DAILY 11/11/16 [History] HYDROcodone/Acet 7.5/325 mg [Alva 7.5-325 mg] 1 tab PO Q6H PRN #30 tablet 11/24 [Rx] Lisinopril [Zestril] 40 mg PO DAILY tablet 11/24/16 [Rx] B Complex W-C No.20/Folic Acid [Virt-Caps Softgel] 1 mg PO DAILY 12/27/16 [ History] Calcium Acetate [Phos-LO] 667 mg PO TIDWM 12/27/16 [History] Ergocalciferol (VITAMIN D2) [Vitamin D2] 2,000 unit PO TUTHSA 12/27/16 [History] Insulin DETEMIR [Levemir] 15 unit SQ HS 12/27/16 [History] Lactobacillus Acidophilus [Acidophilus] 2 cap PO BID 12/27/16 [History] Nystatin Cream [Mycostatin Cream] 1 appl TP BID 12/27/16 [History] OxyCODONE Immed Rel [Roxicodone 5 MG] 5 mg PO Q6HR PRN 12/27/16 [History] 3 Allergy/AdvReac Type Severity Reaction Status Date / Time Rrygjub-Gzs-Rib Reductase Allergy See Verified 07/14/16 13:48 Inhibitor Comments [Statins] Sulfa (Sulfonamide Allergy swelling Verified 07/14/16 11:56 Antibiotics) Review of Systems All Systems: reviewed and no additional remarkable complaints except as stated ( As documented in history of present illness.) Exam - Vital Signs Vital signs: Initial Vital Signs Temp Pulse Resp BP Pulse Ox 102.6 F H 81 16 131/46 100 12/27/16 14:00 12/27/16 14:00 12/27/16 14:00 12/27/16 14:00 12/27/16 14:00 Vital Signs - Last 8 Hours Temp Pulse Resp BP Pulse Ox 12/28/16 07:07 99.6 F 68 18 123/55 99 12/28/16 04:06 100.1 F H 68 20 101/54 98 Intake and Output 12/28/16 12/28/16 12/28/16 00:59 07:59 15:59 Intake Total Output Total Balance Intake: IV Fluids Merrem 500 MG In Water for inj. (sterile) 10 ML @ 200 mls/hr IVP Q8H [facility] Rx#:[id number] Oral Output: Urine Catheter Other: Weight Blood Glucose* Patient Weight 12/28/16 22:59 Weight 79.742 kg - General Appearance General appearance: well-developed, well-nourished, chronically ill EENT: ATNC Neck: supple Respiratory: clear (Anteriorly.) Cardiology: edema (1-2+ edema in the bilateral lower extremities.), regular rate - Dialysis Access Dialysis Vascular Access: Arteriovenous Fistula thrill: Yes bruit: Yes Additional Comments: Right upper arm fistula. Gastrointestinal: no tenderness Integumentary: warm and dry Neurologic: alert and oriented x3 Musculoskeletal: no cyanosis Psychiatric: mood/affect appropriate Results - Lab Results 12/28/16 09:00 12/28/16 03:59 Most recent lab results Calcium 8.2 mg/dL (8.6-10.8) L 12/28/16 03:59 Phosphorus 4.7 mg/dL (2.3-4.7) 12/27/16 14:27 Magnesium 2.1 mg/dL (1.6-2.6) 12/27/16 14:27 Consult Discharge Plan - Plan Referrals: Moncho Arambula MD [Primary Care Provider] -
--- NOTE | 2016-12-28 10:38 | Internal Med Progress Note ---
Date of Encounter: 12/28/16 Time of Encounter: 10:37 - Assessment and plan (1) Severe sepsis Current Visit: Yes Status: Acute Assessment and plan: Continues to be febrile Encephalopathy has resolved Source is urinary Follow cultures lactate is normal BP is WNL (2) UTI (urinary tract infection) Current Visit: Yes Status: Acute Assessment and plan: Complicated, recurrent, with indwelling Bennett Patient with prior bladder abscess and indwelling Bennett, represented from SNF with Sepsis due to UTI urine culture with GNR Continue Meropenem and Vanco Patient is still febrile Await blood culture before de-escalation Qualifiers: Urinary tract infection type: acute cystitis Hematuria presence: with hematuria Qualified Code(s): N30.01 - Acute cystitis with hematuria (3) Metabolic encephalopathy Current Visit: Yes Status: Resolved Assessment and plan: Resolved patient is awake and oriented X3 at time of review (4) Hypertension Current Visit: Yes Status: Chronic Assessment and plan: Controlled, continue current meds Qualifiers: Hypertension type: essential hypertension Qualified Code(s): I10 - Essential (primary) hypertension (5) Hypothyroidism Current Visit: Yes Status: Chronic Assessment and plan: Continue home meds Qualifiers: Hypothyroidism type: unspecified Qualified Code(s): E03.9 - Hypothyroidism , unspecified (6) Hyperlipidemia Current Visit: Yes Status: Chronic Assessment and plan: Continue home meds Qualifiers: Hyperlipidemia type: mixed hyperlipidemia Qualified Code(s): E78.2 - Mixed hyperlipidemia (7) DM2 (diabetes mellitus, type 2) Current Visit: Yes Status: Chronic Assessment and plan: Sliding scale only for now FS is acceptable so far Qualifiers: Diabetes mellitus complication status: without complication Diabetes mellitus long term care administrator insulin use: with long term care administrator use Qualified Code(s): E11.9 - Type 2 diabetes mellitus without complications; Z79.4 - residential (current) use of insulin; Z79.4 - residential (current) use of insulin; Z79.4 - medical terminologist ( current) use of insulin; Z79.4 - medical terminologist (current) use of insulin (8) ESRD on hemodialysis Current Visit: Yes Status: Chronic Assessment and plan: HD per renal (9) Anemia in chronic renal disease Current Visit: Yes Status: Chronic Assessment and plan: Chronic stable HB slighlty lower this a.m, possibly dilutional No source of bleeding Qualifiers: Chronic kidney disease stage: on chronic dialysis Qualified Code(s): N18.6 - End stage renal disease; D63.1 - Anemia in chronic kidney disease; Z99.2 - Dependence on renal dialysis - Subjective Interval history: Seen and evaluated at bedside Admitted and being managed for Severe sepsis due to UTI, acute encephalopathy She is now awake and alert She complained of chronic hip and LLE pain - Constitutional Vitals: Temp Pulse Resp BP Pulse Ox 99.6 F 68 18 123/55 99 12/28/16 07:07 12/28/16 07:07 12/28/16 07:07 12/28/16 07:07 12/28/16 07:07 General appearance: Present: A&O X 3, pleasant, no acute distress - Head Head exam: Present: atraumatic, normocephalic - Eye Eye exam: Present: PERRL, conjuntiva pink, sclera anicteric Pupils: Present: PERRL - Neck Neck exam general surgery: Present: supple, trachea midline. Absent: lymphadenopathy - Respiratory Respiratory exam: Present: CTAB. Absent: accessory muscle use, rales, rhonchi, wheezes - Cardiovascular Cardiovascular exam: Present: RRR, +S1, +S2. Absent: diastolic murmur, gallop, rubs, systolic murmur - GI/Abdominal GI/Abdominal exam: Present: normal bowel sounds, soft, no peritoneal signs. Absent: distended, tenderness - Extremities Exam Extremities exam: Present: warm, radial pulses palpable and symmetrical. Absent : calf tenderness, cyanotic, pedal edema - Neurological Exam Neurological exam: Present: alert, CN II-XII intact, oriented X3, no focal deficits. Absent: pronater drift, facial droop, speech deficit - Skin Skin exam: Present: dry Internal Medicine: Result - Labs CBC & Chem 7: 12/28/16 09:00 12/28/16 03:59 Labs: Short CBC 12/28/16 12/28/16 Range/Units 03:59 09:00 WBC 14.4 H (4.3-11.1) K/mcL Hgb 7.4 L D 7.5 L (11.5-15.4) g/dL Hct 23.9 L 23.9 L (35.3-44.9) % Plt Count 117 L (140-400) K/mcL Neutrophils # 11.3 H (1.6-8.9) K/mcL BMP 12/28/16 03:59 Sodium 135 L Potassium 4.0 Chloride 101 Carbon Dioxide 22 BUN 56 H Creatinine 5.50 H Glucose 86 Calcium 8.2 L - ABG Interpretation ABG results: PT/INR, D-dimer PT 15.4 Seconds (9.4-12.1) H 12/27/16 14:27 Consult Discharge Plan - Plan Referrals: Moncho Arambula MD [Primary Care Provider] -
[2016-12-28] MEDS: Folic Acid 1 MG TABLET PO SCH (12:01)
[2016-12-28] MEDS: *HR* Morphine 2 MG/ML SYRINGE IVP PRN ×2 (13:39→17:50)
[2016-12-28] MEDS: *HR* HYDROcodone/Acet 7.5/325 mg TABLET PO PRN (15:57)
[2016-12-28] MEDS ORDERED: Aminoglycoside Consult 1 EACH MC ONE (18:04)
[2016-12-29] MEDS: *HR* Morphine 2 MG/ML SYRINGE IVP PRN (03:22)
[2016-12-29] MEDS ORDERED: Meropenem 500 MG in Water for inj. (sterile) 10 ML IVP SCH (05:00)
[2016-12-29] MEDS: *HR* Heparin 5,000 UNIT/ML VIAL SQ SCH ×2 (06:05→21:21)
[2016-12-29] MEDS: Pantoprazole 40 MG VIAL IVP SCH (06:05)
[2016-12-29] MEDS: Calcium Acetate 667 MG CAPSULE PO SCH ×3 (07:55→21:21)
[2016-12-29] MEDS: Folic Acid 1 MG TABLET PO SCH (07:55)
[2016-12-29] MEDS: Insulin LISPRO 300 UNITS/3 ML VIAL SQ SCH ×4 (07:57→21:23)
--- NOTE | 2016-12-29 09:38 | Electrocardiograph Report ---
[place] [address] Test Date: 2016-12-27 Pat Name: Marline Bernal Department: 102 Room: 2A22 Gender: F Embossed Or Impressed Lettering Painter: Juli : 1945 Requested By: Krish Pabon Order Number: [id number] Reading MD: Robb Rodriguez DO Measurements Intervals Pep Rate: 83 P: UT: 0 QRS: 21 QRSD: 84 T: 60 QT: 375 QTc: 415 Interpretive Statements Possible ectopic atrial rhythm Nonspecific ST-T changes Electronically Signed On 12-29-2016 9:37:08 EST by Robb Rodriguez DO
[2016-12-29] MEDS ORDERED: 0.9 % Sodium Chloride 250 ML IVC PRN (09:39)
--- NOTE | 2016-12-29 10:31 | Internal Med Progress Note ---
Date of Encounter: 12/29/16 Time of Encounter: 09:15 - Assessment and plan (1) Severe sepsis Current Visit: Yes Status: Acute Assessment and plan: Continues to be febrile Encephalopathy has resolved Source is urinary-pseudomonas lactate is normal BP is WNL (2) UTI (urinary tract infection) Current Visit: Yes Status: Acute Assessment and plan: Complicated, recurrent, with indwelling Bennett Patient with prior bladder abscess and indwelling Bennett, represented from SNF with Sepsis due to UTI urine culture with pseudomonas, sesntive to cefepme She has received 2 days of Vanco and Meropenem De-escalate to Cefepime-day 1. Total 3 days of antibiotics Patient had an indwelling Bennett from home and will need at least 14 days of antibiotics Blood culture preliminary negative Qualifiers: Urinary tract infection type: acute cystitis Hematuria presence: with hematuria Qualified Code(s): N30.01 - Acute cystitis with hematuria (3) Metabolic encephalopathy Current Visit: Yes Status: Resolved Assessment and plan: Resolved patient is awake and oriented X3 at time of review (4) Hypertension Current Visit: Yes Status: Chronic Assessment and plan: Controlled, continue current meds Qualifiers: Hypertension type: essential hypertension Qualified Code(s): I10 - Essential (primary) hypertension (5) Hypothyroidism Current Visit: Yes Status: Chronic Assessment and plan: Continue home meds Qualifiers: Hypothyroidism type: unspecified Qualified Code(s): E03.9 - Hypothyroidism , unspecified (6) Hyperlipidemia Current Visit: Yes Status: Chronic Assessment and plan: Continue home meds Qualifiers: Hyperlipidemia type: mixed hyperlipidemia Qualified Code(s): E78.2 - Mixed hyperlipidemia (7) DM2 (diabetes mellitus, type 2) Current Visit: Yes Status: Chronic Assessment and plan: Sliding scale only for now FS is acceptable so far Qualifiers: Diabetes mellitus complication status: without complication Diabetes mellitus assisted insulin use: with assisted use Qualified Code(s): E11.9 - Type 2 diabetes mellitus without complications; Z79.4 - [facility] (current) use of insulin; Z79.4 - [facility] (current) use of insulin; Z79.4 - adjunct faculty for medical terminology ( current) use of insulin; Z79.4 - [facility] (current) use of insulin (8) ESRD on hemodialysis Current Visit: Yes Status: Chronic Assessment and plan: HD per renal (9) Anemia in chronic renal disease Current Visit: Yes Status: Chronic Assessment and plan: Chronic stable HB slighlty lower this a.m, possibly dilutional No source of bleeding, transfuse for Hb less than 7. Qualifiers: Chronic kidney disease stage: on chronic dialysis Qualified Code(s): N18.6 - End stage renal disease; D63.1 - Anemia in chronic kidney disease; Z99.2 - Dependence on renal dialysis (10) Decubitus ulcer Current Visit: Yes Status: Chronic Assessment and plan: Regular turning, allevyn Qualifiers: Pressure ulcer location: sacral region Pressure ulcer stage: stage 1 Qualified Code(s): L89.151 - Pressure ulcer of sacral region, stage 1 (11) Physical deconditioning Current Visit: Yes Status: Acute Assessment and plan: PTOT eval - Subjective Interval history: Seen and evaluated at bedside Admitted and being managed for Severe sepsis due to UTI, acute encephalopathy Urine culture noted for pseudomonas She also has decubitus ulcer on her Lt heel and sacral ulcer which has been present on admission - Constitutional Vitals: Temp Pulse Resp BP Pulse Ox 98.2 F 63 15 143/60 96 12/29/16 07:06 12/29/16 07:06 12/29/16 07:06 12/29/16 07:06 12/29/16 07:06 General appearance: Present: A&O X 3, pleasant, no acute distress - Head Head exam: Present: atraumatic, normocephalic - Eye Eye exam: Present: PERRL, conjuntiva pink, sclera anicteric Pupils: Present: PERRL - Neck Neck exam general surgery: Present: supple, trachea midline. Absent: lymphadenopathy - Respiratory Respiratory exam: Present: CTAB. Absent: accessory muscle use, rales, rhonchi, wheezes - Cardiovascular Cardiovascular exam: Present: RRR, +S1, +S2. Absent: diastolic murmur, gallop, rubs, systolic murmur - GI/Abdominal GI/Abdominal exam: Present: normal bowel sounds, soft, no peritoneal signs. Absent: distended, tenderness - Additional comments: Sacral decubitus ulcer , allevyn dressing on it - Extremities Exam Extremities exam: Present: pedal edema (bilateral 1+ piting), warm, radial pulses palpable and symmetrical. Absent: calf tenderness, cyanotic Additional comments: s/p Left TMA, allevyn on left heel. Rt heel allevyn. Sacral ulcer, covered on allevyn. - Neurological Exam Neurological exam: Present: alert, CN II-XII intact, oriented X3, no focal deficits. Absent: pronater drift, facial droop, speech deficit - Skin Skin exam: Present: dry Internal Medicine: Result - Labs CBC & Chem 7: 12/28/16 09:00 12/28/16 03:59 - ABG Interpretation ABG results: PT/INR, D-dimer PT 15.4 Seconds (9.4-12.1) H 12/27/16 14:27 Consult Discharge Plan - Plan Referrals: Moncho Arambula MD [Primary Care Provider] -
[2016-12-29] MEDS ORDERED: *HR* HYDROcodone/Acet 10/325 mg TABLET PO PRN (11:49)
--- NOTE | 2016-12-29 12:09 | Nephrology Progress Note ---
Date of Encounter: 12/29/16 Time of Encounter: 12:00 - Assessment and Plan (1) Anemia in chronic renal disease Current Visit: Yes Status: Chronic Qualifiers: Chronic kidney disease stage: on chronic dialysis Qualified Code(s): N18.6 - End stage renal disease; D63.1 - Anemia in chronic kidney disease; Z99.2 - Dependence on renal dialysis (2) ESRD on hemodialysis Current Visit: Yes Status: Chronic Subjective Interval history: Interim noted, pt seen and examined more awake today Objective - Vital Signs Vital signs: Vital Signs Temp Pulse Resp BP Pulse Ox 12/29/16 11:09 98.4 F 61 17 146/65 95 12/29/16 07:06 98.2 F 63 15 143/60 96 12/29/16 04:20 98.6 F 66 12 147/56 94 12/28/16 23:30 98.4 F 64 17 153/59 95 12/28/16 15:41 98.4 F 64 18 113/51 95 Intake and Output 12/28/16 12/29/16 12/29/16 23:59 07:59 15:59 Intake Total 0 / 0 120 / 120 Output Total 875 / 875 50 / 50 Balance -875 / -875 -50 / -50 120 / 120 Intake: Oral 0 / 0 120 / 120 Output: Urine 875 / 875 Urethral (Bennett) 375 / 375 Catheter 50 / 50 Other: Meal Breakfast Percent of Meal Consumed 100% Stool Size Large Stool Consistency loose soft Stool Color Brown # Bowel Movement Diapers 2 Weight 79.7 kg 79.7 kg Blood Glucose* 146 125 180 Patient Weight 12/29/16 23:59 Weight 79.7 kg - Lab 12/28/16 09:00 12/28/16 03:59 Most recent lab results Calcium 8.2 mg/dL (8.6-10.8) L 12/28/16 03:59 Phosphorus 4.7 mg/dL (2.3-4.7) 12/27/16 14:27 Magnesium 2.1 mg/dL (1.6-2.6) 12/27/16 14:27 Consult Discharge Plan - Plan Referrals: Moncho Arambula MD [Primary Care Provider] -
[2016-12-29] MEDS: *HR* HYDROcodone/Acet 7.5/325 mg TABLET PO PRN (17:14)
[2016-12-29 17:55] LABS: Basophils % 0.5 %; Eosinophils # 0.1 K/mcL (0.0-0.6); Eosinophils % 1.1 %; Hematocrit 24.4 % (35.3-44.9); Hemoglobin 7.4 g/dL (11.5-15.4); Immature Granulocytes % 0.5 % (0-4); Lymphocytes # 1.9 K/mcL (0.6-4.6); Lymphocytes % 25.6 %; Mean Corpuscular HGB Conc 30.3 g/dL (31.6-35.5); Mean Corpuscular Hemoglobin 30.1 pg (28.0-33.3); Mean Corpuscular Volume 99.2 fL (83.0-100.0); Mean Platelet Volume 10.4 fL (9.4-12.4); Monocytes # 0.3 K/mcL (0.0-1.3); Monocytes % 4.5 %; Platelet Count 119 K/mcL (140-400); Red Blood Count 2.46 M/mcL (3.82-4.97); Red Cell Distribution Width 16.5 % (11.5-14.5); Segmented Neutrophils % 67.8 %
[2016-12-29] MEDS ORDERED: Cefepime HCl 1,000 MG in Water for inj. (sterile) 10 ML IVP SCH (18:00)
[2016-12-29 18:09] LABS: Calcium 7.9 mg/dL (8.6-10.8); Potassium 4.2 mEq/L (3.5-4.5)
[2016-12-29 19:05] LABS: Hepatitis B Surface Antibody 0.69 mIU/mL
[2016-12-29 19:22] LABS: Hepatitis B Surface Antigen Reactive (Nonreactive)
[2016-12-29] MEDS ORDERED: 0.9 % Sodium Chloride 1,000 ML ONE (19:36)
[2016-12-30 04:31] LABS: Basophils # 0.1 K/mcL (0.0-0.2); Basophils % 0.7 %; Eosinophils # 0.1 K/mcL (0.0-0.6); Eosinophils % 1.4 %; Hematocrit 26.5 % (35.3-44.9); Hemoglobin 8.2 g/dL (11.5-15.4); Immature Granulocytes % 1.3 % (0-4); Lymphocytes # 1.9 K/mcL (0.6-4.6); Lymphocytes % 27.6 %; Mean Corpuscular HGB Conc 30.9 g/dL (31.6-35.5); Mean Corpuscular Volume 97.1 fL (83.0-100.0); Monocytes # 0.4 K/mcL (0.0-1.3); Monocytes % 5.4 %; Neutrophils # 4.5 K/mcL (1.6-8.9); Platelet Count 111 K/mcL (140-400); Red Blood Count 2.73 M/mcL (3.82-4.97); Red Cell Distribution Width 16.5 % (11.5-14.5); Segmented Neutrophils % 63.6 %
[2016-12-30 04:47] LABS: Calcium 8.1 mg/dL (8.6-10.8); Potassium 4.2 mEq/L (3.5-4.5)
[2016-12-30] MEDS: *HR* Heparin 5,000 UNIT/ML VIAL SQ SCH (07:01)
[2016-12-30] MEDS: Folic Acid 1 MG TABLET PO SCH (08:18)
[2016-12-30] MEDS: Calcium Acetate 667 MG CAPSULE PO SCH ×3 (08:19→16:12)
[2016-12-30] MEDS: Insulin LISPRO 300 UNITS/3 ML VIAL SQ SCH ×3 (08:19→16:39)
[2016-12-30] MEDS ORDERED: Cefepime HCl 500 MG in Water for inj. (sterile) 10 ML IVP ONE (09:42)
[2016-12-30] MEDS: *HR* HYDROcodone/Acet 7.5/325 mg TABLET PO PRN (14:47)
[2016-12-30 15:50] VITALS: BP 168/54
--- NOTE | 2016-12-30 16:26 | Discharge Summary ---
Date of Encounter: 12/30/16 Time of Encounter: 16:23 - Discharge Diagnosis (1) Insulin dependent diabetes mellitus Priority: Secondary Status: Chronic (2) Hypertension Priority: Secondary Status: Chronic Qualifiers: Hypertension type: essential hypertension Qualified Code(s): I10 - Essential (primary) hypertension (3) Hypothyroidism Priority: Secondary Status: Chronic Qualifiers: Hypothyroidism type: unspecified Qualified Code(s): E03.9 - Hypothyroidism , unspecified (4) Hyperlipidemia Priority: Secondary Status: Chronic Qualifiers: Hyperlipidemia type: mixed hyperlipidemia Qualified Code(s): E78.2 - Mixed hyperlipidemia (5) Anemia Priority: Secondary Status: Acute Qualifiers: Anemia type: unspecified type Qualified Code(s): D64.9 - Anemia, unspecified (6) ESRD on hemodialysis Priority: Secondary Status: Chronic (7) UTI (urinary tract infection) Priority: Primary Status: Resolved Qualifiers: Urinary tract infection type: acute cystitis Hematuria presence: with hematuria Qualified Code(s): N30.01 - Acute cystitis with hematuria (8) Metabolic encephalopathy Priority: Secondary Status: Resolved (9) Severe sepsis Priority: Secondary Status: Acute (10) Decubitus ulcer Priority: Secondary Status: Chronic Qualifiers: Pressure ulcer location: sacral region Pressure ulcer stage: stage 1 Qualified Code(s): L89.151 - Pressure ulcer of sacral region, stage 1 - Discharge Medications Prescriptions: Cefepime HCl/Dextrose, Iso-Osm [Cefepime 2 gm Injection] 2 gm IV DAILY #10 froz.piggy Gentamicin in NaCl, Iso-Osm [Gentamicin 80 mg/Ns 100 ml Pb] 80 mg IV ORLIN #4 mls HYDROcodone/Acet 7.5/325 mg [[place] 7.5-325 mg] 1 tab PO Q6H PRN #10 tablet PRN Reason: Pain Home Medications: Insulin DETEMIR [Levemir] 30 unit SQ QAM 11/17/14 [History] Loperamide HCl [Loperamide] 2 mg PO DAILY PRN 07/20/15 [History] Ergocalciferol (VITAMIN D2) [Vitamin D2 (50,000 UNIT)] 50,000 unit PO MO [History] Paroxetine [Paxil] 20 mg PO DAILY 02/12/16 [History] Clopidogrel [Plavix] 75 mg PO DAILY 04/03/16 [History] Levothyroxine [Synthroid] 175 mcg PO DAILY 04/03/16 [History] Calcitriol [Rocaltrol] 0.25 mcg PO MOWEFR 11/11/16 [History] Iron Polysaccharide Complex [Pro Fe] 180 mg PO DAILY 11/11/16 [History] Lisinopril [Zestril] 40 mg PO DAILY tablet 11/24/16 [Rx] B Complex W-C No.20/Folic Acid [Virt-Caps Softgel] 1 mg PO DAILY 12/27/16 [ History] Calcium Acetate [Phos-LO] 667 mg PO TIDWM 12/27/16 [History] Ergocalciferol (VITAMIN D2) [Vitamin D2] 2,000 unit PO TUTHSA 12/27/16 [History] Insulin DETEMIR [Levemir] 15 unit SQ HS 12/27/16 [History] Lactobacillus Acidophilus [Acidophilus] 2 cap PO BID 12/27/16 [History] Nystatin Cream [Mycostatin Cream] 1 appl TP BID 12/27/16 [History] Cefepime HCl/Dextrose, Iso-Osm [Cefepime 2 gm Injection] 2 gm IV DAILY #10 froz.piggy 12/30/16 [Rx] Gentamicin in NaCl, Iso-Osm [Gentamicin 80 mg/Ns 100 ml Pb] 80 mg IV ORLIN #4 mls 12/30/16 [Rx] HYDROcodone/Acet 7.5/325 mg [[place] 7.5-325 mg] 1 tab PO Q6H PRN #10 tablet 12/30 [Rx] Ipratropium/Albuterol Neb [Duoneb] 3 ml IH [id number] PRN inhsol 12/30/16 [Rx] Lansoprazole [Prevacid] 30 mg PO BIDAC capsule. 12/30/16 [Rx] Allergies/Adverse Reactions: 3 Allergy/AdvReac Type Severity Reaction Status Date / Time Qfoswtf-Zpi-Nip Reductase Allergy See Verified 07/14/16 13:48 Inhibitor Comments [Statins] Sulfa (Sulfonamide Allergy swelling Verified 07/14/16 11:56 Antibiotics) Date of admission: 12/27/16 20:37 Primary care physician: Moncho Arambula MD Consults: 12/27/16 20:49 Consult to Nephrology [CONS] Routine Consulting Provider: Papo Baeza Reason for Consult: Dialysis Call Completed: No 12/29/16 09:45 Consult to Dialysis [CONS] ONCE 12/29/16 11:09 Consult to Occupational Therapy [CONS] Routine Comment: Evaluate, develop and implement POC Reason for Consult: eval for poss ecf Consult to Physical Therapy [CONS] Routine Comment: Evaluate, develop and implement POC Reason for Consult: eval for poss ecf 12/30/16 07:19 Consult to Air Filler [CONS] Routine Reason for SW Consult: rtn to signature Discharging clinician: Sanjeev Roberts Anticipated date of discharge: 12/30/16 - Patient Status Disposition: Transfer SNF Condition: Serious Overall status at discharge: patient is progressing back to baseline - Discharge Instructions Follow Up With: Moncho Arambula MD [Primary Care Provider] - - Diet and Activity Activity: as per physical therapy Diet: advance to your usual diet, diabetic diet, low fat, low cholesterol, low salt diet Hospital course: Ms. Bernal is a 71 year old female admitted for UTI sepsis with Pseudomonas sensitive to cefepime. Initially patient was treated with vancomycin and meropenem. She is afebrile and white count has normalized. She already has a power glide IV access. Patient has a indwelling catheter which has been replaced on December 27. Apparently patient was previously treated for Pseudomonas UTI with renal abscess. This time CT abdomen did not show any renal abscess. Since this is a recurrent infection in a short period of time I will add IV gentamicin with each dialysis to potentiate the effect of cefepime. Patient came in with altered mental status/encephalopathy which has resolved as the infection is improved. Patient is on dialysis and nephrology has followed the patient. It was noted that nephrology Dr. Tran ordered hepatitis S antigen and antibody .results are positive. Nursing advised to notify Dr. Tran about the results who will see the patient for dialysis. Patient liver function test are within normal range. - Time Spent with Patient Total time spent providing and/or coordinating discharge services: Greater than 30 minutes - Constitutional Vitals: Temp Pulse Resp BP Pulse Ox 98.5 F 64 17 168/54 94 12/30/16 15:44 12/30/16 15:44 12/30/16 15:44 12/30/16 15:44 12/30/16 15:44 General appearance: Present: A&O X 3, pleasant, no acute distress - Head Head exam: Present: atraumatic, normocephalic - Eye Eye exam: Present: PERRL, conjuntiva pink, sclera anicteric Pupils: Present: PERRL - Neck Neck exam general surgery: Present: supple, trachea midline. Absent: lymphadenopathy - Respiratory Respiratory exam: Present: CTAB. Absent: accessory muscle use, rales, rhonchi, wheezes - Cardiovascular Cardiovascular exam: Present: RRR, +S1, +S2. Absent: diastolic murmur, gallop, rubs, systolic murmur - GI/Abdominal GI/Abdominal exam: Present: normal bowel sounds, soft, no peritoneal signs. Absent: distended, tenderness - Extremities Exam Extremities exam: Present: warm, radial pulses palpable and symmetrical. Absent : calf tenderness, cyanotic, pedal edema - Neurological Exam Neurological exam: Present: CN II-XII intact, oriented X3, no focal deficits. Absent: pronater drift, facial droop, speech deficit - Skin Skin exam: Present: dry, intact
--- NOTE | 2016-12-30 16:46 | Physician Discharge Referral ---
ExtendedCare Referral Info Transfer To: SNF Provider in Charge: ole Provider in Charge after Transfer: PCP Institutional Level of Care: Skilled (Please have nephrology follow up on hepatitis B results which are positive) - Diagnosis (1) Insulin dependent diabetes mellitus Status: Chronic (2) Hypertension Status: Chronic (3) Hypothyroidism Status: Chronic (4) Hyperlipidemia Status: Chronic (5) Anemia Status: Acute (6) ESRD on hemodialysis Status: Chronic (7) UTI (urinary tract infection) Status: Resolved (8) Metabolic encephalopathy Status: Resolved (9) Severe sepsis Status: Acute (10) Decubitus ulcer Status: Chronic - Transfer Medications Prescriptions: Cefepime HCl/Dextrose, Iso-Osm [Cefepime 2 gm Injection] 2 gm IV DAILY #10 froz.piggy Gentamicin in NaCl, Iso-Osm [Gentamicin 80 mg/Ns 100 ml Pb] 80 mg IV ORLIN #4 mls HYDROcodone/Acet 7.5/325 mg [[place] 7.5-325 mg] 1 tab PO Q6H PRN #10 tablet PRN Reason: Pain Home Medications: Insulin DETEMIR [Levemir] 30 unit SQ QAM 11/17/14 [History] Loperamide HCl [Loperamide] 2 mg PO DAILY PRN 07/20/15 [History] Ergocalciferol (VITAMIN D2) [Vitamin D2 (50,000 UNIT)] 50,000 unit PO MO [History] Paroxetine [Paxil] 20 mg PO DAILY 02/12/16 [History] Clopidogrel [Plavix] 75 mg PO DAILY 04/03/16 [History] Levothyroxine [Synthroid] 175 mcg PO DAILY 04/03/16 [History] Calcitriol [Rocaltrol] 0.25 mcg PO MOWEFR 11/11/16 [History] Iron Polysaccharide Complex [Pro Fe] 180 mg PO DAILY 11/11/16 [History] Lisinopril [Zestril] 40 mg PO DAILY tablet 11/24/16 [Rx] B Complex W-C No.20/Folic Acid [Virt-Caps Softgel] 1 mg PO DAILY 12/27/16 [ History] Calcium Acetate [Phos-LO] 667 mg PO TIDWM 12/27/16 [History] Ergocalciferol (VITAMIN D2) [Vitamin D2] 2,000 unit PO TUTHSA 12/27/16 [History] Insulin DETEMIR [Levemir] 15 unit SQ HS 12/27/16 [History] Lactobacillus Acidophilus [Acidophilus] 2 cap PO BID 12/27/16 [History] Nystatin Cream [Mycostatin Cream] 1 appl TP BID 12/27/16 [History] Cefepime HCl/Dextrose, Iso-Osm [Cefepime 2 gm Injection] 2 gm IV DAILY #10 froz.piggy 12/30/16 [Rx] Gentamicin in NaCl, Iso-Osm [Gentamicin 80 mg/Ns 100 ml Pb] 80 mg IV ORLIN #4 mls 12/30/16 [Rx] HYDROcodone/Acet 7.5/325 mg [[place] 7.5-325 mg] 1 tab PO Q6H PRN #10 tablet 12/30 [Rx] Ipratropium/Albuterol Neb [Duoneb] 3 ml IH [id number] PRN inhsol 12/30/16 [Rx] Lansoprazole [Prevacid] 30 mg PO BIDAC capsule. 12/30/16 [Rx] Allergies/Adverse Reactions: 3 Allergy/AdvReac Type Severity Reaction Status Date / Time Imzrwfw-Bec-Yfs Reductase Allergy See Verified 07/14/16 13:48 Inhibitor Comments [Statins] Sulfa (Sulfonamide Allergy swelling Verified 07/14/16 11:56 Antibiotics) - Respiratory Orders Smoking Cessation: Smoking cessation has been advised. For more information, call the [place] Tobacco Quit Line at 3-648-XWGP-NOW. - Mobility Orders Ambulate - Rehabiliation Orders Rehab Potential: Fair Rehab Orders: ROM Exercises, Evaluation for Physical Therapy, Evaluation for Occupational Therapy - Treatments Skin tear care topically daily PRN per policy, May check for fecal impaction rectally daily PRN, Fleet enema rectally every other day PRN cleansing purposes - Diet Orders Renal (Please have nephrology follow up on hepatitis B results which are positive) CERTIFICATION: I certify that the transfer of the above named patient to an Extended Care Facility is necessary for the continuing treatment of the diagnosis listed. The above information is true and accurate reflection of patient's current condition. Confidential - Redisclosure prohibited without a patient's written consent.
== END 2016-12-30 18:05 | DRG 698 ==
LOC: 2ANU 13:59 → EMEROO 13:59 → 2ANU 17:04
PROVIDERS: ADMIT Hospitalist; ATTEND Internal Medicine

== ENCOUNTER 2017-01-26 17:49 | Observation (INO) ==
--- NOTE | 2017-01-26 18:06 | Emergency Department Note ---
Disposition Clinical Impression: Weakness Disposition: Admitted As Inpatient Condition: Good Time of Disposition: 19:36 General Adult HPI - General Chief complaint: ED Weakness Stated complaint: weakness Time Seen by Provider: 01/26/17 17:52 Source: patient Limitations: no limitations Nursing Notes Reviewed: Yes Vital Signs Reviewed: Yes - History of Present Illness HPI Narrative: Mrs. Bernal, 72-year-old female presents from dialysis for evaluation. Patient states she just generally feels ill but is otherwise unable to specify for quantify her symptoms or concerns. Per documentation with the patient, dialysis staff noted patient to be slow to respond and unable to follow commands. PMH: End-stage kidney disease on dialysis M/W/F; fistula left upper extremity. Diabetes type 2 insulin-dependent. Diastolic congestive heart failure. COPD- not oxygen dependent. Hypertension, hyperlipidemia, hypothyroidism. Atrial fibrillation-not anticoagulated. Gag Writer: Dr. Maldonado ROS: Positive: General ill feeling Negative: Fever, chills, nausea, vomiting, chest pains, palpitations, abdominal pains, unusual weakness, numbness, tingling Pain Scale: 6 - Related Data Home Medications Medication Instructions Recorded Confirmed Insulin DETEMIR [Levemir] 30 unit SQ QAM 11/17/14 01/26/17 Loperamide HCl [Loperamide] 2 mg PO DAILY PRN 07/20/15 01/26/17 Ergocalciferol (VITAMIN D2) 50,000 unit PO MO 11/28/15 01/26/17 [Vitamin D2 (50,000 UNIT)] Paroxetine [Paxil] 20 mg PO DAILY 02/12/16 01/26/17 Clopidogrel [Plavix] 75 mg PO DAILY 04/03/16 01/26/17 Levothyroxine [Synthroid] 175 mcg PO QAM 04/03/16 01/26/17 Calcitriol [Rocaltrol] 0.25 mcg PO MOWEFR 11/11/16 01/26/17 Iron Polysaccharide Complex [Pro 180 mg PO DAILY 11/11/16 01/26/17 Fe] B Complex W-C No.20/Folic Acid 1 mg PO DAILY 12/27/16 01/26/17 [Virt-Caps Softgel] Calcium Acetate [Phos-LO] 667 mg PO TIDWM 12/27/16 01/26/17 Ergocalciferol (VITAMIN D2) 2,000 unit PO TUTHSA 12/27/16 01/26/17 [Vitamin D2] Insulin DETEMIR [Levemir] 15 unit SQ HS 12/27/16 01/26/17 Lactobacillus Acidophilus 2 cap PO BID 12/27/16 01/26/17 [Acidophilus] Nystatin Cream [Mycostatin Cream] 1 appl TP BID 12/27/16 01/26/17 Previous Rx's Medication Instructions Recorded Lisinopril [Zestril] 40 mg PO DAILY tablet 11/24/16 Cefepime HCl/Dextrose, Iso-Osm 2 gm IV DAILY #10 froz.piggy 12/30/16 [Cefepime 2 gm Injection] Gentamicin in NaCl, Iso-Osm 80 mg IV ORLIN #4 mls 12/30/16 [Gentamicin 80 mg/Ns 100 ml Pb] HYDROcodone/Acet 7.5/325 mg [[place] 1 tab PO Q6H PRN #10 tablet 12/30/16 7.5-325 mg] Ipratropium/Albuterol Neb [Duoneb] 3 ml IH [id number] PRN inhsol 12/30/16 Lansoprazole [Prevacid] 30 mg PO BIDAC capsule. 12/30/16 Allergies Allergy/AdvReac Type Severity Reaction Status Date / Time Ozsinxa-Elb-Gtz Reductase Allergy See Verified 07/14/16 13:48 Inhibitor Comments [Statins] Sulfa (Sulfonamide Allergy swelling Verified 07/14/16 11:56 Antibiotics) All systems ED: reviewed and negative except as stated. Review of Systems: As Per HPI Past Medical History - Past Medical History Medical history: Reports: atrial fibrillation, CHF, COPD, diabetes, GERD, hyperlipidemia, hypertension, kidney stones, renal disease, thyroid disease, syncope, other Surgical history: Reports: appendectomy, carotid endarterectomy, cholecystectomy , hysterectomy, knee replacement, ALEC/BSO, other Psychiatric history: Reports: depression - Social History Smoking Status: Current every day smoker Smokeless Tobacco Status: No Alcohol use: Reports: none Drug use: Reports: none Physical Exam Vital Signs Reviewed General: Patient is alert, oriented, and in no acute distress. HEENT: No facial asymmetry. Head is normocephalic and atraumatic. PERRLA, EOMI. oral mucosa moist. Trachea midline. Cardiovascular: Heart regular rate and rhythm without clicks, rubs, gallops, or murmurs. No JVD. PMI nondisplaced. Respiratory: Symmetric chest rise with good respiratory effort. Bilateral breath sounds are clear without wheezing, crackles, or rhonchi. Abdomen: Bowel sounds present normoactive x-4 quadrants. Abdomen is soft, nondistended, and nontender. Musculoskeletal: Muscle strength 4/5 and symmetric bilaterally in upper and lower extremities. Neuro: Cranial nerves II through XII without deficit. Sensation light touch intact. Psych: Patient's affect is appropriate for situation. - General Limitations: no limitations General appearance: alert, in no apparent distress Course Course Narrative: Patient presents with reports from dialysis of slow to respond and lack of following commands. On my evaluation, she is quick to respond and does follow commands. In general, she is blount-negative in her review of systems. Patient has no leukocytosis. Her anemia is baseline. Her Cr is slightly higher than normal however she is on dialysis. No electrolyte concerns. Patient's urine grossly appears like dirty milk. UA not overtly concerning for Assessment: Weakness, difficulty with ambulation, I discussed the patient with DR. Pabon who agrees to accept the patient for continued evaluation and management. Vital Signs Temperature 98.0 F 01/26/17 17:50 Pulse Rate 70 01/26/17 17:50 Respiratory Rate 18 01/26/17 17:50 Blood Pressure 140/60 01/26/17 17:50 O2 Sat by Pulse Oximetry 98 01/26/17 17:50 Temperature 97.4 F L 01/28/17 04:08 Pulse Rate 59 01/28/17 04:08 Respiratory Rate 14 01/28/17 04:08 Blood Pressure 100/62 01/28/17 04:08 O2 Sat by Pulse Oximetry 97 01/28/17 04:08 Oxygen Delivery Oxygen Delivery Room Air Medical Decision Making - Lab Data Result diagrams: 01/28/17 00:14 01/27/17 20:28 Lab Results 01/26/17 01/26/17 01/26/17 Range/Units 18:13 18:13 18:34 WBC 8.0 (4.3-11.1) K/mcL RBC 3.22 L (3.82-4.97) M/mcL Hgb 9.9 L (11.5-15.4) g/dL Hct 31.2 L (35.3-44.9) % MCV 96.9 (83.0-100.0) fL MCH 30.7 (28.0-33.3) pg MCHC 31.7 (31.6-35.5) g/dL RDW 18.1 H (11.5-14.5) % Plt Count 114 L (140-400) K/mcL MPV 9.4 (9.4-12.4) fL Immature Gran % 0.8 (0-4) % Seg Neutrophils % 72.7 % Lymphocytes % 20.9 % Monocytes % 3.1 % Eosinophils % 1.5 % Basophils % 1.0 % Neutrophils # 5.8 (1.6-8.9) K/mcL Lymphocytes # 1.7 (0.6-4.6) K/mcL Monocytes # 0.3 (0.0-1.3) K/mcL Eosinophils # 0.1 (0.0-0.6) K/mcL Basophils # 0.1 (0.0-0.2) K/mcL Sodium 139 (136-145) mEq/L Potassium 4.1 (3.5-4.5) mEq/L Chloride 106 (98-109) mEq/L Carbon Dioxide 24 (19-29) mEq/L BUN 35 H (7-20) mg/dL Creatinine 4.09 H (0.57-1.11) mg/dL Est GFR ( Amer) 13 L (> 60) Est GFR (Non-Af Amer) 11 L (> 60) BUN/Creatinine Ratio 9 (6-26) Glucose 141 H (70-99) mg/dL Calculated Osmolality 298 (280-300) Calcium 7.7 L (8.6-10.8) mg/dL Phosphorus 2.2 L (2.3-4.7) mg/dL Magnesium 1.8 (1.6-2.6) mg/dL Total Bilirubin 0.4 (0.2-1.2) mg/dL AST 15 (5-34) Units/L ALT < 6 (0-55) Units/L Alkaline Phosphatase 67 (38-126) Units/L Serum Total Protein 6.1 (6.0-8.3) g/dL Albumin 2.0 L (3.5-5.0) g/dL Globulin 4.1 H (2.4-3.5) g/dL Albumin/Globulin Ratio 0.5 L (1.1-2.2) Ur Specimen 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 YES A (NO) - EKG Data EKG #1 EKG attestation: Yes I reviewed and interpreted this EKG. EKG results narrative: EKG dated 02/11/1717: 58 TURP as sinus rhythm with a rate of 70. Normal intervals of care 171, QRS 81, QT/QTC 395/460. Normal axis. Specific ST-T changes. No previous EKG for comparison. Attestation Statement - Attestation Attestation: I, Alireza Garcia DO, examined this patient [id number] and my medical decision-making was reviewed with Dr. Phoenix Law, Resident Physician. I agree with the documented findings, disposition and treatment plan as described except to the extent set forth below. Please see my progress notes for details. 72-year-old female known dialysis patient presents to the emergency room complaining of generalized weakness. Denies any change in mentation, cardiac abnormality or chest pain. Denies shortness of breath fevers chills nausea vomiting or diarrhea. Denies any headache vision changes at this time. Her main complaint is weakness. The symptoms of been going on and off for last several weeks. She does describe inability to complete her activities of living at home. Physical exam is otherwise unremarkable. Head is atraumatic lungs are clear heart is regular abdomen is soft extremities appear to be appropriate with no signs of pitting edema cellulitis or irritation at this time. Patient does have difficulty with ambulation. Laboratory workup does not show an acute concerning findings considering her long-standing Mendy's related issues. Patient will be admitted for generalized weakness and therapy. Patient was discussed with the hospitalist in detail. See detailed documentation of physical exam, medical risk, medical decision-making and disposition and the resident physician's note
[2017-01-26 18:20] LABS: Basophils # 0.1 K/mcL (0.0-0.2); Eosinophils # 0.1 K/mcL (0.0-0.6); Eosinophils % 1.5 %; Hematocrit 31.2 % (35.3-44.9); Hemoglobin 9.9 g/dL (11.5-15.4); Immature Granulocytes % 0.8 % (0-4); Lymphocytes # 1.7 K/mcL (0.6-4.6); Lymphocytes % 20.9 %; Mean Corpuscular HGB Conc 31.7 g/dL (31.6-35.5); Mean Corpuscular Hemoglobin 30.7 pg (28.0-33.3); Mean Corpuscular Volume 96.9 fL (83.0-100.0); Mean Platelet Volume 9.4 fL (9.4-12.4); Monocytes # 0.3 K/mcL (0.0-1.3); Monocytes % 3.1 %; Neutrophils # 5.8 K/mcL (1.6-8.9); Platelet Count 114 K/mcL (140-400); Red Blood Count 3.22 M/mcL (3.82-4.97); Red Cell Distribution Width 18.1 % (11.5-14.5); Segmented Neutrophils % 72.7 %
[2017-01-26 18:33] LABS: Alkaline Phosphatase 67 Units/L (38-126); Aspartate Amino Transferase 15 Units/L (5-34); BUN/Creatinine Ratio 9 (6-26); Bilirubin,Total 0.4 mg/dL (0.2-1.2); Blood Urea Nitrogen 35 mg/dL (7-20); Calcium 7.7 mg/dL (8.6-10.8); Carbon Dioxide 24 mEq/L (19-29); Chloride 106 mEq/L (98-109); Glucose 141 mg/dL (70-99); Magnesium 1.8 mg/dL (1.6-2.6); Osmolality,Calculated 298 (280-300); Phosphorous 2.2 mg/dL (2.3-4.7); Potassium 4.1 mEq/L (3.5-4.5); Sodium 139 mEq/L (136-145); Total Protein 6.1 g/dL (6.0-8.3); eGFR For African Americans 13 (> 60); eGFR For Non-African Americans 11 (> 60)
[2017-01-26 18:34] LABS: Alanine Aminotransferase < 6 Units/L (0-55); Albumin/Globulin Ratio 0.5 (1.1-2.2); Globulin 4.1 g/dL (2.4-3.5)
[2017-01-26 18:46] LABS: Bilirubin,Urine Negative (Negative); Blood,Urine Large (Negative); Clarity,Urine Turbid (Clear); Color,Urine Yellow (Yellow); Glucose,Urine (UA) Normal (Normal); Ketones,Urine Negative (Negative); Leukocyte Esterase,Urine Large (Negative); Nitrite,Urine Negative (Negative); Protein,Urine >=300 mg/dL (Neg-Trace); Specific Gravity,Urine 1.017 (1.010-1.025); Urobilinogen,Urine Normal (Normal)
[2017-01-26] MEDS ORDERED: cefTRIAXone 1,000 MG in Water for inj. (sterile) 10 ML IVP ONE (21:07)
[2017-01-27] MEDS ORDERED: Cefepime HCl 1,000 MG in Water for inj. (sterile) 10 ML IVP ONE (00:01)
[2017-01-27] MEDS ORDERED: Ipratropium/Albuterol Neb 3 ML IH PRN (00:04)
[2017-01-27] MEDS: Cefepime HCl 500 MG in Water for inj. (sterile) 10 ML IVP SCH (01:09)
[2017-01-27 04:34] LABS: Basophils # 0.1 K/mcL (0.0-0.2); Eosinophils # 0.1 K/mcL (0.0-0.6); Eosinophils % 1.7 %; Hematocrit 30.4 % (35.3-44.9); Hemoglobin 9.5 g/dL (11.5-15.4); Immature Granulocytes % 1.2 % (0-4); Lymphocytes # 2.3 K/mcL (0.6-4.6); Mean Corpuscular HGB Conc 31.3 g/dL (31.6-35.5); Mean Corpuscular Hemoglobin 31.3 pg (28.0-33.3); Mean Platelet Volume 9.3 fL (9.4-12.4); Monocytes # 0.3 K/mcL (0.0-1.3); Neutrophils # 3.2 K/mcL (1.6-8.9); Platelet Count 120 K/mcL (140-400); Red Blood Count 3.04 M/mcL (3.82-4.97); Segmented Neutrophils % 53.1 %
[2017-01-27 04:56] LABS: Calcium 7.9 mg/dL (8.6-10.8); Magnesium 1.9 mg/dL (1.6-2.6); Potassium 4.5 mEq/L (3.5-4.5)
--- NOTE | 2017-01-27 06:31 | Internal Med History&Physical ---
Date of Encounter: 01/27/17 Time of Encounter: 06:23 Assessment and Plan (1) ESRD (end stage renal disease) on dialysis Current visit: Yes Status: Acute Nephrology consultation for dialysis in hospital. (2) UTI (urinary tract infection) Current visit: Yes Status: Acute According to prior culture will start the patient on cefepime. Check urine and blood culture Qualifiers: Qualified Code(s): N39.0 - Urinary tract infection, site not specified; R31.9 - Hematuria, unspecified; R31.9 - Hematuria, unspecified (3) Lethargy Current visit: Yes Status: Acute Due to UTI and generalized deconditioning. We will get physical therapy occupational therapy to see the patient Internal Medicine - H&P: HPI Chief complaint: weakness, confusion History of present illness: Ms. Bernal is a 72 year old female with end-stage renal disease on hemodialysis Thursday, presents to the emergency room today with a main component of weakness and confusion. Patient was on the past couple of days to be more lethargic than usual. She was able to ambulate with a walker but for the past few days she is unable to get out of bed without assistance. She was found that she was confused. Her appetite has decreased. She has prior history of recurrent urinary tract infection. ER physician documented that her urine looked very cloudy. She has multiple superficial sores stage 1-2 in the sacral area and foot without any drainage Past Med Surg Social Fam HX - Past Medical History Medical history: atrial fibrillation, CHF, COPD, diabetes, GERD, hyperlipidemia , hypertension, kidney stones, renal disease, thyroid disease, syncope, other Psychiatric history: depression - Past Surgical History Surgical History: appendectomy, carotid endarterectomy, cholecystectomy, hysterectomy, knee replacement, ALEC/BSO, other - Social History Smoking Status: Current every day smoker Smokeless Tobacco Status: No Alcohol use: none Drug use: none - Family History Father Family Member Ethnicity: Non- Living Status: Hx Family Cardiac Disorders: Yes Hx Family Respiratory Disorders: No Hx Family Cancer: No Hx Family GI Disorders: No Hx Family Endocrine Disorder: No Hx Family Neuromuscular Disorders: No Hx Family Neurologic Disorders: No Hx Family HEENT Disorders: No Hx Family Autoimmune Disorders: No Mother Living Status: Internal Medicine - H&P: Meds Insulin DETEMIR [Levemir] 30 unit SQ QAM 09/25/15 [History] Loperamide HCl [Loperamide] 2 mg PO DAILY PRN 07/20/15 [History] Ergocalciferol (VITAMIN D2) [Vitamin D2 (50,000 UNIT)] 50,000 unit PO MO [History] Paroxetine [Paxil] 20 mg PO DAILY 02/12/16 [History] Clopidogrel [Plavix] 75 mg PO DAILY 04/03/16 [History] Levothyroxine [Synthroid] 175 mcg PO QAM 04/03/16 [History] Calcitriol [Rocaltrol] 0.25 mcg PO MOWEFR 11/11/16 [History] Iron Polysaccharide Complex [Pro Fe] 180 mg PO DAILY 11/11/16 [History] Lisinopril [Zestril] 40 mg PO DAILY tablet 11/24/16 [Rx] B Complex W-C No.20/Folic Acid [Virt-Caps Softgel] 1 mg PO DAILY 12/27/16 [ History] Calcium Acetate [Phos-LO] 667 mg PO TIDWM 12/27/16 [History] Ergocalciferol (VITAMIN D2) [Vitamin D2] 2,000 unit PO TUTHSA 12/27/16 [History] Insulin DETEMIR [Levemir] 15 unit SQ HS 12/27/16 [History] Lactobacillus Acidophilus [Acidophilus] 2 cap PO BID 12/27/16 [History] Nystatin Cream [Mycostatin Cream] 1 appl TP BID 12/27/16 [History] Cefepime HCl/Dextrose, Iso-Osm [Cefepime 2 gm Injection] 2 gm IV DAILY #10 froz.piggy 12/30/16 [Rx] Gentamicin in NaCl, Iso-Osm [Gentamicin 80 mg/Ns 100 ml Pb] 80 mg IV ORLIN #4 mls 12/30/16 [Rx] HYDROcodone/Acet 7.5/325 mg [[place] 7.5-325 mg] 1 tab PO Q6H PRN #10 tablet 12/30 [Rx] Ipratropium/Albuterol Neb [Duoneb] 3 ml IH [id number] PRN inhsol 12/30/16 [Rx] Lansoprazole [Prevacid] 30 mg PO BIDAC capsule. 12/30/16 [Rx] 3 Allergy/AdvReac Type Severity Reaction Status Date / Time Oyxontz-Oli-Gkq Reductase Allergy See Verified 07/14/16 13:48 Inhibitor Comments [Statins] Sulfa (Sulfonamide Allergy swelling Verified 07/14/16 11:56 Antibiotics) All Systems PM: A 10-system review of systems was performed and is negative for pertinent findings except as documented above in the HPI. Review of systems: 10 point review of systems is negative except for HPI - Constitutional Vitals: Temp Pulse Resp BP Pulse Ox 98.8 F 79 14 188/71 95 01/27/17 03:38 01/27/17 03:38 01/27/17 03:38 01/27/17 03:38 01/27/17 03:38 Exam: Gen.: patient is alert oriented times 3 not in distress cardiac: normal S1 S2 no additional sounds are murmurs chest: clear to auscultation abdomen: soft nontender nondistended lower extremity lax calf muscles no swelling Neuro: no focal deficits Back: stage 2 sacral decub. Internal Med - H&P Results - Labs CBC & Chem 7: 01/27/17 04:00 01/27/17 04:00 Labs: Short CBC 01/27/17 Range/Units 04:00 WBC 6.0 (4.3-11.1) K/mcL Hgb 9.5 L (11.5-15.4) g/dL Hct 30.4 L (35.3-44.9) % Plt Count 120 L (140-400) K/mcL Neutrophils # 3.2 (1.6-8.9) K/mcL BMP 01/27/17 04:00 Sodium 140 Potassium 4.5 Chloride 106 Carbon Dioxide 24 BUN 39 H Creatinine 4.73 H Glucose 296 H Calcium 7.9 L
[2017-01-27] MEDS ORDERED: Dextrose Gel 15 GM PO PRN ×2 (08:25)
[2017-01-27] MEDS ORDERED: *HR* Dextrose 50 % in Water (Syg) 50 ML SYRINGE IVP PRN (08:25)
[2017-01-27] MEDS ORDERED: D5% in Water 1,000 ML IVC PRN (08:25)
[2017-01-27] MEDS: Insulin DETEMIR 100 UNIT/ML X5UNITS SQ SCH (09:09)
[2017-01-27] MEDS: Calcium Acetate 667 MG CAPSULE PO SCH ×3 (09:09→18:13)
[2017-01-27] MEDS: Renal Vitamin 1 MG CAPSULE PO SCH (09:09)
[2017-01-27] MEDS: Nystatin Cream 15 GM TUBE TP SCH ×2 (09:10→22:14)
[2017-01-27] MEDS: Insulin LISPRO 300 UNITS/3 ML VIAL SQ SCH ×4 (10:05→20:39)
--- NOTE | 2017-01-27 10:34 | Nephrology Consult Note ---
Date of Encounter: 01/27/17 Time of Encounter: 10:31 Assessment and Plan (1) ESRD (end stage renal disease) on dialysis Current Visit: Yes Status: Acute Plan for HD tomorrow Renal diet and fluid restriction-ordered Avoid nephrotoxins if possible Patient is grossly azr-kbsqtdild-jcrkcfscmv missing her HD treatments. She states she hates dialysis, hates sitting that long. (2) UTI (urinary tract infection) Current Visit: Yes Status: Acute per primary team Qualifiers: Urinary tract infection type: site unspecified Hematuria presence: with hematuria Qualified Code(s): N39.0 - Urinary tract infection, site not specified; R31.9 - Hematuria, unspecified; R31.9 - Hematuria, unspecified (3) Weakness Current Visit: Yes Status: Acute History of Present Illness - Reason for Consult Consult date: 01/27/17 - Chief Complaint Weakness, confusion, ESRD on dialysis - History of Present Illness Ms. Bernal is a 72 year old female well known to our practice with ESRD on hemodialysis Thursday, atrial fibrillation, CHF, COPD, diabetes, GERD, hyperlipidemia, hypertension, kidney stones, thyroid disease, syncope, and depression, presented to the emergency room c/o weakness and confusion. She has prior history of recurrent urinary tract infection. ER physician documented that her urine looked very cloudy. She has multiple superficial sores stage 1-2 in the sacral area and foot without any drainage. Patient received 90 minutes of dialysis yesterday. She is very non-compliant with her HD treatments and renal diet. Nephrology has been consulted to manage her HD while hospitalized. Past Med Surg Social Fam HX - Past Medical History Medical history: atrial fibrillation, CHF, COPD, diabetes, GERD, hyperlipidemia , hypertension, kidney stones, renal disease, thyroid disease, syncope, other Psychiatric history: depression - Past Surgical History Surgical History: appendectomy, carotid endarterectomy, cholecystectomy, hysterectomy, knee replacement, ALEC/BSO, other - Social History Smoking Status: Current every day smoker Smokeless Tobacco Status: No Alcohol use: none Drug use: none - Family History Father Family Member Ethnicity: Non- Living Status: Hx Family Cardiac Disorders: Yes Hx Family Respiratory Disorders: No Hx Family Cancer: No Hx Family GI Disorders: No Hx Family Endocrine Disorder: No Hx Family Neuromuscular Disorders: No Hx Family Neurologic Disorders: No Hx Family HEENT Disorders: No Hx Family Autoimmune Disorders: No Mother Living Status: Medications and Allergies Insulin DETEMIR [Levemir] 30 unit SQ QAM 11/17/14 [History] Loperamide HCl [Loperamide] 2 mg PO DAILY PRN 07/20/15 [History] Ergocalciferol (VITAMIN D2) [Vitamin D2 (50,000 UNIT)] 50,000 unit PO MO [History] Paroxetine [Paxil] 20 mg PO DAILY 02/12/16 [History] Clopidogrel [Plavix] 75 mg PO DAILY 04/03/16 [History] Levothyroxine [Synthroid] 175 mcg PO QAM 04/03/16 [History] Calcitriol [Rocaltrol] 0.25 mcg PO MOWEFR 11/11/16 [History] Iron Polysaccharide Complex [Pro Fe] 180 mg PO DAILY 11/11/16 [History] Lisinopril [Zestril] 40 mg PO DAILY tablet 11/24/16 [Rx] B Complex W-C No.20/Folic Acid [Virt-Caps Softgel] 1 mg PO DAILY 12/27/16 [ History] Calcium Acetate [Phos-LO] 667 mg PO TIDWM 12/27/16 [History] Ergocalciferol (VITAMIN D2) [Vitamin D2] 2,000 unit PO TUTHSA 12/27/16 [History] Insulin DETEMIR [Levemir] 15 unit SQ HS 12/27/16 [History] Lactobacillus Acidophilus [Acidophilus] 2 cap PO BID 12/27/16 [History] Nystatin Cream [Mycostatin Cream] 1 appl TP BID 12/27/16 [History] Cefepime HCl/Dextrose, Iso-Osm [Cefepime 2 gm Injection] 2 gm IV DAILY #10 froz.piggy 12/30/16 [Rx] Gentamicin in NaCl, Iso-Osm [Gentamicin 80 mg/Ns 100 ml Pb] 80 mg IV ORLIN #4 mls 12/30/16 [Rx] HYDROcodone/Acet 7.5/325 mg [[place] 7.5-325 mg] 1 tab PO Q6H PRN #10 tablet 12/30 [Rx] Ipratropium/Albuterol Neb [Duoneb] 3 ml IH [id number] PRN inhsol 12/30/16 [Rx] Lansoprazole [Prevacid] 30 mg PO BIDAC capsule. 12/30/16 [Rx] 3 Allergy/AdvReac Type Severity Reaction Status Date / Time Xsvwiej-Osi-Scl Reductase Allergy See Verified 07/14/16 13:48 Inhibitor Comments [Statins] Sulfa (Sulfonamide Allergy swelling Verified 07/14/16 11:56 Antibiotics) Review of Systems All Systems: reviewed and no additional remarkable complaints except as stated Constitutional: lethargy, malaise, weakness, no fever(s) Cardiovascular: no chest pain, no dyspnea Respiratory: no dyspnea Gastrointestinal: no nausea, no vomiting Neurological: behavioral changes, confusion Exam - Vital Signs Vital signs: Initial Vital Signs Temp Pulse Resp BP Pulse Ox 98.0 F 70 18 140/60 98 01/26/17 17:50 01/26/17 17:50 01/26/17 17:50 01/26/17 17:50 01/26/17 17:50 Vital Signs - Last 8 Hours Temp Pulse Resp BP Pulse Ox 01/27/17 06:33 98.0 F 78 16 198/74 96 01/27/17 03:38 98.8 F 79 14 188/71 95 Intake and Output 01/26/17 01/27/17 01/27/17 23:59 07:59 15:59 Intake Total Output Total 200 / 200 Balance -200 / -200 Intake: IV Fluids Maxipime 500 MG In Water for inj. (sterile) 10 ML @ 150 mls/ hr IVP Q24H [facility] Rx#:[id number] Rocephin 1,000 MG In Water for inj. (sterile) 10 ML @ 300 mls/ hr IVP ONCE ONE Rx#:[id number] Output: Straight Cath 200 / 200 Other: Stool Size Small Stool Consistency loose # Urine Diapers 1 1 1 # Bowel Movements 1 Weight 67.4 kg 67.404 kg Blood Glucose* 163 378 Patient Weight 01/27/17 23:59 Weight 67.404 kg - General Appearance General appearance: well-developed, well-nourished, obese EENT: ATNC, mucous membranes moist, hearing intact, vision intact Neck: supple Respiratory: clear Cardiology: no edema, normal S1, normal S2 Gastrointestinal: no tenderness, no guarding, obese Integumentary: warm and dry Neurologic: alert and oriented x3 Psychiatric: mood/affect appropriate, cooperative Results - Lab Results 01/27/17 04:00 01/27/17 04:00 Most recent lab results Calcium 7.9 mg/dL (8.6-10.8) L 01/27/17 04:00 Phosphorus 2.2 mg/dL (2.3-4.7) L 01/26/17 18:13 Magnesium 1.9 mg/dL (1.6-2.6) 01/27/17 04:00 Consult Discharge Plan - Plan Referrals: Moncho Arambula MD [Primary Care Provider] -
[2017-01-27 11:31] LABS: Hepatitis B Surface Antigen Nonreactive (Nonreactive)
--- NOTE | 2017-01-27 13:07 | Internal Med Progress Note ---
Date of Encounter: 01/27/17 Time of Encounter: 09:00 - Assessment and plan (1) UTI (urinary tract infection) Current Visit: Yes Status: Acute Assessment and plan: Urine turbid, large amount of blood, large amount leukocyte esterase. Culture is pending. Based on prior urine culture, cefepime has been started. Continue cefepime IV, make necessary adjustments as culture and sensitivity returned. Qualifiers: Urinary tract infection type: site unspecified Hematuria presence: with hematuria Qualified Code(s): N39.0 - Urinary tract infection, site not specified; R31.9 - Hematuria, unspecified; R31.9 - Hematuria, unspecified (2) Hypertension Current Visit: Yes Status: Chronic Assessment and plan: Patient is mildly hypertensive, continue home medications. Hydralazine 10 mg IV when necessary systolic blood pressure greater than 180 mmHg Qualifiers: Hypertension type: essential hypertension Qualified Code(s): I10 - Essential (primary) hypertension (3) ESRD (end stage renal disease) on dialysis Current Visit: Yes Status: Acute Assessment and plan: Patient has been seen and evaluated by nephrology, I appreciate the recommendations and consultation. Patient will have HD tomorrow. Renal diet and 1.5 L fluid restriction are ordered. Continue to avoid nephrotoxins. Per nephrology note, patient is noncompliant, frequently misses her dialysis. Patient states that she hates dialysis and does not want to sit that long. (4) DVT prophylaxis Current Visit: Yes Status: Acute Assessment and plan: Heparin subcutaneous daily. - Time Spent With Patient less than 15 minutes - Subjective Interval history: Patient was seen and assessed at 9 AM at bedside. She is alert, awake, pleasant. She denies pain she is alert and oriented, she does answer questions appropriately, however, she thought it was Thursday and it was nighttime. She was able to answer questions appropriately. She reports that she does some make some urine daily, a small amount. She had dialysis yesterday and does not remember if she was able to complete it or not. She denies headache, nausea vomiting or diarrhea, she denies abdominal pain or any urinary symptoms. She denies chest pain shortness of breath, fever or chills. - Constitutional Vitals: Temp Pulse Resp BP Pulse Ox 97.8 F 70 15 178/65 100 01/27/17 11:44 01/27/17 11:44 01/27/17 11:44 01/27/17 11:44 01/27/17 11:44 General appearance: Present: cooperative, pleasant, no acute distress, answers questions appropriately - Head Head exam: Present: atraumatic, normal inspection, normocephalic - Eye Eye exam: Present: normal appearance, conjuntiva pink, sclera anicteric - Neck Neck exam general surgery: Present: normal inspection, supple, trachea midline. Absent: lymphadenopathy - Respiratory Respiratory exam: Present: CTAB. Absent: accessory muscle use, rales, respiratory distress, rhonchi, wheezes - Cardiovascular Cardiovascular exam: Present: RRR, +S1, +S2. Absent: diastolic murmur, gallop, rubs, systolic murmur - GI/Abdominal GI/Abdominal exam: Present: normal bowel sounds, soft, no peritoneal signs. Absent: distended, hepatomegaly, tenderness - Extremities Exam Extremities exam: Present: normal capillary refill, normal inspection, warm, radial pulses palpable and symmetrical. Absent: calf tenderness, cyanotic, pedal edema, tenderness - Neurological Exam Neurological exam: Present: alert, oriented X3, no focal deficits. Absent: facial droop, speech deficit - Skin Skin exam: Present: dry, intact, normal color, warm. Absent: rash Internal Medicine: Result - Labs CBC & Chem 7: 01/27/17 04:00 01/27/17 04:00 Labs: Short CBC 01/27/17 Range/Units 04:00 WBC 6.0 (4.3-11.1) K/mcL Hgb 9.5 L (11.5-15.4) g/dL Hct 30.4 L (35.3-44.9) % Plt Count 120 L (140-400) K/mcL Neutrophils # 3.2 (1.6-8.9) K/mcL BMP 01/27/17 04:00 Sodium 140 Potassium 4.5 Chloride 106 Carbon Dioxide 24 BUN 39 H Creatinine 4.73 H Glucose 296 H Calcium 7.9 L Consult Discharge Plan - Plan Referrals: Moncho Arambula MD [Primary Care Provider] -
[2017-01-27] MEDS ORDERED: *HR* Dextrose 50 % in Water (Syg) 50 ML SYRINGE ONE (17:36)
[2017-01-27] MEDS ORDERED: *HR* Dextrose 50 % in Water (Syg) 50 ML SYRINGE IVP ONE (17:37)
[2017-01-27] MEDS: *HR* Heparin 5,000 UNIT/ML VIAL SQ SCH (18:13)
--- NOTE | 2017-01-27 19:08 | Event Note ---
Date of Encounter: 01/27/17 Time of Encounter: 17:00 At approximately 1700 I was called to the bedside to assess patient by primary nurse. Patient was awake, wide eyes, looking around the room. Unable to speak. She appeared to have left facial droop. Head CT was ordered immediately, bedside Accu-Chek was 35. Patient was given an amp of D50 and was taken to CT. Head CT was negative for any acute intracranial abnormality. Patient came around after the amp of D50. EKG was done stat at the bedside, normal sinus rhythm. Patient denied chest pain. Stat CBC chemistry as well as blood cultures were ordered at 1732, as of this time at 1707 and have not been collected yet. I just spoke with laboratory on their way to get the labs. Accu-Cheks have been ordered every 2 hours until morning.
[2017-01-27 20:53] LABS: Calcium 8.4 mg/dL (8.6-10.8); Potassium 4.4 mEq/L (3.5-4.5)
[2017-01-27] MEDS ORDERED: Insulin DETEMIR 100 UNIT/ML X5UNITS SQ SCH (21:00)
[2017-01-28] MEDS: Cefepime HCl 500 MG in Water for inj. (sterile) 10 ML IVP SCH (01:20)
[2017-01-28 01:25] LABS: Basophils # 0.1 K/mcL (0.0-0.2); Basophils % 0.7 %; Eosinophils % 0.3 %; Hematocrit 28.2 % (35.3-44.9); Immature Granulocytes % 1.5 % (0-4); Lymphocytes # 2.4 K/mcL (0.6-4.6); Lymphocytes % 25.6 %; Mean Corpuscular HGB Conc 31.9 g/dL (31.6-35.5); Mean Corpuscular Hemoglobin 31.1 pg (28.0-33.3); Mean Corpuscular Volume 97.6 fL (83.0-100.0); Mean Platelet Volume 9.7 fL (9.4-12.4); Monocytes # 0.4 K/mcL (0.0-1.3); Monocytes % 4.1 %; Neutrophils # 6.4 K/mcL (1.6-8.9); Platelet Count 129 K/mcL (140-400); Red Blood Count 2.89 M/mcL (3.82-4.97); Red Cell Distribution Width 17.9 % (11.5-14.5); Segmented Neutrophils % 67.8 %
[2017-01-28 01:26] LABS: INR 1.1; Prothrombin Time 11.3 Seconds (9.4-12.1)
[2017-01-28] MEDS ORDERED: 0.9 % Sodium Chloride 250 ML IVC PRN (04:33)
[2017-01-28] MEDS: *HR* Heparin 5,000 UNIT/ML VIAL SQ SCH ×2 (06:14→17:13)
[2017-01-28 06:36] LABS: Calcium 8.5 mg/dL (8.6-10.8); Potassium 4.4 mEq/L (3.5-4.5)
[2017-01-28] MEDS: Insulin LISPRO 300 UNITS/3 ML VIAL SQ SCH ×4 (07:21→19:56)
[2017-01-28] MEDS ORDERED: 0.9 % Sodium Chloride 1,000 ML ONE (08:34)
[2017-01-28] MEDS: Renal Vitamin 1 MG CAPSULE PO SCH (09:18)
[2017-01-28] MEDS: Calcium Acetate 667 MG CAPSULE PO SCH ×3 (09:18→17:13)
[2017-01-28] MEDS: Nystatin Cream 15 GM TUBE TP SCH ×2 (09:19→19:56)
--- NOTE | 2017-01-28 09:37 | Nephrology Progress Note ---
Date of Encounter: 01/28/17 Time of Encounter: 08:50 - Assessment and Plan (1) ESRD (end stage renal disease) on dialysis Status: Chronic HD today for clearance and volume/HTN. Given the extremely elevated BP this AM, so I've verbally ordered Hydralazine 10mg IV x1. (2) Hypertension Status: Chronic See above Qualifiers: Hypertension type: essential hypertension Qualified Code(s): I10 - Essential (primary) hypertension (3) Anemia in chronic renal disease Status: Chronic Goal Hgb is 10-11; may need MAULIK and/or IV iron during this admission: will monitor. Qualifiers: Chronic kidney disease stage: on chronic dialysis Qualified Code(s): N18.6 - End stage renal disease; D63.1 - Anemia in chronic kidney disease; Z99.2 - Dependence on renal dialysis (4) UTI (urinary tract infection) Status: Acute As per primary Qualifiers: Urinary tract infection type: site unspecified Hematuria presence: with hematuria Qualified Code(s): N39.0 - Urinary tract infection, site not specified; R31.9 - Hematuria, unspecified; R31.9 - Hematuria, unspecified Subjective Principal diagnosis: ESRD Interval history: Marline Bernal is a very pleasant 72 y/o WF who was seen/examined on her dialysis day during this hospitalization. She did not affirm N/V/D. She voiced that feels better overall. She affirmed that she has an appetite, and denied CP or ShOB. Objective - Vital Signs Vital signs: Vital Signs Temp Pulse Resp BP Pulse Ox 01/28/17 09:20 97 01/28/17 07:39 98.6 F 78 15 214/74 97 01/28/17 04:08 97.4 F L 59 14 100/62 97 01/27/17 23:37 97.5 F L 60 16 111/67 99 01/27/17 18:39 97.3 F L 99 16 190/77 98 01/27/17 18:06 72 195/86 100 01/27/17 17:45 220/65 01/27/17 15:30 98.5 F 74 17 198/69 98 01/27/17 11:44 97.8 F 70 15 178/65 100 Intake and Output 01/27/17 01/28/17 01/28/17 23:59 07:59 15:59 Intake Total 120 / 120 Balance 120 / 120 Intake: Oral 120 / 120 Other: Meal Breakfast Percent of Meal Consumed 70% Stool Size Smear Stool Color Brown # Voids 1 # Bowel Movements 1 Blood Glucose* 186 185 - General Appearance General appearance: Present: well-developed, appears started age, chronically ill EENT: Present: ATNC, PERRL, mucous membranes dry Neck: Present: supple Respiratory: Present: clear Cardiology: Present: no edema, regular rate, normal S1, normal S2 Dialysis Vascular Access: Arteriovenous Fistula Gastrointestinal: Present: normoactive bowel sounds, no tenderness, no guarding Integumentary: Present: warm and dry Neurologic: Present: no asterixis, alert and oriented x3 Musculoskeletal: Present: no deformities, no clubbing Psychiatric: Present: mood/affect appropriate, cooperative - Lab 01/29/17 03:19 01/29/17 03:19 Most recent lab results Calcium 8.5 mg/dL (8.6-10.8) L 01/28/17 05:47 Phosphorus 2.2 mg/dL (2.3-4.7) L 01/26/17 18:13 Magnesium 1.9 mg/dL (1.6-2.6) 01/27/17 04:00 Consult Discharge Plan - Plan Referrals: Moncho Arambula MD [Primary Care Provider] -
[2017-01-28] MEDS: Insulin DETEMIR 100 UNIT/ML X5UNITS SQ SCH (09:43)
[2017-01-28] MEDS ORDERED: Acetaminophen 325 MG TABLET PO ONE (11:07)
[2017-01-28 11:15] LABS: Hepatitis B Surface Antibody 0.32 mIU/mL
--- NOTE | 2017-01-28 15:43 | Internal Med Progress Note ---
Date of Encounter: 01/28/17 Time of Encounter: 15:20 - Assessment and plan (1) UTI (urinary tract infection) Current Visit: Yes Status: Acute Assessment and plan: Urine turbid, large amount of blood, large amount leukocyte esterase. Culture is pending. Based on prior urine culture, cefepime has been started. Urine culture resulted today shows there was grossly makes him unable to be interpreted properly. Repeat urine has been ordered. Continue cefepime IV Qualifiers: Urinary tract infection type: site unspecified Hematuria presence: with hematuria Qualified Code(s): N39.0 - Urinary tract infection, site not specified; R31.9 - Hematuria, unspecified; R31.9 - Hematuria, unspecified (2) Hypertension Current Visit: Yes Status: Chronic Assessment and plan: Patient's blood pressure is better controlled, continue home medications. Hydralazine 10 mg IV when necessary systolic blood pressure greater than 180 mmHg Qualifiers: Hypertension type: essential hypertension Qualified Code(s): I10 - Essential (primary) hypertension (3) ESRD (end stage renal disease) on dialysis Current Visit: Yes Status: Chronic Assessment and plan: Patient has been seen and evaluated by nephrology, I appreciate the recommendations and consultation. Patient had HD today. 1.5 L removed. A report from primary RN, she was unable to complete the last 30 minutes of treatment. Renal diet and 1.5 L fluid restriction are ordered. Continue to avoid nephrotoxins. Per nephrology note, patient is noncompliant, frequently misses her dialysis. Patient states that she hates dialysis and does not want to sit that long. (4) DVT prophylaxis Current Visit: Yes Status: Acute Assessment and plan: Heparin subcutaneous twice daily. - Subjective Interval history: Patient was seen and assessed at 1520 at bedside. She is alert, awake, pleasant. She denies pain she is alert and oriented, answers questions appropriately. Pt had dialysis today but had to stop 30min early due to pain in her low back and buttocks from sitting for so long. She denies chest pain shortness of breath, fever or chills. Pt really wants to go home and not back to [facility]. She states that she misses her . - Constitutional Vitals: Temp Pulse Resp BP Pulse Ox 98.0 F 68 17 147/62 99 01/28/17 13:06 01/28/17 13:06 01/28/17 13:06 01/28/17 13:06 01/28/17 13:06 General appearance: Present: cooperative, pleasant, no acute distress, answers questions appropriately - Head Head exam: Present: atraumatic, normal inspection, normocephalic - Eye Eye exam: Present: conjuntiva pink, sclera anicteric - Neck Neck exam general surgery: Present: supple, trachea midline. Absent: lymphadenopathy, tenderness - Respiratory Respiratory exam: Present: CTAB. Absent: accessory muscle use, chest wall tenderness, decreased breath sounds, rales, respiratory distress, rhonchi, wheezes - Cardiovascular Cardiovascular exam: Present: RRR, +S1, +S2. Absent: diastolic murmur, gallop, rubs, systolic murmur - GI/Abdominal GI/Abdominal exam: Present: distended, normal bowel sounds, soft. Absent: guarding, hernia, hepatomegaly, rebound, rigid, tenderness - Extremities Exam Extremities exam: Present: normal capillary refill, warm, radial pulses palpable and symmetrical. Absent: calf tenderness, cyanotic, pedal edema, tenderness - Neurological Exam Neurological exam: Present: alert, oriented X3, no focal deficits. Absent: facial droop, speech deficit - Skin Skin exam: Present: dry, intact, normal color, warm. Absent: rash Internal Medicine: Result - Labs CBC & Chem 7: 01/28/17 00:14 01/28/17 05:47 Labs: Short CBC 01/28/17 Range/Units 00:14 WBC 9.5 D (4.3-11.1) K/mcL Hgb 9.0 L (11.5-15.4) g/dL Hct 28.2 L (35.3-44.9) % Plt Count 129 L (140-400) K/mcL Neutrophils # 6.4 (1.6-8.9) K/mcL BMP 01/27/17 01/28/17 20:28 05:47 Sodium 140 143 Potassium 4.4 4.4 Chloride 108 111 H Carbon Dioxide 20 21 BUN 44 H 45 H Creatinine 5.19 H 5.35 H Glucose 179 H 93 Calcium 8.4 L 8.5 L - ABG Interpretation ABG results: PT/INR, D-dimer PT 11.3 Seconds (9.4-12.1) 01/28/17 00:14 - Impressions Impressions Head CT 01/27/17 17:30 IMPRESSION: No acute intracranial abnormality. D/ / Becky Nichols MD / Becky Nichols MD Interpreting Provider: Becky Nichols MD Consult Discharge Plan - Plan Referrals: Moncho Arambula MD [Primary Care Provider] -
--- NOTE | 2017-01-28 18:45 | Electrocardiograph Report ---
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
[2017-01-28] MEDS: *HR* HYDROcodone/Acet 7.5/325 mg TABLET PO PRN (22:45)
[2017-01-29] MEDS: Cefepime HCl 500 MG in Water for inj. (sterile) 10 ML IVP SCH (00:50)
[2017-01-29 04:36] LABS: Basophils # 0.1 K/mcL (0.0-0.2); Basophils % 1.4 %; Eosinophils # 0.2 K/mcL (0.0-0.6); Eosinophils % 2.3 %; Hematocrit 27.9 % (35.3-44.9); Hemoglobin 8.7 g/dL (11.5-15.4); Immature Granulocytes % 1.4 % (0-4); Lymphocytes # 2.9 K/mcL (0.6-4.6); Lymphocytes % 40.1 %; Mean Corpuscular HGB Conc 31.2 g/dL (31.6-35.5); Mean Corpuscular Volume 99.3 fL (83.0-100.0); Mean Platelet Volume 9.2 fL (9.4-12.4); Monocytes # 0.5 K/mcL (0.0-1.3); Monocytes % 6.2 %; Neutrophils # 3.5 K/mcL (1.6-8.9); Nucleated Red Blood Cells 0.3 /100 WBC (0); Platelet Count 118 K/mcL (140-400); Red Blood Count 2.81 M/mcL (3.82-4.97); Red Cell Distribution Width 17.8 % (11.5-14.5); Segmented Neutrophils % 48.6 %
[2017-01-29 04:49] LABS: Calcium 8.4 mg/dL (8.6-10.8); Potassium 4.4 mEq/L (3.5-4.5)
[2017-01-29] MEDS: *HR* Heparin 5,000 UNIT/ML VIAL SQ SCH ×2 (05:47→17:19)
[2017-01-29] MEDS: Renal Vitamin 1 MG CAPSULE PO SCH (08:16)
[2017-01-29] MEDS: Insulin LISPRO 300 UNITS/3 ML VIAL SQ SCH ×4 (08:16→21:08)
[2017-01-29] MEDS: Nystatin Cream 15 GM TUBE TP SCH ×2 (08:17→21:08)
[2017-01-29] MEDS: Calcium Acetate 667 MG CAPSULE PO SCH ×3 (08:18→17:20)
--- NOTE | 2017-01-29 09:24 | Nephrology Progress Note ---
Date of Encounter: 01/29/17 Time of Encounter: 09:21 - Assessment and Plan (1) ESRD (end stage renal disease) on dialysis Current Visit: Yes Status: Chronic Patient signed off HD treatment early yesterday Plan for HD tomorrow Continue renal diet and fluid restriction Avoid nephrotoxins if possible Patient is extremely non-compliant with her outpatient HD treatments often missing 2 of 3 treatments per week. (2) Anemia in chronic renal disease Current Visit: No Status: Chronic Hgb 8.7 Goal 10-11 Transfuse per parameters Qualifiers: Chronic kidney disease stage: on chronic dialysis Qualified Code(s): N18.6 - End stage renal disease; D63.1 - Anemia in chronic kidney disease; Z99.2 - Dependence on renal dialysis (3) Hypertension Current Visit: Yes Status: Chronic per primary team Qualifiers: Hypertension type: essential hypertension Qualified Code(s): I10 - Essential (primary) hypertension Subjective Principal diagnosis: ESRD on dialysis, anemia, HTN Interval history: Patient seen and examined. Was sleeping but wakes up easily for exam. Objective - Vital Signs Vital signs: Vital Signs Temp Pulse Resp BP Pulse Ox 01/29/17 07:36 98.4 F 62 15 201/75 92 01/29/17 04:13 180/81 01/29/17 02:56 98.2 F 70 15 185/80 97 01/29/17 00:01 98.6 F 75 15 157/69 97 01/28/17 19:18 98.4 F 70 16 176/68 99 01/28/17 13:06 98.0 F 68 17 147/62 99 01/28/17 12:30 97 F L 16 133/76 01/28/17 12:10 118/55 01/28/17 11:40 93/47 01/28/17 11:10 127/83 01/28/17 10:40 160/69 01/28/17 10:10 203/76 01/28/17 09:40 98 F 18 215/80 Intake and Output 01/28/17 01/29/17 01/29/17 23:59 07:59 15:59 Intake Total 220 / 220 Balance 220 / 220 Intake: IV Fluids 20 / 20 Maxipime 500 MG In Water for 20 / 20 inj. (sterile) 10 ML @ 150 mls/ hr IVP Q24H [facility] Rx#:[id number] Oral 200 / 200 Other: Stool Size Smear Stool Consistency soft formed Stool Characteristics Normal for Patient Stool Color Green # Urine Diapers 1 # Bowel Movements 1 Weight 67.495 kg Blood Glucose* 122 204 Patient Weight 01/29/17 23:59 Weight 67.495 kg - General Appearance General appearance: Present: obese EENT: Present: ATNC, mucous membranes moist, hearing intact, vision intact Neck: Present: supple Respiratory: Present: clear Cardiology: Present: no edema, normal S1, normal S2 Gastrointestinal: Present: no tenderness, no guarding, obese Integumentary: Present: warm and dry Neurologic: Present: alert and oriented x3 Psychiatric: Present: mood/affect appropriate, cooperative - Lab 01/29/17 03:19 01/29/17 03:19 Most recent lab results Calcium 8.4 mg/dL (8.6-10.8) L 01/29/17 03:19 Phosphorus 2.2 mg/dL (2.3-4.7) L 01/26/17 18:13 Magnesium 1.9 mg/dL (1.6-2.6) 01/27/17 04:00 Consult Discharge Plan - Plan Referrals: Moncho Arambula MD [Primary Care Provider] -
[2017-01-29] MEDS ORDERED: Ondansetron 4 MG/2 ML VIAL IVP PRN (09:42)
[2017-01-29] MEDS: *HR* HYDROcodone/Acet 7.5/325 mg TABLET PO PRN (12:43)
--- NOTE | 2017-01-29 12:54 | Discharge Summary ---
Date of Encounter: 01/29/17 Time of Encounter: 08:40 - Discharge Diagnosis (1) UTI (urinary tract infection) Priority: Primary Status: Acute Comments: Urine turbid, large amount of blood, large amount leukocyte esterase. Results repeated twice, last results today. Based on prior urine culture, cefepime has been started. Last culture grew Pseudomonas. Urine culture resulted initially shows there was grossly mixed, unable to be interpreted properly. Second, repeat culture has been triggered and is pending. I will send the patient back to the [facility] cefepime 500 mg IV every 24 hours for 6 days. When second culture results have returned and if cefepime is inappropriate, shelter will be notified. Results should be available . Continue cefepime IV. Qualifiers: Urinary tract infection type: site unspecified Hematuria presence: with hematuria Qualified Code(s): N39.0 - Urinary tract infection, site not specified; R31.9 - Hematuria, unspecified; R31.9 - Hematuria, unspecified (2) Hypertension Priority: Primary Status: Chronic Comments: Patient's blood pressure is better controlled, continue home medications. Qualifiers: Hypertension type: essential hypertension Qualified Code(s): I10 - Essential (primary) hypertension (3) ESRD (end stage renal disease) on dialysis Priority: Secondary Status: Chronic Comments: Patient has been seen and evaluated by nephrology, I appreciate the recommendations and consultation. Patient had HD yesterday, scheduled for tomorrow. 1.5 L removed. A report from primary RN, she was unable to complete the last 30 minutes of treatment due to pain in buttocks and low back. Renal diet and 1.5 L fluid restriction are ordered. Continue to avoid nephrotoxins. Per nephrology note, patient is noncompliant, frequently misses her dialysis. Patient states that she hates dialysis and does not want to sit that long. I spoke with nurse practitioner nephrology, they are agreeable with patient returning to [facility]. They continue to encourage patient attending dialysis. (4) DVT prophylaxis Priority: Secondary Status: Acute Comments: Heparin SQ - Discharge Medications Home Medications: Insulin DETEMIR [Levemir] 30 unit SQ QAM 11/17/14 [History] Loperamide HCl [Loperamide] 2 mg PO DAILY PRN 07/20/15 [History] Ergocalciferol (VITAMIN D2) [Vitamin D2 (50,000 UNIT)] 50,000 unit PO MO [History] Paroxetine [Paxil] 20 mg PO DAILY 02/12/16 [History] Clopidogrel [Plavix] 75 mg PO DAILY 04/03/16 [History] Levothyroxine [Synthroid] 175 mcg PO QAM 04/03/16 [History] Calcitriol [Rocaltrol] 0.25 mcg PO MOWEFR 11/11/16 [History] Iron Polysaccharide Complex [Pro Fe] 180 mg PO DAILY 11/11/16 [History] Lisinopril [Zestril] 40 mg PO DAILY tablet 11/24/16 [Rx] B Complex W-C No.20/Folic Acid [Virt-Caps Softgel] 1 mg PO DAILY 12/27/16 [ History] Calcium Acetate [Phos-LO] 667 mg PO TIDWM 12/27/16 [History] Ergocalciferol (VITAMIN D2) [Vitamin D2] 2,000 unit PO TUTHSA 12/27/16 [History] Insulin DETEMIR [Levemir] 15 unit SQ HS 12/27/16 [History] Lactobacillus Acidophilus [Acidophilus] 2 cap PO BID 12/27/16 [History] Nystatin Cream [Mycostatin Cream] 1 appl TP BID 12/27/16 [History] Gentamicin in NaCl, Iso-Osm [Gentamicin 80 mg/Ns 100 ml Pb] 80 mg IV ORLIN #4 mls 12/30/16 [Rx] HYDROcodone/Acet 7.5/325 mg [[place] 7.5-325 mg] 1 tab PO Q6H PRN #10 tablet 12/30 [Rx] Ipratropium/Albuterol Neb [Duoneb] 3 ml IH [id number] PRN inhsol 12/30/16 [Rx] Lansoprazole [Prevacid] 30 mg PO BIDAC capsule. 12/30/16 [Rx] Cefepime HCl/Dextrose, Iso-Osm [Cefepime 2 gm Injection] 500 mg IV DAILY #6 [id number].[email or web address] 01/29/17 [Rx] Allergies/Adverse Reactions: 3 Allergy/AdvReac Type Severity Reaction Status Date / Time Ptxwtco-Uws-Xhu Reductase Allergy See Verified 07/14/16 13:48 Inhibitor Comments [Statins] Sulfa (Sulfonamide Allergy swelling Verified 07/14/16 11:56 Antibiotics) Procedures/tests Complete & Pending: Procedures Performed prior 72 hours Category Date Time Status CT head/brain wo con [CT] Stat Cat Scan 01/27/17 17:30 Completed ECG 12 lead ECG [ECG] Routine Y 01/27/17 17:48 Completed Date of admission: 01/26/17 21:13 Primary care physician: Moncho Arambula MD Consults: 01/27/17 00:04 Consult to Nephrology [CONS] Routine Consulting Provider: Kidney Katerina/CLAUDIA/JAYSHREE/ALEX Reason for Consult: esrd on HD Call Completed: No 01/27/17 06:38 Consult to Physical Therapy [CONS] Routine Comment: Evaluate, develop and implement POC Reason for Consult: weakness OT [Consult to Occupational Therapy] [CONS] Routine Comment: Evaluate, develop and implement POC Reason for Consult: weakness 01/28/17 04:45 Consult to Dialysis [CONS] ONCE Discharging clinician: Gloria Rabago Anticipated date of discharge: 01/29/17 - Patient Status Disposition: Transfer SNF Condition: Fair Functional capacity at discharge: uses cane/walker Overall status at discharge: patient is progressing back to baseline - Discharge Instructions Follow Up With: Moncho Arambula MD [Primary Care Provider] - - Diet and Activity Activity: as per physical therapy Diet: diabetic diet, low fat, low cholesterol Hospital course: Ms. Bernal is a 72 year old female with past medical history of end-stage renal disease on dialysis, diabetes, chronic anemia, hypothyroidism, hyperlipidemia, hypertension. She presented to the emergency department from the [facility] with complaint of confusion and weakness. She was treated with IV cefepime based on results of prior culture. 2 urines have been collected, both show urinary tract infection, initial culture was unable to be resulted due to mixed nature of urine. A second culture remains unchanged. Patient has been followed by nephrology, she has been dialyzed once. She will return to the shelter tomorrow and receive IV cefepime and wait on culture results. Nursing will be notified by hospital staff if antibiotic needs to be changed. - Time Spent with Patient Total time spent providing and/or coordinating discharge services: Less than 30 minutes - Constitutional Vitals: Temp Pulse Resp BP Pulse Ox 98.2 F 62 14 145/63 96 01/29/17 11:30 01/29/17 11:30 01/29/17 11:30 01/29/17 11:30 01/29/17 11:30 General appearance: Present: cooperative, pleasant, no acute distress, answers questions appropriately - Head Head exam: Present: atraumatic, normal inspection, normocephalic - Eye Eye exam: Present: normal appearance, conjuntiva pink, sclera anicteric - Neck Neck exam general surgery: Present: normal inspection, supple, trachea midline. Absent: lymphadenopathy, tenderness - Respiratory Respiratory exam: Present: CTAB. Absent: accessory muscle use, chest wall tenderness, decreased breath sounds, rales, respiratory distress, rhonchi, wheezes - Cardiovascular Cardiovascular exam: Present: RRR, +S1, +S2. Absent: diastolic murmur, gallop, rubs, systolic murmur - GI/Abdominal GI/Abdominal exam: Present: distended, normal bowel sounds, soft, no peritoneal signs. Absent: firm, hepatomegaly, tenderness - Extremities Exam Extremities exam: Present: normal capillary refill, normal inspection, warm, radial pulses palpable and symmetrical. Absent: calf tenderness, cyanotic, pedal edema, tenderness - Neurological Exam Neurological exam: Present: alert, oriented X3, no focal deficits. Absent: facial droop, speech deficit - Skin Skin exam: Present: dry, intact, normal color, warm. Absent: rash
[2017-01-29 16:28] LABS: Bilirubin,Urine Negative (Negative); Blood,Urine Large (Negative); Clarity,Urine Turbid (Clear); Color,Urine Yellow (Yellow); Glucose,Urine (UA) 100 mg/dL (Normal); Ketones,Urine Negative (Negative); Leukocyte Esterase,Urine Large (Negative); Nitrite,Urine Negative (Negative); PH,Urine 6.5 pH Units (5.0-8.0); Protein,Urine >=300 mg/dL (Neg-Trace); Specific Gravity,Urine 1.015 (1.010-1.025); Urobilinogen,Urine Normal (Normal)
[2017-01-29 16:30] LABS: WBC,Urine TNTC per hpf (0-3)
[2017-01-29 16:56] LABS: RBC,Urine Present per hpf (0-3); Squamous Epithelial Cell,Urine Present per lpf (None-Few)
[2017-01-29 16:58] LABS: Bacteria,Urine Present per hpf (None-Few)
--- NOTE | 2017-01-29 18:16 | Electrocardiograph Report ---
[place] [id number] Test Date: 2017-01-27 Pat Name: Marline Bernal Department: 113 Room: 3B13 Gender: F [employer]: : [id number] Requested By: Myrna López Order Number: [id number] Reading MD: Robb Rodriguez DO Measurements Intervals Spencer Rate: 67 P: 83 VA: 173 QRS: 24 QRSD: 89 T: 77 QT: 441 QTc: 457 Interpretive Statements SINUS RHYTHM WITH OCCASIONAL SUPRAVENTRICULAR PREMATURE COMPLEXES NONSPECIFIC T-WAVE ABNORMALITY Electronically Signed On 01-29-2017 18:14:57 EST by Robb Rodriguez DO
[2017-01-30] MEDS: Cefepime HCl 500 MG in Water for inj. (sterile) 10 ML IVP SCH (01:08)
[2017-01-30] MEDS ORDERED: 0.9 % Sodium Chloride 250 ML IVC PRN (05:14)
[2017-01-30] MEDS: *HR* Heparin 5,000 UNIT/ML VIAL SQ SCH (05:34)
[2017-01-30] MEDS: Nystatin Cream 15 GM TUBE TP SCH (08:29)
[2017-01-30] MEDS: Insulin LISPRO 300 UNITS/3 ML VIAL SQ SCH ×2 (08:29→13:07)
[2017-01-30] MEDS: Renal Vitamin 1 MG CAPSULE PO SCH (08:30)
[2017-01-30] MEDS: Calcium Acetate 667 MG CAPSULE PO SCH ×2 (08:30→13:07)
[2017-01-30 10:48] VITALS: BP 145/63
--- NOTE | 2017-01-30 13:26 | Internal Med Progress Note ---
Date of Encounter: 01/30/17 Time of Encounter: 08:15 - Assessment and plan (1) UTI (urinary tract infection) Current Visit: Yes Status: Acute Assessment and plan: Initial Urine turbid, large amount of blood, large amount leukocyte esterase. Culture grossly mixed and unable to be interpreted. Second urine on 01/29 remains primarily unchanged. Urine is turbid with large amount of blood, large amount leukocyte esterase, too numerous to count microscopic white cells, culture is indicated and pending. Based on prior urine culture, cefepime has been started. We will notify detention of need for change of antibiotic after culture and sensitivity are returned. Continue cefepime IV Qualifiers: Urinary tract infection type: site unspecified Hematuria presence: with hematuria Qualified Code(s): N39.0 - Urinary tract infection, site not specified; R31.9 - Hematuria, unspecified; R31.9 - Hematuria, unspecified (2) Hypertension Current Visit: Yes Status: Chronic Assessment and plan: Patient's blood pressure is better controlled, continue home medications. Hydralazine 10 mg IV when necessary systolic blood pressure greater than 180 mmHg Qualifiers: Hypertension type: essential hypertension Qualified Code(s): I10 - Essential (primary) hypertension (3) ESRD (end stage renal disease) on dialysis Current Visit: Yes Status: Chronic Assessment and plan: Patient has been seen and evaluated by nephrology, I appreciate the recommendations and consultation. Patient had HD 2 days ago. 1.5 L removed. A report from primary RN, she was unable to complete the last 30 minutes of treatment. Renal diet and 1.5 L fluid restriction are ordered. Continue to avoid nephrotoxins. Per nephrology note, patient is noncompliant, frequently misses her dialysis. Patient states that she hates dialysis and does not want to sit that long. He was to have dialysis today. We arranged for her to have dialysis here prior to discharge. She has declined and wishes to go back to [facility]. Primary nurse to check with ECF. (4) DVT prophylaxis Current Visit: Yes Status: Acute Assessment and plan: Heparin subcutaneous twice daily. - Time Spent With Patient less than 15 minutes - Subjective Interval history: Patient was seen and assessed at 0815 at bedside. She is alert, awake, pleasant. She denies chest pain shortness of breath, fever or chills. Pt was to have dialysis prior to discharge today, but she declines and wants to go back to [facility]. She denies headache, vision changes, abdominal pain, nvd, or fever, chills. Pt states that she feels well and is ready to go home. - Constitutional Vitals: Temp Pulse Resp BP Pulse Ox 98.7 F 70 15 145/63 100 01/30/17 10:46 01/30/17 10:46 01/30/17 10:46 01/30/17 10:46 01/30/17 10:46 General appearance: Present: cooperative, pleasant, no acute distress, answers questions appropriately - Head Head exam: Present: atraumatic, normal inspection, normocephalic - Eye Eye exam: Present: normal appearance, conjuntiva pink, sclera anicteric - Neck Neck exam general surgery: Present: supple, trachea midline. Absent: lymphadenopathy - Respiratory Respiratory exam: Present: CTAB. Absent: accessory muscle use, chest wall tenderness, rales, respiratory distress, rhonchi, wheezes - Cardiovascular Cardiovascular exam: Present: RRR, +S1, +S2. Absent: diastolic murmur, gallop, rubs, systolic murmur - GI/Abdominal GI/Abdominal exam: Present: distended, normal bowel sounds, soft. Absent: hepatomegaly, tenderness - Extremities Exam Extremities exam: Present: warm, radial pulses palpable and symmetrical. Absent : calf tenderness, cyanotic, normal capillary refill, pedal edema, tenderness - Neurological Exam Neurological exam: Present: alert, oriented X3, no focal deficits. Absent: facial droop, speech deficit - Skin Skin exam: Present: dry, intact, normal color, warm. Absent: rash Internal Medicine: Result - Labs CBC & Chem 7: 01/29/17 03:19 01/29/17 03:19 Labs: Urine 01/29/17 Range/Units 14:45 Urine Color Yellow (Yellow) Urine Clarity Turbid A (Clear) Urine pH 6.5 (5.0-8.0) pH Units Ur Specific [place] 1.015 (1.010-1.025) Urine Protein >=300 H (Neg-Trace) mg/dL Urine Glucose (UA) 100 H (Normal) mg/dL - ABG Interpretation ABG results: PT/INR, D-dimer PT 11.3 Seconds (9.4-12.1) 01/28/17 00:14 Consult Discharge Plan - Plan Referrals: Moncho Arambula MD [Primary Care Provider] -
--- NOTE | 2017-01-30 15:25 | Nephrology Progress Note ---
Date of Encounter: 01/30/17 Time of Encounter: 13:45 - Assessment and Plan (1) ESRD (end stage renal disease) on dialysis Current Visit: Yes Status: Chronic Tried to encourage to go Orders for HD already placed with HD nurse Lytes stable Subjective Principal diagnosis: ESRD on dialysis, anemia, HTN Interval history: Interim events noted. Pt seen and examined appears very depressed and refusing HD today. Says will think about going later Objective - Vital Signs Vital signs: Vital Signs Temp Pulse Resp BP Pulse Ox 01/30/17 10:46 98.7 F 70 15 145/63 100 01/30/17 08:01 98.6 F 68 16 201/64 96 01/30/17 03:05 98.6 F 70 18 194/70 97 01/29/17 23:47 59 175/88 01/29/17 23:08 98.1 F 66 18 210/68 98 01/29/17 18:51 98.4 F 69 16 135/64 98 01/29/17 16:14 98.7 F 84 15 158/65 96 Intake and Output 01/29/17 01/30/17 01/30/17 23:59 07:59 15:59 Intake Total Balance Intake: IV Fluids Maxipime 500 MG In Water for inj. (sterile) 10 ML @ 150 mls/ hr IVP Q24H [facility] Rx#:[id number] Other: Stool Size Moderate Stool Consistency loose Stool Characteristics Mucoid Stool Color Brown Green # Urine Diapers 1 1 # Bowel Movements 1 Weight 66.7 kg Blood Glucose* 208 204 Patient Weight 01/30/17 23:59 Weight 66.7 kg - Lab 01/29/17 03:19 01/29/17 03:19 Most recent lab results Calcium 8.4 mg/dL (8.6-10.8) L 01/29/17 03:19 Phosphorus 2.2 mg/dL (2.3-4.7) L 01/26/17 18:13 Magnesium 1.9 mg/dL (1.6-2.6) 01/27/17 04:00 Consult Discharge Plan - Plan Referrals: Moncho Arambula MD [Primary Care Provider] -
--- NOTE | 2017-02-01 15:36 | Event Note ---
Date of Encounter: 02/01/17 Time of Encounter: 15:00 Pt's urine culture returned positive for VRE. Pt on Cefipime. I spoke with pt's nurse, Herminia, to let her know about the results. Faxed copy of results to her at [facility]. Copy of fax and confirmation given to RONY Love for him to file.
== END 2017-01-30 19:45 ==
LOC: EMEROO 17:49 → 3BNU 17:49
PROVIDERS: ADMIT Pediatrics; ATTEND Registered Nurse

== ENCOUNTER 2017-02-05 06:40 | Observation (INO) ==
--- NOTE | 2017-02-05 06:46 | Emergency Department Note ---
START Narrative - START START: Patient presents with concern for urinary tract infection. She is on dialysis. She now has abdominal pain, decreased urine output. She has also skipped her dialysis due to feeling under the water. Plan to obtain septic workup, advanced imaging to rule out acute obstructive pathology and additionally we will obtain laboratory analyses to diet for possible electrolyte derangements. Final disposition will be pending results of advanced imaging and laboratory analyses.
[2017-02-05] MEDS ORDERED: 0.9 % Sodium Chloride 250 ML IVC ONE (06:49)
[2017-02-05 07:11] LABS: Basophils # 0.1 K/mcL (0.0-0.2); Basophils % 0.6 %; Eosinophils # 0.1 K/mcL (0.0-0.6); Eosinophils % 0.9 %; Hematocrit 31.9 % (35.3-44.9); Immature Granulocytes % 0.6 % (0-4); Lymphocytes # 2.5 K/mcL (0.6-4.6); Lymphocytes % 17.9 %; Mean Corpuscular Hemoglobin 31.4 pg (28.0-33.3); Mean Corpuscular Volume 98.2 fL (83.0-100.0); Mean Platelet Volume 9.3 fL (9.4-12.4); Monocytes # 0.7 K/mcL (0.0-1.3); Neutrophils # 10.4 K/mcL (1.6-8.9); Platelet Count 150 K/mcL (140-400); Red Blood Count 3.25 M/mcL (3.82-4.97); Red Cell Distribution Width 17.8 % (11.5-14.5)
[2017-02-05 07:14] LABS: INR 1.1; Prothrombin Time 11.3 Seconds (9.4-12.1)
[2017-02-05 07:16] LABS: Activated Partial Thrombo Time 31.8 Seconds (26.0-36.0)
[2017-02-05 07:23] LABS: Albumin 2.1 g/dL (3.5-5.0); Albumin/Globulin Ratio 0.5 (1.1-2.2); Alkaline Phosphatase 69 Units/L (38-126); Aspartate Amino Transferase 16 Units/L (5-34); BUN/Creatinine Ratio 9 (6-26); Bilirubin,Direct 0.2 mg/dL (0.0-0.5); Bilirubin,Indirect 0.4 mg/dL (0.0-1.2); Bilirubin,Total 0.6 mg/dL (0.2-1.2); Blood Urea Nitrogen 63 mg/dL (7-20); Calcium 9.2 mg/dL (8.6-10.8); Carbon Dioxide 21 mEq/L (19-29); Chloride 108 mEq/L (98-109); Globulin 4.5 g/dL (2.4-3.5); Glucose 66 mg/dL (70-99); Osmolality,Calculated 304 (280-300); Phosphorous 3.8 mg/dL (2.3-4.7); Sodium 139 mEq/L (136-145); Total Protein 6.6 g/dL (6.0-8.3); eGFR For African Americans 7 (> 60); eGFR For Non-African Americans 6 (> 60)
[2017-02-05 07:25] LABS: Alanine Aminotransferase < 6 Units/L (0-55)
[2017-02-05 07:26] LABS: Hemoglobin 10.2 g/dL (11.5-15.4); Potassium 4.7 mEq/L (3.5-4.5)
[2017-02-05 07:28] LABS: Bilirubin,Urine Small (Negative); Blood,Urine Large (Negative); Clarity,Urine Cloudy (Clear); Color,Urine Yellow (Yellow); Glucose,Urine (UA) Normal (Normal); Ketones,Urine Negative (Negative); Leukocyte Esterase,Urine Large (Negative); Nitrite,Urine Negative (Negative); PH,Urine 6.5 pH Units (5.0-8.0); Protein,Urine >=300 mg/dL (Neg-Trace); Urobilinogen,Urine Normal (Normal)
[2017-02-05 07:30] LABS: WBC,Urine TNTC per hpf (0-3)
[2017-02-05 07:32] LABS: Bacteria,Urine Present per hpf (None-Few); Yeast,Urine Present per hpf (None Seen)
[2017-02-05 07:34] LABS: RBC,Urine Present per hpf (0-3)
--- NOTE | 2017-02-05 08:13 | Emergency Department Note ---
Disposition Clinical Impression: ESRD (end stage renal disease) on dialysis, Troponin I above reference range Altered mental status Qualifiers: Altered mental status type: unspecified Qualified Code(s): R41.82 - Altered mental status, unspecified UTI (urinary tract infection) Qualifiers: Urinary tract infection type: acute cystitis Hematuria presence: without hematuria Qualified Code(s): N30.00 - Acute cystitis without hematuria Disposition: Admitted As Inpatient Condition: Fair Time of Disposition: 08:35 General Adult HPI - General Chief complaint: ED Urogenital-Female Stated complaint: poss UTI Time Seen by Provider: 02/05/17 06:45 Source: patient, EMS Limitations: no limitations Nursing Notes Reviewed: Yes Vital Signs Reviewed: Yes - History of Present Illness HPI Narrative: Patient presents and she does have altered level of consciousness and is unaware why she is here except that she says she has a urinary tract infection. I did review the previous records as well as culture results and sensitivities and the patient did have a positive urine culture for vancomycin resistant enterococcus with limited susceptibilities just a few days ago. She had been admitted to the hospital on January 26. She denies any pain in the head, neck, chest, abdomen or back but findings and answers are somewhat unreliable secondary to her altered consciousness. She states she does have rhinorrhea, cough, sneezing, blurred vision but denies any fever. No blood in the urine or stool. She does make urine. Is unaware of her last dialysis. No pain or swelling or numbness of the extremities, no skin rash or bruising of the skin. Social history: She says she is a smoker Pain Scale: 0 - Related Data Home Medications Medication Instructions Recorded Confirmed Insulin DETEMIR [Levemir] 30 unit SQ QAM 11/17/14 02/05/17 Loperamide HCl [Loperamide] 2 mg PO DAILY PRN 07/20/15 02/05/17 Ergocalciferol (VITAMIN D2) 50,000 unit PO MO 11/28/15 02/05/17 [Vitamin D2 (50,000 UNIT)] Paroxetine [Paxil] 20 mg PO DAILY 02/12/16 02/05/17 Clopidogrel [Plavix] 75 mg PO DAILY 04/03/16 02/05/17 Levothyroxine [Synthroid] 175 mcg PO QAM 04/03/16 02/05/17 Calcitriol [Rocaltrol] 0.25 mcg PO MOWEFR 11/11/16 02/05/17 Iron Polysaccharide Complex [Pro 180 mg PO DAILY 11/11/16 02/05/17 Fe] B Complex W-C No.20/Folic Acid 1 mg PO DAILY 12/27/16 02/05/17 [Virt-Caps Softgel] Calcium Acetate [Phos-LO] 667 mg PO TIDWM 12/27/16 02/05/17 Ergocalciferol (VITAMIN D2) 2,000 unit PO TUTHSA 12/27/16 02/05/17 [Vitamin D2] Insulin DETEMIR [Levemir] 15 unit SQ HS 12/27/16 02/05/17 Lactobacillus Acidophilus 2 cap PO BID 12/27/16 02/05/17 [Acidophilus] Nystatin Cream [Mycostatin Cream] 1 appl TP BID 12/27/16 02/05/17 Omeprazole [PriLOSEC] 40 mg PO DAILY 02/05/17 02/05/17 Parenteral Amino Acid 20% No.1 2,000 ml IV 02/05/17 [Prosol] Previous Rx's Medication Instructions Recorded Lisinopril [Zestril] 40 mg PO DAILY tablet 11/24/16 Gentamicin in NaCl, Iso-Osm 80 mg IV ORLIN #4 mls 12/30/16 [Gentamicin 80 mg/Ns 100 ml Pb] HYDROcodone/Acet 7.5/325 mg [[place] 1 tab PO Q6H PRN #10 tablet 12/30/16 7.5-325 mg] Ipratropium/Albuterol Neb [Duoneb] 3 ml IH [id number] PRN inhsol 12/30/16 Cefepime HCl/Dextrose, Iso-Osm 500 mg IV DAILY #6 [id number] 01/29/17 [Cefepime 2 gm Injection] Allergies Allergy/AdvReac Type Severity Reaction Status Date / Time Jnaednm-[id number]-Vtw Reductase Allergy See Verified 07/14/16 13:48 Inhibitor Comments [Statins] Sulfa (Sulfonamide Allergy swelling Verified 07/14/16 11:56 Antibiotics) Review of Systems: As Per HPI Past Medical History - Past Medical History Medical history: Reports: atrial fibrillation, CHF, COPD, diabetes, GERD, hyperlipidemia, hypertension, kidney stones, renal disease, thyroid disease, syncope, other Surgical history: Reports: appendectomy, carotid endarterectomy, cholecystectomy , hysterectomy, knee replacement, ALEC/BSO, other Psychiatric history: Reports: depression - Social History Smoking Status: Current every day smoker Smokeless Tobacco Status: No Alcohol use: Reports: none Drug use: Reports: none Physical Exam CONSTITUTIONAL: Alert, she does know she is at the hospital but is unaware of the month or year, well-nourished, well appearing, in no apparent distress, breathing comfortably HEAD: Normocephalic; atraumatic. EYES: PERRL, no scleral icterus. NOSE: The nose is normal in appearance without rhinorrhea RESP: Normal chest excursion with respiration; breath sounds clear and equal bilaterally; no wheezes, rhonchi, or rales CARD: Regular rhythm, without murmurs, rub or gallop ABD: Non-distended; non-tender, soft,without rigidity, rebound or guarding SKIN: Normal for age and race; warm and dry; no apparent lesions : Does have discolored urine in the Bennett catheter tubing - General Limitations: no limitations General appearance: alert, in no apparent distress Course Vital Signs Temperature 98.6 F 02/05/17 06:41 Pulse Rate 65 02/05/17 06:41 Respiratory Rate 16 02/05/17 06:41 Blood Pressure 141/57 02/05/17 06:41 O2 Sat by Pulse Oximetry 98 02/05/17 06:41 Temperature 98.6 F 02/05/17 06:41 Pulse Rate 70 02/05/17 08:41 Respiratory Rate 16 02/05/17 08:41 Blood Pressure 188/72 02/05/17 08:41 O2 Sat by Pulse Oximetry 100 02/05/17 08:41 Oxygen Delivery Oxygen Delivery Room Air Medical Decision Making - MDM Narrative Medical decision making narrative: Patient's symptoms are concerning and she is confused and I did initiate IV management with linezolid, lactate level is pending, the patient's potassium level does not dictate emergent dialysis today, the patient will be admitted to the hospital. I did review the CT results showing some emphysematous cystitis and we will replace the Bennett catheter to ensure that it is draining, the patient will receive IV fluids. Her color is good, she is breathing comfortably 0814 The case was discussed with the hospitalist who accepts the patient for admission 0834 I did review the patient's EKG showing normal sinus rhythm rate of 77 and evidence of T-wave inversion laterally in leads 1 and aVL and I did compare this to a previous EKG from January 27 which did show some flattening in these leads so it is difficult to say whether the elevated troponin and the EKG changes are consistent with each other 0911 - Medical Records Medical records reviewed: Yes I reviewed the patient's medical records. - Lab Data Lab results reviewed: Yes I reviewed the patient's lab results. Result diagrams: 02/05/17 06:58 02/05/17 06:58 Lab Results 02/05/17 02/05/17 02/05/17 Range/Units 06:58 06:58 06:58 WBC 13.9 H D (4.3-11.1) K/mcL RBC 3.25 L (3.82-4.97) M/mcL Hgb 10.2 L D (11.5-15.4) g/dL Hct 31.9 L (35.3-44.9) % MCV 98.2 (83.0-100.0) fL MCH 31.4 (28.0-33.3) pg MCHC 32.0 (31.6-35.5) g/dL RDW 17.8 H (11.5-14.5) % Plt Count 150 (140-400) K/mcL MPV 9.3 L (9.4-12.4) fL Immature Gran % 0.6 (0-4) % Seg Neutrophils % 75.0 % Lymphocytes % 17.9 % Monocytes % 5.0 % Eosinophils % 0.9 % Basophils % 0.6 % Neutrophils # 10.4 H (1.6-8.9) K/mcL Lymphocytes # 2.5 (0.6-4.6) K/mcL Monocytes # 0.7 (0.0-1.3) K/mcL Eosinophils # 0.1 (0.0-0.6) K/mcL Basophils # 0.1 (0.0-0.2) K/mcL PT 11.3 (9.4-12.1) Seconds INR 1.1 APTT 31.8 (26.0-36.0) Seconds Sodium 139 (136-145) mEq/L Potassium 4.7 H (3.5-4.5) mEq/L Chloride 108 (98-109) mEq/L Carbon Dioxide 21 (19-29) mEq/L BUN 63 H (7-20) mg/dL Creatinine 7.10 H (0.57-1.11) mg/dL Est GFR ( Amer) 7 L (> 60) Est GFR (Non-Af Amer) 6 L (> 60) BUN/Creatinine Ratio 9 (6-26) Glucose 66 L (70-99) mg/dL Calculated Osmolality 304 H (280-300) Lactic Acid (0.5-2.2) mmol/L Calcium 9.2 (8.6-10.8) mg/dL Phosphorus 3.8 (2.3-4.7) mg/dL Magnesium 2.0 (1.6-2.6) mg/dL Total Bilirubin 0.6 (0.2-1.2) mg/dL Direct Bilirubin 0.2 (0.0-0.5) mg/dL Indirect Bilirubin 0.4 (0.0-1.2) mg/dL AST 16 (5-34) Units/L ALT < 6 (0-55) Units/L Alkaline Phosphatase 69 (38-126) Units/L Troponin I (0-0.03) ng/mL Serum Total Protein 6.6 (6.0-8.3) g/dL Albumin 2.1 L (3.5-5.0) g/dL Globulin 4.5 H (2.4-3.5) g/dL Albumin/Globulin Ratio 0.5 L (1.1-2.2) Ur Specimen Adequacy Urine Color (Yellow) Urine Clarity (Clear) Urine pH (5.0-8.0) pH Units Ur Specific [place] (1.010-1.025) Urine Protein (Neg-Trace) mg/dL Urine Glucose (UA) (Normal) mg/dL Urine Ketones (Negative) mg/dL Urine Blood (Negative) Urine Nitrite (Negative) Urine Bilirubin (Negative) Urine Urobilinogen (Normal) mg/dL Ur Leukocyte Esterase (Negative) Urine Microscopic RBC (0-3) per hpf Urine Microscopic WBC (0-3) per hpf Urine Bacteria (None-Few) per hpf Urine Yeast (None Seen) per hpf Ur Culture Indicated? (NO) 02/05/17 02/05/17 02/05/17 Range/Units 06:58 07:02 08:28 WBC (4.3-11.1) K/mcL RBC (3.82-4.97) M/mcL Hgb (11.5-15.4) g/dL Hct (35.3-44.9) % MCV (83.0-100.0) fL MCH (28.0-33.3) pg MCHC (31.6-35.5) g/dL RDW (11.5-14.5) % Plt Count (140-400) K/mcL MPV (9.4-12.4) fL Immature Gran % (0-4) % Seg Neutrophils % % Lymphocytes % % Monocytes % % Eosinophils % % Basophils % % Neutrophils # (1.6-8.9) K/mcL Lymphocytes # (0.6-4.6) K/mcL Monocytes # (0.0-1.3) K/mcL Eosinophils # (0.0-0.6) K/mcL Basophils # (0.0-0.2) K/mcL PT (9.4-12.1) Seconds INR APTT (26.0-36.0) Seconds Sodium (136-145) mEq/L Potassium (3.5-4.5) mEq/L Chloride (98-109) mEq/L Carbon Dioxide (19-29) mEq/L BUN (7-20) mg/dL Creatinine (0.57-1.11) mg/dL Est GFR ( Amer) (> 60) Est GFR (Non-Af Amer) (> 60) BUN/Creatinine Ratio (6-26) Glucose (70-99) mg/dL Calculated Osmolality (280-300) Lactic Acid 0.8 (0.5-2.2) mmol/L Calcium (8.6-10.8) mg/dL Phosphorus (2.3-4.7) mg/dL Magnesium (1.6-2.6) mg/dL Total Bilirubin (0.2-1.2) mg/dL Direct Bilirubin (0.0-0.5) mg/dL Indirect Bilirubin (0.0-1.2) mg/dL AST (5-34) Units/L ALT (0-55) Units/L Alkaline Phosphatase (38-126) Units/L Troponin I 0.05 H* (0-0.03) ng/mL Serum Total Protein (6.0-8.3) g/dL Albumin (3.5-5.0) g/dL Globulin (2.4-3.5) g/dL Albumin/Globulin Ratio (1.1-2.2) Ur Specimen Adequacy See below A Urine Color Yellow (Yellow) Urine Clarity Cloudy A (Clear) Urine pH 6.5 (5.0-8.0) pH Units Ur Specific [place] 1.020 (1.010-1.025) Urine Protein >=300 H (Neg-Trace) mg/dL Urine Glucose (UA) Normal (Normal) mg/dL Urine Ketones Negative (Negative) mg/dL Urine Blood Large H (Negative) Urine Nitrite Negative (Negative) Urine Bilirubin Small H (Negative) Urine Urobilinogen Normal (Normal) mg/dL Ur Leukocyte Esterase Large H (Negative) Urine Microscopic RBC Present (0-3) per hpf Urine Microscopic WBC TNTC H (0-3) per hpf Urine Bacteria Present (None-Few) per hpf Urine Yeast Present H (None Seen) per hpf Ur Culture Indicated? YES A (NO) Critical Care Time Critical Care Time: No
[2017-02-05] MEDS ORDERED: *HR* HYDROcodone/Acet 7.5/325 mg TABLET PO PRN (13:48)
[2017-02-05] MEDS ORDERED: Acetaminophen 325 MG TABLET PO PRN (15:40)
[2017-02-05] MEDS ORDERED: Naloxone 0.4 MG/ML INJ IVP PRN (15:40)
[2017-02-05] MEDS ORDERED: Ipratropium/Albuterol Neb 3 ML IH PRN (15:50)
--- NOTE | 2017-02-05 16:04 | Internal Med History&Physical ---
Date of Encounter: 02/05/17 Time of Encounter: 11:00 Assessment and Plan (1) UTI (urinary tract infection) Current visit: No Status: Resolved Qualifiers: Urinary tract infection type: acute cystitis Hematuria presence: with hematuria Qualified Code(s): N30.01 - Acute cystitis with hematuria (2) ESRD on hemodialysis Current visit: No Status: Chronic (3) Insulin dependent diabetes mellitus Current visit: No Status: Chronic (4) Hypertension Current visit: No Status: Chronic Qualifiers: Hypertension type: essential hypertension Qualified Code(s): I10 - Essential (primary) hypertension (5) Hypothyroidism Current visit: No Status: Chronic Qualifiers: Hypothyroidism type: unspecified Qualified Code(s): E03.9 - Hypothyroidism , unspecified (6) Hyperlipidemia Current visit: No Status: Chronic 72yo female who presents with suprapubic pain suspicious of unresolved UTI. She was recently discharged on Zyvox for VRE UTI. - Will resume Zyvox and monitor for improvement. She was meant to have a total of 14 days, today is 4th day. She has 10 more days left. Will await results of blood and urine cultures. - Continue HD as scheduled, consult nephrology to manage dialysis - DVT prophylaxis - Reviewed and started home meds as deemed appropriate. - DVT prophylaxis. Qualifiers: Hyperlipidemia type: mixed hyperlipidemia Qualified Code(s): E78.2 - Mixed hyperlipidemia Internal Medicine - H&P: HPI Chief complaint: pubic pain Admitted From: Home Plans for Post Hospital Care: Home History of present illness: Ms. Bernal is a 72 year old female with hx of VRE UTI, ESRD on HD. Pt was recently discharged for VRE UTI and placed on Zyvox, starting on 02/02/17 and was meant to take it for 14days. Pt returns today complaining of persistent suprapubic pain which was similar to the symptoms she had at the last admission. She denies fever, chills, chest pain, abdominal pain or shortness of breath. Past Med Surg Social Fam HX - Past Medical History Medical history: atrial fibrillation, CHF, COPD, diabetes, GERD, hyperlipidemia , hypertension, kidney stones, renal disease, thyroid disease, syncope, other Psychiatric history: depression - Past Surgical History Surgical History: appendectomy, carotid endarterectomy, cholecystectomy, hysterectomy, knee replacement, ALEC/BSO, other - Social History Smoking Status: Current every day smoker Smokeless Tobacco Status: No Alcohol use: none Drug use: none - Family History Father Family Member Ethnicity: Non- Living Status: Hx Family Cardiac Disorders: Yes Hx Family Respiratory Disorders: No Hx Family Cancer: No Hx Family GI Disorders: No Hx Family Endocrine Disorder: No Hx Family Neuromuscular Disorders: No Hx Family Neurologic Disorders: No Hx Family HEENT Disorders: No Hx Family Autoimmune Disorders: No Mother Living Status: Internal Medicine - H&P: Meds Loperamide HCl [Loperamide] 2 mg PO DAILY PRN 07/20/15 [History] Ergocalciferol (VITAMIN D2) [Vitamin D2 (50,000 UNIT)] 50,000 unit PO MO [History] Paroxetine [Paxil] 20 mg PO DAILY 02/12/16 [History] Clopidogrel [Plavix] 75 mg PO DAILY 04/03/16 [History] Levothyroxine [Synthroid] 175 mcg PO QAM 04/03/16 [History] Calcitriol [Rocaltrol] 0.25 mcg PO MOWEFR 11/11/16 [History] Iron Polysaccharide Complex [Pro Fe] 180 mg PO DAILY 11/11/16 [History] Lisinopril [Zestril] 40 mg PO DAILY tablet 11/24/16 [Rx] B Complex W-C No.20/Folic Acid [Virt-Caps Softgel] 1 mg PO DAILY 12/27/16 [ History] Calcium Acetate [Phos-LO] 667 mg PO TIDWM 12/27/16 [History] Ergocalciferol (VITAMIN D2) [Vitamin D2] 2,000 unit PO TUTHSA 12/27/16 [History] Lactobacillus Acidophilus [Acidophilus] 2 cap PO BID 12/27/16 [History] HYDROcodone/Acet 7.5/325 mg [[place] 7.5-325 mg] 1 tab PO Q6H PRN #10 tablet 12/30 [Rx] Ipratropium/Albuterol Neb [Duoneb] 3 ml IH [id number] PRN inhsol 12/30/16 [Rx] Linezolid [Zyvox] 600 mg PO BID 02/05/17 [History] Pantoprazole Sodium [Protonix] 40 mg PO DAILY 12/14/17 [History] 3 Allergy/AdvReac Type Severity Reaction Status Date / Time Dwxcbbz-Tmn-Tzr Reductase Allergy See Verified 07/14/16 13:48 Inhibitor Comments [Statins] Sulfa (Sulfonamide Allergy swelling Verified 07/14/16 11:56 Antibiotics) All Systems PM: A 10-system review of systems was performed and is negative for pertinent findings except as documented above in the HPI. - Constitutional Vitals: Temp Pulse Resp BP Pulse Ox 98.5 F 80 17 174/76 100 02/05/17 11:42 02/05/17 11:42 02/05/17 11:42 02/05/17 11:42 02/05/17 11:42 General appearance: Present: A&O X 3 - Head Head exam: Present: atraumatic, normocephalic - Eye Eye exam: Present: PERRL, conjuntiva pink, sclera anicteric Pupils: Present: PERRL - Neck Neck exam general surgery: Present: supple, trachea midline. Absent: lymphadenopathy - Respiratory Respiratory exam: Present: CTAB. Absent: accessory muscle use, rales, rhonchi, wheezes - Cardiovascular Cardiovascular exam: Present: RRR, +S1, +S2. Absent: diastolic murmur, gallop, rubs, systolic murmur - GI/Abdominal GI/Abdominal exam: Present: normal bowel sounds, soft, no peritoneal signs. Absent: distended, tenderness - Extremities Exam Extremities exam: Present: warm, radial pulses palpable and symmetrical. Absent : calf tenderness, cyanotic, pedal edema - Neurological Exam Neurological exam: Present: CN II-XII intact, oriented X3, no focal deficits. Absent: pronater drift, facial droop, speech deficit - Skin Skin exam: Present: dry, intact Internal Med - H&P Results - Labs CBC & Chem 7: 02/05/17 06:58 02/05/17 06:58
--- NOTE | 2017-02-05 16:28 | Electrocardiograph Report ---
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
[2017-02-05] MEDS: Calcium Acetate 667 MG CAPSULE PO SCH (17:40)
[2017-02-05] MEDS: Lactobacillus 1 EACH CAP.SPRINK PO SCH (19:39)
[2017-02-05] MEDS: *HR* HYDROcodone/Acet 7.5/325 mg TABLET PO PRN (19:40)
[2017-02-06 05:45] LABS: Basophils % 0.2 %; Hematocrit 31.4 % (35.3-44.9); Hemoglobin 9.9 g/dL (11.5-15.4); Immature Granulocytes % 0.5 % (0-4); Lymphocytes # 1.9 K/mcL (0.6-4.6); Lymphocytes % 8.7 %; Mean Corpuscular HGB Conc 31.5 g/dL (31.6-35.5); Mean Corpuscular Hemoglobin 31.3 pg (28.0-33.3); Mean Corpuscular Volume 99.4 fL (83.0-100.0); Mean Platelet Volume 9.5 fL (9.4-12.4); Monocytes # 0.6 K/mcL (0.0-1.3); Monocytes % 2.6 %; Neutrophils # 18.9 K/mcL (1.6-8.9); Platelet Count 120 K/mcL (140-400); Red Blood Count 3.16 M/mcL (3.82-4.97); Red Cell Distribution Width 18.1 % (11.5-14.5)
[2017-02-06 06:05] LABS: Calcium 8.7 mg/dL (8.6-10.8); Magnesium 1.9 mg/dL (1.6-2.6); Phosphorous 4.8 mg/dL (2.3-4.7)
[2017-02-06 06:06] LABS: Potassium 5.9 mEq/L (3.5-4.5)
[2017-02-06] MEDS ORDERED: 0.9 % Sodium Chloride 250 ML IVC PRN (07:48)
[2017-02-06] MEDS ORDERED: *HR* Dextrose 50 % in Water (Syg) 50 ML SYRINGE IVP PRN (08:44)
[2017-02-06] MEDS ORDERED: Dextrose Gel 15 GM/37.5 ML TUBE PO PRN ×2 (08:44)
[2017-02-06] MEDS ORDERED: D5% in Water 1,000 ML IVC PRN (08:44)
[2017-02-06] MEDS ORDERED: 0.9 % Sodium Chloride 1,000 ML ONE (09:01)
[2017-02-06] MEDS: Calcium Acetate 667 MG CAPSULE PO SCH ×3 (10:05→18:23)
--- NOTE | 2017-02-06 10:14 | Nephrology Consult Note ---
Date of Encounter: 02/06/17 Time of Encounter: 09:00 Assessment and Plan (1) ESRD (end stage renal disease) on dialysis Current Visit: Yes Status: Chronic HD today for clearance and fluid removal via the RUE AVF which appears to be working well based upon exam. I logged into my mobile [facility] vish and see that she has not dialyzed there since discharge from the last hospitalization. She has a long hx of non-compliance. Hyperkalemia: recommend a low K+ diet when ever the diet can safely be given. She appeared confused this AM so she may not have intact Swallow function (as per primary). HD has been ordered for clearance of the hyperkalemia today. Thank you for consulting the [facility]. Will assess for extra HD tomorrow (Thursday). (2) Left upper extremity swelling Current Visit: Yes Status: Acute Consider further work up such as doppler. This limb does not have an active AVF though if I recall correctly she did have a previous left wrist AVF attempt that never had matured. As per primary (3) Altered mental status Current Visit: Yes Status: Acute Could be uremia vs metabolic encephalopathy from infection. I'll plan for HD today. Consider Head CT if not already ordered. Qualifiers: Altered mental status type: unspecified Qualified Code(s): R41.82 - Altered mental status, unspecified (4) UTI (urinary tract infection) Current Visit: Yes Status: Acute Agree with primary and Abs Qualifiers: Urinary tract infection type: acute cystitis Hematuria presence: without hematuria Qualified Code(s): N30.00 - Acute cystitis without hematuria (5) Anemia in chronic renal disease Current Visit: No Status: Chronic Qualifiers: Chronic kidney disease stage: on chronic dialysis Qualified Code(s): N18.6 - End stage renal disease; D63.1 - Anemia in chronic kidney disease; Z99.2 - Dependence on renal dialysis (6) Hypertension Current Visit: No Status: Chronic Qualifiers: Hypertension type: essential hypertension Qualified Code(s): I10 - Essential (primary) hypertension History of Present Illness - Reason for Consult Consult date: 02/06/17 end stage renal disease, hyperkalemia Requesting physician: Milton Albrecht - Chief Complaint ESRD, Missed HD, Hyperkalemia - History of Present Illness Marline Bernal is a very pleasant 72 y/o WF with a pmh of ESRD on HD M/W/F, longstanding DM, HTN and et al who presented with confusion and concern for worsening of her UTI. She has frequent hospitalizations and actually also is known to call off HD early. I reviewed [facility] notes and see that she has not had any outpatient HD since she last was discharged from here at [facility]. She was somnolent and no able to provide any history, thus limiting this HPI. Past Med Surg Social Fam HX - Past Medical History Medical history: atrial fibrillation, CHF, COPD, diabetes, GERD, hyperlipidemia , hypertension, kidney stones, renal disease, thyroid disease, syncope, other Psychiatric history: depression - Past Surgical History Surgical History: appendectomy, carotid endarterectomy, cholecystectomy, hysterectomy, knee replacement, ALEC/BSO, other - Social History Smoking Status: Current every day smoker Smokeless Tobacco Status: No Alcohol use: none Drug use: none - Family History Father Family Member Ethnicity: Non- Living Status: Hx Family Cardiac Disorders: Yes Hx Family Respiratory Disorders: No Hx Family Cancer: No Hx Family GI Disorders: No Hx Family Endocrine Disorder: No Hx Family Neuromuscular Disorders: No Hx Family Neurologic Disorders: No Hx Family HEENT Disorders: No Hx Family Autoimmune Disorders: No Mother Living Status: Medications and Allergies Loperamide HCl [Loperamide] 2 mg PO DAILY PRN 07/20/15 [History] Ergocalciferol (VITAMIN D2) [Vitamin D2 (50,000 UNIT)] 50,000 unit PO MO [History] Paroxetine [Paxil] 20 mg PO DAILY 02/12/16 [History] Clopidogrel [Plavix] 75 mg PO DAILY 04/03/16 [History] Levothyroxine [Synthroid] 175 mcg PO QAM 04/03/16 [History] Calcitriol [Rocaltrol] 0.25 mcg PO MOWEFR 11/11/16 [History] Iron Polysaccharide Complex [Pro Fe] 180 mg PO DAILY 11/11/16 [History] Lisinopril [Zestril] 40 mg PO DAILY tablet 11/24/16 [Rx] B Complex W-C No.20/Folic Acid [Virt-Caps Softgel] 1 mg PO DAILY 12/27/16 [ History] Calcium Acetate [Phos-LO] 667 mg PO TIDWM 12/27/16 [History] Ergocalciferol (VITAMIN D2) [Vitamin D2] 2,000 unit PO TUTHSA 12/27/16 [History] Lactobacillus Acidophilus [Acidophilus] 2 cap PO BID 12/27/16 [History] HYDROcodone/Acet 7.5/325 mg [[place] 7.5-325 mg] 1 tab PO Q6H PRN #10 tablet 12/30 [Rx] Ipratropium/Albuterol Neb [Duoneb] 3 ml IH [id number] PRN inhsol 12/30/16 [Rx] Linezolid [Zyvox] 600 mg PO BID 02/05/17 [History] Pantoprazole Sodium [Protonix] 40 mg PO DAILY 02/05/17 [History] 3 Allergy/AdvReac Type Severity Reaction Status Date / Time Ecykoxh-Wtw-Xsk Reductase Allergy See Verified 07/14/16 13:48 Inhibitor Comments [Statins] Sulfa (Sulfonamide Allergy swelling Verified 07/14/16 11:56 Antibiotics) Review of Systems ROS unobtainable: due to mental status Exam - Vital Signs Vital signs: Initial Vital Signs Temp Pulse Resp BP Pulse Ox 98.6 F 65 16 141/57 98 02/05/17 06:41 02/05/17 06:41 02/05/17 06:41 02/05/17 06:41 02/05/17 06:41 Vital Signs - Last 8 Hours Temp Pulse Resp BP Pulse Ox 02/06/17 09:12 94 02/06/17 07:58 99.1 F 76 17 129/64 94 02/06/17 04:22 99.1 F 78 17 111/69 92 Intake and Output 02/05/17 02/06/17 02/06/17 23:59 07:59 15:59 Intake Total 360 / 360 Output Total 0 / 0 Balance 360 / 360 0 / 0 Intake: IV Fluids 300 / 300 Zyvox Premix 600mg/300mL 600 mg 300 / 300 In 300 ml @ 150 mls/hr IVPB Q12HR DEMAR Rx#:[id number] Oral 60 / 60 Output: Urine 0 / 0 Other: Stool Size Moderate Stool Consistency soft Stool Color Brown # Urine Diapers 1 # Bowel Movement Diapers 1 Weight 71.838 kg Blood Glucose* 105 Patient Weight 02/06/17 23:59 Weight 71.838 kg - General Appearance General appearance: well-developed, appears started age, chronically ill, fatigue, frail EENT: ATNC, mucous membranes dry Neck: supple Respiratory: clear Cardiology: edema (LUE tense Edema from hand to shoulder), regular rate, regular rhythm, normal S1, normal S2 - Dialysis Access Dialysis Vascular Access: Arteriovenous Fistula (RUE AVF had a normal thrill/ bruit and no edema noted in the RUE.) thrill: Yes bruit: Yes Gastrointestinal: normoactive bowel sounds, no tenderness, no guarding, obese Integumentary: no rash, warm and dry Neurologic: no asterixis, confused, disoriented Musculoskeletal: no deformities, no erythema, no cyanosis Psychiatric: depressed (or somnolent. Not able to provide a coherent conversation) Results - Lab Results 02/08/17 07:47 02/08/17 07:47 Most recent lab results Calcium 8.7 mg/dL (8.6-10.8) 02/06/17 05:21 Phosphorus 4.8 mg/dL (2.3-4.7) H 02/06/17 05:21 Magnesium 1.9 mg/dL (1.6-2.6) 02/06/17 05:21 I reviewed the inpt notes, labs, meds, vitals, imaging. I also reviewed the outpt [facility] notes via the [employer] vish. Consult Discharge Plan - Plan Referrals: Moncho Arambula MD [Primary Care Provider] - (call this number for an appt. [phone])
[2017-02-06] MEDS: Insulin LISPRO 300 UNITS/3 ML VIAL SQ SCH ×3 (15:41→21:32)
[2017-02-06] MEDS: Lactobacillus 1 EACH CAP.SPRINK PO SCH ×2 (15:41→21:27)
[2017-02-06] MEDS: Renal Vitamin 1 MG CAPSULE PO SCH (15:42)
[2017-02-06] MEDS: Cholecalciferol (D-3) 1,000 UNIT TABLET PO SCH (15:42)
[2017-02-06] MEDS: Lisinopril 20 MG TABLET PO SCH (15:42)
--- NOTE | 2017-02-06 16:46 | Internal Med Progress Note ---
Date of Encounter: 02/06/17 Time of Encounter: 15:00 - Assessment and plan (1) UTI (urinary tract infection) Current Visit: No Status: Resolved Qualifiers: Urinary tract infection type: acute cystitis Hematuria presence: with hematuria Qualified Code(s): N30.01 - Acute cystitis with hematuria (2) ESRD on hemodialysis Current Visit: No Status: Chronic (3) Insulin dependent diabetes mellitus Current Visit: No Status: Chronic (4) Hypertension Current Visit: No Status: Chronic Qualifiers: Hypertension type: essential hypertension Qualified Code(s): I10 - Essential (primary) hypertension (5) Hypothyroidism Current Visit: No Status: Chronic Qualifiers: Hypothyroidism type: unspecified Qualified Code(s): E03.9 - Hypothyroidism , unspecified (6) Hyperlipidemia Current Visit: No Status: Chronic Assessment and plan: Worsening leukcytosis today, Urine culture only growing yeast species. Will start Diflucan. Will also add flagyl and Vanc emperically and continue Zosyn. If WBC worsens despite broadening abx, consider ID consultation. continue ESRD with HD, nephrology following. continue Acucheck with insulin coverage. continue Synthroid, plavix. Continue BP meds Qualifiers: Hyperlipidemia type: mixed hyperlipidemia Qualified Code(s): E78.2 - Mixed hyperlipidemia - Subjective Interval history: pt reports mild improvement in generalized weakness and fatigue. - Constitutional Vitals: Temp Pulse Resp BP Pulse Ox 98.7 F 84 17 122/66 91 02/06/17 16:32 02/06/17 16:32 02/06/17 16:32 02/06/17 16:32 02/06/17 16:32 General appearance: Present: A&O X 3 - Head Head exam: Present: atraumatic, normocephalic - Eye Eye exam: Present: PERRL, conjuntiva pink, sclera anicteric Pupils: Present: PERRL - Neck Neck exam general surgery: Present: supple, trachea midline. Absent: lymphadenopathy - Respiratory Respiratory exam: Present: CTAB. Absent: accessory muscle use, rales, rhonchi, wheezes - Cardiovascular Cardiovascular exam: Present: RRR, +S1, +S2. Absent: diastolic murmur, gallop, rubs, systolic murmur - GI/Abdominal GI/Abdominal exam: Present: normal bowel sounds, soft, no peritoneal signs. Absent: distended, tenderness - Extremities Exam Extremities exam: Present: warm, radial pulses palpable and symmetrical. Absent : calf tenderness, cyanotic, pedal edema - Neurological Exam Neurological exam: Present: CN II-XII intact, oriented X3, no focal deficits. Absent: pronater drift, facial droop, speech deficit - Skin Skin exam: Present: dry, intact Internal Medicine: Result - Labs CBC & Chem 7: 02/06/17 05:21 02/06/17 05:21 Labs: Short CBC 02/06/17 Range/Units 05:21 WBC 21.5 H D (4.3-11.1) K/mcL Hgb 9.9 L (11.5-15.4) g/dL Hct 31.4 L (35.3-44.9) % Plt Count 120 L (140-400) K/mcL Neutrophils # 18.9 H (1.6-8.9) K/mcL BMP 02/06/17 05:21 Sodium 134 L Potassium 5.9 H D Chloride 106 Carbon Dioxide 17 L BUN 69 H Creatinine 7.96 H Glucose 241 H Calcium 8.7 Cardiac Enzymes 02/05/17 02/05/17 Range/Units 16:22 22:39 Troponin I 0.04 H* 0.05 H* (0-0.03) ng/mL - ABG Interpretation ABG results: PT/INR, D-dimer PT 11.3 Seconds (9.4-12.1) 02/05/17 06:58 Consult Discharge Plan - Plan Referrals: Moncho Arambula MD [Primary Care Provider] -
[2017-02-06] MEDS: Iron Polysaccharide Complex 150 MG CAPSULE PO SCH (17:03)
[2017-02-06] MEDS ORDERED: Fluconazole 200 MG/100 ML 200 MG/100 ML BAG IVPB SCH (17:30)
[2017-02-07] MEDS: *HR* HYDROcodone/Acet 7.5/325 mg TABLET PO PRN (02:25)
[2017-02-07 05:18] LABS: Basophils % 0.3 %; Eosinophils # 0.1 K/mcL (0.0-0.6); Eosinophils % 0.5 %; Hematocrit 24.9 % (35.3-44.9); Immature Granulocytes % 0.6 % (0-4); Lymphocytes # 2.8 K/mcL (0.6-4.6); Lymphocytes % 21.2 %; Mean Corpuscular HGB Conc 31.7 g/dL (31.6-35.5); Mean Corpuscular Hemoglobin 31.2 pg (28.0-33.3); Mean Corpuscular Volume 98.4 fL (83.0-100.0); Mean Platelet Volume 9.9 fL (9.4-12.4); Monocytes # 0.6 K/mcL (0.0-1.3); Monocytes % 4.7 %; Neutrophils # 9.7 K/mcL (1.6-8.9); Platelet Count 104 K/mcL (140-400); Red Blood Count 2.53 M/mcL (3.82-4.97); Segmented Neutrophils % 72.7 %
[2017-02-07 05:19] LABS: Hemoglobin 7.9 g/dL (11.5-15.4)
[2017-02-07 05:28] LABS: Calcium 8.1 mg/dL (8.6-10.8)
[2017-02-07 05:33] LABS: Potassium 3.8 mEq/L (3.5-4.5)
--- NOTE | 2017-02-07 08:33 | Internal Med Progress Note ---
<Pako Ng - Last Filed: 02/07/17 08:55> Date of Encounter: 02/07/17 Time of Encounter: 08:30 - Assessment and plan (1) UTI (urinary tract infection) Current Visit: No Status: Resolved Assessment and plan: Presented with abdominal pain, suprapubic tenderness and decreased urinary output. UA was suggestive of UTI. CT SCAN: Dilation of the urinary bladder containing bubbles of air. There is associated Bennett catheter. Air within the urinary bladder is suspicious for emphysematous cystitis which appears to be improved since the previous exam. Urinalysis is suggested. New [id number] bilateral hydronephrosis. Urine CX on 02/05/17 grew yeast species. White count has improved from yesterday; from 21.5 to 13.3 ABX: -Fluconazole 200 mg IV QPM -Meropenem 1000 mg IV Q8 -Linezolid 600mg IV Q12 Qualifiers: Urinary tract infection type: acute cystitis Hematuria presence: with hematuria Qualified Code(s): N30.01 - Acute cystitis with hematuria (2) ESRD (end stage renal disease) on dialysis Current Visit: Yes Status: Chronic Assessment and plan: HD yesterday; nephrology on board. (3) Anemia in chronic renal disease Current Visit: No Status: Chronic Assessment and plan: Hb this morning was 7.9. Continue to monitor. Qualifiers: Chronic kidney disease stage: on chronic dialysis Qualified Code(s): N18.6 - End stage renal disease; D63.1 - Anemia in chronic kidney disease; Z99.2 - Dependence on renal dialysis (4) Hypertension Current Visit: No Status: Chronic Assessment and plan: Currently well controlled; BP this morning was 127/62. Qualifiers: Hypertension type: essential hypertension Qualified Code(s): I10 - Essential (primary) hypertension - Subjective Interval history: Patient seen and examined at bedside this morning. Patient reports feeling reasonably well; still has some suprapubic pain. No further complaints at this time. - Constitutional Vitals: Temp Pulse Resp BP Pulse Ox 98.8 F 73 16 127/62 94 02/07/17 03:45 02/07/17 03:45 02/07/17 03:45 02/07/17 03:45 02/07/17 03:45 General appearance: Present: A&O X 3 - Head Head exam: Present: atraumatic, normocephalic - Eye Eye exam: Present: PERRL, conjuntiva pink, sclera anicteric Pupils: Present: PERRL - Neck Neck exam general surgery: Present: supple, trachea midline. Absent: lymphadenopathy - Respiratory Respiratory exam: Present: CTAB. Absent: accessory muscle use, rales, rhonchi, wheezes - Cardiovascular Cardiovascular exam: Present: RRR, +S1, +S2. Absent: diastolic murmur, gallop, rubs, systolic murmur - GI/Abdominal GI/Abdominal exam: Present: normal bowel sounds, soft, no peritoneal signs. Absent: distended, tenderness - Extremities Exam Extremities exam: Present: warm, radial pulses palpable and symmetrical. Absent : calf tenderness, cyanotic, pedal edema - Skin Skin exam: Present: dry, intact Internal Medicine: Result - Labs CBC & Chem 7: 02/07/17 04:44 02/07/17 04:44 Labs: Short CBC 02/07/17 Range/Units 04:44 WBC 13.3 H (4.3-11.1) K/mcL Hgb 7.9 L D (11.5-15.4) g/dL Hct 24.9 L (35.3-44.9) % Plt Count 104 L (140-400) K/mcL Neutrophils # 9.7 H (1.6-8.9) K/mcL BMP 02/07/17 04:44 Sodium 138 Potassium 3.8 D Chloride 100 Carbon Dioxide 30 H BUN 26 H D Creatinine 3.93 H D Glucose 143 H Calcium 8.1 L - ABG Interpretation ABG results: PT/INR, D-dimer PT 11.3 Seconds (9.4-12.1) 02/05/17 06:58 Consult Discharge Plan - Plan Referrals: Moncho Arambula MD [Primary Care Provider] - (call this number for an appt. [phone]) <Russell Pace H - Last Filed: 02/07/17 15:29> Date of Encounter: 02/07/17 - Constitutional Vitals: Temp Pulse Resp BP Pulse Ox 99.4 F 73 18 139/64 96 02/07/17 11:22 02/07/17 11:22 02/07/17 11:22 02/07/17 11:22 02/07/17 11:22 Internal Medicine: Result - Labs CBC & Chem 7: 02/07/17 04:44 02/07/17 04:44 Labs: Short CBC 02/07/17 Range/Units 04:44 WBC 13.3 H (4.3-11.1) K/mcL Hgb 7.9 L D (11.5-15.4) g/dL Hct 24.9 L (35.3-44.9) % Plt Count 104 L (140-400) K/mcL Neutrophils # 9.7 H (1.6-8.9) K/mcL BMP 02/07/17 04:44 Sodium 138 Potassium 3.8 D Chloride 100 Carbon Dioxide 30 H BUN 26 H D Creatinine 3.93 H D Glucose 143 H Calcium 8.1 L - ABG Interpretation ABG results: PT/INR, D-dimer PT 11.3 Seconds (9.4-12.1) 02/05/17 06:58 - Attending Attestation Complicated UTI with VRE cultured on January 29 sensitive to Zyvox (day 6) scheduled to complete 2 weeks Also growing yeasts, improving on Diflucan day 2 , decreased dose in half due to peritoneal dialysis Discontinue meropenem, change Bennett catheter I examined this patient and my medical decision-making was reviewed with the Resident Physician. I agree with the documented findings, disposition and treatment plan as described except to the extent set forth below.
[2017-02-07] MEDS: Calcium Acetate 667 MG CAPSULE PO SCH ×3 (11:08→17:52)
[2017-02-07] MEDS: Iron Polysaccharide Complex 150 MG CAPSULE PO SCH (11:13)
[2017-02-07] MEDS: Renal Vitamin 1 MG CAPSULE PO SCH (11:14)
[2017-02-07] MEDS: Lisinopril 20 MG TABLET PO SCH (11:14)
[2017-02-07] MEDS: Insulin LISPRO 300 UNITS/3 ML VIAL SQ SCH ×4 (11:17→20:05)
[2017-02-07] MEDS: Lactobacillus 1 EACH CAP.SPRINK PO SCH ×2 (11:17→21:52)
--- NOTE | 2017-02-07 13:03 | Nephrology Progress Note ---
Date of Encounter: 02/07/17 Time of Encounter: 11:00 - Assessment and Plan (1) ESRD (end stage renal disease) on dialysis Current Visit: Yes Status: Chronic Next HD will be planned for Thursday. Will be available tomorrow if needed. Thank you. (2) Left upper extremity swelling Current Visit: Yes Status: Acute Discussed with primary team. (3) Altered mental status Current Visit: Yes Status: Acute Seems to be improved with HD and Abx. Qualifiers: Altered mental status type: unspecified Qualified Code(s): R41.82 - Altered mental status, unspecified (4) UTI (urinary tract infection) Current Visit: Yes Status: Acute Appreciate the hospitalist. Qualifiers: Urinary tract infection type: acute cystitis Hematuria presence: without hematuria Qualified Code(s): N30.00 - Acute cystitis without hematuria (5) Anemia in chronic renal disease Current Visit: No Status: Chronic Goal Hgb is 10-11 and will monitor. Qualifiers: Chronic kidney disease stage: on chronic dialysis Qualified Code(s): N18.6 - End stage renal disease; D63.1 - Anemia in chronic kidney disease; Z99.2 - Dependence on renal dialysis (6) Hypertension Current Visit: No Status: Chronic Will utilize UF to help with volume status and HTN. Please hold antihypertensive meds on the mornings of HD (M/W/). Qualifiers: Hypertension type: essential hypertension Qualified Code(s): I10 - Essential (primary) hypertension Subjective Principal diagnosis: ESRD Interval history: Pt was s/e. She did not affirm N/V/D or uremic symptoms. Feeling more awake, she said. No new major complaints. Objective - Vital Signs Vital signs: Vital Signs Temp Pulse Resp BP Pulse Ox 02/07/17 11:22 99.4 F 73 18 139/64 96 02/07/17 03:45 98.8 F 73 16 127/62 94 02/06/17 23:15 99.0 F 74 16 109/60 96 02/06/17 19:21 98.7 F 79 16 136/69 98 02/06/17 16:32 98.7 F 84 17 122/66 91 02/06/17 14:00 99.5 F 18 116/54 02/06/17 13:50 107/49 02/06/17 13:35 100/50 02/06/17 13:20 96/50 02/06/17 13:05 101/48 Intake and Output 02/06/17 02/07/17 02/07/17 23:59 07:59 15:59 Intake Total 300 / 300 Output Total 175 / 175 Balance 300 / 300 -175 / -175 Intake: IV Fluids 300 / 300 Zyvox Premix 600mg/300mL 600 mg 300 / 300 In 300 ml @ 150 mls/hr IVPB Q12HR DEMAR Rx#:[id number] Output: Catheter 175 / 175 Other: Weight 72.847 kg Blood Glucose* 324 177 174 Patient Weight 02/07/17 23:59 Weight 72.847 kg - General Appearance Exam: General appearance: well-developed, appears started age, chronically ill, fatigue, frail EENT: ATNC, mucous membranes dry Neck: supple Respiratory: clear Cardiology: edema (LUE tense Edema from hand to shoulder), regular rate, regular rhythm, normal S1, normal S2 - Dialysis Access Dialysis Vascular Access: Arteriovenous Fistula (RUE AVF had a normal thrill/ bruit and no edema noted in the RUE.) thrill: Yes bruit: Yes Gastrointestinal: normoactive bowel sounds, no tenderness, no guarding, obese Integumentary: no rash, warm and dry Neurologic: no asterixis, she was alert and oriented to person, place and time. Musculoskeletal: no deformities, no erythema, no cyanosis Psychiatric: cooperative and normal mood. - Lab 02/08/17 07:47 02/08/17 07:47 Most recent lab results Calcium 8.1 mg/dL (8.6-10.8) L 02/07/17 04:44 Phosphorus 4.8 mg/dL (2.3-4.7) H 02/06/17 05:21 Magnesium 1.9 mg/dL (1.6-2.6) 02/06/17 05:21 Consult Discharge Plan - Plan Referrals: Moncho Arambula MD [Primary Care Provider] - (call this number for an appt. )
[2017-02-07] MEDS ORDERED: Meropenem 1,000 MG in Water for inj. (sterile) 10 ML IVP SCH (17:00)
[2017-02-07] MEDS: Fluconazole 100 MG/50 ML 100 MG/50 ML BAG IVPB SCH (17:38)
[2017-02-08] MEDS: *HR* HYDROcodone/Acet 7.5/325 mg TABLET PO PRN ×2 (01:31→22:06)
[2017-02-08 08:06] LABS: Hemoglobin 8.1 g/dL (11.5-15.4); Mean Platelet Volume 9.9 fL (9.4-12.4)
[2017-02-08 08:08] LABS: Hematocrit 25.2 % (35.3-44.9); Immature Platelets 2.7 % (1.1-6.1); Mean Corpuscular HGB Conc 32.1 g/dL (31.6-35.5); Mean Corpuscular Hemoglobin 31.4 pg (28.0-33.3); Mean Corpuscular Volume 97.7 fL (83.0-100.0); Nucleated Red Blood Cells 0.2 /100 WBC (0); Platelet Count 102 K/mcL (140-400); Red Blood Count 2.58 M/mcL (3.82-4.97); Red Cell Distribution Width 17.2 % (11.5-14.5)
[2017-02-08 08:21] LABS: Potassium 4.8 mEq/L (3.5-4.5)
[2017-02-08] MEDS: Renal Vitamin 1 MG CAPSULE PO SCH (08:29)
[2017-02-08] MEDS: Iron Polysaccharide Complex 150 MG CAPSULE PO SCH (08:29)
[2017-02-08] MEDS: Cholecalciferol (D-3) 1,000 UNIT TABLET PO SCH (08:29)
[2017-02-08] MEDS: Insulin LISPRO 300 UNITS/3 ML VIAL SQ SCH ×4 (08:30→22:06)
[2017-02-08] MEDS: Lactobacillus 1 EACH CAP.SPRINK PO SCH ×2 (08:30→22:06)
[2017-02-08] MEDS: Lisinopril 20 MG TABLET PO SCH (08:30)
[2017-02-08] MEDS: Calcium Acetate 667 MG CAPSULE PO SCH ×3 (08:30→17:42)
[2017-02-08 08:36] LABS: Monocytes # 0.7 K/mcL (0.0-1.3); Neutrophils # 9.7 K/mcL (1.6-8.9); Reactive Lymphocytes Present (Not Present)
[2017-02-08 08:37] LABS: Anisocytosis 1+ (Not Present); Platelet Estimate Decreased (Normal)
[2017-02-08] MEDS: Fluconazole 100 MG/50 ML 100 MG/50 ML BAG IVPB SCH (08:42)
--- NOTE | 2017-02-08 11:04 | Internal Med Progress Note ---
Date of Encounter: 02/08/17 Time of Encounter: 11:00 - Assessment and plan (1) UTI (urinary tract infection) Current Visit: Yes Status: Acute Assessment and plan: Current Visit: No Status: Active Assessment and plan: Complicated UTI with VRE cultured on January [address] SCAN: Dilation of the urinary bladder containing bubbles of air. There is associated Bennett catheter. Air within the urinary bladder is suspicious for emphysematous cystitis which appears to be improved since the previous exam. New blgfkggy-tt-[id number] bilateral hydronephrosis. Urine CX on 02/05/17 grew Dianne White count has improved from yesterday; from 21.5 to 13.3 -Fluconazole day 3 -Resume Meropenem (was discontinued after the first day and the patient got worse) -Linezolid day 6 to receive a total of 2 weeks Qualifiers: Urinary tract infection type: acute cystitis Hematuria presence: with hematuria Qualified Code(s): N30.01 - Acute cystitis with hematuria (2) ESRD (end stage renal disease) on dialysis Current Visit: Yes Status: Chronic Assessment and plan: Continue hemodialysis; nephrology on board. (3) Anemia in chronic renal disease Current Visit: No Status: Chronic Assessment and plan: Hb this morning was 8.1. Continue to monitor. Qualifiers: Chronic kidney disease stage: on chronic dialysis Qualified Code(s): N18.6 - End stage renal disease; D63.1 - Anemia in chronic kidney disease; Z99.2 - Dependence on renal dialysis (4) Hypertension Current Visit: No Status: Chronic Assessment and plan: Currently well controlled Qualifiers: Urinary tract infection type: acute cystitis Hematuria presence: without hematuria Qualified Code(s): N30.00 - Acute cystitis without hematuria - Subjective Interval history: Complain of abdominal pain, had a fever 100 this morning, feels nauseous, very weak, denies any chest pressures of breath - Constitutional Vitals: Temp Pulse Resp BP Pulse Ox 100.0 F H 73 16 145/68 96 02/08/17 06:59 02/08/17 06:59 02/08/17 06:59 02/08/17 06:59 02/08/17 08:49 General appearance: Present: A&O X 3 Exam: Generalized weakness - Head Head exam: Present: atraumatic, normocephalic - Eye Eye exam: Present: PERRL, conjuntiva pink, sclera anicteric Pupils: Present: PERRL - Neck Neck exam general surgery: Present: supple, trachea midline. Absent: lymphadenopathy - Respiratory Respiratory exam: Present: decreased breath sounds, CTAB. Absent: accessory muscle use, rales, rhonchi, wheezes - Cardiovascular Cardiovascular exam: Present: RRR, +S1, +S2. Absent: diastolic murmur, gallop, rubs, systolic murmur - GI/Abdominal GI/Abdominal exam: Present: distended, normal bowel sounds, soft, tenderness ( Abdominal tenderness, mainly in the inferior right quadrant of abdomen), no peritoneal signs - Extremities Exam Extremities exam: Present: warm, radial pulses palpable and symmetrical. Absent : calf tenderness, cyanotic, pedal edema - Neurological Exam Neurological exam: Present: CN II-XII intact, oriented X3, no focal deficits. Absent: pronater drift, facial droop, speech deficit - Skin Skin exam: Present: dry, intact Additional comments: Bennett catheter in place Internal Medicine: Result - Labs CBC & Chem 7: 02/08/17 07:47 02/08/17 07:47 Labs: Short CBC 02/08/17 Range/Units 07:47 WBC 12.4 H (4.3-11.1) K/mcL Hgb 8.1 L (11.5-15.4) g/dL Hct 25.2 L (35.3-44.9) % Plt Count 102 L (140-400) K/mcL Neutrophils # 9.7 H (1.6-8.9) K/mcL BMP 02/08/17 07:47 Sodium 137 Potassium 4.8 H D Chloride 100 Carbon Dioxide 24 BUN 31 H Creatinine 4.80 H Glucose 163 H Calcium 8.0 L - ABG Interpretation ABG results: PT/INR, D-dimer PT 11.3 Seconds (9.4-12.1) 02/05/17 06:58 Consult Discharge Plan - Plan Referrals: Moncho Arambula MD [Primary Care Provider] - (call this number for an appt. )
[2017-02-08] MEDS: Meropenem 1,000 MG in Water for inj. (sterile) 10 ML IVP SCH ×2 (11:16→22:05)
[2017-02-09 03:26] LABS: Basophils % 0.4 %; Hemoglobin 8.1 g/dL (11.5-15.4); Mean Corpuscular Volume 99.6 fL (83.0-100.0)
[2017-02-09 03:28] LABS: Basophils # 0.1 K/mcL (0.0-0.2); Eosinophils # 0.1 K/mcL (0.0-0.6); Eosinophils % 0.7 %; Hematocrit 25.7 % (35.3-44.9); Immature Granulocytes % 1.4 % (0-4); Immature Platelets 1.7 % (1.1-6.1); Lymphocytes # 1.9 K/mcL (0.6-4.6); Lymphocytes % 17.1 %; Mean Corpuscular HGB Conc 31.5 g/dL (31.6-35.5); Mean Corpuscular Hemoglobin 31.4 pg (28.0-33.3); Mean Platelet Volume 9.2 fL (9.4-12.4); Monocytes # 0.5 K/mcL (0.0-1.3); Monocytes % 4.4 %; Neutrophils # 8.6 K/mcL (1.6-8.9); Nucleated Red Blood Cells 0.3 /100 WBC (0); Platelet Count 112 K/mcL (140-400); Red Blood Count 2.58 M/mcL (3.82-4.97); Red Cell Distribution Width 16.8 % (11.5-14.5)
[2017-02-09 03:42] LABS: Calcium 8.2 mg/dL (8.6-10.8); Potassium 3.8 mEq/L (3.5-4.5)
[2017-02-09] MEDS ORDERED: 0.9 % Sodium Chloride 250 ML IVC PRN (06:16)
[2017-02-09] MEDS: Renal Vitamin 1 MG CAPSULE PO SCH (08:11)
[2017-02-09] MEDS: Lisinopril 20 MG TABLET PO SCH (08:12)
[2017-02-09] MEDS: Lactobacillus 1 EACH CAP.SPRINK PO SCH ×2 (08:12→20:09)
[2017-02-09] MEDS: Calcium Acetate 667 MG CAPSULE PO SCH ×4 (08:13→17:12)
[2017-02-09] MEDS: Iron Polysaccharide Complex 150 MG CAPSULE PO SCH (08:13)
[2017-02-09] MEDS: Cholecalciferol (D-3) 1,000 UNIT TABLET PO SCH (08:13)
[2017-02-09] MEDS: Insulin LISPRO 300 UNITS/3 ML VIAL SQ SCH ×3 (08:13→17:19)
--- NOTE | 2017-02-09 09:11 | Internal Med Progress Note ---
Date of Encounter: 02/09/17 Time of Encounter: 08:50 - Assessment and plan (1) UTI (urinary tract infection) Current Visit: No Status: Acute Assessment and plan: Complicated UTI with VRE cultured on January [address] SCAN: Dilation of the urinary bladder containing bubbles of air. There is associated Bennett catheter. Air within the urinary bladder is suspicious for emphysematous cystitis which appears to be improved since the previous exam. New [id number]-[id number] bilateral hydronephrosis. Urine CX on 02/05/17 grew Dianne White count has continued to improve at 11.3 this morning -Fluconazole day 4 -Continue Meropenem (was discontinued after the first day and the patient got worse) -Linezolid day 7 to receive a total of 2 weeks Qualifiers: Urinary tract infection type: acute cystitis Hematuria presence: with hematuria Qualified Code(s): N30.01 - Acute cystitis with hematuria (2) ESRD (end stage renal disease) on dialysis Current Visit: Yes Status: Chronic Assessment and plan: Nephrology is following patient Renally dose medications Hemodialysis today (3) Anemia in chronic renal disease Current Visit: No Status: Chronic Assessment and plan: Hb this morning was 8.1. This is stable from yesterday Continue to monitor. Qualifiers: Chronic kidney disease stage: on chronic dialysis Qualified Code(s): N18.6 - End stage renal disease; D63.1 - Anemia in chronic kidney disease; Z99.2 - Dependence on renal dialysis (4) Hypertension Current Visit: No Status: Chronic Assessment and plan: Currently well controlled; BP this morning was 152/67 Qualifiers: Hypertension type: essential hypertension Qualified Code(s): I10 - Essential (primary) hypertension - Subjective Interval history: Patient seen and examined hemodialysis this morning. Patient does complain having continued lower abdominal pain this morning. She also states she has had some lightheadedness, but overall reports she is doing well. She has no problems breathing, no fevers or chills. She does not report having burning sensations. - Constitutional Vitals: Temp Pulse Resp BP Pulse Ox 98.9 F 70 16 152/67 89 02/09/17 07:10 02/09/17 07:10 02/09/17 07:10 02/09/17 07:10 02/09/17 08:34 General appearance: Present: A&O X 3 Exam: General: Cooperative, pleasant, no acute distress, alert and oriented 3, answers questions appropriately HEENT: Normocephalic, atraumatic, neck supple, trachea midline, Conjunctiva pink , sclera anicteric, oral mucosa moist, surgical scar from remote carotid endarterectomy Respiratory: No accessory muscle usage, clear to auscultation bilaterally, no wheezes/rhonchi/rales appreciated Cardiovascular: Regular rate and rhythm, S1 and S2 present, no murmurs/rubs/ gallops/clicks appreciated GI/abdominal: Nondistended, mild tenderness to palpation in lower abdomen, soft , normal bowel sounds, no peritoneal signs Extremities: No calf tenderness, noncyanotic, no pedal edema appreciated, warm, lower extremity pulses palpable and symmetrical, left foot with previous digit amputations Neurological: Alert and oriented 3, no facial droop, no focal deficits Skin: Dry, intact, normal color Internal Medicine: Result - Labs CBC & Chem 7: 02/09/17 02:59 02/09/17 02:59 Labs: Short CBC 02/09/17 Range/Units 02:59 WBC 11.3 H (4.3-11.1) K/mcL Hgb 8.1 L (11.5-15.4) g/dL Hct 25.7 L (35.3-44.9) % Plt Count 112 L (140-400) K/mcL Neutrophils # 8.6 (1.6-8.9) K/mcL BMP 02/09/17 02:59 Sodium 135 L Potassium 3.8 D Chloride 97 L Carbon Dioxide 29 BUN 32 H Creatinine 5.20 H Glucose 123 H Calcium 8.2 L - ABG Interpretation ABG results: PT/INR, D-dimer PT 11.3 Seconds (9.4-12.1) 02/05/17 06:58 Consult Discharge Plan - Plan Referrals: Moncho Arambula MD [Primary Care Provider] - (call this number for an appt. [phone] Patient will follow up with ECF PCP)
[2017-02-09] MEDS: *HR* HYDROcodone/Acet 7.5/325 mg TABLET PO PRN (09:38)
[2017-02-09] MEDS: Fluconazole 200 MG/100 ML 100 MG/50 ML BAG IVPB SCH (11:02)
[2017-02-09] MEDS ORDERED: 0.9 % Sodium Chloride 2,000 ML ONE (12:36)
[2017-02-09] MEDS: Meropenem 1,000 MG in Water for inj. (sterile) 10 ML IVP SCH (14:19)
--- NOTE | 2017-02-09 15:00 | Nephrology Progress Note ---
Date of Encounter: 02/09/17 Time of Encounter: 13:40 - Assessment and Plan (1) ESRD (end stage renal disease) on dialysis Current Visit: Yes Status: Chronic HD today. Next HD planned for Thursday. (2) Left upper extremity swelling Current Visit: Yes Status: Acute Discussed with primary team. (3) Altered mental status Current Visit: Yes Status: Acute Seems to be improved with HD and Abx. Qualifiers: Altered mental status type: unspecified Qualified Code(s): R41.82 - Altered mental status, unspecified (4) UTI (urinary tract infection) Current Visit: Yes Status: Acute Appreciate the hospitalist. Qualifiers: Urinary tract infection type: acute cystitis Hematuria presence: without hematuria Qualified Code(s): N30.00 - Acute cystitis without hematuria (5) Anemia in chronic renal disease Current Visit: No Status: Chronic Goal Hgb is 10-11 and will monitor. Qualifiers: Chronic kidney disease stage: on chronic dialysis Qualified Code(s): N18.6 - End stage renal disease; D63.1 - Anemia in chronic kidney disease; Z99.2 - Dependence on renal dialysis (6) Hypertension Current Visit: No Status: Chronic Will utilize UF to help with volume status and HTN. Please hold antihypertensive meds on the mornings of HD (M/W/F). Qualifiers: Hypertension type: essential hypertension Qualified Code(s): I10 - Essential (primary) hypertension Subjective Principal diagnosis: ESRD Interval history: Pt was s/e. She did not affirm N/V/D or uremic symptoms. She did report vague RUQ abd pain (will defer to the hospitalist). Objective - Vital Signs Vital signs: Vital Signs Temp Pulse Resp BP Pulse Ox 02/09/17 11:28 98.9 F 78 16 108/57 100 02/09/17 10:25 98.6 F 17 126/66 02/09/17 10:15 130/59 02/09/17 10:00 113/60 02/09/17 09:45 122/38 02/09/17 09:30 115/80 02/09/17 09:15 139/57 02/09/17 09:00 168/64 02/09/17 08:45 162/61 02/09/17 08:34 89 02/09/17 08:30 98.6 F 15 178/64 02/09/17 07:10 98.9 F 70 16 152/67 89 02/09/17 06:54 151/78 02/09/17 03:47 98.8 F 66 16 151/78 100 02/09/17 00:45 98.8 F 70 16 158/61 96 02/08/17 20:08 98.7 F 70 16 157/71 99 02/08/17 16:23 99.4 F 71 16 148/65 98 Intake and Output 02/08/17 02/09/17 02/09/17 23:59 07:59 15:59 Intake Total 310 / 310 910 / 910 Output Total 400 / 400 50 / 50 958 / 958 Balance -90 / -90 -50 / -50 -48 / -48 Intake: IV Fluids 310 / 310 310 / 310 Merrem 1,000 MG In Water for inj. (sterile) 10 ML @ 200 mls/ hr IVP Q12H DEMAR Rx#:[id number] Zyvox Premix 600mg/300mL 600 mg 300 / 300 300 / 300 In 300 ml @ 150 mls/hr IVPB Q12HR DEMAR Rx#:[id number] Oral 0 / 0 0 / 0 Intake, Rinseback and Flushes 600 / 600 Output: Urine 0 / 0 Total Dialysis (HD) Output 958 / 958 Catheter 400 / 400 50 / 50 Other: Meal Dinner Percent of Meal Consumed 0% Weight 73 kg Blood Glucose* 181 166 142 Hemodialysis Net Fluid Removed 1558 (mL) Patient Weight 02/09/17 23:59 Weight 73 kg - General Appearance General appearance: Present: well-developed, well-nourished, appears started age , fatigue, frail EENT: Present: ATNC, PERRL, mucous membranes moist Neck: Present: supple Respiratory: Present: clear Cardiology: Present: no edema, regular rate, regular rhythm, normal S1, normal S2 Dialysis Vascular Access: Arteriovenous Fistula thrill: Yes bruit: Yes Gastrointestinal: Present: tenderness (RUG without rebound, and no distention), no guarding Neurologic: Present: no focal deficit, no asterixis, alert and oriented x3 Musculoskeletal: Present: no erythema, no cyanosis Psychiatric: Present: mood/affect appropriate, cooperative - Lab 02/10/17 05:50 02/10/17 05:50 Most recent lab results Calcium 8.2 mg/dL (8.6-10.8) L 02/09/17 02:59 Phosphorus 4.8 mg/dL (2.3-4.7) H 02/06/17 05:21 Magnesium 1.9 mg/dL (1.6-2.6) 02/06/17 05:21 Consult Discharge Plan - Plan Referrals: Moncho Arambula MD [Primary Care Provider] - (call this number for an appt. [phone] Patient will follow up with ECF PCP)
[2017-02-10] MEDS: Insulin LISPRO 300 UNITS/3 ML VIAL SQ SCH ×5 (04:58→21:36)
[2017-02-10] MEDS: *HR* HYDROcodone/Acet 7.5/325 mg TABLET PO PRN (05:06)
[2017-02-10 06:10] LABS: Eosinophils % 1.1 %; Lymphocytes % 24.5 %; Segmented Neutrophils % 67.4 %
[2017-02-10 06:12] LABS: Basophils # 0.1 K/mcL (0.0-0.2); Basophils % 0.5 %; Eosinophils # 0.1 K/mcL (0.0-0.6); Hemoglobin 8.4 g/dL (11.5-15.4); Immature Granulocytes % 1.3 % (0-4); Lymphocytes # 2.8 K/mcL (0.6-4.6); Mean Corpuscular HGB Conc 32.3 g/dL (31.6-35.5); Mean Corpuscular Hemoglobin 31.5 pg (28.0-33.3); Mean Corpuscular Volume 97.4 fL (83.0-100.0); Monocytes # 0.6 K/mcL (0.0-1.3); Monocytes % 5.2 %; Neutrophils # 7.6 K/mcL (1.6-8.9); Nucleated Red Blood Cells 0.2 /100 WBC (0); Red Blood Count 2.67 M/mcL (3.82-4.97); Red Cell Distribution Width 16.6 % (11.5-14.5)
[2017-02-10 06:19] LABS: Platelet Count 94 K/mcL (140-400)
[2017-02-10 06:21] LABS: Calcium 8.2 mg/dL (8.6-10.8); Potassium 4.5 mEq/L (3.5-4.5)
--- NOTE | 2017-02-10 08:24 | Internal Med Progress Note ---
<Ilya Mott - Last Filed: 02/10/17 11:19> Date of Encounter: 02/10/17 Time of Encounter: 08:23 - Assessment and plan (1) UTI (urinary tract infection) Current Visit: Yes Status: Acute Assessment and plan: 2nd to multiple organisms [facility] to able to ambulate. Denies incontinence , urinary retention. Leukocytosis improving. Afebrile. Heart rate less than 100. Patient diagnosed with VRE UTI on January 29: On linezolid day 13. Tomorrow the last day. Urine cultures during this admission grew Escherichia coli MDRO: On meropenem Furthermore urine cultures grew Dianne glabrata: On fluconazole awaiting sensitivities. Qualifiers: Urinary tract infection type: acute cystitis Hematuria presence: without hematuria Qualified Code(s): N30.00 - Acute cystitis without hematuria (2) Anemia in chronic renal disease Current Visit: Yes Status: Chronic Assessment and plan: Stable. We will continue to monitor. continue anaresp Qualifiers: Chronic kidney disease stage: on chronic dialysis Qualified Code(s): N18.6 - End stage renal disease; D63.1 - Anemia in chronic kidney disease; Z99.2 - Dependence on renal dialysis (3) ESRD (end stage renal disease) on dialysis Current Visit: Yes Status: Chronic Assessment and plan: On MWF dialysis continue dialysis nephrology on board. (4) Hypertension Current Visit: Yes Status: Chronic Assessment and plan: controlled continue lisinopril Qualifiers: Hypertension type: essential hypertension Qualified Code(s): I10 - Essential (primary) hypertension (5) DM2 (diabetes mellitus, type 2) Current Visit: Yes Status: Chronic Assessment and plan: Not controlled. ; A1c is 8.3 previously. During this admission patient sometimes refuses to eat a meal. Currently on sliding scale insulin. will start levemir 10 units QHS Qualifiers: Diabetes mellitus complication status: with kidney complications Diabetes mellitus complication detail: with chronic kidney disease Diabetes mellitus intermediate insulin use: with oysterman use Chronic kidney disease stage: on chronic dialysis Qualified Code(s): E11.22 - Type 2 diabetes mellitus with diabetic chronic kidney disease; N18.6 - End stage renal disease; Z99.2 - Dependence on renal dialysis; Z99.2 - Dependence on renal dialysis; Z99.2 - Dependence on renal dialysis; N18.6 - End stage renal disease; N18.6 - End stage renal disease; N18.6 - End stage renal disease; Z79.4 - alf (current ) use of insulin; Z79.4 - terminal worker (current) use of insulin; Z79.4 - alf (current) use of insulin; Z79.4 - terminal worker (current) use of insulin; Z99.2 - Dependence on renal dialysis - Subjective Interval history: Patient awake laying comfortably in bed. She denies sob, chest pain, abdominal pain. Reports back pain. - Constitutional Vitals: Temp Pulse Resp BP Pulse Ox 97.8 F 86 16 136/65 95 02/10/17 07:51 02/10/17 07:51 02/10/17 07:51 02/10/17 07:51 02/10/17 07:51 General appearance: Present: A&O X 3 - Other Additional findings: General: Pleasant without distress Heart: Regular rate and rhythm with no murmur Lungs: Clear to auscultation bilaterally Abdomen: Soft nontender, nondistended positive bowel sounds Skin: warm and dry Extremities: Absent pedal edema, Right LE toe amputation. b/l heel ulcers Neuro: alert oriented x3 Vascular: Pedal and radial pulses 2 out of 4 Internal Medicine: Result - Labs CBC & Chem 7: 02/10/17 05:50 02/10/17 05:50 Labs: Short CBC 02/10/17 Range/Units 05:50 WBC 11.3 H (4.3-11.1) K/mcL Hgb 8.4 L (11.5-15.4) g/dL Hct 26.0 L (35.3-44.9) % Plt Count 94 L (140-400) K/mcL Neutrophils # 7.6 (1.6-8.9) K/mcL BMP 02/10/17 05:50 Sodium 135 L Potassium 4.5 Chloride 98 Carbon Dioxide 26 BUN 28 H Creatinine 4.98 H Glucose 177 H Calcium 8.2 L - ABG Interpretation ABG results: PT/INR, D-dimer PT 11.3 Seconds (9.4-12.1) 02/05/17 06:58 Consult Discharge Plan - Plan Referrals: Moncho Arambula MD [Primary Care Provider] - (call this number for an appt. [phone] Patient will follow up with ECF PCP) <Ned Strickland - Last Filed: 02/10/17 14:54> Date of Encounter: 02/10/17 - Constitutional Vitals: Temp Pulse Resp BP Pulse Ox 98.0 F 63 16 161/64 98 02/10/17 11:47 02/10/17 11:47 02/10/17 11:47 02/10/17 11:47 02/10/17 11:47 Internal Medicine: Result - Labs CBC & Chem 7: 02/10/17 05:50 02/10/17 05:50 Labs: Short CBC 02/10/17 Range/Units 05:50 WBC 11.3 H (4.3-11.1) K/mcL Hgb 8.4 L (11.5-15.4) g/dL Hct 26.0 L (35.3-44.9) % Plt Count 94 L (140-400) K/mcL Neutrophils # 7.6 (1.6-8.9) K/mcL BMP 02/10/17 05:50 Sodium 135 L Potassium 4.5 Chloride 98 Carbon Dioxide 26 BUN 28 H Creatinine 4.98 H Glucose 177 H Calcium 8.2 L - ABG Interpretation ABG results: PT/INR, D-dimer PT 11.3 Seconds (9.4-12.1) 02/05/17 06:58 - Attending Attestation I examined this patient and my medical decision-making was reviewed with the Resident Physician. I agree with the documented findings, disposition and treatment plan as described except to the extent set forth below. Patient is a 72-year-old female with past medical history of ESRD on hemodialysis, anemia, hypertension and diabetes. Admitted for UTI with VRE. Cultures also grew Dianne glabrata. Currently on Fluconazole and awaiting sensitivities. No other acute events or complaints.
[2017-02-10] MEDS: Fluconazole 200 MG/100 ML 100 MG/50 ML BAG IVPB SCH (08:38)
[2017-02-10] MEDS: Lactobacillus 1 EACH CAP.SPRINK PO SCH ×2 (08:38→21:37)
[2017-02-10] MEDS: Renal Vitamin 1 MG CAPSULE PO SCH (08:38)
[2017-02-10] MEDS: Lisinopril 20 MG TABLET PO SCH (08:39)
[2017-02-10] MEDS: Iron Polysaccharide Complex 150 MG CAPSULE PO SCH (08:39)
[2017-02-10] MEDS: Cholecalciferol (D-3) 1,000 UNIT TABLET PO SCH (08:39)
[2017-02-10] MEDS: Calcium Acetate 667 MG CAPSULE PO SCH ×2 (12:04→16:50)
[2017-02-10] MEDS: Meropenem 1,000 MG in Water for inj. (sterile) 10 ML IVP SCH (13:21)
[2017-02-10] MEDS ORDERED: Insulin DETEMIR 100 UNIT/ML X5UNITS SQ SCH (21:00)
[2017-02-11 05:00] LABS: Basophils % 0.4 %; Hemoglobin 8.7 g/dL (11.5-15.4); Red Cell Distribution Width 16.2 % (11.5-14.5)
[2017-02-11 05:02] LABS: Eosinophils # 0.4 K/mcL (0.0-0.6); Eosinophils % 4.3 %; Hematocrit 27.1 % (35.3-44.9); Immature Platelets 1.6 % (1.1-6.1); Lymphocytes # 2.9 K/mcL (0.6-4.6); Lymphocytes % 31.9 %; Mean Corpuscular HGB Conc 32.1 g/dL (31.6-35.5); Mean Corpuscular Hemoglobin 31.4 pg (28.0-33.3); Mean Corpuscular Volume 97.8 fL (83.0-100.0); Mean Platelet Volume 9.6 fL (9.4-12.4); Monocytes # 0.4 K/mcL (0.0-1.3); Monocytes % 4.8 %; Neutrophils # 5.3 K/mcL (1.6-8.9); Platelet Count 121 K/mcL (140-400); Red Blood Count 2.77 M/mcL (3.82-4.97); Segmented Neutrophils % 57.6 %
[2017-02-11 05:22] LABS: Calcium 8.4 mg/dL (8.6-10.3); Potassium 3.7 mEq/L (3.5-5.1)
[2017-02-11] MEDS ORDERED: 0.9 % Sodium Chloride 250 ML IVC PRN (05:59)
[2017-02-11] MEDS ORDERED: 0.9 % Sodium Chloride 2,000 ML ONE (07:06)
[2017-02-11] MEDS: Insulin LISPRO 300 UNITS/3 ML VIAL SQ SCH ×2 (07:47→13:35)
[2017-02-11] MEDS: Cholecalciferol (D-3) 1,000 UNIT TABLET PO SCH (07:47)
[2017-02-11] MEDS: Iron Polysaccharide Complex 150 MG CAPSULE PO SCH (07:47)
[2017-02-11] MEDS: Renal Vitamin 1 MG CAPSULE PO SCH (07:47)
[2017-02-11] MEDS: Calcium Acetate 667 MG CAPSULE PO SCH ×2 (07:54→13:35)
--- NOTE | 2017-02-11 08:29 | Discharge Summary ---
<Ilya Mott - Last Filed: 02/11/17 08:37> Date of Encounter: 02/11/17 Time of Encounter: 08:17 - Discharge Diagnosis (1) UTI (urinary tract infection) Priority: Primary Status: Acute Qualifiers: Urinary tract infection type: acute cystitis Hematuria presence: without hematuria Qualified Code(s): N30.00 - Acute cystitis without hematuria (2) Anemia in chronic renal disease Priority: Secondary Status: Chronic Qualifiers: Chronic kidney disease stage: on chronic dialysis Qualified Code(s): N18.6 - End stage renal disease; D63.1 - Anemia in chronic kidney disease; Z99.2 - Dependence on renal dialysis (3) ESRD (end stage renal disease) on dialysis Priority: Secondary Status: Chronic (4) Hypertension Priority: Secondary Status: Chronic Qualifiers: Hypertension type: essential hypertension Qualified Code(s): I10 - Essential (primary) hypertension (5) DM2 (diabetes mellitus, type 2) Priority: Secondary Status: Chronic Qualifiers: Diabetes mellitus complication status: with kidney complications Diabetes mellitus complication detail: with chronic kidney disease Diabetes mellitus [facility] insulin use: with medical terminologist use Chronic kidney disease stage: on chronic dialysis Qualified Code(s): E11.22 - Type 2 diabetes mellitus with diabetic chronic kidney disease; N18.6 - End stage renal disease; Z99.2 - Dependence on renal dialysis; Z99.2 - Dependence on renal dialysis; Z99.2 - Dependence on renal dialysis; N18.6 - End stage renal disease; N18.6 - End stage renal disease; N18.6 - End stage renal disease; Z79.4 - remote computer terminal operator (current ) use of insulin; Z79.4 - MCC (current) use of insulin; Z79.4 - MCC (current) use of insulin; Z79.4 - MCC (current) use of insulin; Z99.2 - Dependence on renal dialysis - Discharge Medications Prescriptions: Fluconazole [Diflucan] 100 mg PO DAILY #7 tablet Meropenem [Merrem] 1,000 mg IVPB DAILY #7 vial Home Medications: Loperamide HCl [Loperamide] 2 mg PO DAILY PRN 07/20/15 [History] Ergocalciferol (VITAMIN D2) [Vitamin D2 (50,000 UNIT)] 50,000 unit PO MO [History] Paroxetine [Paxil] 20 mg PO DAILY 02/12/16 [History] Clopidogrel [Plavix] 75 mg PO DAILY 04/03/16 [History] Levothyroxine [Synthroid] 175 mcg PO QAM 04/03/16 [History] Calcitriol [Rocaltrol] 0.25 mcg PO MOWEFR 11/11/16 [History] Iron Polysaccharide Complex [Pro Fe] 180 mg PO DAILY 11/11/16 [History] Lisinopril [Zestril] 40 mg PO DAILY tablet 11/24/16 [Rx] B Complex W-C No.20/Folic Acid [Virt-Caps Softgel] 1 mg PO DAILY 12/27/16 [ History] Calcium Acetate [Phos-LO] 667 mg PO TIDWM 12/27/16 [History] Ergocalciferol (VITAMIN D2) [Vitamin D2] 2,000 unit PO TUTHSA 12/27/16 [History] Lactobacillus Acidophilus [Acidophilus] 2 cap PO BID 12/27/16 [History] HYDROcodone/Acet 7.5/325 mg [[place] 7.5-325 mg] 1 tab PO Q6H PRN #10 tablet 12/30 [Rx] Ipratropium/Albuterol Neb [Duoneb] 3 ml IH [id number] PRN inhsol 12/30/16 [Rx] Pantoprazole Sodium [Protonix] 40 mg PO DAILY 02/05/17 [History] Fluconazole [Diflucan] 100 mg PO DAILY #7 tablet 02/11/17 [Rx] Meropenem [Merrem] 1,000 mg IVPB DAILY #7 vial 02/11/17 [Rx] Allergies/Adverse Reactions: 3 Allergy/AdvReac Type Severity Reaction Status Date / Time Jgstiym-Izw-Uhl Reductase Allergy See Verified 07/14/16 13:48 Inhibitor Comments [Statins] Sulfa (Sulfonamide Allergy swelling Verified 07/14/16 11:56 Antibiotics) Date of admission: 02/10/17 14:54 Primary care physician: Moncho Arambula MD Consults: 02/11/17 06:00 Consult to Dialysis [CONS] ONCE Discharging clinician: Ilya Mott Anticipated date of discharge: 02/11/17 - Patient Status Disposition: Transfer SNF Condition: Good Functional capacity at discharge: wheelchair bound Overall status at discharge: patient is progressing back to baseline - Discharge Instructions Follow Up With: Moncho Arambula MD [Primary Care Provider] - 02/18/17 10:00 am (call this number for an appt. [phone] Patient will follow up with ECF PCP) - Diet and Activity Activity: increase activity as tolerated, resume usual activities as tolerated Diet: diabetic diet Hospital course: Ms. Bernal is a 72 year old female presented with chief complaint of suprapubic pain. At time of presentation she denied fevers, chills, chest pain, abdominal pain, shortness of breath. Before this admission on 02/02/17 patient was discharged for VRE UTI and started on Zyvox. During this admission patient was also found to have multidrug resistant Escherichia coli and Dianne in the urine. Patient was treated with meropenem and fluconazole. Patient finish her 14 day Zyvox course. She also continued her Thursday dialysis. Patient's leukocytosis resolved after antibiotic treatment. Patient will be discharged to ECF to finish her IV antibiotic meropenem. She has a left power glide. Likely cause of patient's multiple UTIs and admissions secondary to UTI is indwelling Bennett. Patient is not incontinent/does not have urinary retention. She does not have any indication for a Bennett. - Time Spent with Patient Total time spent providing and/or coordinating discharge services: - Constitutional Vitals: Temp Pulse Resp BP Pulse Ox 97.8 F 65 17 165/53 100 02/11/17 07:18 02/11/17 07:18 02/11/17 07:18 02/11/17 07:18 02/11/17 07:18 General appearance: Present: A&O X 3 - Other Additional findings: General: Pleasant without distress Heart: Regular rate and rhythm with no murmur Lungs: Clear to auscultation bilaterally Abdomen: Soft nontender, nondistended positive bowel sounds Skin: warm and dry Extremities: Absent pedal edema, Right LE toe amputation. b/l heel ulcers Neuro: alert oriented x3 Vascular: Pedal and radial pulses 2 out of 4 <Ned Strickland - Last Filed: 02/11/17 12:59> Date of Encounter: 02/11/17 Date of admission: 02/10/17 14:54 Primary care physician: Moncho Arambula MD Consults: 02/11/17 06:00 Consult to Dialysis [CONS] ONCE Hospital course: Ms. Bernal is a 72 year old female - Time Spent with Patient Total time spent providing and/or coordinating discharge services: - Constitutional Vitals: Temp Pulse Resp BP Pulse Ox 97.8 F 65 17 165/53 100 02/11/17 07:18 02/11/17 07:18 02/11/17 07:18 02/11/17 07:18 02/11/17 07:18 - Attending Attestation I examined this patient and my medical decision-making was reviewed with the Resident Physician. I agree with the documented findings, disposition and treatment plan as described except to the extent set forth below.
--- NOTE | 2017-02-11 08:44 | Physician Discharge Referral ---
<Ilya Mott - Last Filed: 02/11/17 08:46> [facility] Referral Info Provider in Charge: Dr. lu Provider in Charge after Transfer: PCP Institutional Level of Care: Skilled - Diagnosis (1) UTI (urinary tract infection) Priority: Primary Status: Acute (2) Anemia in chronic renal disease Priority: Secondary Status: Chronic (3) ESRD (end stage renal disease) on dialysis Priority: Secondary Status: Chronic (4) Hypertension Priority: Secondary Status: Chronic (5) DM2 (diabetes mellitus, type 2) Priority: Secondary Status: Chronic - Transfer Medications Prescriptions: RX: Fluconazole [Diflucan] 100 mg PO DAILY #7 tablet RX: Meropenem [Merrem] 1,000 mg IVPB DAILY #7 vial Home Medications: RX: Loperamide HCl [Loperamide] 2 mg PO DAILY PRN 07/20/15 [History] RX: Ergocalciferol (VITAMIN D2) [Vitamin D2 (50,000 UNIT)] 50,000 unit PO MO 07/08 [History] RX: Paroxetine [Paxil] 20 mg PO DAILY 02/12/16 [History] RX: Clopidogrel [Plavix] 75 mg PO DAILY 04/03/16 [History] RX: Levothyroxine [Synthroid] 175 mcg PO QAM 04/03/16 [History] RX: Calcitriol [Rocaltrol] 0.25 mcg PO MOWEFR 11/11/16 [History] RX: Iron Polysaccharide Complex [Pro Fe] 180 mg PO DAILY 11/11/16 [History] RX: Lisinopril [Zestril] 40 mg PO DAILY tablet 11/24/16 [Rx] RX: B Complex W-C No.20/Folic Acid [Virt-Caps Softgel] 1 mg PO DAILY 12/27/16 [ History] RX: Calcium Acetate [Phos-LO] 667 mg PO TIDWM 12/27/16 [History] RX: Ergocalciferol (VITAMIN D2) [Vitamin D2] 2,000 unit PO TUTHSA 12/27/16 [ History] RX: Lactobacillus Acidophilus [Acidophilus] 2 cap PO BID 12/27/16 [History] RX: HYDROcodone/Acet 7.5/325 mg [[place] 7.5-325 mg] 1 tab PO Q6H PRN #10 tablet 12/30/16 [Rx] RX: Ipratropium/Albuterol Neb [Duoneb] 3 ml IH [id number] PRN inhsol 12/30/16 [Rx] RX: Pantoprazole Sodium [Protonix] 40 mg PO DAILY 02/05/17 [History] RX: Fluconazole [Diflucan] 100 mg PO DAILY #7 tablet 02/11/17 [Rx] RX: Meropenem [Merrem] 1,000 mg IVPB DAILY #7 vial 02/11/17 [Rx] Allergies/Adverse Reactions: 3 Allergy/AdvReac Type Severity Reaction Status Date / Time Ktqzvjp-Zpk-Dpi Reductase Allergy See Verified 07/14/16 13:48 Inhibitor Comments [Statins] Sulfa (Sulfonamide Allergy swelling Verified 07/14/16 11:56 Antibiotics) - Respiratory Orders Smoking Cessation: Smoking cessation has been advised. For more information, call the [employer] Quit Line at 0-288-LXHZ-NOW. - Ancillary Orders May use pressure relief devices daily prn - Advance Directives Code Status: Full Code - Mobility Orders Other (wheel chair) - Rehabiliation Orders Rehab Potential: Fair Rehab Orders: Evaluation for Physical Therapy, Evaluation for Occupational Therapy - Treatments Skin tear care topically daily PRN per policy - Diet Orders Renal (diabetic) CERTIFICATION: I certify that the transfer of the above named patient to an Extended Care Facility is necessary for the continuing treatment of the diagnosis listed. The above information is true and accurate reflection of patient's current condition. Confidential - Redisclosure prohibited without a patient's written consent. <Ned Strickland - Last Filed: 02/11/17 10:40> - Respiratory Orders Smoking Cessation: Smoking cessation has been advised. For more information, call the [employer] [facility] Quit Line at 3-336-UZGJ-NOW. CERTIFICATION: I certify that the transfer of the above named patient to an Extended Care Facility is necessary for the continuing treatment of the diagnosis listed. The above information is true and accurate reflection of patient's current condition. Confidential - Redisclosure prohibited without a patient's written consent.
--- NOTE | 2017-02-11 10:32 | Nephrology Progress Note ---
Date of Encounter: 02/11/17 Time of Encounter: 09:15 - Assessment and Plan (1) ESRD (end stage renal disease) on dialysis Status: Chronic HD today. Next HD planned for Thursday, but okay to d/c and I have instructed to be sure to not skip any outpt HD. (2) Left upper extremity swelling Status: Acute Discussed with primary team. (3) Altered mental status Status: Acute Seems to be improved with HD and Abx. Qualifiers: Altered mental status type: unspecified Qualified Code(s): R41.82 - Altered mental status, unspecified (4) UTI (urinary tract infection) Status: Acute Appreciate the hospitalist. Qualifiers: Urinary tract infection type: acute cystitis Hematuria presence: without hematuria Qualified Code(s): N30.00 - Acute cystitis without hematuria (5) Anemia in chronic renal disease Status: Chronic Goal Hgb is 10-11 and will monitor. Qualifiers: Chronic kidney disease stage: on chronic dialysis Qualified Code(s): N18.6 - End stage renal disease; D63.1 - Anemia in chronic kidney disease; Z99.2 - Dependence on renal dialysis (6) Hypertension Status: Chronic Will utilize UF to help with volume status and HTN. Please hold antihypertensive meds on the mornings of HD (M/W/F). Qualifiers: Hypertension type: essential hypertension Qualified Code(s): I10 - Essential (primary) hypertension Subjective Principal diagnosis: ESRD Interval history: Pt was s/e while on HD this AM. She did not affirm N/V/D or uremic symptoms. Objective - Vital Signs Vital signs: Vital Signs Temp Pulse Resp BP Pulse Ox 02/11/17 07:18 97.8 F 65 17 165/53 100 02/11/17 05:12 98 F 70 15 169/68 97 02/11/17 00:29 98.1 F 61 18 157/82 99 02/10/17 19:09 98.5 F 68 18 165/70 97 02/10/17 16:49 156/79 02/10/17 16:28 98.6 F 64 17 181/71 100 Intake and Output 02/10/17 02/11/17 02/11/17 23:59 07:59 15:59 Intake Total 420 / 420 Balance 420 / 420 Intake: IV Fluids 300 / 300 Zyvox Premix 600mg/300mL 600 mg 300 / 300 In 300 ml @ 150 mls/hr IVPB Q12HR [facility] Rx#:[id number] Oral 120 / 120 Other: Meal Dinner Percent of Meal Consumed 70% Stool Size Small Small Stool Consistency soft loose formed Stool Characteristics Normal for Patient Normal for Patient Stool Color Green Green # Urine Diapers 1 1 # Bowel Movements 1 # Bowel Movement Diapers 1 1 Weight 68 kg Blood Glucose* 241 96 Patient Weight 02/11/17 23:59 Weight 68 kg - General Appearance Exam: General appearance: Present: well-developed, well-nourished, appears started age , fatigue, frail EENT: Present: ATNC, PERRL, mucous membranes moist Neck: Present: supple Respiratory: Present: clear Cardiology: Present: no edema, regular rate, regular rhythm, normal S1, normal S2 Dialysis Vascular Access: Arteriovenous Fistula thrill: Yes bruit: Yes Gastrointestinal: Present: tenderness (RUG without rebound, and no distention), no guarding Neurologic: Present: no focal deficit, no asterixis, alert and oriented x3 Musculoskeletal: Present: no erythema, no cyanosis Psychiatric: Present: mood/affect appropriate, cooperative - Lab 02/11/17 04:30 02/11/17 04:30 Most recent lab results Calcium 8.4 mg/dL (8.6-10.3) L 02/11/17 04:30 Phosphorus 4.8 mg/dL (2.3-4.7) H 02/06/17 05:21 Magnesium 1.9 mg/dL (1.6-2.6) 02/06/17 05:21 Consult Discharge Plan - Plan Referrals: Moncho Arambula MD [Primary Care Provider] - 02/18/17 10:00 am (call this number for an appt. [phone] Patient will follow up with F PCP) Prescriptions: Fluconazole [Diflucan] 100 mg PO DAILY #7 tablet Meropenem [Merrem] 1,000 mg IVPB DAILY #7 vial
[2017-02-11] MEDS ORDERED: Fluconazole 100 MG TABLET PO SCH (13:00)
[2017-02-11 13:32] VITALS: BP 98/44
[2017-02-11] MEDS: Lisinopril 20 MG TABLET PO SCH (13:35)
[2017-02-11] MEDS: *HR* HYDROcodone/Acet 7.5/325 mg TABLET PO PRN (13:39)
[2017-02-11] MEDS: Lactobacillus 1 EACH CAP.SPRINK PO SCH (13:39)
[2017-02-11] MEDS ORDERED: Linezolid 600 MG TABLET PO SCH (18:00)
== END 2017-02-11 14:28 | DRG 698 ==
LOC: 2ANU 06:40 → EMEROO 06:40 → SUATTDRO 08:42 → 2ANU 09:38
PROVIDERS: ADMIT Family Medicine; ATTEND Internal Medicine

== ENCOUNTER 2017-02-17 08:17 | Inpatient (IN) ==
[~2017-02-17 08:17] MED LIST: *HR* FentaNYL (PF) 100 MCG/2 ML VIAL ONE
--- NOTE | 2017-02-17 08:30 | Emergency Department Note ---
Disposition Clinical Impression: Transient alteration of awareness, Hypoglycemia Urinary tract infection Qualifiers: Urinary tract infection type: site unspecified Hematuria presence: without hematuria Qualified Code(s): N39.0 - Urinary tract infection, site not specified Disposition: Admitted As Inpatient Condition: Good Time of Disposition: 12:19 Altered Mental Status HPI - General Chief Complaint: ED Altered Mental Status Stated Complaint: low blood sugar Time Seen by Provider: 02/17/17 08:22 Source: patient, EMS Mode of arrival: EMS Limitations: no limitations Nursing Notes Reviewed: Yes Vital Signs Reviewed: Yes - History of Present Illness HPI Narrative: 72-year-old female history of insulin-dependent diabetes mellitus and end-stage renal disease presents to the ED via EMS for unresponsive. Initial nurse to nurse report was that the patient was cold to the touch unresponsive with the blood pressure of 180. Patient has missed multiple dialysis treatments because she refused. On EMS arrival to [facility], reports patient was "unresponsive and fixed". In transit, EMS reports glucose was 3 and given amp of D50 with improvement of mental status and repeat glucose 99. On arrival here [facility] she is awake alert and oriented to person place and time. GCS 15. She complains of chronic abdominal pain to the right abdomen but otherwise in no acute distress. She reports that diminished appetite and oral intake. Takes insulin for her diabetes. AV fistula to the right arm with palpable thrill and audible bruit. He denies any fevers or chills. No headaches. No chest pain or shortness of breath. Will evaluate for other etiologies suspect this was likely due to hypoglycemia. Her nephrologists is Dr. Baeza. complaint: altered mental status - Related Data Home Medications Medication Instructions Recorded Confirmed Loperamide HCl [Loperamide] 2 mg PO DAILY PRN 07/20/15 02/05/17 Ergocalciferol (VITAMIN D2) 50,000 unit PO MO 11/28/15 02/05/17 [Vitamin D2 (50,000 UNIT)] Paroxetine [Paxil] 20 mg PO DAILY 02/12/16 02/05/17 Clopidogrel [Plavix] 75 mg PO DAILY 04/03/16 02/05/17 Levothyroxine [Synthroid] 175 mcg PO QAM 04/03/16 02/05/17 Calcitriol [Rocaltrol] 0.25 mcg PO MOWEFR 11/11/16 02/05/17 Iron Polysaccharide Complex [Pro 180 mg PO DAILY 11/11/16 02/05/17 Fe] B Complex W-C No.20/Folic Acid 1 mg PO DAILY 12/27/16 02/05/17 [Virt-Caps Softgel] Calcium Acetate [Phos-LO] 667 mg PO TIDWM 12/27/16 02/05/17 Ergocalciferol (VITAMIN D2) 2,000 unit PO TUTHSA 12/27/16 02/05/17 [Vitamin D2] Lactobacillus Acidophilus 2 cap PO BID 12/27/16 02/05/17 [Acidophilus] Pantoprazole Sodium [Protonix] 40 mg PO DAILY 02/05/17 02/05/17 Previous Rx's Medication Instructions Recorded Lisinopril [Zestril] 40 mg PO DAILY tablet 11/24/16 HYDROcodone/Acet 7.5/325 mg [[place] 1 tab PO Q6H PRN #10 tablet 12/30/16 7.5-325 mg] Ipratropium/Albuterol Neb [Duoneb] 3 ml IH [id number] PRN inhsol 12/30/16 Fluconazole [Diflucan] 100 mg PO DAILY #7 tablet 02/11/17 Meropenem [Merrem] 1,000 mg IVPB DAILY #7 vial 02/11/17 Allergies Allergy/AdvReac Type Severity Reaction Status Date / Time Dcirokr-Wzt-Xgi Reductase Allergy See Verified 07/14/16 13:48 Inhibitor Comments [Statins] Sulfa (Sulfonamide Allergy swelling Verified 07/14/16 11:56 Antibiotics) All systems ED: reviewed and negative except as stated. Review of Systems: As Per HPI Constitutional: Denies: fever, chills ENT ED: Denies: congestion Cardiovascular: Denies: chest pain Respiratory: Denies: cough, dyspnea Gastrointestinal: Reports: abdominal pain. Denies: nausea, vomiting Genitourinary: Denies: urgency, dysuria Musculoskeletal: Denies: back pain Integumentary: Denies: rash, abrasion Neurological: Denies: headache Past Medical History - Past Medical History Attestation: Yes The following information was validated with the patient. Source: patient Medical history: Reports: atrial fibrillation, CHF, COPD, diabetes, GERD, hyperlipidemia, hypertension, kidney stones, renal disease, thyroid disease, syncope, other Surgical history: Reports: appendectomy, carotid endarterectomy, cholecystectomy , hysterectomy, knee replacement, ALEC/BSO, other Psychiatric history: Reports: depression - Social History Smoking Status: Current every day smoker Smokeless Tobacco Status: No Alcohol use: Reports: none Drug use: Reports: none Physical Exam - General Limitations: no limitations General appearance: alert, in no apparent distress, obese - Head Head exam: atraumatic, normocephalic, normal inspection - Eye Eye exam: Present: normal appearance, PERRL, EOMI - ENT ENT exam: normal exam, normal oropharynx, mucous membranes moist - Neck Neck exam: Present: normal inspection, full ROM, trachea midline - Chest Chest inspection: Present: normal inspection, symmetric chest wall rise - Respiratory Respiratory exam: Present: normal lung sounds bilaterally - Cardiovascular Cardiovascular exam: Present: regular rate, normal rhythm, normal heart sounds - Abdominal Exam Abdominal exam: Present: soft (obese), tenderness, normal bowel sounds. Absent : Non-Tender, distention, guarding, rebound, rigidity - Extremities Exam Extremities exam: Present: full ROM, normal capillary refill, other (amputated left mid foot, AV fistula to right arm with palpable thrill and audible bruit). Absent: tenderness - Neurological Exam Neurological exam: Present: alert, oriented X3, CN II-XII intact - Expanded Neurological Exam Patient oriented to: Present: person, place, time Speech: Present: fluid speech Cranial nerves: EOM function (II, III, IV, ): Normal, facial sensation (V): Normal, facial palsy (VII): Normal, gag reflex (IX): Normal, spinal accessory function (XI): Normal, tongue deviation (XII): Normal Motor strength - LUE: 5/5 Motor strength - RUE: 5/5 Motor strength - LLE: 5/5 Motor strength - RLE: 5/5 Upper motor neuron exam: mi neglect: Absent bilaterally Sensory exam upper extremity: light touch: Normal Sensory exam lower extremity: light touch: Normal - Skin Skin exam: Present: warm, dry, intact, normal color. Absent: rash, cyanosis, diaphoresis Course Course Narrative: Will continue to monitor the patient for any persistent hyperglycemia. Evaluate for any other etiologies. If this is the case will likely discharge home unless any emergent dialysis is required. Also touch base with filter tank tender. Patient is unsure when last dialysis treatment. She typically goes Thursday. - Reevaluation(s) Reevaluation #1: Review for labs she has chronic stable anemia at 9.2. No leukocytosis. Her potassium is within normal limits 4.6. Her BUN is elevated 51. Her creatinine the 6.57. She has a bandage over her fistula which could indicate she had recent dialysis treatment however patient does not recall. She is still awake alert and oriented to person place and time. She appears back at her baseline. Troponin is 0.03. She is tolerating normal diet. Pending CT scan. Time: 10:58 Reevaluation #2: Despite a renal diet meal her blood sugar has dropped to 40. She continues to be awake alert and oriented may be slightly somnolent. She received an but D50 and will be placed on dextrose drip. Patient will need admission for percents and hypoglycemia. Chest x-ray does not reveal pneumonia. Urinalysis possible urinary tract infection looks like it is [id number] and will placed on Zosyn as it has been sensitive in the past. Abdomen and pelvis CT without obstructing calculi. There is some stable edematous changes to the abdominal wall. Impression is persistent hypoglycemia, possible urinary tract infection treated was Zosyn, transient alteration of awareness. Chest X-Ray 02/17/17 08:22 IMPRESSION: No acute abnormality. D/ / Juan Manuel Garzon MD / Juan Manuel Garzon MD Interpreting Provider: Juan Manuel Garzon MD Abdomen/Pelvis CT 02/17/17 09:47 IMPRESSION: 1. Persistent bilateral hydroureteronephrosis without obstructing calculi. 2. Gas within the bladder. Question if the Bennett catheter has been recently removed. Otherwise, this is worrisome for emphysematous cystitis or vesico enteric fistula. 3. Stable edematous changes involving the abdominal wall. 4. Bilateral renal cysts with probable hemorrhagic cyst involving the midpole of the left kidney. D/ / Brian Virk MD / Brian Virk MD Interpreting Provider: Brian Virk MD - Consultations Consultation #1: Spoke with on-call hospitalist kalyani Gutierrez to admit for persistent hypoglycemia, UTI, altered awareness. No further orders at this time Time: 12:19 Vital Signs Temperature 94.5 F L 02/17/17 08:22 Pulse Rate 60 02/17/17 08:22 Respiratory Rate 17 02/17/17 08:22 Blood Pressure 118/78 02/17/17 08:22 O2 Sat by Pulse Oximetry 99 02/17/17 08:22 Temperature 97.4 F L 02/17/17 12:38 Pulse Rate 63 02/17/17 12:38 Respiratory Rate 12 02/17/17 12:38 Blood Pressure 132/63 02/17/17 12:38 O2 Sat by Pulse Oximetry 99 02/17/17 12:38 Oxygen Delivery Oxygen Delivery Room Air Altered Mental Status - MDM Narrative Medical decision making narrative: Patient was discussed with my attending physician who agrees with ED management and final disposition. They independently evaluated the patient. Please refer to their attestation to this encounter for additional information. This note was generated by [employer] voice recognition software and as a result grammatical or spelling errors may occur using this program. - Medical Records Medical records reviewed: Yes I reviewed the patient's medical records. - Lab Data Lab results reviewed: Yes I reviewed the patient's lab results. Result diagrams: 02/17/17 08:36 02/17/17 08:36 Lab Results 02/17/17 02/17/17 02/17/17 Range/Units 08:24 08:36 08:36 WBC 8.4 (4.3-11.1) K/mcL RBC 2.89 L (3.82-4.97) M/mcL Hgb 9.2 L (11.5-15.4) g/dL Hct 29.3 L (35.3-44.9) % MCV 101.4 H (83.0-100.0) fL MCH 31.8 (28.0-33.3) pg MCHC 31.4 L (31.6-35.5) g/dL RDW 15.9 H (11.5-14.5) % Plt Count 140 (140-400) K/mcL MPV 9.0 L (9.4-12.4) fL Immature Gran % 2.3 (0-4) % Seg Neutrophils % 72.3 % Lymphocytes % 19.1 % Monocytes % 3.3 % Eosinophils % 2.0 % Basophils % 1.0 % Neutrophils # 6.0 (1.6-8.9) K/mcL Lymphocytes # 1.6 (0.6-4.6) K/mcL Monocytes # 0.3 (0.0-1.3) K/mcL Eosinophils # 0.2 (0.0-0.6) K/mcL Basophils # 0.1 (0.0-0.2) K/mcL PT 11.4 (9.4-12.1) Seconds INR 1.1 APTT 33.0 (26.0-36.0) Seconds Sodium (136-145) mEq/L Potassium (3.5-5.1) mEq/L Chloride (98-107) mEq/L Carbon Dioxide (23-29) mEq/L BUN (8-23) mg/dL Creatinine (0.60-1.20) mg/dL Est GFR ( Amer) (> 60) Est GFR (Non-Af Amer) (> 60) BUN/Creatinine Ratio (6-26) Glucose (70-105) mg/dL POC Glucose 96 H (58-89) Calculated Osmolality (280-300) Lactic Acid (0.5-2.2) mmol/L Calcium (8.6-10.3) mg/dL Total Bilirubin (0.3-1.0) mg/dL Direct Bilirubin (0.0-0.2) mg/dL Indirect Bilirubin (0.0-1.2) mg/dL AST (13-39) Units/L ALT (7-52) Units/L Alkaline Phosphatase (34-104) Units/L Troponin I (< 0.04) ng/mL Serum Total Protein (6.4-8.9) g/dL Albumin (3.5-5.7) g/dL Globulin (2.4-3.5) g/dL Albumin/Globulin Ratio (1.1-2.2) Urine Color (Yellow) Urine Clarity (Clear) Urine pH (5.0-8.0) pH Units Ur Specific [place] (1.010-1.025) Urine Protein (Neg-Trace) mg/dL Urine Glucose (UA) (Normal) mg/dL Urine Ketones (Negative) mg/dL Urine Blood (Negative) Urine Nitrite (Negative) Urine Bilirubin (Negative) Urine Urobilinogen (Normal) mg/dL Ur Leukocyte Esterase (Negative) Urine Microscopic RBC (0-3) per hpf Urine Microscopic WBC (0-3) per hpf Ur Squamous Epith Cells (None-Few) per lpf Ur Renal Epithelial Cell (None-Few) per hpf Urine Bacteria (None-Few) per hpf Urine Yeast (None Seen) per hpf Ur Culture Indicated? (NO) 02/17/17 02/17/17 02/17/17 Range/Units 08:36 08:36 08:50 WBC (4.3-11.1) K/mcL RBC (3.82-4.97) M/mcL Hgb (11.5-15.4) g/dL Hct (35.3-44.9) % MCV (83.0-100.0) fL MCH (28.0-33.3) pg MCHC (31.6-35.5) g/dL RDW (11.5-14.5) % Plt Count (140-400) K/mcL MPV (9.4-12.4) fL Immature Gran % (0-4) % Seg Neutrophils % % Lymphocytes % % Monocytes % % Eosinophils % % Basophils % % Neutrophils # (1.6-8.9) K/mcL Lymphocytes # (0.6-4.6) K/mcL Monocytes # (0.0-1.3) K/mcL Eosinophils # (0.0-0.6) K/mcL Basophils # (0.0-0.2) K/mcL PT (9.4-12.1) Seconds INR APTT (26.0-36.0) Seconds Sodium 138 (136-145) mEq/L Potassium 4.6 (3.5-5.1) mEq/L Chloride 104 (98-107) mEq/L Carbon Dioxide 27 (23-29) mEq/L BUN 51 H (8-23) mg/dL Creatinine 6.57 H (0.60-1.20) mg/dL Est GFR ( Amer) 8 L (> 60) Est GFR (Non-Af Amer) 6 L (> 60) BUN/Creatinine Ratio 8 (6-26) Glucose 90 (70-105) mg/dL POC Glucose (58-89) Calculated Osmolality 299 (280-300) Lactic Acid (0.5-2.2) mmol/L Calcium 8.8 (8.6-10.3) mg/dL Total Bilirubin 0.3 (0.3-1.0) mg/dL Direct Bilirubin 0.0 (0.0-0.2) mg/dL Indirect Bilirubin 0.3 (0.0-1.2) mg/dL AST 14 (13-39) Units/L ALT < 3 L (7-52) Units/L Alkaline Phosphatase 59 (34-104) Units/L Troponin I 0.03 (< 0.04) ng/mL Serum Total Protein 5.6 L (6.4-8.9) g/dL Albumin 2.5 L (3.5-5.7) g/dL Globulin 3.1 (2.4-3.5) g/dL Albumin/Globulin Ratio 0.8 L (1.1-2.2) Urine Color Yellow (Yellow) Urine Clarity Turbid A (Clear) Urine pH 7.5 (5.0-8.0) pH Units Ur Specific [place] 1.014 (1.010-1.025) Urine Protein >=300 H (Neg-Trace) mg/dL Urine Glucose (UA) Normal (Normal) mg/dL Urine Ketones Negative (Negative) mg/dL Urine Blood Moderate H (Negative) Urine Nitrite Negative (Negative) Urine Bilirubin Negative (Negative) Urine Urobilinogen Normal (Normal) mg/dL Ur Leukocyte Esterase Large H (Negative) Urine Microscopic RBC Present (0-3) per hpf Urine Microscopic WBC TNTC H (0-3) per hpf Ur Squamous Epith Cells Present (None-Few) per lpf Ur Renal Epithelial Cell Present (None-Few) per hpf Urine Bacteria Present (None-Few) per hpf Urine Yeast Few H (None Seen) per hpf Ur Culture Indicated? YES A (NO) 02/17/17 02/17/17 02/17/17 Range/Units 09:20 11:19 11:20 WBC (4.3-11.1) K/mcL RBC (3.82-4.97) M/mcL Hgb (11.5-15.4) g/dL Hct (35.3-44.9) % MCV (83.0-100.0) fL MCH (28.0-33.3) pg MCHC (31.6-35.5) g/dL RDW (11.5-14.5) % Plt Count (140-400) K/mcL MPV (9.4-12.4) fL Immature Gran % (0-4) % Seg Neutrophils % % Lymphocytes % % Monocytes % % Eosinophils % % Basophils % % Neutrophils # (1.6-8.9) K/mcL Lymphocytes # (0.6-4.6) K/mcL Monocytes # (0.0-1.3) K/mcL Eosinophils # (0.0-0.6) K/mcL Basophils # (0.0-0.2) K/mcL PT (9.4-12.1) Seconds INR APTT (26.0-36.0) Seconds Sodium (136-145) mEq/L Potassium (3.5-5.1) mEq/L Chloride (98-107) mEq/L Carbon Dioxide (23-29) mEq/L BUN (8-23) mg/dL Creatinine (0.60-1.20) mg/dL Est GFR ( Amer) (> 60) Est GFR (Non-Af Amer) (> 60) BUN/Creatinine Ratio (6-26) Glucose (70-105) mg/dL POC Glucose 40 L* 43 L* (58-89) Calculated Osmolality (280-300) Lactic Acid 0.7 (0.5-2.2) mmol/L Calcium (8.6-10.3) mg/dL Total Bilirubin (0.3-1.0) mg/dL Direct Bilirubin (0.0-0.2) mg/dL Indirect Bilirubin (0.0-1.2) mg/dL AST (13-39) Units/L ALT (7-52) Units/L Alkaline Phosphatase (34-104) Units/L Troponin I (< 0.04) ng/mL Serum Total Protein (6.4-8.9) g/dL Albumin (3.5-5.7) g/dL Globulin (2.4-3.5) g/dL Albumin/Globulin Ratio (1.1-2.2) Urine Color (Yellow) Urine Clarity (Clear) Urine pH (5.0-8.0) pH Units Ur Specific [place] (1.010-1.025) Urine Protein (Neg-Trace) mg/dL Urine Glucose (UA) (Normal) mg/dL Urine Ketones (Negative) mg/dL Urine Blood (Negative) Urine Nitrite (Negative) Urine Bilirubin (Negative) Urine Urobilinogen (Normal) mg/dL Ur Leukocyte Esterase (Negative) Urine Microscopic RBC (0-3) per hpf Urine Microscopic WBC (0-3) per hpf Ur Squamous Epith Cells (None-Few) per lpf Ur Renal Epithelial Cell (None-Few) per hpf Urine Bacteria (None-Few) per hpf Urine Yeast (None Seen) per hpf Ur Culture Indicated? (NO) 02/17/17 Range/Units 11:56 WBC (4.3-11.1) K/mcL RBC (3.82-4.97) M/mcL Hgb (11.5-15.4) g/dL Hct (35.3-44.9) % MCV (83.0-100.0) fL MCH (28.0-33.3) pg MCHC (31.6-35.5) g/dL RDW (11.5-14.5) % Plt Count (140-400) K/mcL MPV (9.4-12.4) fL Immature Gran % (0-4) % Seg Neutrophils % % Lymphocytes % % Monocytes % % Eosinophils % % Basophils % % Neutrophils # (1.6-8.9) K/mcL Lymphocytes # (0.6-4.6) K/mcL Monocytes # (0.0-1.3) K/mcL Eosinophils # (0.0-0.6) K/mcL Basophils # (0.0-0.2) K/mcL PT (9.4-12.1) Seconds INR APTT (26.0-36.0) Seconds Sodium (136-145) mEq/L Potassium (3.5-5.1) mEq/L Chloride (98-107) mEq/L Carbon Dioxide (23-29) mEq/L BUN (8-23) mg/dL Creatinine (0.60-1.20) mg/dL Est GFR ( Amer) (> 60) Est GFR (Non-Af Amer) (> 60) BUN/Creatinine Ratio (6-26) Glucose (70-105) mg/dL POC Glucose 129 H (58-89) Calculated Osmolality (280-300) Lactic Acid (0.5-2.2) mmol/L Calcium (8.6-10.3) mg/dL Total Bilirubin (0.3-1.0) mg/dL Direct Bilirubin (0.0-0.2) mg/dL Indirect Bilirubin (0.0-1.2) mg/dL AST (13-39) Units/L ALT (7-52) Units/L Alkaline Phosphatase (34-104) Units/L Troponin I (< 0.04) ng/mL Serum Total Protein (6.4-8.9) g/dL Albumin (3.5-5.7) g/dL Globulin (2.4-3.5) g/dL Albumin/Globulin Ratio (1.1-2.2) Urine Color (Yellow) Urine Clarity (Clear) Urine pH (5.0-8.0) pH Units Ur Specific [place] (1.010-1.025) Urine Protein (Neg-Trace) mg/dL Urine Glucose (UA) (Normal) mg/dL Urine Ketones (Negative) mg/dL Urine Blood (Negative) Urine Nitrite (Negative) Urine Bilirubin (Negative) Urine Urobilinogen (Normal) mg/dL Ur Leukocyte Esterase (Negative) Urine Microscopic RBC (0-3) per hpf Urine Microscopic WBC (0-3) per hpf Ur Squamous Epith Cells (None-Few) per lpf Ur Renal Epithelial Cell (None-Few) per hpf Urine Bacteria (None-Few) per hpf Urine Yeast (None Seen) per hpf Ur Culture Indicated? (NO) - Radiology Data Radiology results reviewed: Yes I reviewed the patient's radiology results. Chest X-Ray 02/17/17 08:22 IMPRESSION: No acute abnormality. D/ / Juan Manuel Garzon MD / Juan Manuel Garzon MD Interpreting Provider: Juan Manuel Garzon MD Abdomen/Pelvis CT 02/17/17 09:47 IMPRESSION: 1. Persistent bilateral hydroureteronephrosis without obstructing calculi. 2. Gas within the bladder. Question if the Bennett catheter has been recently removed. Otherwise, this is worrisome for emphysematous cystitis or vesico enteric fistula. 3. Stable edematous changes involving the abdominal wall. 4. Bilateral renal cysts with probable hemorrhagic cyst involving the midpole of the left kidney. D/ / Brian Virk MD / Brian Virk MD Interpreting Provider: Brian Virk MD - EKG Data EKG attestation: Yes I reviewed and interpreted this EKG. EKG results narrative: EKG performed 0830 normal sinus rhythm 63 bpm, no ST elevations or depression, questionable peaked T waves in septal leads V2-V3, prolonged QTC 475, no T wave inversion. Compared to old EKG performed 02/05/2017 shows similar findings with T waves less peaked. No acute ischemic changes. TPA Checklist - Eligibilty for IV tPA 2. Clinical diagnosis of ischemic stroke causing deficit: No - LKW: 3-4.5 hrs Add. Warnings/Precautions Patient/family understanding: The patient/family members have been counseled and understood the risk, benefit , and alternatives of treatment. Attestation Statement - Attestation Attestation: I, Alireza Garcia DO, examined this patient [id number] and my medical decision-making was reviewed with Homero Burks DO , Resident Physician. I agree with the documented findings, disposition and treatment plan as described except to the extent set forth below. Please see my progress notes for details. 72-year-old female presents [facility] emergency room from [facility] for evaluation of unresponsiveness. Patient was found this morning in her room with some respiratory distress as well as confusion. She is unable to follow commands that time. She has a known history of renal failure requiring dialysis. She is followed by Dr. baeza. During transport by EMS patient found have a glucose of 37. A 1 g bolus of D50 given at this time. Patient's repeat Accu- Chek was 99 in transit. Her mentation is coming back to baseline. On arrival here to the emergency room she is alert following commands and answering questions appropriately. Her lungs are clear heart is regular abdomen is soft she has some mild tenderness in right center abdomen. Lower extremities appear to be stable. She does have a fistula was appropriate thrill in the right upper extremity. Her head is atraumatic pupils are equal and reactive oropharynx is patent and his movements are moist. She does occasionally refused her dialysis. EKG reviewed and does not show any acute signs of hyperacute T waves. They are slightly larger than previous. Low clinical concern for hyperkalemia at this time. Mentation is coming back to baseline. Will check definitive evaluation with a sepsis evaluation for infectious etiology causing the low glucose. According to the chart and the patient's description she is only on injectable medications at this time and no long- acting medications. Disposition will be determined once workup is completed. See detailed documentation of physical exam, medical intervention, medical decision-making and disposition of the resident physician's note 1000 Patient has normal laboratory workup at this time. Creatinine is elevated and her B1 is slightly higher than normal. We will consult nephrology. Otherwise she has no other acute pathology. Chest x-ray and urine are otherwise unremarkable. Patient has what appears to be a unprovoked hypoglycemic event. She is only on injectable insulin at this time. Most likely will discharge patient back to the [facility] for definitive treatment course and management. [facility] was contacted and informed of findings this is a does appear to be the case at this time. CT imaging to be reviewed. Otherwise patient is resting comfortably in the bed in no distress speaking in full sentences. She is provided a meal tray here and repeat Accu-Cheks completed. No other concerns or issues initially. 1145 Patient had repeat Accu-Chek completed after eating a meal here. Her Accu-Chek was done with 40 again. Patient will be admitted at this time and treated for urinary tract infection as well as possible hypoglycemic event of unknown etiology. Patient will be admitted at this time for definitive management.
[2017-02-17 08:45] LABS: Basophils # 0.1 K/mcL (0.0-0.2); Eosinophils # 0.2 K/mcL (0.0-0.6); Hematocrit 29.3 % (35.3-44.9); Hemoglobin 9.2 g/dL (11.5-15.4); Immature Granulocytes % 2.3 % (0-4); Lymphocytes # 1.6 K/mcL (0.6-4.6); Lymphocytes % 19.1 %; Mean Corpuscular HGB Conc 31.4 g/dL (31.6-35.5); Mean Corpuscular Hemoglobin 31.8 pg (28.0-33.3); Mean Corpuscular Volume 101.4 fL (83.0-100.0); Monocytes # 0.3 K/mcL (0.0-1.3); Monocytes % 3.3 %; Platelet Count 140 K/mcL (140-400); Red Blood Count 2.89 M/mcL (3.82-4.97); Red Cell Distribution Width 15.9 % (11.5-14.5); Segmented Neutrophils % 72.3 %
[2017-02-17 08:50] LABS: INR 1.1; Prothrombin Time 11.4 Seconds (9.4-12.1)
[2017-02-17 08:58] LABS: Bilirubin,Urine Negative (Negative); Blood,Urine Moderate (Negative); Clarity,Urine Turbid (Clear); Color,Urine Yellow (Yellow); Glucose,Urine (UA) Normal (Normal); Ketones,Urine Negative (Negative); Leukocyte Esterase,Urine Large (Negative); Nitrite,Urine Negative (Negative); PH,Urine 7.5 pH Units (5.0-8.0); Protein,Urine >=300 mg/dL (Neg-Trace); Specific Gravity,Urine 1.014 (1.010-1.025); Urobilinogen,Urine Normal (Normal)
[2017-02-17 09:00] LABS: Alanine Aminotransferase < 3 Units/L (7-52); Albumin 2.5 g/dL (3.5-5.7); Albumin/Globulin Ratio 0.8 (1.1-2.2); Alkaline Phosphatase 59 Units/L (34-104); Aspartate Amino Transferase 14 Units/L (13-39); BUN/Creatinine Ratio 8 (6-26); Bilirubin,Indirect 0.3 mg/dL (0.0-1.2); Bilirubin,Total 0.3 mg/dL (0.3-1.0); Blood Urea Nitrogen 51 mg/dL (8-23); Calcium 8.8 mg/dL (8.6-10.3); Carbon Dioxide 27 mEq/L (23-29); Chloride 104 mEq/L (98-107); Globulin 3.1 g/dL (2.4-3.5); Glucose 90 mg/dL (70-105); Osmolality,Calculated 299 (280-300); Potassium 4.6 mEq/L (3.5-5.1); Sodium 138 mEq/L (136-145); Total Protein 5.6 g/dL (6.4-8.9); eGFR For African Americans 8 (> 60); eGFR For Non-African Americans 6 (> 60)
[2017-02-17 09:01] LABS: WBC,Urine TNTC per hpf (0-3)
[2017-02-17 09:27] LABS: RBC,Urine Present per hpf (0-3); Squamous Epithelial Cell,Urine Present per lpf (None-Few)
[2017-02-17 09:28] LABS: Bacteria,Urine Present per hpf (None-Few); Renal Epithelial Cells,Urine Present per hpf (None-Few); Yeast,Urine Few per hpf (None Seen)
[2017-02-17] MEDS ORDERED: *HR* Dextrose 50 % in Water (Syg) 50 ML SYRINGE IVP ONE (11:25)
[2017-02-17] MEDS ORDERED: Piperacillin/Tazobactam 3.375 GM in Water for inj. (sterile) 20 ML IVP ONE (11:29)
[2017-02-17] MEDS: D5% in 0.45% NACL 1,000 ML IVC SCH ×2 (11:44→21:08)
[2017-02-17] MEDS ORDERED: Cholecalciferol (D-3) 1,000 UNIT TABLET PO SCH (13:45)
--- NOTE | 2017-02-17 13:48 | Internal Med History&Physical ---
Date of Encounter: 02/17/17 Time of Encounter: 13:42 Assessment and Plan (1) Hypoglycemia Current visit: Yes Status: Acute On long acting insulin and sliding scale. Reporting a decreased in oral intake both fluids and food. I suspect that her diminished appetite and continued use of basal insulin and sliding scale coverage is the causative factor of hypoglycemia. Continue D5 0.45 drip hold basal insulin coverage hold LSSIC for now; continue to monitor and add when patient is stable without D5 0.45 gtt. Q2HRS accuchecks (2) Transient alteration of awareness Current visit: Yes Status: Resolved improved. Alert and oriented 3 (3) Insulin dependent diabetes mellitus Current visit: Yes Status: Chronic Q2HRS accuchecks and renal/diabetic/cardiac diet (4) ESRD (end stage renal disease) on dialysis Current visit: Yes Status: Chronic Consultations to nephrology: Spoke with Dr. Tran who has agreed to see the patient today. We will resume hemodialysis while inpatient Patient is anemic with hemoglobin of 9.2; check iron transferrin Check PTH and vitamin D Resume calcitriol and cholecalciferol, and calcium acetate (5) DVT prophylaxis Current visit: Yes Status: Acute Heparin 5000units SC BID Internal Medicine - H&P: HPI Chief complaint: AMS, hypoglycemia Admitted From: Home Plans for Post Hospital Care: Home History of present illness: Ms. Bernal is a 72 year old female with a PMH of ESRD, A-FIB, CHF, COPD, DM, GERD, HLD, HTN, hypothyroidism. She presents today via EMS to [facility] with AMS and hypoglycemia. All information obtained from chart review, and patient. She is from an assisted living facility and reports that she was unresponsive this morning so her calculus teacher called EMS. Upon arrival she was found to be hypoglycemic with blood glucose of 30. She received 1 amp of D50 and immediately improved. She is now alert and conversational. She has a history of ESRD and sees Dr. Baeza and receives hemodialysis on . She has missed a few hemodialysis clearance recently is reported being due to refusal. She is unaware when she last received hemodialysis. Patient denies any fever, chills, nausea vomiting diarrhea, abdominal pain, CP, tachycardia or syncope. Admits to a decreased in appetite and oral intake. Past Med Surg Social Fam HX - Past Medical History Medical history: atrial fibrillation, CHF, COPD, diabetes, GERD, hyperlipidemia , hypertension, kidney stones, renal disease, thyroid disease, syncope, other Psychiatric history: depression - Past Surgical History Surgical History: appendectomy, carotid endarterectomy, cholecystectomy, hysterectomy, knee replacement, ALEC/BSO, other - Social History Smoking Status: Current every day smoker Smokeless Tobacco Status: No Alcohol use: none Drug use: none - Family History Father Family Member Ethnicity: Non- Living Status: Hx Family Cardiac Disorders: Yes Hx Family Respiratory Disorders: No Hx Family Cancer: No Hx Family GI Disorders: No Hx Family Endocrine Disorder: No Hx Family Neuromuscular Disorders: No Hx Family Neurologic Disorders: No Hx Family HEENT Disorders: No Hx Family Autoimmune Disorders: No Mother Living Status: Internal Medicine - H&P: Meds Ergocalciferol (VITAMIN D2) [Vitamin D2 (50,000 UNIT)] 50,000 unit PO QMONTH 07/08 [History] Paroxetine [Paxil] 20 mg PO DAILY 02/12/16 [History] Clopidogrel [Plavix] 75 mg PO DAILY 04/03/16 [History] Levothyroxine [Synthroid] 175 mcg PO QAM 04/03/16 [History] Calcitriol [Rocaltrol] 0.25 mcg PO MOWEFR 11/11/16 [History] Iron Polysaccharide Complex [Pro Fe] 180 mg PO DAILY 11/11/16 [History] Lisinopril [Zestril] 40 mg PO DAILY tablet 11/24/16 [Rx] B Complex W-C No.20/Folic Acid [Virt-Caps Softgel] 1 mg PO DAILY 12/27/16 [ History] Calcium Acetate [Phos-LO] 667 mg PO TIDWM 12/27/16 [History] Ergocalciferol (VITAMIN D2) [Vitamin D2] 2,000 unit PO TUTHSA 12/27/16 [History] Lactobacillus Acidophilus [Acidophilus] 2 cap PO BID 12/27/16 [History] Pantoprazole Sodium [Protonix] 40 mg PO DAILY 02/05/17 [History] Fluconazole [Diflucan] 100 mg PO DAILY #7 tablet 02/11/17 [Rx] Meropenem [Merrem] 1,000 mg IVPB DAILY #7 vial 02/11/17 [Rx] Nut.tx.impaired Renal Fxn,Soy [Nepro Carb Steady] 1 each PO BID 02/17/17 [ History] 3 Allergy/AdvReac Type Severity Reaction Status Date / Time Tiqzshy-Sgp-Zcf Reductase Allergy See Verified 07/14/16 13:48 Inhibitor Comments [Statins] Sulfa (Sulfonamide Allergy swelling Verified 07/14/16 11:56 Antibiotics) All Systems PM: A 10-system review of systems was performed and is negative for pertinent findings except as documented above in the HPI. - Constitutional Constitutional: anorexia, malaise, no chills, no fever(s), no night sweats - EENT Eyes: no change in vision, no discharge, no pain, no photophobia Ears: no ear discharge, no ear pain, no tinnitus Nose, mouth and throat: no dysphagia, no nasal discharge, no neck pain, no sore throat - Cardiovascular Cardiovascular ROS IM: no chest pain, no diaphoresis, no dyspnea, no lightheadedness, no palpitations, no syncope - Respiratory Respiratory: no cough, no dyspnea, no wheezing, no excessive phlegm production - Gastrointestinal Gastrointestinal: no abdominal pain, no diarrhea, no hematemesis, no hematochezia, no melena, no nausea, no vomiting - Genitourinary Genitourinary: no change in urinary stream, no dysuria, no flank pain, no hematuria - Musculoskeletal Musculoskeletal ROS IM: no numbness, no tingling - Integumentary Integumentary IM: no rash, no unusual bruising - Neurological Neurological ROS: no confusion, no convulsions, no focal weakness, no numbness, no tingling, no tremor(s) - Hematologic/Lymphatic Hematologic/Lymphatic: no easy bruising - Constitutional Vitals: Temp Pulse Resp BP Pulse Ox 97.4 F L 63 12 132/63 99 02/17/17 12:38 02/17/17 12:38 02/17/17 12:38 02/17/17 12:38 02/17/17 12:38 General appearance: Present: cooperative, A&O X 3, no acute distress, answers questions appropriately - Head Head exam: Present: atraumatic, normocephalic - Eye Eye exam: Present: PERRL, conjuntiva pink, sclera anicteric Pupils: Present: PERRL - Neck Neck exam general surgery: Present: supple, trachea midline. Absent: lymphadenopathy - Respiratory Respiratory exam: Present: CTAB. Absent: accessory muscle use, rales, rhonchi, wheezes - Cardiovascular Cardiovascular exam: Present: RRR, +S1, +S2. Absent: diastolic murmur, gallop, rubs, systolic murmur - GI/Abdominal GI/Abdominal exam: Present: normal bowel sounds, soft, no peritoneal signs. Absent: distended, tenderness - Extremities Exam Extremities exam: Present: warm, radial pulses palpable and symmetrical. Absent : calf tenderness, cyanotic, pedal edema - Neurological Exam Neurological exam: Present: alert, CN II-XII intact, oriented X3, no focal deficits. Absent: pronater drift, facial droop, speech deficit - Skin Skin exam: Present: dry, intact Internal Med - H&P Results - Labs CBC & Chem 7: 02/17/17 08:36 02/17/17 08:36 - EKG Data -: EKG Interpreted by Myself EKG shows normal: sinus rhythm Rate: normal - EKG Data Prior EKG available for review: yes When compared to previous EKG: there is no significant change Interpretation IM: normal EKG - Diagnostic Studies Chest x-ray Status: image reviewed by me Additional comments: no acute pulmonary abnormality CT scan - abdomen Status: image reviewed by me Additional comments: 1. Persistent bilateral hydroureteronephrosis without obstructing calculi. 2. Gas within the bladder. Question if the Bennett catheter has been recently removed. Otherwise, this is worrisome for emphysematous cystitis or vesico enteric fistula. 3. Stable edematous changes involving the abdominal wall. 4. Bilateral renal cysts with probable hemorrhagic cyst involving the midpole of the left kidney.
[2017-02-17] MEDS ORDERED: Naloxone 0.4 MG/ML INJ IVP PRN (14:09)
--- NOTE | 2017-02-17 15:38 | Nephrology Consult Note ---
Date of Encounter: 02/17/17 Time of Encounter: 15:36 Assessment and Plan (1) ESRD (end stage renal disease) on dialysis Current Visit: Yes Status: Chronic Plan for HD tomorrow Patient normally signs off early and refuses to get a full dialysis treatment Strict I/Os Renal diet Avoid nephrotoxins if possible (2) Non compliance with medical treatment Current Visit: Yes Status: Acute Grossly non-compliant with dialysis treatements, diet, medications (3) Hypoglycemia Current Visit: Yes Status: Acute per primary team History of Present Illness - Reason for Consult Consult date: 02/17/17 - Chief Complaint hypoglycemia, ESRD on dialysis - History of Present Illness Ms. Bernla is a 72 year old female well known to our practice with a PMH of ESRD , A-FIB, CHF, COPD, DM, GERD, HLD, HTN, hypothyroidism. She was admitted with hypoglycemia and AMS. She is unaware when she last received hemodialysis. Patient is grossly non-compliant with her dialysis treatments, normally missing at least two of her three weekly outpatient HD treatments. Past Med Surg Social Fam HX - Past Medical History Medical history: atrial fibrillation, CHF, COPD, diabetes, GERD, hyperlipidemia , hypertension, kidney stones, renal disease, thyroid disease, syncope, other Psychiatric history: depression - Past Surgical History Surgical History: appendectomy, carotid endarterectomy, cholecystectomy, hysterectomy, knee replacement, ALEC/BSO, other - Social History Smoking Status: Current every day smoker Smokeless Tobacco Status: No Alcohol use: none Drug use: none - Family History Father Family Member Ethnicity: Non- Living Status: Hx Family Cardiac Disorders: Yes Hx Family Respiratory Disorders: No Hx Family Cancer: No Hx Family GI Disorders: No Hx Family Endocrine Disorder: No Hx Family Neuromuscular Disorders: No Hx Family Neurologic Disorders: No Hx Family HEENT Disorders: No Hx Family Autoimmune Disorders: No Mother Living Status: Medications and Allergies Ergocalciferol (VITAMIN D2) [Vitamin D2 (50,000 UNIT)] 50,000 unit PO QMONTH 07/08 [History] Paroxetine [Paxil] 20 mg PO DAILY 02/12/16 [History] Clopidogrel [Plavix] 75 mg PO DAILY 04/03/16 [History] Levothyroxine [Synthroid] 175 mcg PO QAM 04/03/16 [History] Calcitriol [Rocaltrol] 0.25 mcg PO MOWEFR 11/11/16 [History] Iron Polysaccharide Complex [Pro Fe] 180 mg PO DAILY 11/11/16 [History] Lisinopril [Zestril] 40 mg PO DAILY tablet 11/24/16 [Rx] B Complex W-C No.20/Folic Acid [Virt-Caps Softgel] 1 mg PO DAILY 12/27/16 [ History] Calcium Acetate [Phos-LO] 667 mg PO TIDWM 12/27/16 [History] Ergocalciferol (VITAMIN D2) [Vitamin D2] 2,000 unit PO TUTHSA 12/27/16 [History] Lactobacillus Acidophilus [Acidophilus] 2 cap PO BID 12/27/16 [History] Pantoprazole Sodium [Protonix] 40 mg PO DAILY 02/05/17 [History] Fluconazole [Diflucan] 100 mg PO DAILY #7 tablet 02/11/17 [Rx] Meropenem [Merrem] 1,000 mg IVPB DAILY #7 vial 02/11/17 [Rx] Nut.tx.impaired Renal Fxn,Soy [Nepro Carb Steady] 1 each PO BID 02/17/17 [ History] 3 Allergy/AdvReac Type Severity Reaction Status Date / Time Lrtohnn-Tjr-Tny Reductase Allergy See Verified 07/14/16 13:48 Inhibitor Comments [Statins] Sulfa (Sulfonamide Allergy swelling Verified 07/14/16 11:56 Antibiotics) Review of Systems All Systems: reviewed and no additional remarkable complaints except as stated Constitutional: no chills, no fever(s) Cardiovascular: edema, no chest pain Respiratory: no dyspnea Gastrointestinal: no vomiting Neurological: behavioral changes, confusion, weakness Exam - Vital Signs Vital signs: Initial Vital Signs Temp Pulse Resp BP Pulse Ox 94.5 F L 60 17 118/78 99 02/17/17 08:22 02/17/17 08:22 02/17/17 08:22 02/17/17 08:22 02/17/17 08:22 Vital Signs - Last 8 Hours Temp Pulse Resp BP Pulse Ox 02/17/17 15:23 97.5 F L 69 16 108/75 99 02/17/17 12:38 97.4 F L 63 12 132/63 99 Intake and Output 02/16/17 02/17/17 02/17/17 23:59 07:59 15:59 Intake Total 125 / 125 Balance 125 / 125 Intake: IV Fluids 125 / 125 D5% And 0.45% Nacl 1000 Ml Bag 125 / 125 1,000 ML @ 125 mls/hr IVC .Q8H DEMAR Rx#:[id number] Other: Blood Glucose* 167 - General Appearance General appearance: obese EENT: ATNC, mucous membranes moist, hearing intact, vision intact Neck: supple Respiratory: clear Cardiology: edema, normal S1, normal S2 Gastrointestinal: no tenderness, no guarding Integumentary: warm and dry Neurologic: alert and oriented x3 Psychiatric: mood/affect appropriate, cooperative Results - Lab Results 02/17/17 08:36 02/17/17 08:36 Most recent lab results Calcium 8.8 mg/dL (8.6-10.3) 02/17/17 08:36 Consult Discharge Plan - Plan Referrals: Moncho Arambula MD [Primary Care Provider] -
[2017-02-17 15:40] LABS: % Iron Saturation 46 % (15-50); Iron 76 mcg/dL (50-170); Transferrin 119 mg/dL (203-362)
[2017-02-17] MEDS: Calcium Acetate 667 MG CAPSULE PO SCH (16:38)
[2017-02-17] MEDS: *HR* Heparin 5,000 UNIT/ML VIAL SQ SCH (16:39)
[2017-02-17] MEDS ORDERED: Meropenem 1,000 MG in Water for inj. (sterile) 10 ML IVP SCH (18:00)
[2017-02-17] MEDS ORDERED: NUT TX IMPAIRED RENAL FXN SOY PO SCH (21:00)
[2017-02-17] MEDS: Lactobacillus 1 EACH CAP.SPRINK PO SCH (21:09)
[2017-02-18 04:12] LABS: Basophils # 0.1 K/mcL (0.0-0.2); Basophils % 0.8 %; Eosinophils # 0.3 K/mcL (0.0-0.6); Eosinophils % 3.1 %; Hematocrit 24.2 % (35.3-44.9); Hemoglobin 7.8 g/dL (11.5-15.4); Immature Granulocytes % 1.5 % (0-4); Lymphocytes # 3.6 K/mcL (0.6-4.6); Lymphocytes % 41.5 %; Mean Corpuscular HGB Conc 32.2 g/dL (31.6-35.5); Mean Corpuscular Hemoglobin 32.6 pg (28.0-33.3); Mean Corpuscular Volume 101.3 fL (83.0-100.0); Mean Platelet Volume 9.1 fL (9.4-12.4); Monocytes # 0.4 K/mcL (0.0-1.3); Monocytes % 5.1 %; Neutrophils # 4.2 K/mcL (1.6-8.9); Platelet Count 131 K/mcL (140-400); Red Blood Count 2.39 M/mcL (3.82-4.97); Red Cell Distribution Width 15.9 % (11.5-14.5)
[2017-02-18 04:31] LABS: Albumin 2.2 g/dL (3.5-5.7); Albumin/Globulin Ratio 0.8 (1.1-2.2); Bilirubin,Total 0.2 mg/dL (0.3-1.0); Calcium 8.3 mg/dL (8.6-10.3); Globulin 2.6 g/dL (2.4-3.5); Potassium 5.6 mEq/L (3.5-5.1); Total Protein 4.8 g/dL (6.4-8.9)
[2017-02-18] MEDS: *HR* Heparin 5,000 UNIT/ML VIAL SQ SCH (05:03)
--- NOTE | 2017-02-18 06:27 | Electrocardiograph Report ---
[facility] [facility] Test Date: 2017-02-17 Pat Name: Marline Bernal Department: [id number] Room: 2A71 Gender: F Marketing Intern: : 1945 Requested By: Homero Burks Order Number: [id number] Reading MD: Bartolo Valencia MD Measurements Intervals [place] Rate: 63 P: 48 AK: 171 QRS: 32 QRSD: 86 T: 73 QT: 467 QTc: 475 Interpretive Statements SINUS RHYTHM WITH FREQUENT SUPRAVENTRICULAR PREMATURE COMPLEXES PROLONGED QT INTERVAL Electronically Signed On 02-18-2017 6:26:01 EST by Bartolo Valencia MD
[2017-02-18] MEDS: Lactobacillus 1 EACH CAP.SPRINK PO SCH (07:22)
[2017-02-18] MEDS: Calcium Acetate 667 MG CAPSULE PO SCH ×2 (07:22→10:58)
[2017-02-18] MEDS: D5% in 0.45% NACL 1,000 ML IVC SCH (07:24)
[2017-02-18] MEDS ORDERED: 0.9 % Sodium Chloride 250 ML IVC PRN (07:27)
[2017-02-18] MEDS ORDERED: 0.9 % Sodium Chloride 1,000 ML PRIME SCH (07:30)
[2017-02-18] MEDS ORDERED: Lisinopril 20 MG TABLET PO SCH (09:00)
[2017-02-18] MEDS ORDERED: Iron Polysaccharide Complex 150 MG CAPSULE PO SCH (09:00)
[2017-02-18] MEDS ORDERED: Renal Vitamin 1 MG CAPSULE PO SCH (09:00)
[2017-02-18] MEDS ORDERED: Fluconazole 100 MG TABLET PO SCH (09:00)
--- NOTE | 2017-02-18 10:28 | Discharge Summary ---
<Ilya Mott - Last Filed: 02/18/17 12:41> Date of Encounter: 02/18/17 Time of Encounter: 10:48 - Discharge Diagnosis (1) Hypoglycemia Priority: Primary Status: Acute Comments: 2nd to levamir dosage at residential: got 30 units HS and 15 units AM patient only need levamir 10 units AM. AM dosing decreases hypoglycemia. (2) ESRD (end stage renal disease) on dialysis Priority: Secondary Status: Chronic Comments: Had dialysis today before discharge. (3) Non compliance with medical treatment Priority: Secondary Status: Acute Comments: Patient noncompliant with dialysis. (4) UTI (urinary tract infection) Priority: Secondary Status: Resolved Comments: Finish her course of antibiotics. Qualifiers: Urinary tract infection type: acute cystitis Hematuria presence: with hematuria Qualified Code(s): N30.01 - Acute cystitis with hematuria - Discharge Medications Prescriptions: Insulin DETEMIR [Levemir Flextouch] 10 unit SQ DAILY #3 insuln.pen Home Medications: Ergocalciferol (VITAMIN D2) [Vitamin D2 (50,000 UNIT)] 50,000 unit PO QMONTH 07/08 [History] Paroxetine [Paxil] 20 mg PO DAILY 02/12/16 [History] Clopidogrel [Plavix] 75 mg PO DAILY 04/03/16 [History] Levothyroxine [Synthroid] 175 mcg PO QAM 04/03/16 [History] Calcitriol [Rocaltrol] 0.25 mcg PO MOWEFR 11/11/16 [History] Iron Polysaccharide Complex [Pro Fe] 180 mg PO DAILY 11/11/16 [History] Lisinopril [Zestril] 40 mg PO DAILY tablet 11/24/16 [Rx] B Complex W-C No.20/Folic Acid [Virt-Caps Softgel] 1 mg PO DAILY 12/27/16 [ History] Calcium Acetate [Phos-LO] 667 mg PO TIDWM 12/27/16 [History] Ergocalciferol (VITAMIN D2) [Vitamin D2] 2,000 unit PO TUTHSA 12/27/16 [History] Lactobacillus Acidophilus [Acidophilus] 2 cap PO BID 12/27/16 [History] Pantoprazole Sodium [Protonix] 40 mg PO DAILY 02/05/17 [History] Nut.tx.impaired Renal Fxn,Soy [Nepro Carb Steady] 1 each PO BID 02/17/17 [ History] Insulin DETEMIR [Levemir Flextouch] 10 unit SQ DAILY #3 insuln.pen 02/18/17 [Rx] Allergies/Adverse Reactions: 3 Allergy/AdvReac Type Severity Reaction Status Date / Time Lrsjxnd-Djn-Cxk Reductase Allergy See Verified 07/14/16 13:48 Inhibitor Comments [Statins] Sulfa (Sulfonamide Allergy swelling Verified 07/14/16 11:56 Antibiotics) Date of admission: 02/17/17 14:09 Primary care physician: Moncho Arambula MD Consults: 02/17/17 14:12 Consult to Nephrology [CONS] Routine Consulting Provider: Kidney Katerina/CLAUDIA/JAYSHREE/ALEX Reason for Consult: M-W-F HD patient. Will need HD while inpatient. Has missed last few appointments Time Notified: 14:13 Call Completed: Yes 02/18/17 07:30 Consult to Dialysis [CONS] ONCE 02/18/17 08:44 Consult to [facility] [CONS] Routine Reason for SW Consult: return to signature Discharging clinician: Ilya Mott Anticipated date of discharge: 02/18/17 - Patient Status Disposition: Transfer Inpatient Rehab Fac Condition: Good Functional capacity at discharge: wheelchair bound Overall status at discharge: patient is progressing back to baseline - Discharge Instructions Follow Up With: Moncho Arambula MD [Primary Care Provider] - (Patient will follow up with ECF PCP -Return to signature) - Diet and Activity Activity: as per physical therapy Diet: advance to your usual diet, diabetic diet, low fat, low cholesterol, low salt diet Hospital course: Ms. Bernal is a 72 year old female presented with altered mental status and hypoglycemia. Her glucose was 30 as per EMS. She was given 3 Amps of D50 by EMS and on arrival started on D5 in 0.45 NS. Patient's mental status dramatically improved. She was alert and oriented [address] abdomen and pelvis was negative for any acute changes. Chest x-ray was negative. Nephrology was also counseled this patient has end-stage renal disease patient. Patient underwent dialysis today. Patient's residential facility was called. It was found that patient took 30 units of Levemir at night and 15 units Levemir in the morning. This dosage is more than what this patient requires. 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 Furthermore drained patient admission patient required only 10 units Levemir for glycemic control. This will be continued after discharge. Patient is able to tolerate her diet. Patient is stable for discharge. - Time Spent with Patient Total time spent providing and/or coordinating discharge services: - Constitutional Vitals: Temp Pulse Resp BP Pulse Ox 98.1 F 64 16 200/80 99 02/18/17 07:45 02/18/17 07:45 02/18/17 07:45 02/18/17 07:45 02/18/17 07:45 General appearance: Present: cooperative, A&O X 3, no acute distress, answers questions appropriately - Other Additional findings: General: Pleasant without distress HEENT: Head atraumatic, normocephalic, EOMI, PERRL, neck nontender to palpation , absent lymphadenopathy, Moist Mucous Membranes, Heart: Regular rate and rhythm with no murmur Lungs: Clear to auscultation bilaterally Abdomen: Soft nontender, nondistended positive bowel sounds Skin: warm and dry Extremities: Absent pedal edema. Right lower extremity toe amputation, bilateral heel ulcers bandaged. Neuro: Alert and oriented 3 Vascular: Pedal and radial pulses 2 out of 4 <Olman Díaz T - Last Filed: 02/18/17 14:46> Date of Encounter: 02/18/17 Date of admission: 02/17/17 14:09 Primary care physician: Moncho Arambula MD Consults: 02/17/17 14:12 Consult to Nephrology [CONS] Routine Consulting Provider: Kidney Katerina/CLAUDIA/JAYSHREE/ALEX Reason for Consult: M-W-F HD patient. Will need HD while inpatient. Has missed last few appointments Time Notified: 14:13 Call Completed: Yes 02/18/17 07:30 Consult to Dialysis [CONS] ONCE 02/18/17 08:44 Consult to [facility] [CONS] Routine Reason for SW Consult: return to [facility] Hospital course: Ms. Bernal is a 72 year old female - Time Spent with Patient Total time spent providing and/or coordinating discharge services: - Constitutional Vitals: Temp Pulse Resp BP Pulse Ox 98.2 F 64 17 177/61 99 02/18/17 13:53 02/18/17 13:53 02/18/17 13:53 02/18/17 13:53 02/18/17 13:53 - Attending Attestation I have seen this patient on 02/18/17 and discussed plan of care with patient and the resident physicians. She is readmitted due to metabolic encephalopathy due to hypoglycemia, she had also been refusing hemodialysis She is seen and evaluated at bedside and has returned to her baseline Physical exam unremarkable for acute findings She is stable to return to her SNF after dialysis Plan of care discussed with patient and resident who verbalize understanding
--- NOTE | 2017-02-18 11:33 | Nephrology Progress Note ---
Date of Encounter: 02/18/17 Time of Encounter: 11:32 - Assessment and Plan (1) ESRD on hemodialysis Current Visit: No Status: Chronic HD MWF. Patient frequently misses dialysis. Renal diet Renal dose medications Patient seen on dialysis today. (2) Edema Current Visit: Yes Status: Acute Should improve with dialysis. Qualifiers: Qualified Code(s): R60.9 - Edema, unspecified (3) Anemia Current Visit: No Status: Acute Monitor hemoglobin. No sign of bleeding at this time Qualifiers: Anemia type: unspecified type Qualified Code(s): D64.9 - Anemia, unspecified (4) DM2 (diabetes mellitus, type 2) Current Visit: No Status: Chronic Per primary team. Qualifiers: Diabetes mellitus complication status: with kidney complications Diabetes mellitus complication detail: with chronic kidney disease Diabetes mellitus termite control representative insulin use: with alf use Chronic kidney disease stage: on chronic dialysis Qualified Code(s): E11.22 - Type 2 diabetes mellitus with diabetic chronic kidney disease; N18.6 - End stage renal disease; Z99.2 - Dependence on renal dialysis; Z99.2 - Dependence on renal dialysis; Z99.2 - Dependence on renal dialysis; N18.6 - End stage renal disease; N18.6 - End stage renal disease; N18.6 - End stage renal disease; Z79.4 - terminologist (current ) use of insulin; Z79.4 - terminologist (current) use of insulin; Z79.4 - prison (current) use of insulin; Z79.4 - terminologist (current) use of insulin; Z99.2 - Dependence on renal dialysis Subjective Principal diagnosis: ESRD Interval history: Patient states she feels better today. She is seen on dialysis. Objective - Vital Signs Vital signs: Vital Signs Temp Pulse Resp BP Pulse Ox 02/18/17 07:45 98.1 F 64 16 200/80 99 02/18/17 05:11 98.3 F 73 15 147/76 97 02/18/17 00:19 140/64 02/18/17 00:07 98.2 F 70 16 99 02/17/17 19:57 130/70 02/17/17 19:17 97.9 F 70 18 99 02/17/17 15:23 97.5 F L 69 16 108/75 99 Intake and Output 12/02/18/17 02/18/17 23:59 07:59 15:59 Intake Total 1115 / 1115 1000 / 1000 Balance 1115 / 1115 1000 / 1000 Intake: IV Fluids 875 / 875 1000 / 1000 D5% And 0.45% Nacl 1000 Ml Bag 875 / 875 1000 / 1000 1,000 ML @ 125 mls/hr IVC .Q8H DEMAR Rx#:[id number] Oral 240 / 240 Other: Meal Dinner Percent of Meal Consumed 90% Blood Glucose* 266 154 - General Appearance General appearance: Present: well-developed, well-nourished EENT: Present: ATNC Cardiology: Present: edema, regular rate Psychiatric: Present: mood/affect appropriate - Lab 02/18/17 04:00 02/18/17 04:00 Most recent lab results Calcium 8.3 mg/dL (8.6-10.3) L 02/18/17 04:00 Consult Discharge Plan - Plan Referrals: Moncho Arambula MD [Primary Care Provider] - (Patient will follow up with F PCP -Return to signature) Prescriptions: Insulin DETEMIR [Levemir Flextouch] 10 unit SQ DAILY #3 insuln.pen
--- NOTE | 2017-02-18 11:42 | Physician Discharge Referral ---
[facility] Referral Info Transfer To: [facility] Provider in Charge: smith Provider in Charge after Transfer: PCP Institutional Level of Care: Skilled - Diagnosis (1) Hypoglycemia Priority: Primary Status: Acute (2) ESRD (end stage renal disease) on dialysis Priority: Secondary Status: Chronic (3) Non compliance with medical treatment Priority: Secondary Status: Acute (4) UTI (urinary tract infection) Priority: Secondary Status: Resolved Prognosis: Good Aware of Diagnosis: Patient Aware of Prognosis: Patient - Transfer Medications Prescriptions: Insulin DETEMIR [Levemir Flextouch] 10 unit SQ DAILY #3 insuln.pen Home Medications: Ergocalciferol (VITAMIN D2) [Vitamin D2 (50,000 UNIT)] 50,000 unit PO QMONTH 07/08 [History] Paroxetine [Paxil] 20 mg PO DAILY 02/12/16 [History] Clopidogrel [Plavix] 75 mg PO DAILY 04/03/16 [History] Levothyroxine [Synthroid] 175 mcg PO QAM 04/03/16 [History] Calcitriol [Rocaltrol] 0.25 mcg PO MOWEFR 11/11/16 [History] Iron Polysaccharide Complex [Pro Fe] 180 mg PO DAILY 11/11/16 [History] Lisinopril [Zestril] 40 mg PO DAILY tablet 11/24/16 [Rx] B Complex W-C No.20/Folic Acid [Virt-Caps Softgel] 1 mg PO DAILY 12/27/16 [ History] Calcium Acetate [Phos-LO] 667 mg PO TIDWM 12/27/16 [History] Ergocalciferol (VITAMIN D2) [Vitamin D2] 2,000 unit PO TUTHSA 12/27/16 [History] Lactobacillus Acidophilus [Acidophilus] 2 cap PO BID 12/27/16 [History] Pantoprazole Sodium [Protonix] 40 mg PO DAILY 02/05/17 [History] Nut.tx.impaired Renal Fxn,Soy [Nepro Carb Steady] 1 each PO BID 02/17/17 [ History] Insulin DETEMIR [Levemir Flextouch] 10 unit SQ DAILY #3 insuln.pen 02/18/17 [Rx] Allergies/Adverse Reactions: 3 Allergy/AdvReac Type Severity Reaction Status Date / Time Xbudxtx-Jlz-Rej Reductase Allergy See Verified 07/14/16 13:48 Inhibitor Comments [Statins] Sulfa (Sulfonamide Allergy swelling Verified 07/14/16 11:56 Antibiotics) - Respiratory Orders None Smoking Cessation: Smoking cessation has been advised. For more information, call the [place] Tobacco Quit Line at 1-815-SQRR-NOW. - Ancillary Orders May use pressure relief devices daily prn - Advance Directives Code Status: Full Code - Mobility Orders Chair - Rehabiliation Orders Rehab Potential: Fair Rehab Orders: Evaluation for Physical Therapy, Evaluation for Occupational Therapy - Treatments Skin tear care topically daily PRN per policy - Diet Orders Renal (diabetic diet) CERTIFICATION: I certify that the transfer of the above named patient to an Extended Care Facility is necessary for the continuing treatment of the diagnosis listed. The above information is true and accurate reflection of patient's current condition. Confidential - Redisclosure prohibited without a patient's written consent.
[2017-02-18] MEDS ORDERED: 0.9 % Sodium Chloride 2,000 ML ONE (13:03)
[2017-02-18 13:53] VITALS: BP 177/61
== END 2017-02-18 15:02 | DRG 637 ==
LOC: EMEROO 08:17 → 2ANU 08:17
PROVIDERS: ADMIT Internal Medicine Nephrology; ATTEND Internal Medicine

== ENCOUNTER 2017-05-09 08:06 | Inpatient (IN) ==
--- NOTE | 2017-05-09 08:27 | Emergency Department Note ---
Disposition Clinical Impression: ESRD on hemodialysis, Insulin dependent diabetes mellitus, Hypoglycemia, Weakness Hypothyroidism Qualifiers: Hypothyroidism type: unspecified Qualified Code(s): E03.9 - Hypothyroidism, unspecified Hypothermia Qualifiers: Encounter type: initial encounter Qualified Code(s): T68.XXXA - Hypothermia, initial encounter UTI (urinary tract infection) Qualifiers: Urinary tract infection type: acute cystitis Hematuria presence: without hematuria Qualified Code(s): N30.00 - Acute cystitis without hematuria Altered mental status Qualifiers: Altered mental status type: unspecified Qualified Code(s): R41.82 - Altered mental status, unspecified Disposition: Admitted As Inpatient Condition: Good Referrals: Chandler Estrada MD [Primary Care Provider] - Forms: ED Satisfaction Letter, Work/School Release Time of Disposition: 10:44 General Adult HPI - General Chief complaint: ED General Medical Stated complaint: hypoglycemia Time Seen by Provider: 05/09/17 08:11 Source: patient, EMS, other ([facility]) Mode of arrival: EMS Limitations: altered mental status, other (patient awake and oriented x 2) Nursing Notes Reviewed: Yes Vital Signs Reviewed: Yes - History of Present Illness HPI Narrative: Hypoglycemic this morning at the senior living. Was given glucagon. Sent to the emergency room. They states she was unresponsive there. EMS reports patient has been responding to them the whole time. Does not appear to be in any distress. And refusing dialysis for the past couple weeks. - Related Data Home Medications Medication Instructions Recorded Confirmed Ergocalciferol (VITAMIN D2) 50,000 unit PO QMONTH 11/28/15 05/09/17 [Vitamin D2 (50,000 UNIT)] Paroxetine [Paxil] 20 mg PO DAILY 02/12/16 05/09/17 Clopidogrel [Plavix] 75 mg PO DAILY 04/03/16 05/09/17 Levothyroxine [Synthroid] 175 mcg PO QAM 04/03/16 05/09/17 Calcitriol [Rocaltrol] 0.25 mcg PO MOWEFR 11/11/16 05/09/17 Calcium Acetate [Phos-LO] 667 mg PO TIDWM 12/27/16 05/09/17 Ergocalciferol (VITAMIN D2) 2,000 unit PO TUTHSA 12/27/16 05/09/17 [Vitamin D2] Lactobacillus Acidophilus 2 cap PO BID 12/27/16 05/09/17 [Acidophilus] Folic Acid 1 mg PO DAILY 04/22/17 05/09/17 Folic Acid/Vit Bcomp,C [Renal-Juliano 0.8 mg PO BID 04/22/17 05/09/17 Tablet] HYDROcodone/Acet 7.5/325 mg [[place] 1 tab PO MOWEFR 04/22/17 05/09/17 7.5-325 mg] Iron Polysaccharide Complex 150 mg PO DAILY 04/22/17 05/09/17 [Ferrex 150] Pantoprazole Sodium [Protonix] 20 mg PO DAILY 04/22/17 05/09/17 HYDROcodone/Acet 7.5/325 mg [[place] 1 tab PO Q6H PRN 05/09/17 05/09/17 7.5-325 mg] Lisinopril [Zestril] 40 mg PO DAILY 05/09/17 05/09/17 Previous Rx's Medication Instructions Recorded Insulin DETEMIR [Levemir Flextouch] 10 unit SQ DAILY #3 insuln.pen 02/18/17 Allergies Allergy/AdvReac Type Severity Reaction Status Date / Time Ymkhquc-Ukb-Hlh Reductase Allergy See Verified 05/09/17 10:35 Inhibitor Comments [Statins] Sulfa (Sulfonamide Allergy swelling Verified 05/09/17 09:49 Antibiotics) All systems ED: reviewed and negative except as stated. Constitutional: Denies: fever, chills Cardiovascular: Denies: chest pain, syncope Respiratory: Denies: cough, dyspnea, wheezes Gastrointestinal: Denies: abdominal pain, nausea, vomiting, diarrhea Neurological: Denies: weakness Past Medical History - Past Medical History Attestation: Yes The following information was validated with the patient. Source: patient Medical history: Reports: atrial fibrillation, CHF, COPD, diabetes, GERD, hyperlipidemia, hypertension, kidney stones, renal disease, thyroid disease, syncope, other Surgical history: Reports: appendectomy, carotid endarterectomy, cholecystectomy , hysterectomy, knee replacement, ALEC/BSO, other Psychiatric history: Reports: depression - Social History Smoking Status: Current every day smoker Smokeless Tobacco Status: No Alcohol use: Reports: none Drug use: Reports: none Physical Exam - General Limitations: no limitations General appearance: alert, in no apparent distress - Head Head exam: atraumatic, normocephalic, normal inspection - Eye Eye exam: Present: normal appearance, PERRL, EOMI, other (Mild periorbital edema to the right.). Absent: scleral icterus - ENT ENT exam: normal exam, normal oropharynx, mucous membranes moist - Neck Neck exam: Present: normal inspection, full ROM, trachea midline - Chest Chest inspection: Present: normal inspection, symmetric chest wall rise - Respiratory Respiratory exam: Present: normal lung sounds bilaterally. Absent: respiratory distress - Cardiovascular Cardiovascular exam: Present: regular rate, normal rhythm, normal heart sounds - Abdominal Exam Abdominal exam: Present: soft, Non-Tender. Absent: tenderness, distention, guarding, rebound - Extremities Exam Extremities exam: Present: normal inspection, normal capillary refill, other ( Multiple toe amputations. Well-healed.). Absent: tenderness, pedal edema - Back Exam Back exam: Present: normal inspection, full ROM. Absent: tenderness - Neurological Exam Neurological exam: Present: alert, oriented X3 - Psychiatric Psychiatric exam: Present: normal affect, normal mood - Skin Skin exam: Present: warm, dry, intact, normal color. Absent: rash Course Course Narrative: Female patient presenting to the emergency department by EMS. She lives at a senior living and is a dialysis patient however she has been refusing dialysis for the past several weeks. She was found to be unresponsive and hypoglycemic at the senior living this morning. They administered glucagon. Her initial blood sugar was reported to be 36. She is now at 70 here. She is mentating appropriately. Alert and oriented 3. She has no complaints currently. Her lung sounds are remarkably clear. She does have some mild edema to her right orbital area however she does not appear to have gross edema to the rest of her body. She is cool to the touch. Temperature was found to be 92 axillary. She refused a rectal temperature. We will place a bear hugger on the patient. I am concerned initially for fluid overload versus sepsis picture. However clinically she does not appear to be fluid overloaded. We will get a basic lab workup on patient inclusive of the TSH and chest x-ray. - Reevaluation(s) Reevaluation #1: Patient is acidotic and has a UTI. We will start the patient on cefepime with her previous diagnosis of VRE. We will admit patient to the hospital and consult nephrology. Time: 09:53 Reevaluation #2: Patient is hypothermic, and now hypotensive. We will give her a fluid bolus. I did speak with Dr. Maldonado who states he will do dialysis today. Patient has a UTI. She has a history of VRE we will start patient on cefepime. Patient 's mental status waxes and wanes. There is a note from palliative care that states that she is not able to make decisions for herself. She does have 2 children that have been contacted at that time. We will admit patient for possible sepsis. Fluid has been limited due to patient's history of dialysis and lack of dialysis recently. However she will be dialyzed today so we will start a fluid bolus at this time. Time: 10:44 - Consultations Consultation #1: I spoke with Dr. Maldonado. He states he will get orders and for the patient to have dialysis today. Time: 10:03 Consultation #2: Dr Mcconnell accepted patient in stable condition Time: 10:59 Vital Signs Temperature 0 F L 05/09/17 08:08 Pulse Rate 52 05/09/17 08:08 Respiratory Rate 16 05/09/17 08:08 Blood Pressure 124/62 05/09/17 08:08 O2 Sat by Pulse Oximetry 99 05/09/17 08:08 Temperature 97.4 F L 05/09/17 10:34 Pulse Rate 52 05/09/17 11:03 Respiratory Rate 18 05/09/17 11:03 Blood Pressure 93/49 05/09/17 11:03 O2 Sat by Pulse Oximetry 100 05/09/17 11:03 Oxygen Delivery Oxygen Delivery Room Air Medical Decision Making - Medical Records Medical records reviewed: Yes I reviewed the patient's medical records. - Lab Data Lab results reviewed: Yes I reviewed the patient's lab results. Result diagrams: 05/09/17 08:37 05/09/17 08:37 Lab Results 05/09/17 05/09/17 05/09/17 Range/Units 08:15 08:37 08:37 WBC 10.8 (4.3-11.1) K/mcL RBC 2.95 L (3.82-4.97) M/mcL Hgb 9.3 L (11.5-15.4) g/dL Hct 28.8 L (35.3-44.9) % MCV 97.6 (83.0-100.0) fL MCH 31.5 (28.0-33.3) pg MCHC 32.3 (31.6-35.5) g/dL RDW 14.1 (11.5-14.5) % Plt Count 129 L (140-400) K/mcL MPV 9.9 (9.4-12.4) fL Immature Gran % 0.7 (0-4) % Seg Neutrophils % 82.6 % Lymphocytes % 12.7 % Monocytes % 3.2 % Eosinophils % 0.3 % Basophils % 0.5 % Neutrophils # 8.9 (1.6-8.9) K/mcL Lymphocytes # 1.4 (0.6-4.6) K/mcL Monocytes # 0.3 (0.0-1.3) K/mcL Eosinophils # 0.0 (0.0-0.6) K/mcL Basophils # 0.1 (0.0-0.2) K/mcL VBG pH (7.32-7.42) pH Units VBG pCO2 (41-51) mmHg VBG pO2 (25-50) mmHg VBG HCO3 (21-27) mEq/L Sodium 138 (136-145) mEq/L Potassium 3.7 (3.5-5.1) mEq/L Chloride 114 H (98-107) mEq/L Carbon Dioxide 15 L (23-29) mEq/L BUN 84 H (8-23) mg/dL Creatinine 6.40 H (0.60-1.20) mg/dL Est GFR ( Amer) 8 L (> 60) Est GFR (Non-Af Amer) 6 L (> 60) BUN/Creatinine Ratio 13 (6-26) Glucose 84 (70-105) mg/dL POC Glucose 70 (58-89) Calculated Osmolality 311 H (280-300) Lactic Acid (0.5-2.2) mmol/L Calcium 7.9 L (8.6-10.3) mg/dL Phosphorus 6.6 H (2.7-4.5) mg/dL Magnesium 2.2 (1.6-2.6) mg/dL Total Bilirubin 0.2 L (0.3-1.0) mg/dL AST 10 L (13-39) Units/L ALT 6 L (7-52) Units/L Alkaline Phosphatase 60 (34-104) Units/L Serum Total Protein 4.9 L (6.4-8.9) g/dL Albumin 2.1 L (3.5-5.7) g/dL Globulin 2.8 (2.4-3.5) g/dL Albumin/Globulin Ratio 0.8 L (1.1-2.2) TSH 10.430 H (0.340-5.600) mcIU/mL Random Cortisol 22.4 mcg/dl Ur Specimen Adequacy Urine Color (Yellow) Urine Clarity (Clear) Urine pH (5.0-8.0) pH Units Ur Specific [place] (1.010-1.025) Urine Protein (Neg-Trace) mg/dL Urine Glucose (UA) (Normal) mg/dL Urine Ketones (Negative) mg/dL Urine Blood (Negative) Urine Nitrite (Negative) Urine Bilirubin (Negative) Urine Urobilinogen (Normal) mg/dL Ur Leukocyte Esterase (Negative) Urine Microscopic RBC (0-3) per hpf Urine Microscopic WBC (0-3) per hpf Urine Bacteria (None-Few) per hpf Ur Culture Indicated? (NO) Person Notif of Crit 05/09/17 05/09/17 05/09/17 Range/Units 09:01 09:05 09:34 WBC (4.3-11.1) K/mcL RBC (3.82-4.97) M/mcL Hgb (11.5-15.4) g/dL Hct (35.3-44.9) % MCV (83.0-100.0) fL MCH (28.0-33.3) pg MCHC (31.6-35.5) g/dL RDW (11.5-14.5) % Plt Count (140-400) K/mcL MPV (9.4-12.4) fL Immature Gran % (0-4) % Seg Neutrophils % % Lymphocytes % % Monocytes % % Eosinophils % % Basophils % % Neutrophils # (1.6-8.9) K/mcL Lymphocytes # (0.6-4.6) K/mcL Monocytes # (0.0-1.3) K/mcL Eosinophils # (0.0-0.6) K/mcL Basophils # (0.0-0.2) K/mcL VBG pH 7.09 L* (7.32-7.42) pH Units VBG pCO2 47 (41-51) mmHg VBG pO2 85 H (25-50) mmHg VBG HCO3 14 L (21-27) mEq/L Sodium (136-145) mEq/L Potassium (3.5-5.1) mEq/L Chloride (98-107) mEq/L Carbon Dioxide (23-29) mEq/L BUN (8-23) mg/dL Creatinine (0.60-1.20) mg/dL Est GFR ( Amer) (> 60) Est GFR (Non-Af Amer) (> 60) BUN/Creatinine Ratio (6-26) Glucose (70-105) mg/dL POC Glucose (58-89) Calculated Osmolality (280-300) Lactic Acid 1.2 (0.5-2.2) mmol/L Calcium (8.6-10.3) mg/dL Phosphorus (2.7-4.5) mg/dL Magnesium (1.6-2.6) mg/dL Total Bilirubin (0.3-1.0) mg/dL AST (13-39) Units/L ALT (7-52) Units/L Alkaline Phosphatase (34-104) Units/L Serum Total Protein (6.4-8.9) g/dL Albumin (3.5-5.7) g/dL Globulin (2.4-3.5) g/dL Albumin/Globulin Ratio (1.1-2.2) TSH (0.340-5.600) mcIU/mL Random Cortisol mcg/dl Ur Specimen Adequacy Mucoid Specimen A Urine Color Dark Yellow (Yellow) Urine Clarity Turbid A (Clear) Urine pH 5.5 (5.0-8.0) pH Units Ur Specific [place] 1.025 (1.010-1.025) Urine Protein >=300 H (Neg-Trace) mg/dL Urine Glucose (UA) Normal (Normal) mg/dL Urine Ketones 40 H (Negative) mg/dL Urine Blood Large H (Negative) Urine Nitrite Negative (Negative) Urine Bilirubin Negative (Negative) Urine Urobilinogen Normal (Normal) mg/dL Ur Leukocyte Esterase Large H (Negative) Urine Microscopic RBC Present (0-3) per hpf Urine Microscopic WBC TNTC H (0-3) per hpf Urine Bacteria Present (None-Few) per hpf Ur Culture Indicated? YES A (NO) Person Notif of Brian NARANJO - Radiology Data Radiology results reviewed: Yes I reviewed the patient's radiology results. Chest X-Ray 05/09/17 08:22 IMPRESSION: No acute cardiopulmonary process D/ / Antelmo Kingsley MD / Antelmo Kingsley MD Interpreting Provider: Antelmo Kingsley MD - EKG Data EKG #1 EKG attestation: Yes I reviewed and interpreted this EKG. EKG results narrative: Sinus bradycardia at a rate of 52. NM interval is 201. Sikhism is 81. QT is 431. QTC is 412. No signs of acute ischemia. No significant change from previous EKG dated 04/22/2017. Critical Care Time Critical Care Time: Yes Total Critical Care Time: 60 Attestation: The high probability of a clinically significant, sudden or life threatening deterioration of the [neuro//CV] system(s) required my full and direct attention, intervention and personal management. The aggregate critical care time was [60] minutes. This time is in addition to time spent performing reported procedures but includes the following: [x] Data Review and interpretation [x] Patient assessment and monitoring of vital signs [x] Documentation [x] Medication orders and management Attestation Statement - Attestation Attestation: I examined this patient and my medical decision-making was reviewed with the Resident Physician, Dr. Sweeney. I agree with the documented findings, disposition and treatment plan as described except to the extent set forth below. Patient is a 72-year-old elderly white female who sent from an extended care facility this morning for altered mental status. Medics were called for patient being unresponsive on their arrival patient was awake but confused and had an Accu-Chek of 54. Patient was given glucagon by EMS, and on arrival she was awake and answering questions and oriented to person and place. Patient appears pale in color but in no respiratory distress. Patient denies any confusion but cannot recall events surrounding this morning and getting to the hospital. Patient is end-stage renal dialysis patient on hemodialysis for states she has not dialyzed for at least 3 weeks and when asking her why she just states that she does not want to go. Patient was found to be hypothermic on arrival as well as bradycardic but denies any chest pain pressure or heaviness, no shortness of breath, no chills or URI symptoms, no vomiting or diarrhea, no abdominal pain or flank pain. I agree with patient's physical exam findings as documented. Patient's EKG shows a sinus bradycardia with no acute ST or T-wave changes just nonspecific findings. Patient was placed under a bear hugger for hypothermia labs were drawn and sent chest x-ray obtained as well as urinalysis by Straight catheter. Patient with evidence of findings consistent with lack of dialysis recently, metabolic panel shows some metabolic acidosis, uremia with significantly elevated BUN/ creatinine from baseline, no evidence of hyperkalemia, the patient does have hypocalcemia and hyperphosphatemia. Patient's urine concerning for possible UTI smoke go ahead and sent for culture and cover with antibiotics IV was reinitiated in the ED. Patient's body temperature improving with bear hugger and is normal thermic at this time. Recent check of vital show patient to have a drop in her blood pressure systolically so we are starting IV fluids here. Nephrology was notified and plans to dialyze patient today due to abnormal metabolic panel. IV fluids were initiated for hypotension we will continue to watch patient's vital signs closely. Case was discussed with hospitalist who accepted the patient for admission.
[2017-05-09 09:06] LABS: Basophils # 0.1 K/mcL (0.0-0.2); Basophils % 0.5 %; Eosinophils % 0.3 %; Hematocrit 28.8 % (35.3-44.9); Hemoglobin 9.3 g/dL (11.5-15.4); Immature Granulocytes % 0.7 % (0-4); Lymphocytes # 1.4 K/mcL (0.6-4.6); Lymphocytes % 12.7 %; Mean Corpuscular HGB Conc 32.3 g/dL (31.6-35.5); Mean Corpuscular Hemoglobin 31.5 pg (28.0-33.3); Mean Corpuscular Volume 97.6 fL (83.0-100.0); Mean Platelet Volume 9.9 fL (9.4-12.4); Monocytes # 0.3 K/mcL (0.0-1.3); Monocytes % 3.2 %; Neutrophils # 8.9 K/mcL (1.6-8.9); Platelet Count 129 K/mcL (140-400); Red Blood Count 2.95 M/mcL (3.82-4.97); Red Cell Distribution Width 14.1 % (11.5-14.5); Segmented Neutrophils % 82.6 %
[2017-05-09 09:09] LABS: Albumin 2.1 g/dL (3.5-5.7); Albumin/Globulin Ratio 0.8 (1.1-2.2); Bilirubin,Total 0.2 mg/dL (0.3-1.0); Calcium 7.9 mg/dL (8.6-10.3); Globulin 2.8 g/dL (2.4-3.5); Magnesium 2.2 mg/dL (1.6-2.6); Phosphorous 6.6 mg/dL (2.7-4.5); Potassium 3.7 mEq/L (3.5-5.1); Total Protein 4.9 g/dL (6.4-8.9)
[2017-05-09 09:21] LABS: Bilirubin,Urine Negative (Negative); Blood,Urine Large (Negative); Clarity,Urine Turbid (Clear); Glucose,Urine (UA) Normal (Normal); Ketones,Urine 40 mg/dL (Negative); Leukocyte Esterase,Urine Large (Negative); Nitrite,Urine Negative (Negative); PH,Urine 5.5 pH Units (5.0-8.0); Protein,Urine >=300 mg/dL (Neg-Trace); Specific Gravity,Urine 1.025 (1.010-1.025); Urobilinogen,Urine Normal (Normal)
[2017-05-09 09:22] LABS: Color,Urine Dark Yellow (Yellow); Urine Specimen Comments Mucoid Specimen
[2017-05-09 09:24] LABS: WBC,Urine TNTC per hpf (0-3)
[2017-05-09 09:28] LABS: Bacteria,Urine Present per hpf (None-Few); RBC,Urine Present per hpf (0-3)
[2017-05-09 09:29] LABS: Thyroid Stimulating Hormone 10.43 mcIU/mL (0.340-5.600)
[2017-05-09 09:40] LABS: VBG HCO3 14 mEq/L (21-27); VBG PCO2 47 mmHg (41-51); VBG PH 7.09 pH Units (7.32-7.42); VBG PO2 85 mmHg (25-50)
[2017-05-09] MEDS ORDERED: Cefepime HCl 2,000 MG in Water for inj. (sterile) 20 ML 20 ML IVP ONE (09:54)
[2017-05-09] MEDS ORDERED: 0.9 % Sodium Chloride 250 ML IVC PRN (10:07)
--- NOTE | 2017-05-09 10:13 | Event Note ---
Date of Encounter: 05/09/17 Time of Encounter: 10:12 Nephrology Chart Review Pt is a known ESRD pt with orders for HD every M/W/F via a [facility]. I logged into the [facility] EHR called [facility] and her last documented HD was on 04/20/17. Very acidotic and likely her AMS could be a combination of UTI and uremia. I've ordered HD for today. Full consult note to follow.
[2017-05-09] MEDS ORDERED: 0.9 % Sodium Chloride 1,000 ML IVC ONE (10:36)
--- NOTE | 2017-05-09 12:24 | Internal Med History&Physical ---
Date of Encounter: 05/09/17 Time of Encounter: 12:24 Assessment and Plan (1) Encephalopathy Current visit: Yes Status: Acute Secondary to uremia and sepsis. - Patient to do dialysis today - Continue Cefepime - Bear hugger prn hypothermia - Follow-up blood and urine cultures (2) Sepsis Current visit: Yes Status: Acute Due to UTI Lactic acid on admission 1.2 Patient gets hypotensive but fluid responsive - Continue cefepime - follow-up blood/urine cultures - IV fluid as needed Qualifiers: Sepsis type: sepsis due to unspecified organism Qualified Code(s): A41.9 - Sepsis, unspecified organism (3) Noncompliance with renal dialysis Current visit: Yes Status: Acute Due to urgency patient will be dialyzed today. She is in agreement with this. (4) Atrial fibrillation Current visit: Yes Status: Acute not on any anticoagulation therapy heart rate within normal limits Qualifiers: Atrial fibrillation type: chronic Qualified Code(s): I48.2 - Chronic atrial fibrillation (5) COPD (chronic obstructive pulmonary disease) Current visit: Yes Status: Acute Qualifiers: COPD type: unspecified COPD Qualified Code(s): J44.9 - Chronic obstructive pulmonary disease, unspecified (6) Diabetes Current visit: Yes Status: Acute Qualifiers: Diabetes mellitus type: type 2 Diabetes mellitus terminal gauger supervisor insulin use: unspecified terminal gauger supervisor insulin use status Diabetes mellitus complication status : with unspecified complications Qualified Code(s): E11.8 - Type 2 diabetes mellitus with unspecified complications (7) GERD (gastroesophageal reflux disease) Current visit: Yes Status: Acute Qualifiers: Esophagitis presence: esophagitis presence not specified Qualified Code(s) : K21.9 - Gastro-esophageal reflux disease without esophagitis (8) Hypoglycemia Current visit: Yes Status: Acute Resolved with glucagon, will do glucose checks. (9) Hypertension Current visit: No Status: Chronic Qualifiers: Hypertension type: essential hypertension Qualified Code(s): I10 - Essential (primary) hypertension (10) UTI (urinary tract infection) Current visit: No Status: Resolved Qualifiers: Urinary tract infection type: acute cystitis Hematuria presence: with hematuria Qualified Code(s): N30.01 - Acute cystitis with hematuria (11) DVT prophylaxis Current visit: Yes Status: Acute SCDs Internal Medicine - H&P: HPI History of present illness: Ms. Bernal is a 72 year old female with history of ESRD non-compliant with dialysis, atrial fibrillation, COPD, DM, GERD, HTN presented from care home for unresponsiveness. She had glucose checked which was in the 30s, and she was given glucagon and sent to ED. Upon arrival she was noted to be in no acute distress. It is noted that patient has been refusing dialysis for 3 weeks now. In the ED her glucos was 70 and was mentating well and alert and oriented. She was hypothermic at 92 F and a bear hugger was placed on patient. She was acidotic with a VBG pH showing 7.09 while patient was alert. A lactic acid was 1.2. An EKG showed sinus bradycardia without ST or T-wave changes. She had UA consistent with UTI and was started on IV antibiotics. Nephrology was notified about patient for dialysis and acidosis. Patient is set to be dialyzed today. She was admitted for altered mental status secondary to uremic encephalopathy and UTI sepsis. Past Med Surg Social Fam HX - Past Medical History Medical history: atrial fibrillation, CHF, COPD, diabetes, GERD, hyperlipidemia , hypertension, kidney stones, renal disease, thyroid disease, syncope, other Psychiatric history: depression - Past Surgical History Surgical History: appendectomy, carotid endarterectomy, cholecystectomy, hysterectomy, knee replacement, ALEC/BSO, other - Social History Smoking Status: Current every day smoker Smokeless Tobacco Status: No Alcohol use: none Drug use: none - Family History Father Family Member Ethnicity: Non- Living Status: Hx Family Cardiac Disorders: Yes Hx Family Respiratory Disorders: No Hx Family Cancer: No Hx Family GI Disorders: No Hx Family Endocrine Disorder: No Hx Family Neuromuscular Disorders: No Hx Family Neurologic Disorders: No Hx Family HEENT Disorders: No Hx Family Autoimmune Disorders: No Mother Living Status: Internal Medicine - H&P: Meds Ergocalciferol (VITAMIN D2) [Vitamin D2 (50,000 UNIT)] 50,000 unit PO QMONTH 07/08 [History] Paroxetine [Paxil] 20 mg PO DAILY 02/12/16 [History] Clopidogrel [Plavix] 75 mg PO DAILY 04/03/16 [History] Levothyroxine [Synthroid] 175 mcg PO QAM 04/03/16 [History] Calcitriol [Rocaltrol] 0.25 mcg PO MOWEFR 11/11/16 [History] Calcium Acetate [Phos-LO] 667 mg PO TIDWM 12/27/16 [History] Ergocalciferol (VITAMIN D2) [Vitamin D2] 2,000 unit PO TUTHSA 12/27/16 [History] Lactobacillus Acidophilus [Acidophilus] 2 cap PO BID 12/27/16 [History] Insulin DETEMIR [Levemir Flextouch] 10 unit SQ DAILY #3 insuln.pen 02/18/17 [Rx] Folic Acid 1 mg PO DAILY 04/22/17 [History] Folic Acid/Vit Bcomp,C [Renal-Juliano Tablet] 0.8 mg PO BID 04/22/17 [History] HYDROcodone/Acet 7.5/325 mg [[place] 7.5-325 mg] 1 tab PO MOWEFR 04/22/17 [History ] Iron Polysaccharide Complex [Ferrex 150] 150 mg PO DAILY 04/22/17 [History] Pantoprazole Sodium [Protonix] 20 mg PO DAILY 04/22/17 [History] HYDROcodone/Acet 7.5/325 mg [[place] 7.5-325 mg] 1 tab PO Q6H PRN 05/09/17 [ History] Lisinopril [Zestril] 40 mg PO DAILY 05/09/17 [History] 3 Allergy/AdvReac Type Severity Reaction Status Date / Time Qthqpka-Hyc-Kqa Reductase Allergy See Verified 05/09/17 10:35 Inhibitor Comments [Statins] Sulfa (Sulfonamide Allergy swelling Verified 05/09/17 09:49 Antibiotics) ROS unobtainable: due to mental status All Systems PM: A 10-system review of systems was performed and is negative for pertinent findings except as documented above in the HPI. - Constitutional Vitals: Temp Pulse Resp BP Pulse Ox 97.5 F L 53 16 109/68 97 05/09/17 11:48 05/09/17 11:48 05/09/17 11:48 05/09/17 11:48 05/09/17 11:48 Exam: - General Limitations: no limitations General appearance: alert, in no apparent distress - Head Head exam: atraumatic, normocephalic, normal inspection - Eye Eye exam: Present: normal appearance, PERRL, EOMI. Absent: scleral icterus - ENT ENT exam: normal exam, normal oropharynx, mucous membranes moist - Neck Neck exam: Present: normal inspection, full ROM, trachea midline - Chest Chest inspection: Present: normal inspection, symmetric chest wall rise - Respiratory Respiratory exam: Present: normal lung sounds bilaterally. Absent: respiratory distress - Cardiovascular Cardiovascular exam: Present: regular rate, normal rhythm, normal heart sounds - Abdominal Exam Abdominal exam: Present: soft, Non-Tender. Absent: tenderness, distention, guarding, rebound - Extremities Exam Extremities exam: Present: normal inspection, normal capillary refill, other (s/ p partial foot amputation). Absent: tenderness, pedal edema - Back Exam Back exam: Present: normal inspection, full ROM. Absent: tenderness - Neurological Exam Neurological exam: Present: alert, oriented X3 - Psychiatric Psychiatric exam: Present: normal affect, normal mood - Skin Skin exam: Present: warm, dry, intact, normal color. Absent: rash Internal Med - H&P Results - Labs CBC & Chem 7: 05/09/17 18:03 05/09/17 18:03 Labs: Short CBC 05/09/17 Range/Units 08:37 WBC 10.8 (4.3-11.1) K/mcL Hgb 9.3 L (11.5-15.4) g/dL Hct 28.8 L (35.3-44.9) % Plt Count 129 L (140-400) K/mcL Neutrophils # 8.9 (1.6-8.9) K/mcL BMP 05/09/17 08:37 Sodium 138 Potassium 3.7 Chloride 114 H Carbon Dioxide 15 L BUN 84 H Creatinine 6.40 H Glucose 84 Calcium 7.9 L Liver Function 05/09/17 Range/Units 08:37 Total Bilirubin 0.2 L (0.3-1.0) mg/dL AST 10 L (13-39) Units/L ALT 6 L (7-52) Units/L Alkaline Phosphatase 60 (34-104) Units/L Albumin 2.1 L (3.5-5.7) g/dL Urine 05/09/17 Range/Units 09:01 Urine Color Dark Yellow (Yellow) Urine Clarity Turbid A (Clear) Urine pH 5.5 (5.0-8.0) pH Units Ur Specific [place] 1.025 (1.010-1.025) Urine Protein >=300 H (Neg-Trace) mg/dL Urine Glucose (UA) Normal (Normal) mg/dL - ABG Interpretation ABG results: 05/09/17 09:34 VBG pH 7.09 L* VBG pCO2 47 VBG pO2 85 H VBG HCO3 14 L - Impressions ITS Impressions Chest X-Ray 05/09/17 08:22 IMPRESSION: No acute cardiopulmonary process. D/ / 05/09/2017 10:54:39 Antelmo Kingsley MD / Elaine Joyce Interpreting Provider: Antelmo Kingsley MD
[2017-05-09 12:30] LABS: ABG Base Excess -14 mEq/L (-2 to 3); ABG HCO3 12 mEq/L (21-27); ABG Oxygen Saturation 97 % (95-98); ABG PCO2 28 mmHg (35-45); ABG PH 7.24 pH Units (7.32-7.45); ABG PO2 103 mmHg (85-104); ABG TCO2 13 mEq/L (20-26)
[2017-05-09] MEDS ORDERED: *HR* HYDROcodone/Acet 7.5/325 mg TABLET PO PRN (12:50)
[2017-05-09 12:54] LABS: INR 1.1; Prothrombin Time 11.6 Seconds (9.4-12.1)
[2017-05-09] MEDS ORDERED: 0.9 % Sodium Chloride 1,000 ML ONE (14:41)
[2017-05-09] MEDS ORDERED: Albumin 25% 12.5gm/50mL 25.0 GM/100 ML IV.SOLN ONE (16:34)
[2017-05-09 18:22] LABS: Basophils % 0.1 %; Eosinophils # 0.1 K/mcL (0.0-0.6); Hematocrit 19.6 % (35.3-44.9); Immature Granulocytes % 0.6 % (0-4); Lymphocytes # 1.8 K/mcL (0.6-4.6); Lymphocytes % 25.8 %; Mean Corpuscular HGB Conc 32.7 g/dL (31.6-35.5); Mean Corpuscular Hemoglobin 31.7 pg (28.0-33.3); Mean Platelet Volume 9.6 fL (9.4-12.4); Monocytes # 0.3 K/mcL (0.0-1.3); Monocytes % 4.2 %; Neutrophils # 4.7 K/mcL (1.6-8.9); Red Blood Count 2.02 M/mcL (3.82-4.97); Segmented Neutrophils % 68.3 %
[2017-05-09] MEDS: Calcium Acetate 667 MG CAPSULE PO SCH (18:25)
[2017-05-09 18:28] LABS: INR 1.2; Prothrombin Time 13.2 Seconds (9.4-12.1)
[2017-05-09] MEDS ORDERED: Albumin 25% 25gram/100mL 25 GM/100 ML IV.SOLN IVPB ONE (18:35)
[2017-05-09 18:43] LABS: Chol/HDL Ratio 1.7 (0-4.9); Magnesium 1.9 mg/dL (1.6-2.6)
--- NOTE | 2017-05-09 18:43 | Event Note ---
Date of Encounter: 05/09/17 Time of Encounter: 18:00 GUEST SERVICE MANAGER Notes: Ms. Bernal was at dialysis unit this evening suddenly she became unresponsive and called for GUEST SERVICE MANAGER. When I went to see pt is unresponsive, her HR in 70's and SPo2 92 on RA, BP 98/60. Apparently pt is known ESRD pt and refused to have dialysis for almost 3 weeks. So it seems pt was in severe metabolic acidosis, we ordered ABG and gave 1 amp NaHCo3, also checked her BS @ 62. gave her 1 amp D50 too. Pt woke up in 2 minutes and now she is more alert, awake and O to self. Talked to Nephro Dr. Baeza who suggested to stop HD and give another amp of NaHCo3. Pt vitals are stable now, however she looks very pale , so will check her stat labs now including CBC, CMP,Mg. Pt will be transferred back to N now. Resident did talk to pt's family who requested for full code. If pt continue to refusing HD, may be Woven Paper Hat Mender need to sit with family and pt to decide further goals of care.
[2017-05-09 18:44] LABS: Calcium 7.2 mg/dL (8.6-10.3); Potassium 3.4 mEq/L (3.5-5.1)
[2017-05-09 19:07] LABS: Hemoglobin 6.4 g/dL (11.5-15.4); Platelet Count 91 K/mcL (140-400)
[2017-05-09 19:12] LABS: Hepatitis B Surface Antigen Nonreactive (Nonreactive)
[2017-05-09] MEDS: Lactobacillus 1 EACH CAP.SPRINK PO SCH (22:00)
[2017-05-09] MEDS ORDERED: *HR* Dextrose 50 % in Water (Syg) 50 ML SYRINGE ONE (22:09)
[2017-05-09] MEDS ORDERED: *HR* Dextrose 50 % in Water (Syg) 50 ML SYRINGE IVP PRN (22:39)
[2017-05-10] MEDS: Preparation H Ointment 30 GM TUBE RC PRN ×2 (02:28→10:46)
[2017-05-10] MEDS ORDERED: 0.9 % Sodium Chloride 250 ML IVC PRN (08:36)
[2017-05-10] MEDS: Renal Vitamin 1 MG CAPSULE PO SCH (08:44)
[2017-05-10] MEDS: Lactobacillus 1 EACH CAP.SPRINK PO SCH ×2 (08:44→20:09)
[2017-05-10] MEDS: Folic Acid 1 MG TABLET PO SCH (08:44)
[2017-05-10] MEDS: Calcium Acetate 667 MG CAPSULE PO SCH ×3 (08:44→17:58)
[2017-05-10] MEDS: Iron Polysaccharide Complex 150 MG CAPSULE PO SCH (08:44)
[2017-05-10] MEDS: Cefepime HCl 1,000 MG in Water for inj. (sterile) 20 ML 10 ML IVP SCH (08:45)
[2017-05-10 08:51] LABS: Mean Corpuscular Volume 91.2 fL (83.0-100.0); Nucleated Red Blood Cells 0.2 /100 WBC (0)
[2017-05-10 08:52] LABS: Basophils # 0.1 K/mcL (0.0-0.2); Basophils % 0.5 %; Eosinophils # 0.1 K/mcL (0.0-0.6); Eosinophils % 0.9 %; Hematocrit 26.9 % (35.3-44.9); Hemoglobin 9.1 g/dL (11.5-15.4); Immature Granulocytes % 3.6 % (0-4); Immature Platelets 1.7 % (1.1-6.1); Lymphocytes % 31.4 %; Mean Corpuscular HGB Conc 33.8 g/dL (31.6-35.5); Mean Corpuscular Hemoglobin 30.8 pg (28.0-33.3); Mean Platelet Volume 9.9 fL (9.4-12.4); Monocytes # 0.5 K/mcL (0.0-1.3); Monocytes % 5.6 %; Neutrophils # 5.6 K/mcL (1.6-8.9); Red Blood Count 2.95 M/mcL (3.82-4.97); Red Cell Distribution Width 15.2 % (11.5-14.5)
[2017-05-10 08:56] LABS: Lymphocytes # 3.1 K/mcL (0.6-4.6); Platelet Count 95 K/mcL (140-400)
[2017-05-10] MEDS ORDERED: NON-FORMULARY MEDICATION 1 EACH EACH (Insulin Detemir [Levemir Flextouch] 10 UNIT) SQ SCH (09:00)
[2017-05-10] MEDS ORDERED: Lisinopril 20 MG TABLET PO SCH (09:00)
[2017-05-10] MEDS ORDERED: Insulin DETEMIR 100 UNIT/ML X5UNITS SQ SCH (09:00)
[2017-05-10] MEDS ORDERED: 0.9 % Sodium Chloride 1,000 ML ONE (09:22)
--- NOTE | 2017-05-10 10:02 | Internal Med Progress Note ---
<Ilya Mott - Last Filed: 05/10/17 09:58> Date of Encounter: 05/10/17 Time of Encounter: 09:59 - Assessment and plan (1) Severe sepsis Current Visit: Yes Status: Acute Assessment and plan: Patient had lactic acidosis, hypothermia which has not resolved. Urinalysis shows possible UTI. Urine culture sent. Patient started on cefepime at admission. We will de-escalate as per cultures. (2) Acute blood loss anemia Current Visit: Yes Status: Acute Assessment and plan: Patient's hemoglobin decreased from 9.3 on admission to 6.4. She received 2 units of packed red blood cells. Now hgb 9.1 Currently there are no signs of active bleeding. EGD on 11/12/2016 showed signs of duodenitis and one single nonbleeding angiectasia was treated with APC. Trend hemoglobin. Obtain fecal occult blood test. If continues to trend down consult GI for endoscopy. (3) UTI (urinary tract infection) Current Visit: Yes Status: Acute Assessment and plan: As stated above. Qualifiers: Urinary tract infection type: acute cystitis Hematuria presence: with hematuria Qualified Code(s): N30.01 - Acute cystitis with hematuria (4) Encephalopathy due to metabolic factor or toxin Current Visit: Yes Status: Acute Assessment and plan: 2nd to non-compliace with dialysis and sepsis from UTI resolved. now awake and alert. Oriented to time place and situation. (5) Atrial fibrillation Current Visit: Yes Status: Acute Assessment and plan: History of A. fib regular rate and rhythm Not anticoagulated likely secondary to history of falls. Qualifiers: Atrial fibrillation type: chronic Qualified Code(s): I48.2 - Chronic atrial fibrillation (6) Diabetes Current Visit: Yes Status: Acute Assessment and plan: Patient is insulin-dependent diabetic. Currently she is not on a regimen as her glucose is in the low 100s. Continue to monitor glucose ADA, renal diet. Qualifiers: Diabetes mellitus type: type 2 Diabetes mellitus fpc insulin use: unspecified terminal press operator insulin use status Diabetes mellitus complication status : with unspecified complications Qualified Code(s): E11.8 - Type 2 diabetes mellitus with unspecified complications (7) ESRD (end stage renal disease) on dialysis Current Visit: Yes Status: Chronic Assessment and plan: Patient end-stage renal disease on dialysis. Noncompliant as stated above. Right arm AV fistula positive bruit. Likely will undergo hemodialysis today. (8) Noncompliance with renal dialysis Current Visit: Yes Status: Acute Assessment and plan: Patient reports she was okay to undergo dialysis today. She wants to discuss with her family if she wants to continue dialysis in the future. If she decides not to continue dialysis we will consult palliative team for hospice. - Subjective Interval history: patient is awake and alert to place and situation. Patient reports not wanting to undergo dialysis anymore. However she still wants CPR and intubation. The stepdown patient explained that those 2 things would be contradictory as without dialysis she will . I did tell patient if she does not want dialysis she can qualify for hospice. Patient reports she will think about this and get back to me. - Constitutional Vitals: Temp Pulse Resp BP Pulse Ox 99.8 F H 72 18 165/73 96 05/10/17 07:25 05/10/17 09:09 05/10/17 07:25 05/10/17 07:25 05/10/17 09:09 - Other Additional findings: General: plesant without distress HEENT: Head atraumatic, normocephalic, EOMI, PERRL, neck nontender to palpation , absent lymphadenopathy, Moist Mucous Membranes, Heart: Regular rate and rhythm with no murmur Lungs: Clear to auscultation bilaterally Abdomen: Soft nontender, nondistended positive bowel sounds Skin: warm and dry Extremities: Absent pedal edema, Neuro: Cranial nerves II through XII intact, UE and LE sensation equal bilaterally, UE and LEstrength 5/5, alert oriented 3, Vascular: Pedal and radial pulses 2 out of 4. Right arm AV fistula bruit present Internal Medicine: Result - Labs CBC & Chem 7: 05/10/17 08:26 18 18:03 Labs: Short CBC 05/09/17 05/10/17 Range/Units 18:03 08:26 WBC 6.9 9.7 (4.3-11.1) K/mcL Hgb 6.4 L D 9.1 L D (11.5-15.4) g/dL Hct 19.6 L 26.9 L (35.3-44.9) % Plt Count 91 L 95 L (140-400) K/mcL Neutrophils # 4.7 5.6 (1.6-8.9) K/mcL BMP 05/09/17 18:03 Sodium 140 Potassium 3.4 L Chloride 113 H Carbon Dioxide 20 L BUN 65 H Creatinine 4.74 H Glucose 136 H Calcium 7.2 L - ABG Interpretation ABG results: ABG ABG pH 7.24 pH Units (7.32-7.45) L 05/09/17 12:26 ABG pCO2 28 mmHg (35-45) L 05/09/17 12:26 ABG pO2 103 mmHg (85-104) 05/09/17 12:26 ABG O2 Saturation 97 % (95-98) 05/09/17 12:26 PT/INR, D-dimer PT 13.2 Seconds (9.4-12.1) H 05/09/17 18:03 Consult Discharge Plan - Plan Referrals: Chandler Estrada MD [Primary Care Provider] - <Samia Valero - Last Filed: 05/10/17 14:02> Date of Encounter: 05/10/17 Time of Encounter: 10:45 - Assessment and plan (1) Severe sepsis Current Visit: Yes Status: Acute (2) Noncompliance with renal dialysis Current Visit: Yes Status: Acute (3) Encephalopathy due to metabolic factor or toxin Current Visit: Yes Status: Acute (4) ESRD (end stage renal disease) on dialysis Current Visit: Yes Status: Chronic (5) Acute blood loss anemia Current Visit: Yes Status: Acute (6) Diabetes Current Visit: Yes Status: Acute Qualifiers: Diabetes mellitus type: type 2 Diabetes mellitus fpc insulin use: unspecified fpc insulin use status Diabetes mellitus complication status : with unspecified complications Qualified Code(s): E11.8 - Type 2 diabetes mellitus with unspecified complications (7) UTI (urinary tract infection) Current Visit: Yes Status: Acute Qualifiers: Urinary tract infection type: acute cystitis Hematuria presence: with hematuria Qualified Code(s): N30.01 - Acute cystitis with hematuria - Constitutional Vitals: Temp Pulse Resp BP Pulse Ox 99.1 F 74 18 181/64 94 05/10/17 11:43 05/10/17 12:20 05/10/17 11:43 05/10/17 13:05 05/10/17 11:43 Internal Medicine: Result - Labs CBC & Chem 7: 05/10/17 08:26 05/10/17 10:25 Labs: Short CBC 05/09/17 05/10/17 Range/Units 18:03 08:26 WBC 6.9 9.7 (4.3-11.1) K/mcL Hgb 6.4 L D 9.1 L D (11.5-15.4) g/dL Hct 19.6 L 26.9 L (35.3-44.9) % Plt Count 91 L 95 L (140-400) K/mcL Neutrophils # 4.7 5.6 (1.6-8.9) K/mcL BMP 05/09/17 05/10/17 18:03 10:25 Sodium 140 139 Potassium 3.4 L 3.4 L Chloride 113 H 110 H Carbon Dioxide 20 L 18 L BUN 65 H 59 H Creatinine 4.74 H 4.85 H Glucose 136 H 135 H Calcium 7.2 L 7.4 L - ABG Interpretation ABG results: ABG ABG pH 7.24 pH Units (7.32-7.45) L 05/09/17 12:26 ABG pCO2 28 mmHg (35-45) L 05/09/17 12:26 ABG pO2 103 mmHg (85-104) 05/09/17 12:26 ABG O2 Saturation 97 % (95-98) 05/09/17 12:26 PT/INR, D-dimer PT 13.2 Seconds (9.4-12.1) H 05/09/17 18:03 - Attending Attestation I examined this patient and my medical decision-making was reviewed with the Resident Physician, Ilya Mott. I agree with the documented findings, disposition and treatment plan as described with any changes as documented below. Patient is awake and alert. Feels better overall. Denies any shortness of breath or chest pain. No fever or chills reported overnight. Has refused dialysis this morning. Understands her risks. We will continue management with IV antibiotics for sepsis and monitor blood counts and transfuse as needed for her acute blood loss anemia. Will need palliative care involvement to decide goals of care and CODE STATUS. Discussed case with nephrology and they expressed agreement. Patient will not be initiated back on dialysis as outpatient unless she agrees to stay compliant with it. If she wishes to forego dialysis, I would recommend that she change her CODE STATUS to DNR comfort care. Patient willing to think about it.
--- NOTE | 2017-05-10 10:54 | Nephrology Consult Note ---
Date of Encounter: 05/10/17 Time of Encounter: 10:15 Assessment and Plan (1) ESRD (end stage renal disease) on dialysis Current Visit: Yes Status: Chronic Yesterday, I spent about 35 min in total on phone calls with orders for HD adjusments for intradialytic hypotension, and her HD was ultimately stopped early d/t a Rapid Response. She was found to have symptomatic hypoglycemia and responded to a D50. Today (Thursday), I've arrange further HD d/t her having missed over 2 weeks of HD. She unfortunately has a long hx of noncompliance. Her acidosis persists but should improve further with HD today. Will not remove UF with HD today. Tomorrow, I recommend a Family Meeting, since if she is not williing to undergo [facility] HD, then she should have a family meeting to discuss alternative options. Her noncompliance with dialysis hurts the CMS scores for the dialysis unit [facility]. Her noncompliance is troubling. She told me at one point should would want HD and so on a Thursday, I called in the video game technician, and then she later refused to be transported to the dialysis unit. Discussed with the primary team. Will continue to follow with you. (2) Acute blood loss anemia Current Visit: Yes Status: Acute Will monitor. Goal Hgb 10-11. May need IV iron and or MAULIK. (3) Encephalopathy Current Visit: Yes Status: Acute Suspect in part from the uremia. Hence I had arranged for HD on Thursday and since it was cut short (see HPI), I had arranged for HD on Thursday, but she later changed her mind and refused HD again. (4) Noncompliance with renal dialysis Current Visit: Yes Status: Acute See above. (5) UTI (urinary tract infection) Current Visit: Yes Status: Acute As per primary team. Qualifiers: Urinary tract infection type: acute cystitis Hematuria presence: with hematuria Qualified Code(s): N30.01 - Acute cystitis with hematuria (6) Hypokalemia Current Visit: No Status: Resolved (7) Metabolic acidosis Current Visit: Yes Status: Acute Likely from renal failure and missed HD. S/p amp of bicarb. Trended better with some abbreviated HD yesterday. (8) Hypoglycemia Current Visit: Yes Status: Acute As per primary. History of Present Illness - Reason for Consult Consult date: 05/09/17 end stage renal disease Requesting physician: Samia Valero - Chief Complaint Missed HD with AMS - History of Present Illness Marline Bernal is a very pleasant 72 y/o WF with a pmh of longstanding DM, HTN, ESRD on HD M// and et al who presented with AMS. I am her primary engineering specialist , but d/t her longstanding noncompliance she has missed 1-2 treatments per week for months but in the last 2+ weeks, she had missed every treatment of HD. Per report, she had told her [facility] that she refused to go to the HD unit. She was arranged for urgent HD yesterday but during her treatment she developed hypoglycemia, and per the video game technician, there was no glucometer available in the dialysis unit, so a Rapid Response was called yesterday while in HD. She quickly improved with an amp of D50. She wanted to stop the HD treatment throughout the treatment yeseterday and she reported to the 2N nurses today that she refused dialysis. Past Med Surg Social Fam HX - Past Medical History Medical history: atrial fibrillation, CHF, COPD, diabetes, GERD, hyperlipidemia , hypertension, kidney stones, renal disease, thyroid disease, syncope, other Psychiatric history: depression - Past Surgical History Surgical History: appendectomy, carotid endarterectomy, cholecystectomy, hysterectomy, knee replacement, ALEC/BSO, other - Social History Smoking Status: Current every day smoker Smokeless Tobacco Status: No Alcohol use: none Drug use: none - Family History Father Family Member Ethnicity: Non- Living Status: Hx Family Cardiac Disorders: Yes Hx Family Respiratory Disorders: No Hx Family Cancer: No Hx Family GI Disorders: No Hx Family Endocrine Disorder: No Hx Family Neuromuscular Disorders: No Hx Family Neurologic Disorders: No Hx Family HEENT Disorders: No Hx Family Autoimmune Disorders: No Mother Living Status: Son Living Status: Age at : 40 Medications and Allergies Ergocalciferol (VITAMIN D2) [Vitamin D2 (50,000 UNIT)] 50,000 unit PO QMONTH 07/08 [History] Paroxetine [Paxil] 20 mg PO DAILY 02/12/16 [History] Clopidogrel [Plavix] 75 mg PO DAILY 04/03/16 [History] Levothyroxine [Synthroid] 175 mcg PO QAM 04/03/16 [History] Calcitriol [Rocaltrol] 0.25 mcg PO MOWEFR 11/11/16 [History] Calcium Acetate [Phos-LO] 667 mg PO TIDWM 12/27/16 [History] Ergocalciferol (VITAMIN D2) [Vitamin D2] 2,000 unit PO TUTHSA 12/27/16 [History] Lactobacillus Acidophilus [Acidophilus] 2 cap PO BID 12/27/16 [History] Insulin DETEMIR [Levemir Flextouch] 10 unit SQ DAILY #3 insuln.pen 02/18/17 [Rx] Folic Acid 1 mg PO DAILY 04/22/17 [History] Folic Acid/Vit Bcomp,C [Renal-Juliano Tablet] 0.8 mg PO BID 04/22/17 [History] HYDROcodone/Acet 7.5/325 mg [[place] 7.5-325 mg] 1 tab PO MOWEFR 04/22/17 [History ] Iron Polysaccharide Complex [Ferrex 150] 150 mg PO DAILY 04/22/17 [History] Pantoprazole Sodium [Protonix] 20 mg PO DAILY 04/22/17 [History] HYDROcodone/Acet 7.5/325 mg [[place] 7.5-325 mg] 1 tab PO Q6H PRN 05/09/17 [ History] Lisinopril [Zestril] 40 mg PO DAILY 05/09/17 [History] 3 Allergy/AdvReac Type Severity Reaction Status Date / Time Wvbsoel-Evn-Eqz Reductase Allergy See Verified 05/09/17 10:35 Inhibitor Comments [Statins] Sulfa (Sulfonamide Allergy swelling Verified 05/09/17 09:49 Antibiotics) Review of Systems All Systems: reviewed and no additional remarkable complaints except as stated Exam - Vital Signs Vital signs: Initial Vital Signs Temp Pulse Resp BP Pulse Ox 0 F L 52 16 124/62 99 05/09/17 08:08 05/09/17 08:08 05/09/17 08:08 05/09/17 08:08 05/09/17 08:08 Vital Signs - Last 8 Hours Temp Pulse Resp BP Pulse Ox 05/10/17 09:09 72 96 05/10/17 07:25 99.8 F H 71 18 165/73 99 05/10/17 03:52 98.2 F 72 18 155/53 95 Intake and Output 05/09/17 05/10/17 05/10/17 23:59 07:59 15:59 Intake Total 300 / 300 1050 / 1050 560 / 560 Output Total 275 / 275 Balance 25 1050 / 1050 560 / 560 Intake: Oral 240 / 240 560 / 560 Blood Product 0 / 0 810 / 810 Rbcs Leuko Poor As-1 Unit 540 / 540 [id number] Rbcs Leuko Poor As-1 Unit 0 / 0 270 / 270 [id number] Other 300 / 300 Output: Urine 0 / 0 Total Dialysis (HD) Output 275 / 275 Other: Meal Breakfast Percent of Meal Consumed 100% Stool Size Copious Stool Consistency loose Stool Color Brown # Urine Diapers 1 # Bowel Movement Diapers 1 Weight 67.7 kg Blood Glucose* 62 89 129 Hemodialysis Net Fluid Removed 275 (mL) Patient Weight 05/10/17 23:59 Weight 67.7 kg - General Appearance General appearance: well-developed, well-nourished, appears started age EENT: ATNC, PERRL, mucous membranes moist Neck: supple Respiratory: clear Cardiology: no edema, regular rate, regular rhythm, normal S1, normal S2 - Dialysis Access Dialysis Vascular Access: Arteriovenous Fistula (right UE AVF) thrill: Yes bruit: Yes Gastrointestinal: normoactive bowel sounds, no tenderness, no guarding Integumentary: warm and dry Neurologic: no focal deficit, no asterixis, confused Musculoskeletal: deformities (toe amputations) Psychiatric: mood/affect appropriate, cooperative Results - Lab Results 05/10/17 08:26 05/10/17 10:25 Most recent lab results ABG pH 7.24 pH Units (7.32-7.45) L 05/09/17 12:26 ABG pCO2 28 mmHg (35-45) L 05/09/17 12:26 ABG pO2 103 mmHg (85-104) 05/09/17 12:26 ABG HCO3 12 mEq/L (21-27) L 05/09/17 12:26 ABG O2 Saturation 97 % (95-98) 05/09/17 12:26 Calcium 7.2 mg/dL (8.6-10.3) L 05/09/17 18:03 Phosphorus 5.2 mg/dL (2.7-4.5) H 05/09/17 18:03 Magnesium 1.9 mg/dL (1.6-2.6) 05/09/17 18:03 I reviewed the labs, meds, vitals, progress notes and imaging. Consult Discharge Plan - Plan Referrals: Chandler Estrada MD [Primary Care Provider] -
[2017-05-10 10:59] LABS: Calcium 7.4 mg/dL (8.6-10.3); Potassium 3.4 mEq/L (3.5-5.1)
--- NOTE | 2017-05-10 11:15 | Event Note ---
Date of Encounter: 05/10/17 Time of Encounter: 11:11 Patient now refuses to go to Dialysis. Indicates she understands she will if she does not get it. Called her daughter, Brianna about this and family will come in today to discuss hospice as a possibility. Patient still reports she wants to be full code but does not want dialysis even after having a long conversation with her about code status. Will also discuss this with family.
[2017-05-10] MEDS: Lisinopril 20 MG TABLET PO SCH (13:56)
[2017-05-10] MEDS: *HR* HYDROcodone/Acet 7.5/325 mg TABLET PO SCH ×2 (13:58→20:10)
[2017-05-10] MEDS: *HR* HYDROcodone/Acet 7.5/325 mg TABLET PO PRN (14:00)
[2017-05-11] MEDS: *HR* HYDROcodone/Acet 7.5/325 mg TABLET PO PRN ×3 (01:53→21:49)
[2017-05-11 04:15] LABS: Basophils % 0.4 %; Eosinophils # 0.1 K/mcL (0.0-0.6); Eosinophils % 1.2 %; Hemoglobin 8.3 g/dL (11.5-15.4); Immature Granulocytes % 0.5 % (0-4); Lymphocytes # 3.3 K/mcL (0.6-4.6); Lymphocytes % 36.7 %; Mean Corpuscular HGB Conc 33.2 g/dL (31.6-35.5); Mean Corpuscular Hemoglobin 30.6 pg (28.0-33.3); Mean Corpuscular Volume 92.3 fL (83.0-100.0); Mean Platelet Volume 9.9 fL (9.4-12.4); Monocytes # 0.6 K/mcL (0.0-1.3); Monocytes % 6.6 %; Red Blood Count 2.71 M/mcL (3.82-4.97); Red Cell Distribution Width 15.7 % (11.5-14.5); Segmented Neutrophils % 54.6 %
[2017-05-11 04:16] LABS: Platelet Count 96 K/mcL (140-400)
[2017-05-11 04:37] LABS: Calcium 7.5 mg/dL (8.6-10.3); Potassium 3.4 mEq/L (3.5-5.1)
[2017-05-11 05:04] LABS: Hepatitis B Surface Antibody 0.39 mIU/mL
[2017-05-11] MEDS ORDERED: 0.9 % Sodium Chloride 250 ML IVC PRN (07:11)
--- NOTE | 2017-05-11 07:16 | Event Note ---
Date of Encounter: 05/11/17 Time of Encounter: 07:13 Nephrology Chart Update Later yesterday evening, I received a very nice update from the Hospitalist resident that after the family meeting, the patient and family came to the conclusion of wanting to continue dialysis. Seems her underlying dementia has likely contributed to her going back and forth and often refusing HD, while the next minute agreeing to HD when re-directed. So I've placed HD orders today for M/W/F. Ideally she will be more compliant going forward. Thank you.
[2017-05-11] MEDS: Cefepime HCl 1,000 MG in Water for inj. (sterile) 20 ML 10 ML IVP SCH (08:44)
[2017-05-11] MEDS: Lisinopril 20 MG TABLET PO SCH (08:45)
[2017-05-11] MEDS: Calcium Acetate 667 MG CAPSULE PO SCH ×3 (08:45→16:42)
[2017-05-11] MEDS: Iron Polysaccharide Complex 150 MG CAPSULE PO SCH (08:45)
[2017-05-11] MEDS: Renal Vitamin 1 MG CAPSULE PO SCH (08:45)
[2017-05-11] MEDS: Folic Acid 1 MG TABLET PO SCH (08:45)
[2017-05-11] MEDS: *HR* HYDROcodone/Acet 7.5/325 mg TABLET PO SCH (08:45)
[2017-05-11] MEDS: Lactobacillus 1 EACH CAP.SPRINK PO SCH ×2 (08:45→21:49)
[2017-05-11] MEDS ORDERED: *HR* HYDROcodone/Acet 7.5/325 mg TABLET PO SCH (09:00)
--- NOTE | 2017-05-11 10:03 | Gastroenterology Consult Note ---
Date of Encounter: 05/11/17 Time of Encounter: 10:01 - Assessment and plan (1) Anemia in chronic renal disease Current Visit: Yes Status: Chronic Assessment and plan: On admission Hgb 6.4, and she has received 2 units PRBC. This morning Hgb 8.3. 11/13/05 Colonoscopy was suboptimal due to poor prep 11/12/16 EGD revealed normal esophagus, duodenitis without previous gastric or duodenal ulcers seen on previous EGD on 07/14/16. Pathology results from gastric biopsy revealed mild chronic gastritis at that time. Patient was on iron supplemental and Plavix prior to arrival. Differential includes esophagitis, gastritis, duodenitis, PUD, MW tear, or AVM. Continue to monitor CBC and transfuse PRBC as needed. Will start patient on clear liquid diet and start bowel prep tomorrow prior to EGD and colonoscopy to further evaluate for GI bleed. Qualifiers: Chronic kidney disease stage: on chronic dialysis Qualified Code(s): N18.6 - End stage renal disease; D63.1 - Anemia in chronic kidney disease; Z99.2 - Dependence on renal dialysis (2) Fecal occult blood test positive Current Visit: Yes Status: Acute Assessment and plan: Anticipate EGD/ colonoscopy (3) ESRD (end stage renal disease) on dialysis Current Visit: Yes Status: Chronic Assessment and plan: Continue management per nephrology - Time Spent With Patient Total time spent is greater than 50% in coordination of care (as documented) at patient's floor/unit and/or counseling patient: GI History of Present Illness - Data of Consult Patient: known to practice within the last 3 years Consult date: 05/11/17 Requesting Physician: Samia Valero MD - Consult Narrative Reason for consult: GI bleed History of present illness: Ms. Bernal is a 72 year old bed-bound [facility] patient with PMH of A. fib, CHF, COPD, DM, GERD, HTN, h/o MDRO UTI, and end-stage renal disease on dialysis every MWF who presented to the hospital due to unresponsiveness in the setting of hypoglycemia, hypothermia, and acidosis. Of note, patient has underlying dementia and been intermittently refusing hemodialysis for the past 3 weeks. She has been progressively forgetful and is a poor historian. Case discussed with patient's daughter, Brianna [phone], who reports patient had a colonoscopy 12 years ago and is currently on iron supplementation and Plavix. On admission Hgb was 6.4, FOBT positive, and she has received 2 units PRBC. This morning her Hgb was 8.3 and patient is tolerating renal diet. Last BM was this AM and patient denies blood in stool, melena, or diarrhea. 11/12/16 EGD revealed normal esophagus, duodenitis without previous gastric or duodenal ulcers seen on previous EGD on 07/14/16. Pathology results from gastric biopsy revealed mild chronic gastritis. Colonoscopy: 11/13/05 Colonoscopy was suboptimal due to poor prep EGD: 11/12/16 EGD revealed normal esophagus, duodenitis Past Med Surg Social Fam HX - Past Medical History Medical history: atrial fibrillation, CHF, COPD, diabetes, GERD, hyperlipidemia , hypertension, kidney stones, renal disease, thyroid disease, syncope, other Psychiatric history: depression - Past Surgical History Surgical History: appendectomy, carotid endarterectomy, cholecystectomy, hysterectomy, knee replacement, ALEC/BSO, other - Social History Smoking Status: Current every day smoker Smokeless Tobacco Status: No Alcohol use: none Drug use: none - Family History Father Family Member Ethnicity: Non- Living Status: Hx Family Cardiac Disorders: Yes Hx Family Respiratory Disorders: No Hx Family Cancer: No Hx Family GI Disorders: No Hx Family Endocrine Disorder: No Hx Family Neuromuscular Disorders: No Hx Family Neurologic Disorders: No Hx Family HEENT Disorders: No Hx Family Autoimmune Disorders: No Mother Living Status: Son Living Status: Age at : 40 - Gastrointestinal Gastrointestinal: Present: abdominal pain (intermittent). Absent: bloating, change in bowel habits, constipation, diarrhea, dyspepsia, hematochezia, melena , nausea - Constitutional Constitutional: no fatigue, no fever(s) - EENT Nose, mouth and throat: Absent: dysphagia, sore throat - Cardiovascular Cardiovascular ROS: Present: irregular heart rhythm. Absent: chest pain - Respiratory Respiratory IM: Absent: cough, dyspnea - Genitourinary Genitourinary: Present: Urinary frequency. Absent: change in color - Neurological ROS Neurological GI: Present: confusion, memory loss. Absent: weakness - Hematologic/Lymphatic Hematologic/Lymphatic pediatric: Present: as per HPI. Absent: easy bleeding - Musculoskeletal Musculoskeletal ROS GI: Absent: back pain, joint swelling - Integumentary Integumentary GI: Absent: jaundice, rash - Psychiatric ROS Psychiatric GI: Absent: anxiety, depression - Constitutional Vitals: Temp Pulse Resp BP Pulse Ox 98.5 F 69 15 168/67 96 05/11/17 06:55 05/11/17 06:55 05/11/17 06:55 05/11/17 06:55 05/11/17 06:55 General appearance: Present: cooperative, A&O X 3, no acute distress, answers questions appropriately - Head Head exam: Present: atraumatic, normocephalic - Eye Eye exam: Present: normal appearance, sclera anicteric - Neck Neck exam general surgery: Present: normal inspection, trachea midline - Respiratory Respiratory exam: Present: CTAB - Cardiovascular Cardiovascular exam: Present: RRR, +S1, +S2 - GI/Abdominal GI/Abdominal exam: Present: normal bowel sounds, soft, tenderness (epigastric), no peritoneal signs - Rectal Rectal exam: Present: deferred - Extremities Exam Extremities exam: Present: warm Additional comments: muscle wasting bilateral lower extremities - Neurological Exam Neurological exam: Present: oriented X3 (memory loss), no focal deficits - Psychiatric Psychiatric exam: Present: normal affect, normal mood - Skin Skin exam: Present: dry, intact, normal color, warm Results - Labs CBC & Chem 7: 05/11/17 03:10 05/11/17 03:10 Labs: Last Result Calcium 7.5 mg/dL (8.6-10.3) L 05/11/17 03:10 Triglycerides 66 mg/dL (< 150) 05/09/17 18:03 Stool Occult Blood Positive (Negative) A 05/10/17 21:04 Entire Visit Hgb 8.3 g/dL (11.5-15.4) L 05/11/17 03:10 Hct 25.0 % (35.3-44.9) L 05/11/17 03:10 PT 13.2 Seconds (9.4-12.1) H 05/09/17 18:03 Total Bilirubin 0.2 mg/dL (0.3-1.0) L 05/09/17 08:37 AST 10 Units/L (13-39) L 05/09/17 08:37 ALT 6 Units/L (7-52) L 05/09/17 08:37 - ABG ABG results: ABG ABG pH 7.24 pH Units (7.32-7.45) L 05/09/17 12:26 ABG pCO2 28 mmHg (35-45) L 05/09/17 12:26 ABG pO2 103 mmHg (85-104) 05/09/17 12:26 ABG O2 Saturation 97 % (95-98) 05/09/17 12:26 PT/INR, D-dimer PT 13.2 Seconds (9.4-12.1) H 05/09/17 18:03 Consult Discharge Plan - Plan Referrals: Chandler Estrada MD [Primary Care Provider] -
--- NOTE | 2017-05-11 10:23 | Internal Med Progress Note ---
<Ilya Mott - Last Filed: 05/11/17 10:47> Date of Encounter: 05/11/17 Time of Encounter: 10:14 - Assessment and plan (1) Severe sepsis Current Visit: Yes Status: Resolved Assessment and plan: Patient had lactic acidosis, hypothermia which has now resolved. Urine culture grew yeast. likely colinization blood cultures negative (2) Acute blood loss anemia Current Visit: Yes Status: Acute Assessment and plan: Patient's hemoglobin decreased from 9.3 on admission to 6.4. She received 2 units of packed red blood cells. hgb trending down Currently there are no signs of active bleeding. EGD on 11/12/2016 showed signs of duodenitis and one single nonbleeding angiectasia was treated with APC. fecal occult blood test + GI consulted (3) UTI (urinary tract infection) Current Visit: Yes Status: Ruled-out Assessment and plan: As stated above. d/c cefepime Qualifiers: Urinary tract infection type: acute cystitis Hematuria presence: with hematuria Qualified Code(s): N30.01 - Acute cystitis with hematuria (4) Encephalopathy due to metabolic factor or toxin Current Visit: Yes Status: Acute Assessment and plan: 2nd to non-compliace with dialysis and sepsis from UTI improving now awake and alert. Oriented to self and place not situation (5) Atrial fibrillation Current Visit: Yes Status: Acute Assessment and plan: History of A. fib regular rate and rhythm Not anticoagulated likely secondary to history of falls. Qualifiers: Atrial fibrillation type: chronic Qualified Code(s): I48.2 - Chronic atrial fibrillation (6) Diabetes Current Visit: Yes Status: Acute Assessment and plan: Patient is insulin-dependent diabetic. Currently she is not on a regimen as her glucose is in the low 100s. Continue to monitor glucose ADA, renal diet. 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 Noncompliant as stated above. Right arm AV fistula positive bruit. Likely will undergo hemodialysis today. (8) Noncompliance with renal dialysis Current Visit: Yes Status: Acute (9) Dementia Current Visit: Yes Status: Suspected Assessment and plan: patient has underlying dementia she does not remember me or the conversation I had whit her and family about restarting dialysis will need neurological evaluation outpatient. Qualifiers: Dementia type: unspecified type Dementia behavioral disturbance: without behavioral disturbance Qualified Code(s): F03.90 - Unspecified dementia without behavioral disturbance - Subjective Interval history: Patient is awake and alert. I had a long conversation with family yesterday about the decision for continuing dialysis. Family and patient came to the decision that he will continue dialysis. This morning when I asked the patient about our conversation she reports she does not remember it and did not remember me. I suspect underlying dementia has a factor in patient becoming confused and refusing dialysis. Family reports stable prior to be present and every session and encourage patient to undergo dialysis. There were no acute events overnight. She has no complaints. - Constitutional Vitals: Temp Pulse Resp BP Pulse Ox 98.5 F 69 15 168/67 96 05/11/17 06:55 05/11/17 06:55 05/11/17 06:55 05/11/17 06:55 05/11/17 06:55 - Other Additional findings: General: plesant without distress Heart: Regular rate and rhythm with no murmur Lungs: Clear to auscultation bilaterally Abdomen: Soft nontender, nondistended positive bowel sounds Skin: warm and dry Extremities: Absent pedal edema, Neuro: Cranial nerves II through XII intact, UE and LE sensation equal bilaterally, UE and LEstrength 5/5, alert oriented to self, time , place but not situation, Vascular: Pedal and radial pulses 2 out of 4. Right arm AV fistula bruit present Internal Medicine: Result - Labs CBC & Chem 7: 05/11/17 03:10 05/11/17 03:10 Labs: Short CBC 05/11/17 Range/Units 03:10 WBC 9.1 (4.3-11.1) K/mcL Hgb 8.3 L (11.5-15.4) g/dL Hct 25.0 L (35.3-44.9) % Plt Count 96 L (140-400) K/mcL Neutrophils # 5.0 (1.6-8.9) K/mcL BMP 05/10/17 05/11/17 10:25 03:10 Sodium 139 138 Potassium 3.4 L 3.4 L Chloride 110 H 111 H Carbon Dioxide 18 L 17 L BUN 59 H 63 H Creatinine 4.85 H 5.22 H Glucose 135 H 176 H Calcium 7.4 L 7.5 L - ABG Interpretation ABG results: ABG ABG pH 7.24 pH Units (7.32-7.45) L 05/09/17 12:26 ABG pCO2 28 mmHg (35-45) L 05/09/17 12:26 ABG pO2 103 mmHg (85-104) 05/09/17 12:26 ABG O2 Saturation 97 % (95-98) 05/09/17 12:26 PT/INR, D-dimer PT 13.2 Seconds (9.4-12.1) H 05/09/17 18:03 Consult Discharge Plan - Plan Referrals: Chandler Estrada MD [Primary Care Provider] - <Russell Pace H - Last Filed: 05/11/17 11:02> Date of Encounter: 05/11/17 - Constitutional Vitals: Temp Pulse Resp BP Pulse Ox 98.5 F 69 15 168/67 96 05/11/17 06:55 05/11/17 06:55 05/11/17 06:55 05/11/17 06:55 05/11/17 06:55 Internal Medicine: Result - Labs CBC & Chem 7: 05/11/17 03:10 05/11/17 03:10 Labs: Short CBC 05/11/17 Range/Units 03:10 WBC 9.1 (4.3-11.1) K/mcL Hgb 8.3 L (11.5-15.4) g/dL Hct 25.0 L (35.3-44.9) % Plt Count 96 L (140-400) K/mcL Neutrophils # 5.0 (1.6-8.9) K/mcL BMP 05/11/17 03:10 Sodium 138 Potassium 3.4 L Chloride 111 H Carbon Dioxide 17 L BUN 63 H Creatinine 5.22 H Glucose 176 H Calcium 7.5 L - ABG Interpretation ABG results: ABG ABG pH 7.24 pH Units (7.32-7.45) L 05/09/17 12:26 ABG pCO2 28 mmHg (35-45) L 05/09/17 12:26 ABG pO2 103 mmHg (85-104) 05/09/17 12:26 ABG O2 Saturation 97 % (95-98) 05/09/17 12:26 PT/INR, D-dimer PT 13.2 Seconds (9.4-12.1) H 05/09/17 18:03 - Attending Attestation Correction: Severe metabolic acidosis likely secondary to dialysis noncompliance UTI/sepsis unlikely, cefepime was discontinued, the patient has grown ESBL Escherichia coli in the past, final cultures pending Asymptomatic at the moment Possible dementia, the patient does not recall being told that she needed dialysis Acute blood lows anemia, possible upper versus lower GI bleed, status post transfusion GI recommendations appreciated I examined this patient and my medical decision-making was reviewed with the Resident Physician. I agree with the documented findings, disposition and treatment plan as described except to the extent set forth below.
--- NOTE | 2017-05-11 14:14 | Nephrology Progress Note ---
Date of Encounter: 05/11/17 Time of Encounter: 12:20 - Assessment and Plan (1) ESRD (end stage renal disease) on dialysis Status: Chronic ESRD with HD ordered for today. Needs to improve routine compliance if she wants to remain on chronic HD. (2) Acute blood loss anemia Status: Acute Monitor the H/H (3) Encephalopathy Status: Acute AMS likely from uremia, but she may also have a hx of mild dementia according to the primary team resident. (4) Noncompliance with renal dialysis Status: Acute Has missed numerous treatments and so would recommend that she not continue it if she does not want dialysis. Rec Palliative Care consult (5) UTI (urinary tract infection) Status: Ruled-out Qualifiers: Urinary tract infection type: acute cystitis Hematuria presence: with hematuria Qualified Code(s): N30.01 - Acute cystitis with hematuria (6) Hypokalemia Status: Resolved Improved (7) Metabolic acidosis Status: Acute D/t renal failure. (8) Hypoglycemia Status: Acute likely from lost appetite in the setting of renal failure/uremia. Subjective Principal diagnosis: Hx of ESRD and the pt has missed many HD treatments / often refuses it Interval history: Pt was s/e and did not affirm N/V/D but affirmed a diminished appetite. She voiced that does want HD but then shortly thereafter the floor RN paged me and said that the pt does not want dialysis. Objective - Vital Signs Vital signs: Vital Signs Temp Pulse Resp BP Pulse Ox 05/11/17 11:06 98.6 F 74 15 156/56 100 05/11/17 06:55 98.5 F 69 15 168/67 96 05/11/17 03:57 98.4 F 69 18 155/56 94 05/10/17 23:45 98.8 F 75 16 163/64 96 05/10/17 19:35 98.5 F 73 16 166/53 94 05/10/17 16:40 99.3 F 74 18 172/56 95 05/10/17 16:02 73 Intake and Output 05/10/17 05/11/17 05/11/17 23:59 07:59 15:59 Intake Total 490 / 490 Balance 490 / 490 Intake: IV Fluids Maxipime 1,000 MG In Water for inj. (sterile) 10 ML @ 150 mls/ hr IVP DAILY DEMAR Rx#:[id number] Oral 480 / 480 Other: Meal Dinner Lunch Percent of Meal Consumed 25% 100% Weight 68.8 kg Blood Glucose* 228 128 145 Patient Weight 05/11/17 23:59 Weight 68.8 kg - General Appearance General appearance: Present: cachectic, fatigue, frail EENT: Present: ATNC, mucous membranes dry Neck: Present: supple Respiratory: Present: clear Cardiology: Present: edema (trace pedal), regular rate, regular rhythm, normal S1, normal S2 Dialysis Vascular Access: Arteriovenous Fistula thrill: Yes bruit: Yes Gastrointestinal: Present: no tenderness, no guarding, no masses Integumentary: Present: warm and dry Neurologic: Present: no asterixis, disoriented Musculoskeletal: Present: no clubbing - Lab 05/12/17 04:23 05/12/17 04:23 Most recent lab results ABG pH 7.24 pH Units (7.32-7.45) L 05/09/17 12:26 ABG pCO2 28 mmHg (35-45) L 05/09/17 12:26 ABG pO2 103 mmHg (85-104) 05/09/17 12:26 ABG HCO3 12 mEq/L (21-27) L 05/09/17 12:26 ABG O2 Saturation 97 % (95-98) 05/09/17 12:26 Calcium 7.5 mg/dL (8.6-10.3) L 05/11/17 03:10 Phosphorus 5.2 mg/dL (2.7-4.5) H 05/09/17 18:03 Magnesium 1.9 mg/dL (1.6-2.6) 05/09/17 18:03 Consult Discharge Plan - Plan Instructions: Amlodipine (By mouth) Referrals: Chandler Estrada MD [Primary Care Provider] - Prescriptions: RX: amLODIPine [Norvasc] 5 mg PO DAILY #30 tablet
[2017-05-11] MEDS ORDERED: D5% in Water 1,000 ML IVC PRN (20:40)
[2017-05-11] MEDS ORDERED: Dextrose Gel 15 GM/37.5 ML TUBE PO PRN ×2 (20:40)
[2017-05-11] MEDS ORDERED: Insulin LISPRO 300 UNITS/3 ML VIAL SQ SCH (21:45)
[2017-05-11] MEDS ORDERED: Insulin LISPRO 300 UNITS/3 ML VIAL SQ ONE (21:47)
[2017-05-12 05:11] LABS: Basophils % 0.4 %; Hemoglobin 8.7 g/dL (11.5-15.4); Mean Corpuscular Hemoglobin 30.4 pg (28.0-33.3); Red Blood Count 2.86 M/mcL (3.82-4.97)
[2017-05-12 05:12] LABS: Eosinophils # 0.1 K/mcL (0.0-0.6); Eosinophils % 1.5 %; Hematocrit 26.9 % (35.3-44.9); Immature Granulocytes % 0.7 % (0-4); Immature Platelets 1.6 % (1.1-6.1); Lymphocytes # 3.2 K/mcL (0.6-4.6); Lymphocytes % 34.4 %; Mean Corpuscular HGB Conc 32.3 g/dL (31.6-35.5); Mean Corpuscular Volume 94.1 fL (83.0-100.0); Mean Platelet Volume 9.6 fL (9.4-12.4); Monocytes # 0.5 K/mcL (0.0-1.3); Monocytes % 5.7 %; Red Cell Distribution Width 15.2 % (11.5-14.5); Segmented Neutrophils % 57.3 %
[2017-05-12 05:21] LABS: Neutrophils # 5.3 K/mcL (1.6-8.9); Platelet Count 94 K/mcL (140-400)
[2017-05-12 05:28] LABS: Calcium 7.8 mg/dL (8.6-10.3); Potassium 3.7 mEq/L (3.5-5.1)
[2017-05-12] MEDS ORDERED: Insulin LISPRO 300 UNITS/3 ML VIAL SQ SCH ×3 (07:30→21:00)
[2017-05-12] MEDS ORDERED: Cholecalciferol (D-3) 1,000 UNIT TABLET PO SCH (09:00)
--- NOTE | 2017-05-12 09:03 | Nephrology Progress Note ---
Date of Encounter: 05/12/17 Time of Encounter: 09:01 - Assessment and Plan (1) Noncompliance with renal dialysis Current Visit: Yes Status: Acute Will place palliative consult Patient has stated she will do dialysis only to then refuse it; this has happened on multiple occasions. Dialysis nurses have been called in on weekend for patient then patient refuses HD. Patient does not appear to want dialysis any longer. (2) ESRD (end stage renal disease) on dialysis Current Visit: Yes Status: Chronic Patient continues to refuse dialysis. Palliative consult placed (3) Anemia in chronic renal disease Current Visit: Yes Status: Chronic Hgb 8.7 Goal 10-11 Transfuse per parameters Qualifiers: Chronic kidney disease stage: on chronic dialysis Qualified Code(s): N18.6 - End stage renal disease; D63.1 - Anemia in chronic kidney disease; Z99.2 - Dependence on renal dialysis Subjective Principal diagnosis: ESRD on dialysis, anemia Interval history: Patient seen and examined. States she doesn't feel well today. Objective - Vital Signs Vital signs: Vital Signs Temp Pulse Resp BP Pulse Ox 05/12/17 07:30 97.8 F 64 15 165/73 63 05/12/17 04:00 97.9 F 66 16 128/60 98 05/12/17 00:31 98.3 F 65 14 124/51 99 05/11/17 23:00 130/47 05/11/17 20:06 98.7 F 70 18 178/68 98 05/11/17 16:07 98.1 F 67 16 144/64 99 05/11/17 11:06 98.6 F 74 15 156/56 100 Intake and Output 05/11/17 05/12/17 05/12/17 23:59 07:59 15:59 Other: Stool Size Small Stool Consistency soft Stool Characteristics Normal for Patient Stool Color Brown Green # Urine Diapers 1 1 # Bowel Movement Diapers 1 Weight 69.7 kg Blood Glucose* 276 139 Patient Weight 05/12/17 23:59 Weight 69.7 kg - General Appearance General appearance: Present: chronically ill EENT: Present: ATNC, mucous membranes moist, hearing intact, vision intact Neck: Present: supple Respiratory: Present: clear Cardiology: Present: no edema, normal S1, normal S2 Dialysis Vascular Access: Arteriovenous Fistula Gastrointestinal: Present: no tenderness, no guarding Integumentary: Present: warm and dry Neurologic: Present: alert and oriented x3 Psychiatric: Present: mood/affect appropriate, cooperative - Lab 05/12/17 04:23 05/12/17 04:23 Most recent lab results ABG pH 7.24 pH Units (7.32-7.45) L 05/09/17 12:26 ABG pCO2 28 mmHg (35-45) L 05/09/17 12:26 ABG pO2 103 mmHg (85-104) 05/09/17 12:26 ABG HCO3 12 mEq/L (21-27) L 05/09/17 12:26 ABG O2 Saturation 97 % (95-98) 05/09/17 12:26 Calcium 7.8 mg/dL (8.6-10.3) L 05/12/17 04:23 Phosphorus 5.2 mg/dL (2.7-4.5) H 05/09/17 18:03 Magnesium 1.9 mg/dL (1.6-2.6) 05/09/17 18:03 Consult Discharge Plan - Plan Referrals: Chandler Estrada MD [Primary Care Provider] -
[2017-05-12] MEDS: Calcium Acetate 667 MG CAPSULE PO SCH ×2 (09:05→12:13)
[2017-05-12] MEDS: Lisinopril 20 MG TABLET PO SCH (09:05)
[2017-05-12] MEDS: Lactobacillus 1 EACH CAP.SPRINK PO SCH (09:05)
[2017-05-12] MEDS: Folic Acid 1 MG TABLET PO SCH (09:06)
[2017-05-12] MEDS: Iron Polysaccharide Complex 150 MG CAPSULE PO SCH (09:06)
[2017-05-12] MEDS: Renal Vitamin 1 MG CAPSULE PO SCH (09:06)
[2017-05-12] MEDS: *HR* HYDROcodone/Acet 7.5/325 mg TABLET PO PRN (09:15)
[2017-05-12] MEDS ORDERED: Ondansetron 4 MG/2 ML VIAL IVP PRN (10:01)
--- NOTE | 2017-05-12 10:37 | Internal Med Progress Note ---
<Ilya Mott - Last Filed: 05/12/17 10:32> Date of Encounter: 05/12/17 Time of Encounter: 10:33 - Assessment and plan (1) Metabolic acidosis Current Visit: Yes Status: Acute Assessment and plan: Secondary to noncompliance with dialysis. On presentation VBG pH was 7.09. Patient had rapid response called on day of admission and was given 2 Amps of bicarbonate Repeat pH was 7.24. Patient continues to refuse dialysis. She will developed metabolic acidosis which can be fatal. Family notified. Today will have a meeting with family, palliative services for goals of care. (2) ESRD (end stage renal disease) on dialysis Current Visit: Yes Status: Chronic Assessment and plan: Patient end-stage renal disease on dialysis. Noncompliant as stated above. Right arm AV fistula positive bruit. Patient again refused dialysis. Palliative care consultation for discussion of hospice. (3) Acute blood loss anemia Current Visit: Yes Status: Acute Assessment and plan: Patient's hemoglobin decreased from 9.3 on admission to 6.4. She received 2 units of packed red blood cells. hgb trending down Currently there are no signs of active bleeding. EGD on 11/12/2016 showed signs of duodenitis and one single nonbleeding angiectasia was treated with APC. fecal occult blood test + GI consulted and plan for EGD and colonoscopy tomorrow. (if family decides hospice may not undergo any procedures) (4) Noncompliance with renal dialysis Current Visit: Yes Status: Acute (5) Encephalopathy due to metabolic factor or toxin Current Visit: Yes Status: Acute Assessment and plan: 2nd to non-compliace with dialysis and sepsis from UTI Baseline now Also has underlying dementia. now awake and alert. Oriented to self and place not situation (6) Atrial fibrillation Current Visit: Yes Status: Acute Assessment and plan: History of A. fib regular rate and rhythm Not anticoagulated likely secondary to history of falls. Qualifiers: Atrial fibrillation type: chronic Qualified Code(s): I48.2 - Chronic atrial fibrillation (7) Diabetes Current Visit: Yes Status: Acute Assessment and plan: Patient is insulin-dependent diabetic. Currently she is not on a regimen as her glucose is in the low 100s. 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 Qualifiers: Dementia type: unspecified type Dementia behavioral disturbance: without behavioral disturbance Qualified Code(s): F03.90 - Unspecified dementia without behavioral disturbance (9) Severe sepsis Current Visit: Yes Status: Ruled-out Assessment and plan: ruled out unlikely does not qualify for sepsis - Subjective Interval history: Patient again refused dialysis. Nephrology has consult palliative care team. No acute events overnight. Call patient's daughter this morning, patient's medical decision maker, who will be at the hospital at noon today. - Constitutional Vitals: Temp Pulse Resp BP Pulse Ox 97.8 F 64 15 165/73 63 05/12/17 07:30 05/12/17 07:30 05/12/17 07:30 05/12/17 07:30 05/12/17 07:30 Internal Medicine: Result - Labs CBC & Chem 7: 05/12/17 04:23 05/12/17 04:23 Labs: Short CBC 05/12/17 Range/Units 04:23 WBC 9.3 (4.3-11.1) K/mcL Hgb 8.7 L (11.5-15.4) g/dL Hct 26.9 L (35.3-44.9) % Plt Count 94 L (140-400) K/mcL Neutrophils # 5.3 (1.6-8.9) K/mcL BMP 05/12/17 04:23 Sodium 139 Potassium 3.7 Chloride 111 H Carbon Dioxide 17 L BUN 73 H Creatinine 5.78 H Glucose 132 H Calcium 7.8 L - ABG Interpretation ABG results: ABG ABG pH 7.24 pH Units (7.32-7.45) L 05/09/17 12:26 ABG pCO2 28 mmHg (35-45) L 05/09/17 12:26 ABG pO2 103 mmHg (85-104) 05/09/17 12:26 ABG O2 Saturation 97 % (95-98) 05/09/17 12:26 PT/INR, D-dimer PT 13.2 Seconds (9.4-12.1) H 05/09/17 18:03 Consult Discharge Plan - Plan Instructions: Amlodipine (By mouth) Referrals: Chandler Estrada MD [Primary Care Provider] - Prescriptions: amLODIPine [Norvasc] 5 mg PO DAILY #30 tablet <Supa Busby - Last Filed: 05/12/17 18:35> Date of Encounter: 05/12/17 - Constitutional Vitals: Temp Pulse Resp BP Pulse Ox 98.2 F 71 15 181/83 98 05/12/17 11:56 05/12/17 11:56 05/12/17 11:56 05/12/17 11:56 05/12/17 11:56 Internal Medicine: Result - Labs CBC & Chem 7: 05/12/17 04:23 05/12/17 04:23 Labs: Short CBC 05/12/17 Range/Units 04:23 WBC 9.3 (4.3-11.1) K/mcL Hgb 8.7 L (11.5-15.4) g/dL Hct 26.9 L (35.3-44.9) % Plt Count 94 L (140-400) K/mcL Neutrophils # 5.3 (1.6-8.9) K/mcL BMP 05/12/17 04:23 Sodium 139 Potassium 3.7 Chloride 111 H Carbon Dioxide 17 L BUN 73 H Creatinine 5.78 H Glucose 132 H Calcium 7.8 L - ABG Interpretation ABG results: ABG ABG pH 7.24 pH Units (7.32-7.45) L 05/09/17 12:26 ABG pCO2 28 mmHg (35-45) L 05/09/17 12:26 ABG pO2 103 mmHg (85-104) 05/09/17 12:26 ABG O2 Saturation 97 % (95-98) 05/09/17 12:26 PT/INR, D-dimer PT 13.2 Seconds (9.4-12.1) H 05/09/17 18:03 - Attending Attestation Please see discharge summary of this date.
[2017-05-12 12:01] VITALS: BP 181/83
--- NOTE | 2017-05-12 14:03 | Palliative - Consult Note ---
<Jaylen John - Last Filed: 05/12/17 15:03> Date of Encounter: 05/12/17 Time of Encounter: 14:00 - Assessment and Plan (1) Goals of care, counseling/discussion Current Visit: Yes Status: Acute Assessment and plan: Had extensive conversation with patient and her daughter regarding code status, goals of care, hospice, dialysis. It was explained to her extensively that without dialysis, she will not be able to survive. Furthermore, changing her mind regarding dialysis from one day to another is not beneficial for her overall medical care. She was also educated regarding the importance of establishing a power of attorney law clerk in the event that she is not capable of making her own decisions, which is highly likely if she continues to refuse dialysis. Code status was discussed extensively as well. Plan: patient will establish her daughter Gini ([phone]) to be her power of attorney law clerk. [facility] (contact: [place]) [phone]. Patient was formerly a part of [facility] but was discharged prior to coming to the hospital. They stated however, that they will gladly take her back. code status changed to DNRCC. Patient chooses to no longer get dialysis. will be discharged back to [facility] [place] [facility] with [facility]. (2) ESRD on hemodialysis Current Visit: Yes Status: Chronic Assessment and plan: Multiple issues in the past with regard to compliance with dialysis. (3) Anemia Current Visit: No Status: Acute Assessment and plan: s/P transfusion of 2 units packed red blood cells. History of hemorrhoids. Qualifiers: Anemia type: unspecified type Qualified Code(s): D64.9 - Anemia, unspecified (4) Noncompliance with renal dialysis Current Visit: Yes Status: Acute (5) Atrial fibrillation Current Visit: Yes Status: Acute Qualifiers: Atrial fibrillation type: chronic Qualified Code(s): I48.2 - Chronic atrial fibrillation (6) DM2 (diabetes mellitus, type 2) Current Visit: No Status: Chronic Qualifiers: Diabetes mellitus buttermaker helper insulin use: with buttermaker helper use Diabetes mellitus complication status: with kidney complications Diabetes mellitus complication detail: with chronic kidney disease Chronic kidney disease stage : on chronic dialysis Qualified Code(s): E11.22 - Type 2 diabetes mellitus with diabetic chronic kidney disease; N18.6 - End stage renal disease; Z99.2 - Dependence on renal dialysis; Z99.2 - Dependence on renal dialysis; Z99.2 - Dependence on renal dialysis; N18.6 - End stage renal disease; N18.6 - End stage renal disease; N18.6 - End stage renal disease; Z79.4 - buttermaker helper (current ) use of insulin; Z79.4 - [facility] (current) use of insulin; Z79.4 - [facility] (current) use of insulin; Z79.4 - [facility] (current) use of insulin; Z99.2 - Dependence on renal dialysis Palliative-CN HPI - Data of Consult Patient: new to practice Consult date: 05/12/17 Requesting Physician: Supa Busby DO Primary Care Provider: Chandler Estrada MD - Consult Narrative Palliative Care/Comfort Measures: Hospice care Reason for consult: discuss code status and goals of care History of present illness: Ms. Bernal is a 72 year old female with past medical history of end-stage renal disease, atrial for ablation, CHF, COPD, diabetes, GERD, hypertension. She arrived to the hospital on 05/09/17 unresponsiveness. Patient is a resident of [facility]. Prior to arriving to the hospital, she was part of [facility]. However, after she arrived to the hospital she was discharged by hospice. Patient had been intermittently refusing dialysis for about 3 weeks. Cause of unresponsiveness was likely secondary to uremic encephalopathy. Palliative care team was consult it to discuss options for hospice, code status, goals of care. Today, patient is alert and oriented times 3, appears to be in no acute distress. She denies nausea, vomiting, diarrhea, fever, chills, chest pain, shortness of breath. CC: Supa Busby DO Past Med Surg Social Fam HX - Past Medical History Medical history: atrial fibrillation, CHF, COPD, diabetes, GERD, hyperlipidemia , hypertension, kidney stones, renal disease, thyroid disease, syncope, other Psychiatric history: depression - Past Surgical History Surgical History: appendectomy, carotid endarterectomy, cholecystectomy, hysterectomy, knee replacement, ALEC/BSO, other - Social History Smoking Status: Current every day smoker Smokeless Tobacco Status: No Alcohol use: none Drug use: none - Family History Father Family Member Ethnicity: Non- Living Status: Hx Family Cardiac Disorders: Yes Hx Family Respiratory Disorders: No Hx Family Cancer: No Hx Family GI Disorders: No Hx Family Endocrine Disorder: No Hx Family Neuromuscular Disorders: No Hx Family Neurologic Disorders: No Hx Family HEENT Disorders: No Hx Family Autoimmune Disorders: No Mother Living Status: Son Living Status: Age at : 40 Medications and Allergies Ergocalciferol (VITAMIN D2) [Vitamin D2 (50,000 UNIT)] 50,000 unit PO QMONTH 07/08 [History] Paroxetine [Paxil] 20 mg PO DAILY 02/12/16 [History] Clopidogrel [Plavix] 75 mg PO DAILY 04/03/16 [History] Levothyroxine [Synthroid] 175 mcg PO QAM 04/03/16 [History] Calcitriol [Rocaltrol] 0.25 mcg PO MOWEFR 11/11/16 [History] Calcium Acetate [Phos-LO] 667 mg PO TIDWM 12/27/16 [History] Ergocalciferol (VITAMIN D2) [Vitamin D2] 2,000 unit PO TUTHSA 12/27/16 [History] Lactobacillus Acidophilus [Acidophilus] 2 cap PO BID 12/27/16 [History] Insulin DETEMIR [Levemir Flextouch] 10 unit SQ DAILY #3 insuln.pen 02/18/17 [Rx] Folic Acid 1 mg PO DAILY 04/22/17 [History] Folic Acid/Vit Bcomp,C [Renal-Juliano Tablet] 0.8 mg PO BID 04/22/17 [History] HYDROcodone/Acet 7.5/325 mg [[place] 7.5-325 mg] 1 tab PO MOWEFR 04/22/17 [History ] Iron Polysaccharide Complex [Ferrex 150] 150 mg PO DAILY 04/22/17 [History] Pantoprazole Sodium [Protonix] 20 mg PO DAILY 04/22/17 [History] HYDROcodone/Acet 7.5/325 mg [[place] 7.5-325 mg] 1 tab PO Q6H PRN 05/09/17 [ History] Lisinopril [Zestril] 40 mg PO DAILY 05/09/17 [History] 3 Allergy/AdvReac Type Severity Reaction Status Date / Time Fydrnmp-Mdw-Bhf Reductase Allergy See Verified 05/09/17 10:35 Inhibitor Comments [Statins] Sulfa (Sulfonamide Allergy swelling Verified 05/09/17 09:49 Antibiotics) All systems: reviewed and no additional remarkable complaints except as stated Palliative Care-Exam - Constitutional Vitals: Temp Pulse Resp BP Pulse Ox 98.2 F 71 15 181/83 98 05/12/17 11:56 05/12/17 11:56 05/12/17 11:56 05/12/17 11:56 05/12/17 11:56 General appearance: Present: obese - Head Head Exam: Present: atraumatic, normocephalic - Eye Pupils: Present: PERRL - Neck Neck exam: Present: normal inspection - Respiratory Respiratory exam: Present: CTAB - Cardiovascular Additional comments: +3/6 systolic murmur heard best the right upper sternal border - GI/Abdominal Exam GI/Abdominal exam: Present: distended, soft. Absent: guarding - Extremities Exam Additional comments: +1 bilateral lower extremity pitting edema present. 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 - Neurological Exam Neurological exam: Present: oriented X3 Internal Medicine - CN: Reslt - Labs CBC & Chem 7: 05/12/17 04:23 05/12/17 04:23 Labs: Short CBC 05/12/17 Range/Units 04:23 WBC 9.3 (4.3-11.1) K/mcL Hgb 8.7 L (11.5-15.4) g/dL Hct 26.9 L (35.3-44.9) % Plt Count 94 L (140-400) K/mcL Neutrophils # 5.3 (1.6-8.9) K/mcL BMP 05/12/17 04:23 Sodium 139 Potassium 3.7 Chloride 111 H Carbon Dioxide 17 L BUN 73 H Creatinine 5.78 H Glucose 132 H Calcium 7.8 L - ABG Interpretation ABG results: ABG ABG pH 7.24 pH Units (7.32-7.45) L 05/09/17 12:26 ABG pCO2 28 mmHg (35-45) L 05/09/17 12:26 ABG pO2 103 mmHg (85-104) 05/09/17 12:26 ABG O2 Saturation 97 % (95-98) 05/09/17 12:26 PT/INR, D-dimer PT 13.2 Seconds (9.4-12.1) H 05/09/17 18:03 Consult Discharge Plan - Plan Referrals: Chandler Estrada MD [Primary Care Provider] - Palliative Quality Palliative Quality: Screen for Code Status: Yes, Screen for Goals of Care: Yes, Screen for Pain: Yes, If Pain Regimen Started, Initiate Bowel Regimen: Yes, Screen for Nausea/Vomitting: Yes Code Status: 05/09/17 19:20 CODE [Resuscitation Status: Active] [RES] Routine Comment: Resuscitation Status: Full Code <Behzad Kam L - Last Filed: 05/12/17 15:18> Date of Encounter: 05/12/17 Palliative-CN HPI - Data of Consult Requesting Physician: Supa Busby DO Primary Care Provider: Chandler Estrada MD - Consult Narrative History of present illness: Ms. Bernal is a 72 year old female CC: Supa Busby DO Palliative Care-Exam - Constitutional Vitals: Temp Pulse Resp BP Pulse Ox 98.2 F 71 15 181/83 98 05/12/17 11:56 05/12/17 11:56 05/12/17 11:56 05/12/17 11:56 05/12/17 11:56 Internal Medicine - CN: Reslt - Labs CBC & Chem 7: 05/12/17 04:23 05/12/17 04:23 Labs: Short CBC 05/12/17 Range/Units 04:23 WBC 9.3 (4.3-11.1) K/mcL Hgb 8.7 L (11.5-15.4) g/dL Hct 26.9 L (35.3-44.9) % Plt Count 94 L (140-400) K/mcL Neutrophils # 5.3 (1.6-8.9) K/mcL BMP 05/12/17 04:23 Sodium 139 Potassium 3.7 Chloride 111 H Carbon Dioxide 17 L BUN 73 H Creatinine 5.78 H Glucose 132 H Calcium 7.8 L - ABG Interpretation ABG results: ABG ABG pH 7.24 pH Units (7.32-7.45) L 05/09/17 12:26 ABG pCO2 28 mmHg (35-45) L 05/09/17 12:26 ABG pO2 103 mmHg (85-104) 05/09/17 12:26 ABG O2 Saturation 97 % (95-98) 03/17/18 12:26 PT/INR, D-dimer PT 13.2 Seconds (9.4-12.1) H 05/09/17 18:03 - Attending Attestation I examined this patient and my medical decision-making was reviewed with the Resident Physician. I agree with the documented findings, disposition and treatment plan as described except to the extent set forth below. Palliative Quality Code Status: 05/09/17 19:20 CODE [Resuscitation Status: Active] [RES] Routine Comment: Resuscitation Status: Full Code 05/12/17 15:03 DNR [Resuscitation Status: Active] [RES] Routine Comment: Resuscitation Status: DNR-Comfort Care
--- NOTE | 2017-05-12 15:21 | Discharge Summary ---
<Ilya Mott - Last Filed: 05/12/17 15:15> Orders not resulted at time of discharge: Pending orders 05/12/17 10:00 POC Glucometer Test [POC] Q6H 05/12/17 16:00 POC Glucometer Test [POC] Q6H 05/12/17 22:00 POC Glucometer Test [POC] Q6H 05/13/17 04:00 POC Glucometer Test [POC] Q6H Date of Encounter: 05/12/17 Time of Encounter: 15:15 - Discharge Diagnosis (1) Metabolic acidosis Priority: Primary Status: Acute (2) ESRD (end stage renal disease) on dialysis Priority: Secondary Status: Chronic (3) Acute blood loss anemia Priority: Secondary Status: Acute (4) Noncompliance with renal dialysis Priority: Secondary Status: Acute (5) Encephalopathy due to metabolic factor or toxin Priority: Secondary Status: Acute (6) Atrial fibrillation Priority: Secondary Status: Acute Qualifiers: Atrial fibrillation type: chronic Qualified Code(s): I48.2 - Chronic atrial fibrillation (7) Diabetes Priority: Secondary Status: Acute Qualifiers: Diabetes mellitus type: type 2 Diabetes mellitus continuous churn buttermaker insulin use: unspecified continuous churn buttermaker insulin use status Diabetes mellitus complication status : with unspecified complications Qualified Code(s): E11.8 - Type 2 diabetes mellitus with unspecified complications; N18.6 - End stage renal disease; N18.6 - End stage renal disease; N18.6 - End stage renal disease; N18.6 - End stage renal disease; Z99.2 - Dependence on renal dialysis; Z99.2 - Dependence on renal dialysis; Z99.2 - Dependence on renal dialysis; Z99.2 - Dependence on renal dialysis (8) Dementia Priority: Secondary Status: Suspected Qualifiers: Dementia type: unspecified type Dementia behavioral disturbance: without behavioral disturbance Qualified Code(s): F03.90 - Unspecified dementia without behavioral disturbance (9) Severe sepsis Priority: Secondary Status: Ruled-out (10) Hospice care Priority: Secondary Status: Acute Hospital course: Ms. Bernal is a 72 year old female admitted for altered mental status. Patient is a end-stage renal dialysis and has missed dialysis for the past 3 weeks. She presented with severe metabolic encephalopathy and required 2 Amps of bicarbonate. Patient has baseline dementia and forgets why she needs dialysis. Family meeting was called initially it was decided the patient would continue dialysis. However she ended up changing her mind and refused. Palliative consultation and another family meeting took place and was found that patient had artery enrolled in [facility]. Family decided that patient would reenroll in [facility] and that she would not get dialysis again. He followed this was notified and reported likely she will be discharged from his practice. Her CODE STATUS was changed to DNR CC. Her POA was established as her Daughter Brianna Hernandez ([phone]). Today patient will be discharged to [facility]. - Time Spent with Patient Total time spent providing and/or coordinating discharge services: - Discharge Medications Prescriptions: amLODIPine [Norvasc] 5 mg PO DAILY #30 tablet Home Medications: Paroxetine [Paxil] 20 mg PO DAILY 02/12/16 [History] Levothyroxine [Synthroid] 175 mcg PO QAM 04/03/16 [History] Lactobacillus Acidophilus [Acidophilus] 2 cap PO BID 12/27/16 [History] Insulin DETEMIR [Levemir Flextouch] 10 unit SQ DAILY #3 insuln.pen 02/18/17 [Rx] HYDROcodone/Acet 7.5/325 mg [[place] 7.5-325 mg] 1 tab PO MOWEFR 04/22/17 [History ] Pantoprazole Sodium [Protonix] 20 mg PO DAILY 04/22/17 [History] HYDROcodone/Acet 7.5/325 mg [[place] 7.5-325 mg] 1 tab PO Q6H PRN 05/09/17 [ History] Preparation H Ointment 1 appl RC Q4H PRN tube 05/12/17 [Rx] amLODIPine [Norvasc] 5 mg PO DAILY #30 tablet 05/12/17 [Rx] Allergies/Adverse Reactions: 3 Allergy/AdvReac Type Severity Reaction Status Date / Time Hoqqrix-Fji-Bji Reductase Allergy See Verified 05/09/17 10:35 Inhibitor Comments [Statins] Sulfa (Sulfonamide Allergy swelling Verified 05/09/17 09:49 Antibiotics) Date of admission: 05/09/17 14:23 Primary care physician: Chandler Estrada MD Consults: 05/09/17 15:15 Consult to Dialysis [CONS] ONCE 05/10/17 08:45 Consult to Dialysis [CONS] ONCE 05/10/17 19:54 Consult to Nutrition [CONS] Routine Comment: Consulting Provider: NUTRITION Reason for Dietary Consult: Diet Education PO Supplementation Consult to Stave Jointer [CONS] Routine Reason for SW Consult: [facility] PATIENT [facility] A FULL CODE AND ON HOSPICE THERE. THEY REPORTED THAT SHE FREQ REFUSES DIALYSIS. POSSIBLE NEED FOR POA. 05/11/17 07:15 Consult to Dialysis [CONS] ONCE 05/11/17 09:25 Consult to Gastroenterology [CONS] Routine Consulting Provider: Gastroenterremi Borges Reason for Consult: GI bleed Call Completed: Yes 05/12/17 09:04 Consult to Palliative Care [CONS] Routine Comment: Consulting Provider: Palliative Care Katerina Reason for Consult: Pt says she wants dialysis but then refuses; has happened multiple times Call Completed: No Discharging clinician: Ilya Mott Anticipated date of discharge: 05/12/17 - Constitutional Vitals: Temp Pulse Resp BP Pulse Ox 98.2 F 71 15 181/83 98 05/12/17 11:56 05/12/17 11:56 05/12/17 11:56 05/12/17 11:56 05/12/17 11:56 - Other Additional findings: General: without distress HEENT: Head atraumatic, normocephalic, EOMI, PERRL, neck nontender to palpation , absent lymphadenopathy, Moist Mucous Membranes, Heart: Regular rate and rhythm with no murmur Lungs: Clear to auscultation bilaterally Abdomen: Soft nontender, nondistended positive bowel sounds Skin: warm and dry Extremities: Absent pedal edema, Neuro: alert to self and place not situation or time. Vascular: Pedal and radial pulses 2 out of 4 - Patient Status Disposition: Hospice - Home Condition: Serious Functional capacity at discharge: wheelchair bound Overall status at discharge: patient is not back to baseline - Discharge Instructions Instructions: Amlodipine (By mouth) Follow Up With: Chandler Estrada MD [Primary Care Provider] - - Diet and Activity Activity: increase activity as tolerated Diet: regular diet <Supa Busby - Last Filed: 05/12/17 18:42> Orders not resulted at time of discharge: Pending orders 05/12/17 10:00 POC Glucometer Test [POC] Q6H 05/12/17 16:00 POC Glucometer Test [POC] Q6H Date of Encounter: 05/12/17 - Discharge Diagnosis (1) Metabolic encephalopathy Priority: Primary Status: Resolved (2) Metabolic acidosis Status: Acute (3) Noncompliance with renal dialysis Status: Acute (4) Acute blood loss anemia Status: Acute (5) Atrial fibrillation Status: Acute Qualifiers: Atrial fibrillation type: chronic Qualified Code(s): I48.2 - Chronic atrial fibrillation (6) COPD (chronic obstructive pulmonary disease) Priority: Secondary Status: Chronic Qualifiers: COPD type: unspecified COPD Qualified Code(s): J44.9 - Chronic obstructive pulmonary disease, unspecified (7) Diabetes Status: Acute Qualifiers: Diabetes mellitus type: type 2 Diabetes mellitus chcf insulin use: unspecified continuous churn buttermaker insulin use status Diabetes mellitus complication status : with kidney complications Diabetes mellitus complication detail: with chronic kidney disease Chronic kidney disease stage: on chronic dialysis Qualified Code(s): E11.22 - Type 2 diabetes mellitus with diabetic chronic kidney disease; N18.6 - End stage renal disease; N18.6 - End stage renal disease ; N18.6 - End stage renal disease; N18.6 - End stage renal disease; Z99.2 - Dependence on renal dialysis; Z99.2 - Dependence on renal dialysis; Z99.2 - Dependence on renal dialysis; Z99.2 - Dependence on renal dialysis (8) Hypertension Priority: Secondary Status: Chronic Qualifiers: Hypertension type: essential hypertension Qualified Code(s): I10 - Essential (primary) hypertension (9) Tobacco abuse Priority: Secondary Status: Chronic Hospital course: Ms. Bernal is a 72 year old female - Time Spent with Patient Total time spent providing and/or coordinating discharge services: 25min Date of admission: 05/09/17 14:23 Primary care physician: Chandler Estrada MD Consults: 05/09/17 15:15 Consult to Dialysis [CONS] ONCE 05/10/17 08:45 Consult to Dialysis [CONS] ONCE 05/10/17 19:54 Consult to Nutrition [CONS] Routine Comment: Consulting Provider: NUTRITION Reason for Dietary Consult: Diet Education PO Supplementation Consult to Stave Jointer [CONS] Routine Reason for SW Consult: [facility] PATIENT IS A FULL CODE AND ON HOSPICE THERE. THEY REPORTED THAT SHE FREQ REFUSES DIALYSIS. POSSIBLE NEED FOR POA. 05/11/17 07:15 Consult to Dialysis [CONS] ONCE 05/11/17 09:25 Consult to Gastroenterology [CONS] Routine Consulting Provider: Rell Borges Reason for Consult: GI bleed Call Completed: Yes 05/12/17 09:04 Consult to Palliative Care [CONS] Routine Comment: Consulting Provider: Yariel Borges Reason for Consult: Pt says she wants dialysis but then refuses; has happened multiple times Call Completed: No - Constitutional Vitals: Temp Pulse Resp BP Pulse Ox 98.2 F 71 15 181/83 98 05/12/17 11:56 05/12/17 11:56 05/12/17 11:56 05/12/17 11:56 05/12/17 11:56 - Attending Attestation I examined this patient and my medical decision-making was reviewed with the Resident Physician on 05/12/17. I agree with the documented findings, disposition and treatment plan as described except to the extent set forth below. Ms Bernal has been admitted for complications related to no dialysis. She has elected to return to SNF with hospice and not resume dialysis. Arrangements have been made. Exam Alert Comfortable Mucus membranes dry Heart reg No wheeze Plan D/C to ECF with hospice.
--- NOTE | 2017-05-12 16:34 | Physician Discharge Referral ---
ExtendedCare Referral Info Transfer To: signature Provider in Charge: Dr. Busby Provider in Charge after Transfer: Financial Institution Manager Institutional Level of Care: Intermediate - Diagnosis (1) Metabolic acidosis Priority: Primary Status: Acute (2) ESRD (end stage renal disease) on dialysis Priority: Secondary Status: Chronic (3) Acute blood loss anemia Priority: Secondary Status: Acute (4) Noncompliance with renal dialysis Priority: Secondary Status: Acute (5) Encephalopathy due to metabolic factor or toxin Priority: Secondary Status: Acute (6) Atrial fibrillation Priority: Secondary Status: Acute (7) Diabetes Priority: Secondary Status: Acute (8) Dementia Priority: Secondary Status: Suspected (9) Severe sepsis Priority: Secondary Status: Ruled-out (10) Hospice care Priority: Secondary Status: Acute - Transfer Medications Prescriptions: amLODIPine [Norvasc] 5 mg PO DAILY #30 tablet Home Medications: Paroxetine [Paxil] 20 mg PO DAILY 02/12/16 [History] Levothyroxine [Synthroid] 175 mcg PO QAM 04/03/16 [History] Lactobacillus Acidophilus [Acidophilus] 2 cap PO BID 12/27/16 [History] Insulin DETEMIR [Levemir Flextouch] 10 unit SQ DAILY #3 insuln.pen 02/18/17 [Rx] HYDROcodone/Acet 7.5/325 mg [[place] 7.5-325 mg] 1 tab PO MOWEFR 04/22/17 [History ] Pantoprazole Sodium [Protonix] 20 mg PO DAILY 04/22/17 [History] HYDROcodone/Acet 7.5/325 mg [[place] 7.5-325 mg] 1 tab PO Q6H PRN 05/09/17 [ History] Preparation H Ointment 1 appl RC Q4H PRN tube 05/12/17 [Rx] amLODIPine [Norvasc] 5 mg PO DAILY #30 tablet 05/12/17 [Rx] Allergies/Adverse Reactions: 3 Allergy/AdvReac Type Severity Reaction Status Date / Time Ojbohku-Ldi-Dzc Reductase Allergy See Verified 05/09/17 10:35 Inhibitor Comments [Statins] Sulfa (Sulfonamide Allergy swelling Verified 05/09/17 09:49 Antibiotics) - Respiratory Orders None Smoking Cessation: Smoking cessation has been advised. For more information, call the [place] Tobacco Quit Line at 1-866-WWCV-NOW. - Advance Directives Code Status: DNR-Comfort Care - Mobility Orders Chair - Treatments Skin tear care topically daily PRN per policy - Diet Orders Regular CERTIFICATION: I certify that the transfer of the above named patient to an Extended Care Facility is necessary for the continuing treatment of the diagnosis listed. The above information is true and accurate reflection of patient's current condition. Confidential - Redisclosure prohibited without a patient's written consent.
[2017-05-12] MEDS ORDERED: SODIUM CHLORIDE/NAHCO3/KCL/PEG 4,000 ML SOLN.RECON PO ONE (17:00)
--- NOTE | 2017-05-13 18:34 | Electrocardiograph Report ---
[address] [address] Test Date: 2017-05-09 Pat Name: Marline Bernal Department: [id number] Room: 2N10 Gender: F Momd Teacher: : [id number] Requested By: Spring Sweeney Order Number: [id number] Reading MD: Thomas Avalos MD Measurements Intervals [place] Rate: 52 P: 89 MT: 201 QRS: 13 QRSD: 81 T: 129 QT: 431 QTc: 412 Interpretive Statements SINUS BRADYCARDIA WITH OCCASIONAL SUPRAVENTRICULAR PREMATURE COMPLEXES BASELINE ARTIFACT COMPLICATES ACCURATE INTERPRETATION Electronically Signed On 05-13-2017 18:32:51 EDT by Thomas Avalos MD
== END 2017-05-12 18:15 | disposition hospice, home (50) | DRG 70 ==
LOC: EMEROO 08:06 → 2NNU 14:23 → SUATTDRO 14:23 → 2NNU 15:30
PROVIDERS: ADMIT Student in an Organized Health Care Education/Training Program; ATTEND Internal Medicine